=== PATIENT | female | born 1955 | race Caucasian/White ===

== ENCOUNTER 2024-01-20 10:00 | Emergency (ER) | payer MEDICARE, SELFPAY ==
[2024-01-20 10:08] VITALS: BP 133/69; BMI 51.5
[2024-01-20 10:35] LABS: % Basophils 0.4 % (0-2); % Eosinophils 2.4 % (0-6); % Immature Granulocytes 0.5 % (0-0.5); % Lymphocytes 8.2 % (20.5-51.1); % Monocytes 7.1 % (1.7-9.3); % Neutrophils 81.4 % (42.2-75.2); Absolute Eosinophils 0.3 10^3/uL (0-0.7); Absolute Immature Granulocytes 0.1 10^3/uL (0-0.05); Absolute Lymphocytes 0.9 10^3/uL (1.2-3.4); Absolute Monocytes 0.8 10^3/uL (0.1-0.6); Absolute Neutrophils 8.7 10^3/uL (1.4-6.5); Hemoglobin 12.9 g/dL (12.0-16.0); Mean Corp Hgb Conc. 30.7 g/dL (33.0-37.0); Mean Corpuscular Hgb 28.4 pg (27.0-31.0); Mean Corpuscular Volume 92.3 fL (81.0-99.0); Mean Platelet Volume 10.1 fL (7.4-10.4); Nucleated Red Blood Cells % 0 %; Platelet Count 274 10^3/uL (130-400); Red Blood Cell Count 4.55 10^6/uL (4.20-5.40); Red Cell Dist. Width 14.2 % (11.5-14.5); White Blood Cell Count 10.7 10^3/uL (4.8-10.8)
[2024-01-20 10:54] LABS: COVID-19 Antigen Negative (Negative)
[2024-01-20 11:15] VITALS: BP 108/77
--- NOTE | 2024-01-20 11:31 | ED.GENMED ---
History of Present Illness
General
Chief Complaint: Cough
Source: patient
Exam Limitations: none
Time Seen by Provider: 01/20/24 10:13
Nursing documentation reviewed up to this point in time: agreed with
Travel History
Have you had any contact with someone who has COVID-19?: No
Do you have any symptoms of coronavirus? Fever > 100 degrees, chills, cough, shortness of breath, sore throat, loss of taste or smell, muscle aches, or headache?: No
History of Present Illness
History of Present Illness:
Patient is a 68-year-old female with history of COPD on 5 L nasal cannula oxygen normally history A-fib CHF hypertension presents to the ER for evaluation of cough for the past few days with some diarrhea. She does report cough is productive at
times. No new shortness of breath. She denies any associated fever chills. Patient
She also is asking for assistance at home. She reports she lives with her who is an alcoholic and her daughter. She reports she is often left alone a lot her daughter does try to care for her and cleans the house but she feels that it is
too much for her daughter. She is asking about getting more assistance for home care. Patient is stable and non toxic
Past History
Past History
ED Past Medical History: CHF, COPD and HTN
ED Past Surgical History: None
Social History
Tobacco: Former smoker
Alcohol: None
Personal:
Living: with family
Review of Systems
Review of Systems
Allergies reviewed?: Yes
All Other Systems: ROS reviewed and negative except as documented in HPI and ROS
Constitutional: Reports no symptoms; Denies fever, fatigue or chills
EENT: Reports no symptoms
Respiratory: Reports cough
Cardiac: Reports no symptoms
ABD/GI: Reports no symptoms
Musculoskeletal: Reports no symptoms
Skin: Reports no symptoms
Neurological: Reports no symptoms
Phy Exam
General Physical Exam
General Presentation: no apparent distress
General age: appears stated age
General Skin: warm and dry
General Habitus: elderly
General Mental: alert
General Hydration: appears well hydrated
Neurological Exam
Neurological Exam: alert and oriented x3
Musculoskeletal Exam
Musculoskeletal Exam: full ROM
Skin Exam
Skin Exam: normal color and warm/dry
Course
Orders/Labs/Results
Orders:
Orders
01/20/24 10:12
CR Chest - 2 Views Urgent
Comment:
Reason For Exam: cough, sob
01/20/24 10:19
COVID-19 Antigen Urgent
Source: Nasal Swab
Complete Blood Count/With Diff Urgent
Influenza A+B Rapid Molecular Urgent
PUJA Source: Nasal Swab
Specimen Description:
01/20/24 11:04
Comprehensive Metabolic Panel Routine
01/20/24 11:46
Case Management Consult ONCE
Case Management Consult: VN/Home Care
Requested By:: PT/FAMILY
01/20/24 11:57
Dexamethasone Sod Phosphate [Decadron] 10 mg IV NOW STA
01/20/24 11:58
Albuterol Nebs [Ventolin Nebules] 2.5 mg INH R NOW STA
Abnormal Lab Results
01/20/24 01/20/24
10:19 11:04
MCHC 30.7 L g/dL
(33.0-37.0)
Abs Immat Gran (auto) 0.1 H 10^3/uL
(0-0.05)
Absolute Neuts (auto) 8.7 H 10^3/uL
(1.4-6.5)
Absolute Lymphs (auto) 0.9 L 10^3/uL
(1.2-3.4)
Absolute Monos (auto) 0.8 H 10^3/uL
(0.1-0.6)
Neutrophils % 81.4 H %
(42.2-75.2)
Lymphocytes % 8.2 L %
(20.5-51.1)
Chloride 97 L mmol/L
(98-107)
Carbon Dioxide 38 H mmol/L
(22-30)
BUN 34 H mg/dl
(7-17)
Glucose 101 H mg/dl
(70-99)
01/20/24 10:19
01/20/24 11:04
Vital Signs
Initial and Last Documented VS:
Initial Vital Signs
Pulse Ox
98
01/20/24 10:07
Last Documented Vital Signs
Temp Pulse Resp BP Pulse Ox
98.5 F 61 18 115/89 97
01/20/24 10:08 01/20/24 12:15 01/20/24 11:30 01/20/24 12:00 01/20/24 10:08
MDM/Problems Addressed
Differential Diagnosis Includes:
not limited to: COPD exacerbation viral syndrome
MDM/Problems Addressed:
68 yr old female with history of COPD complains of cough for the past few days. Mild intermittent diarrhea. She is on chronic O2 for COPD. She presents awake alert no acute distress she denies any fevers is afebrile here mild x-ray wheeze on
exam white count 10.7. Chest x-ray negative for acute pulmonary abnormalities. There is an incidental compression fracture which she is aware of this.
She is in no acute distress. She was given a neb here along with steroids. In addition she requested to speak to somebody about getting extra help at home. Case management saw patient and going to refer her to [facility] and [facility] lerner. She stable
awake alert no acute distress stable for discharge home will DC on 4 days of steroids patient has nebs and inhalers at home will have her follow-up with her Pulmonary.
*Critical Care Note
Total Time (30-74mins, 75-104mins- exclusive of procedures): Not Applicable
ED Attending Note
-
Portions of this chart may have been created with voice recognition software.� Occasional wrong word or��sound alike� substitutions may have occurred due to the inherent limitations of voice recognition software.
Discharge Plan
Departure
Patient Disposition: Home (Routine Discharge)
Date of Disposition: 01/20/24
Time of Disposition: 13:12
Patient with high blood pressure during this ER visit?: No
Covid-19: Not Applicable
Discharge Problem:
Cough, copd exacerbation
Instructions: Cough, Adult (DC), Exacerbation of COPD (DC)
Prescriptions:
New
prednisone 20 mg tablet
40 mg PO DAILY Qty: 8 0RF
No Action
levothyroxine 100 MCG tablet
100 mcg PO DAILY AT 0700
albuterol sulfate 1 PUFF HFA aerosol inhaler
2 puff inhalation R Q4HPRN PRN (Reason: copd)
omeprazole 20 MG tablet,disintegrat, delay rel
20 mg PO DAILY
furosemide 40 MG tablet
40 mg PO BID AT 0800,1600 Qty: 60 0RF
sertraline 25 MG tablet
25 mg PO DAILY Qty: 0 0RF
Eliquis 5 MG tablet
5 mg PO BID Qty: 0 0RF
Hold Instructions: Resume on 01/17/23.
therapeutic multivitamin Tablet
1 tab PO DAILY
omega 3-aig-qdy-fish oil [Fish Oil] 1,000 mg (120 mg-180 mg) Capsule
1 cap PO DAILY
metoprolol succinate 25 mg Tablet Extended Release 24 Hr
25 mg PO DAILY Qty: 30 0RF
calcium carbonate 500 mg calcium (1,250 mg) Tablet
1,000 mg PO DAILY
cholecalciferol (vitamin D3) [Vitamin D3] 25 mcg (1,000 unit) Capsule
25 mcg PO DAILY
lisinopril 20 mg tablet
20 mg PO DAILY
oxycodone-acetaminophen 5-325 mg Tablet
1 tab PO Q4HPRN PRN (Reason: moderate pain) Qty: 20 0RF
hydrocortisone 2.5 % Cream
1 applic topical BID 14 Days Qty: 60 0RF
colchicine 0.6 mg Tablet
0.6 mg PO BID 7 Days Qty: 14 0RF
Metamucil Fiber Singles 3.4 gram Powder In Packet
1 packet PO DAILY Qty: 0 0RF
doxycycline hyclate 100 mg capsule
100 mg PO BID 10 Days Qty: 20 0RF
fluticasone propionate [Flovent HFA] 220 mcg/actuation HFA aerosol inhaler
1 inh inhalation BID Qty: 12 0RF
miconazole nitrate [Desenex] 2 % powder
1 applic topical BID Qty: 85 0RF
Referrals:
Ji Naidu MD [Active] -
Aden Jeffrey MD [Family Provider] -
Activity Restrictions/Additional Instructions:
Continue to use your inhaler and nebulizers as previously recommended. A prescription for steroids was sent to your pharmacy to take daily for the next 4 days. You were given the first dose here in the ER. [facility] visiting nurse will be
following up with you as discussed with case management. Return if any worsening of symptoms.
Follow-up with your family doctor the next several days as well as your waterproofer helper
Interventions
Interventions:
*Risk Screen - Suicide Last Done: 01/20/24 10:07
*General Assessment Last Done: 01/20/24 10:07
*Neglect/Abuse Screening Last Done: 01/20/24 10:07
ED- Fall Risk Assessment Last Done: 01/20/24 10:13
*ED COVID-19 Vaccine History Last Done: 01/20/24 10:02
ED- Pulmonary Assessment Last Done: 01/20/24 10:07
Discharge Date and Time
Print Language: CZECH
[2024-01-20 11:40] LABS: ALT (SGPT) 18 U/L (0-35); AST (SGOT) 23 U/L (14-36); Albumin 3.9 g/dl (3.5-5.0); Alkaline Phosphatase 93 U/L (38-126); Blood Urea Nitrogen 34 mg/dl (7-17); Calcium 8.7 mg/dl (8.4-10.2); Chloride 97 mmol/L (98-107); Estimated Creatinine Clearance 78 ml/min; Glucose 101 mg/dl (70-99); Sodium 143 mmol/L (135-145); Total Bilirubin 0.4 mg/dl (0.2-1.3); Total Protein 6.7 g/dl (6.3-8.2); eGFR > 60.00
[2024-01-20 11:57] LABS: Carbon Dioxide 38 mmol/L (22-30)
[2024-01-20 12:00] VITALS: BP 115/89
[2024-01-20] MEDS: DECADRON 10 MG IV (12:15)
[2024-01-20] MEDS: VENTOLIN NEBULES 2.5 MG INH (12:15)
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
[2024-01-20 13:00] VITALS: BP 116/91
[2024-01-20 13:52] VITALS: BP 131/109
== END 2024-01-20 14:53 | disposition home or self-care (01) ==
LOC: EMR 10:00
PROVIDERS: EMERGENCY PHYSICIAN Emergency Medicine; FAMILY PHYSICIAN Internal Medicine
DX: R05.9 Cough, unspecified (principal); J44.1 Chronic obstructive pulmonary disease with (acute) exacerbation; I50.9 Heart failure, unspecified; I11.0 Hypertensive heart disease with heart failure; Z87.891 Personal history of nicotine dependence
CPT/HCPCS: 99284; 94640; 96374; 71046; 80053; 85025; 87502; 87811

== ENCOUNTER 2024-01-25 09:57 | Inpatient (IN) | payer MEDICARE, SELFPAY ==
[2024-01-25 07:55] VITALS: BP 168/75
[2024-01-25 08:05] VITALS: BMI 50.8
--- NOTE | 2024-01-25 08:21 | ED.GENMED ---
History of Present Illness
General
Chief Complaint: Breathing Problem
Source: patient
Exam Limitations: none
Time Seen by Provider: 01/25/24 07:55
Nursing documentation reviewed up to this point in time: agreed with
Travel History
Have you had any contact with someone who has COVID-19?: No
Do you have any symptoms of coronavirus? Fever > 100 degrees, chills, cough, shortness of breath, sore throat, loss of taste or smell, muscle aches, or headache?: Yes
Symptoms:: SOB
History of Present Illness
History of Present Illness:
Patient with history of oxygen dependent COPD (5L via NC), presents to ED secondary to persistent cough with shortness of breath, along with decreased appetite over the past 2 weeks. Patient was evaluated in ED 2 days ago and was discharged home on
steroids. Since then, patient states that her symptoms have worsened. Denies chest pain. Denies back pain. Denies fever or chills. Denies nausea, vomiting, or diarrhea. Denies rash. Denies headache. Patient also reports increased leg
swelling, despite taking Lasix. Patient's past medical history is also significant for atrial fibrillation, for which she takes Eliquis daily.
Past History
Past History
ED Past Medical History: CHF, COPD and HTN
ED Past Surgical History: None
Social History
Tobacco: Former smoker
Alcohol: None
Personal:
Living: with family
Review of Systems
Review of Systems
Allergies reviewed?: Yes
All Other Systems: ROS reviewed and negative except as documented in HPI and ROS
Constitutional: Reports no symptoms; Denies fever
EENT: Reports no symptoms
Respiratory: Reports cough and trouble breathing
Cardiac: Reports no symptoms
ABD/GI: Reports no symptoms
Musculoskeletal: Reports no symptoms
Skin: Reports no symptoms
Neurological: Reports no symptoms
Phy Exam
Physical Exam
Physical Exam:
Physical Exam
General: mild respiratory distress, not acutely ill. afebrile
Head: nc/at. eomi
Neck: supple. no meningeal signs. normal posterior pharynx
Heart: s1/s2 regular rate and rhythm, no murmur. equal radial pulses.
Lungs: mild respiratory distress. diffuse wheezing bilaterally
Abdomen: normal bowel sounds. not tender.
Neuro: alert and oriented. no focal neurological deficits
Skin: no rash
Psychiatric: well kept. interactive and cooperative
Extremities: LE b/l edema. no calf tenderness.
Scores
Heart Failure Risk
Heart Failure Risk Score: Not Applicable
Course
Orders/Labs/Results
Orders:
Orders
01/25/24 08:06
ECG [Electrocardiogram (*1)] Urgent
Reason for Study: Shortness of Breath
EKG- Treatment ONCE
01/25/24 08:19
CT Chest W/o Iv Contrast Urgent
Comment:
Reason For Exam: cough/sob
Albuterol Nebs [Ventolin Nebules] 2.5 mg INH R NOW STA
Guaifenesin/Codeine Solution [Robitussin AC] 10 ml PO NOW STA
Ipratropium/Albuterol Sulfate [Duoneb] 3 ml INH R NOW STA
01/25/24 08:20
Dexamethasone Sod Phosphate [Decadron] 6 mg IV NOW STA
01/25/24 08:22
Complete Blood Count/With Diff Urgent
Comprehensive Metabolic Panel Urgent
Magnesium Urgent
Pro-BNP [NT-proBNP] Urgent
01/25/24 08:29
Acetaminophen [Tylenol] 650 mg PO NOW STA
01/25/24 09:08
Lactic Acid Q4H
Comment: CANCEL 2nd LACTIC ACID IF 1st LACTIC ACID IS LESS THAN 2
Blood Culture Q30M
PUJA Source: Blood/Venous
Specimen Description:
01/25/24 09:09
Blood Culture Q30M
PUJA Source: Blood/Venous
Specimen Description:
01/25/24 09:28
Azithromycin 500 mg/250 ml [Zithromax Infusion] 500 mg in 250 ml IV NOW
01/25/24 09:34
Admit/Transfer Patient As Directed
Co-Sign Provider:
Level of Care: Inpatient admission
Assign to:: Telemetry
Physician / Group: Hospitalist
Diagnosis: COPD
Reason for Telemetry: Medication for Arrhythmia
Date to Stop Telemetry: 01/27/24
Time to Stop Telemetry: 11:00
Reason for Hospitalization: .
Expected length of stay greater than two midnights?: Yes
ELOS- Estimated Length of Stay in days: 3
I certify the patient meets the requirements for IP care: Yes
01/25/24 20:00
Apixaban [Eliquis] 5 mg PO BID
Colchicine 0.6 mg PO BID
Metoprolol Xl [Toprol Xl] 25 mg PO BID
01/26/24 07:00
Levothyroxine [Synthroid] 100 mcg PO DAILY AT 0700
01/26/24 08:00
Lisinopril [Zestril] 20 mg PO DAILY
Sertraline HCl [Zoloft] 25 mg PO DAILY
01/27/24 11:00
DC Protocol for Telemetry ONCE
Abnormal Lab Results
01/25/24
08:22
WBC 13.4 H 10^3/uL
(4.8-10.8)
MCHC 29.9 L g/dL
(33.0-37.0)
Abs Immat Gran (auto) 0.1 H 10^3/uL
(0-0.05)
Absolute Neuts (auto) 10.6 H 10^3/uL
(1.4-6.5)
Absolute Monos (auto) 1.0 H 10^3/uL
(0.1-0.6)
Neutrophils % 79.7 H %
(42.2-75.2)
Lymphocytes % 9.6 L %
(20.5-51.1)
Sodium 146 H mmol/L
(135-145)
Chloride 94 L mmol/L
(98-107)
Carbon Dioxide 38 H mmol/L
(22-30)
BUN 26 H mg/dl
(7-17)
Glucose 111 H mg/dl
(70-99)
01/25/24 08:22
01/25/24 08:22
Vital Signs
Initial and Last Documented VS:
Initial Vital Signs
Temp Pulse Resp BP Pulse Ox
98.6 F 79 26 168/75 99
01/25/24 07:55 01/25/24 07:55 01/25/24 07:55 01/25/24 07:55 01/25/24 07:55
Last Documented Vital Signs
Temp Pulse Resp BP Pulse Ox
99 F 82 18 144/74 95
01/25/24 11:40 01/25/24 12:05 01/25/24 11:40 01/25/24 11:40 01/25/24 12:05
MDM/Problems Addressed
MDM/Problems Addressed:
CT chest without contrast ordered, secondary to ongoing symptoms despite recent normal chest x-ray.
CT chest report reviewed.
Patient with likely COPD exacerbation, likely secondary to ongoing bronchitis, despite treatment with steroids as an outpatient. Patient will be admitted for further evaluation treatment, including IV steroids, nebulizer treatment, and/or
antibiotics. Will administer Zithromax in ED.
Blood culture pending.
*EKG
Interpreted by ED Provider?: Yes
EKG Intrepretation Date: 01/25/24
Interpretation: normal
Heart Rate: 81
Rhythm: sinus
[place]: normal axis
Interval: normal interval
*Critical Care Note
Total Time (30-74mins, 75-104mins- exclusive of procedures): Not Applicable
ED Attending Note
-
Portions of this chart may have been created with voice recognition software.� Occasional wrong word or��sound alike� substitutions may have occurred due to the inherent limitations of voice recognition software.
Discharge Plan
Departure
Patient Disposition: Admit
Date of Disposition: 01/25/24
Time of Disposition: 09:27
Admit to: Telemetry
Presentation/result/management discussed w/ accepting MD/DO: Hospitalist
Discharge Problem:
COPD exacerbation, Bronchitis
Interventions
Interventions:
*Risk Screen - Suicide Last Done: 01/25/24 07:55
*General Assessment Last Done: 01/25/24 07:55
*Neglect/Abuse Screening Last Done: 01/25/24 07:55
ED- Fall Risk Assessment Last Done: 01/25/24 10:43
*Nursing Disposition Last Done: 01/25/24 11:30
ED- Cardiac Assessment Last Done: 01/25/24 10:43
ED- Pulmonary Assessment Last Done: 01/25/24 10:43
Discharge Date and Time
Discharge Date/Time: 01/25/24 11:31
[2024-01-25 08:33] LABS: % Basophils 0.4 % (0-2); % Eosinophils 2.1 % (0-6); % Immature Granulocytes 0.5 % (0-0.5); % Lymphocytes 9.6 % (20.5-51.1); % Monocytes 7.7 % (1.7-9.3); % Neutrophils 79.7 % (42.2-75.2); Absolute Basophils 0.1 10^3/uL (0-0.2); Absolute Eosinophils 0.3 10^3/uL (0-0.7); Absolute Immature Granulocytes 0.1 10^3/uL (0-0.05); Absolute Lymphocytes 1.3 10^3/uL (1.2-3.4); Absolute Neutrophils 10.6 10^3/uL (1.4-6.5); Hematocrit 46.1 % (37.0-47.0); Hemoglobin 13.8 g/dL (12.0-16.0); Mean Corp Hgb Conc. 29.9 g/dL (33.0-37.0); Mean Corpuscular Hgb 28.1 pg (27.0-31.0); Mean Corpuscular Volume 93.9 fL (81.0-99.0); Mean Platelet Volume 9.8 fL (7.4-10.4); Nucleated Red Blood Cells % 0 %; Platelet Count 309 10^3/uL (130-400); Red Blood Cell Count 4.91 10^6/uL (4.20-5.40); Red Cell Dist. Width 14.2 % (11.5-14.5); White Blood Cell Count 13.4 10^3/uL (4.8-10.8)
[2024-01-25 08:44] LABS: ALT (SGPT) 29 U/L (0-35); AST (SGOT) 28 U/L (14-36); Albumin 4.1 g/dl (3.5-5.0); Alkaline Phosphatase 103 U/L (38-126); Blood Urea Nitrogen 26 mg/dl (7-17); Calcium 9.3 mg/dl (8.4-10.2); Chloride 94 mmol/L (98-107); Estimated Creatinine Clearance 97 ml/min; Glucose 111 mg/dl (70-99); Magnesium 1.9 mg/dl (1.6-2.3); Potassium 3.7 mmol/L (3.5-5.1); Sodium 146 mmol/L (135-145); Total Bilirubin 0.5 mg/dl (0.2-1.3); Total Protein 7.5 g/dl (6.3-8.2); eGFR > 60.00
[2024-01-25 08:52] LABS: NT-proBNP 490 pg/ml
[2024-01-25] MEDS: VENTOLIN NEBULES 2.5 MG INH (08:57)
[2024-01-25] MEDS: DUONEB 3 ML INH ×4 (08:57→19:27)
[2024-01-25] MEDS: ROBITUSSIN AC 10 ML PO (08:57)
[2024-01-25] MEDS: DECADRON 6 MG IV (08:57)
[2024-01-25] MEDS: TYLENOL 650 MG PO (08:58)
[2024-01-25 09:14] LABS: Carbon Dioxide 38 mmol/L (22-30)
--- NOTE | 2024-01-25 09:34 | HPS.HSE ---
Family Physician
-
Family Physician: * NONE
Chief Complaint
-
Shortness of breath for 2 weeks
History of Present Illness
68 years old 68 years old female who presented with shortness of breath for 2 weeks duration, patient complained of cough with whitish-greenish sputum. No fever or chills. She was using her nebulizer treatment with no interruption. She has
COPD and quit smoking 5 years ago. She came into the emergency room few days ago ( 01/20/24) and was given a prednisone and oral antibiotic but did not help. She is complaining of difficulty ambulating at home and respiratory distress upon minimal
activity. She uses 5 L of oxygen and oxygen on arrival was 98%. Chest scan showed bronchial wall thickening in the left lung compatible with a bronchitis with mild patchy areas of nodular parenchymal opacities suggesting small airway pneumonitis
with a bronchitis. Leukocytosis on admission.
Medical History
Past Medical History
Past Medical History: Reports Other ( Chronic heart failure, paroxysmal atrial fibrillation, hypertension, hyperlipidemia, chronic hypoxic respiratory failure, COPD, hypothyroidism, morbid obesity)
Past Surgical History: Reports Other ( No recent major surgery )
Social History
Tobacco: Former Smoker
Alcohol: None
Drug: None
Personal:
Living: With Family
Employment: Retired
Family History
Family History: Not pertinent
Allergies / Home Medications
Allergies reflects when Allergies were last updated in [facility].
Home Medications with original date entered in [facility]
Allergy/Medication List:
Allergies
Allergy/AdvReac Type Severity Reaction Status Date / Time
No Known Allergies Allergy Verified 01/25/24 07:55
Home Medications
albuterol sulfate 90 mcg/actuation aerosol inhaler 2 puff inhalation R Q4HPRN PRN copd 01/30/21
levothyroxine 100 mcg tablet 100 mcg PO DAILY AT 0700 Thyroid 01/30/21
omeprazole 20 mg delayed release,disintegrating tablet 20 mg PO DAILY Gastrointestinal issue 01/30/21
apixaban 5 mg tablet (Eliquis) 5 mg PO BID Blood clot prevention/tx #0 tabs 02/04/21
furosemide 40 mg tablet 40 mg PO BID AT 0800,1600 Fluid retention/Swelling #60 tabs 02/04/21
sertraline 25 mg tablet 25 mg PO DAILY Depression #0 tabs 02/04/21
omega 9-jwv-hni-fish oil 1,000 mg (120 mg-180 mg) capsule (Fish Oil) 1 cap PO DAILY Supplement 12/17/22
therapeutic multivitamin 1 tab PO DAILY Supplement 12/17/22
metoprolol succinate 25 mg tablet,extended release 24 hr 25 mg PO DAILY #30 tabs 12/21/22
calcium carbonate 1,000 mg PO DAILY Supplement 01/14/23
cholecalciferol (vitamin D3) 25 mcg (1,000 unit) capsule (Vitamin D3) 25 mcg PO DAILY Supplement 01/14/23
lisinopril 20 mg tablet 20 mg PO DAILY Blood pressure 01/15/23
colchicine 0.6 mg tablet 0.6 mg PO BID 7 days #14 tabs 01/16/23
hydrocortisone 2.5 % topical cream 1 applic topical BID 14 days #60 grams 01/16/23
oxycodone-acetaminophen 5 mg-325 mg tablet 1 tab PO Q4HPRN PRN moderate pain #20 tabs 01/16/23
psyllium husk (aspartame) 3.4 gram oral powder packet (Metamucil Fiber Singles) 1 packet PO DAILY #0 ea 01/16/23
fluticasone propionate 220 mcg/actuation HFA aerosol inhaler (Flovent HFA) 1 inh inhalation BID #12 grams 05/21/23
miconazole nitrate 2 % topical powder (Desenex) 1 applic topical BID #85 grams 05/21/23
prednisone 20 mg tablet 40 mg (2 x 20 mg) PO DAILY #8 tabs 01/20/24
Review of Systems
-
History Source: Patient
A 12 point ROS was completed and negative except as noted: Yes
Constitutional: Denies Fever or Chills
EENT: Denies Sore Throat
Respiratory: Reports Cough and Trouble Breathing
Cardiac: Denies Chest Pain
Abdomen/GI: Denies Abdominal Pain
: Denies Dysuria
Musculoskeletal: Denies Joint Pain or Joint Swelling
Skin: Denies Rash
Neurological: Denies Numbness
Endocrine: Denies Temp Intolerance
Hematologic/Lymphatic: Denies Bruising
Psych: Denies Panic Disorder
Physical Exam
Vital Signs
Vital Signs
Temp Pulse Resp BP Pulse Ox
98.6 F 79 26 168/75 99
01/25/24 07:55 01/25/24 07:55 01/25/24 07:55 01/25/24 07:55 01/25/24 07:55
Physical Exam
General: Respiratory Distress and Obese
HEENT: Moist mucous membranes and Atraumatic
Respiratory: Wheezes, Rales and Rhonchi
Cardiac: S1/S2 and Regular Rhythm
GI: Soft and Non Tender
Rectal: No Maroon Stools
Genito-urinary: No costovertebral tender
Musculoskeletal: No Clubbing, No Cyanosis, Edema, Left Lower Extremity and Edema, Right Lower Extremity
Skin: Warm; No Jaundice
Neuro: AO x 3 and Nonfocal/grossly intact
Psych: Calm and Intact Judgment/Insight
Laboratory Results
-
01/25/24 08:22
01/25/24 08:22
Laboratory Results
Total Bilirubin 0.5 mg/dl (0.2-1.3) 01/25/24 08:22
AST 28 U/L (14-36) 01/25/24 08:22
ALT 29 U/L (0-35) 01/25/24 08:22
Alkaline Phosphatase 103 U/L (38-126) 01/25/24 08:22
Impression/Plan
-
68 years old female presented with acute respiratory distress and worsening shortness of breath over the last 2-week
Acute respiratory distress, chronic hypoxic Respiratory Failure on home oxygen 5 L
Acute COPD exacerbation/acute bronchitis
Admit the patient to the hospital on telemetry floor
Continue nebulizer treatment with DuoNeb 4 times daily and Pulmicort twice daily
Empiric intravenous Rocephin with Zithromax
Primary rn forensic Dr. Duran
Monitor response.
negative lactic acidosis
Blood cultures X2
She had recent negative influenza screen and COVID screen
As needed Tessalon for cough and Mucinex twice daily
Appreciate pulmonary input
# Chronic heart failure with preserved ejection fraction
Last echocardiogram in December 2022 showed LVEF 55 to 60% with mild aortic stenosis.
Continue with daily Lasix
-Daily weights
-Continue telemetry monitoring
# History of paroxysmal atrial fibrillation/incomplete right bundle branch block
-Continue Eliquis 5 mg BID
-Amiodarone previously stopped due to elevated transaminases. Continue with Toprol
-Continue telemetry monitoring
#History of Sleep Apnea
# Obesity, BMI 50
# hypernatremia
DVT Prophylaxis:�Eliquis
Diet:�Patient would like to continue with regular diet
Code Status:�Full Code
Total time spent to see the patient, examine the patient on the floor, review data and lab results, discuss treatment plan with patient, ER doctor and nursing staff around 75 minutes
[2024-01-25 09:36] LABS: Lactic Acid 1.3 mmol/L (0.7-2.0)
[2024-01-25] MEDS: ZITHROMAX INFUSION 250 IV (10:04)
[2024-01-25 11:40] VITALS: BP 144/74; BMI 50.6
[2024-01-25] MEDS: ROCEPHIN 1000 MG IV (12:00)
--- NOTE | 2024-01-25 12:00 | PTCARENOTE ---
Pt admitted to room 406-2. Slide transferred from stretcher to bed. VSS. Tele showing NSR. Pt oriented to room and has call del rosario within reach.
[2024-01-25] MEDS: STERILE WATER FOR INJECTION 10 ML IV (12:01)
[2024-01-25 12:35] VITALS: BMI 50.6
--- NOTE | 2024-01-25 14:54 | CON.PUL ---
Consultation
Consultation Request
Date/Time Consultation Requested: 01-25-24
Date/Time Consultation Performed: 01-25-24
Requesting Provider: Hospitalist Nae
Performing Provider: Dr Palacios
Reason for Consultation: dyspnea
Medical History
-
Chief Complaint: dyspnea
History of Present Illness:
Ms Janette Cherry is a 68/W adm 01-24 wtih 1 wk h/o dyspnea and cough productive of light green sputum.
Known h/o very severe COPD on home O2 5L, LUZ MARINA/suspected OHS on BPAP.
Seen at ER 01-19, d/c on 4 d prednisone course, did not improve and returned
Seen at [facility], improved dyspnea, still wheezing but improving
Past Medical History
Past Medical History: Other (see A&P for PMH/PSH)
Social History
Tobacco: Former Smoker
Alcohol: None
Drug: None
Personal:
Living: With Family
Employment: Not Employed
Family History
Family History: Reviewed & Not Pertinent
Allergies / Home Medications
Allergies
Allergy/AdvReac Type Severity Reaction Status Date / Time
No Known Allergies Allergy Verified 01/25/24 07:55
Home Medications
�Medication �Instructions �Recorded �Confirmed �Last Taken �Type
albuterol sulfate 90 mcg/actuation 2 puff inhalation R Q4HPRN PRN copd 01/30/21 01/25/24 01/24/24 History
aerosol inhaler
levothyroxine 100 mcg tablet 100 mcg PO DAILY AT 0700 Thyroid 01/30/21 01/25/24 01/24/24 History
omeprazole 20 mg delayed 20 mg PO DAILY Gastrointestinal 01/30/21 01/25/24 01/24/24 History
release,disintegrating tablet issue
apixaban 5 mg tablet (Eliquis) 5 mg PO BID Blood clot 02/04/21 01/25/24 01/24/24 Rx
prevention/tx #0 tabs
furosemide 40 mg tablet 40 mg PO BID AT 0800,1600 Fluid 02/04/21 01/25/24 01/24/24 Rx
retention/Swelling #60 tabs
sertraline 25 mg tablet 25 mg PO DAILY Depression #0 tabs 02/04/21 01/25/24 01/24/24 Rx
omega 5-zry-bvl-fish oil 1,000 mg 1 cap PO DAILY Supplement 12/17/22 01/25/24 01/24/24 History
(120 mg-180 mg) capsule (Fish Oil)
therapeutic multivitamin 1 tab PO DAILY Supplement 12/17/22 01/25/24 01/24/24 History
metoprolol succinate 25 mg 25 mg PO DAILY #30 tabs 12/21/22 01/25/24 01/24/24 Rx
tablet,extended release 24 hr
calcium carbonate 1,000 mg PO DAILY Supplement 01/14/23 01/25/24 01/24/24 History
cholecalciferol (vitamin D3) 25 25 mcg PO DAILY Supplement 01/14/23 01/25/24 01/24/24 History
mcg (1,000 unit) capsule (Vitamin
D3)
lisinopril 20 mg tablet 20 mg PO DAILY Blood pressure 01/15/23 01/25/24 01/24/24 History
colchicine 0.6 mg tablet 0.6 mg PO BID 7 days #14 tabs 01/16/23 01/25/24 01/24/24 Rx
hydrocortisone 2.5 % topical cream 1 applic topical BID 14 days #60 01/16/23 01/25/24 01/24/24 Rx
grams
oxycodone-acetaminophen 5 mg-325 1 tab PO Q4HPRN PRN moderate pain 01/16/23 01/25/24 01/24/24 Rx
mg tablet #20 tabs
psyllium husk (aspartame) 3.4 gram 1 packet PO DAILY #0 ea 01/16/23 01/25/24 01/24/24 Rx
oral powder packet (Metamucil
Fiber Singles)
fluticasone propionate 220 1 inh inhalation BID #12 grams 05/21/23 01/25/24 01/24/24 Rx
mcg/actuation HFA aerosol inhaler
(Flovent HFA)
miconazole nitrate 2 % topical 1 applic topical BID #85 grams 05/21/23 01/25/24 01/24/24 Rx
powder (Desenex)
prednisone 20 mg tablet 40 mg (2 x 20 mg) PO DAILY #8 tabs 01/20/24 01/25/24 01/24/24 Rx
Review of Systems
-
History Source: Patient
All other systems: Negative unless noted
Constitutional: Fatigue
Respiratory: Cough and Trouble Breathing
Neuro: Weakness
Vitals / Labs / Diagnostic Testing
Vital Signs
Temp Pulse Resp BP Pulse Ox
99 F 82 18 144/74 95
01/25/24 11:40 01/25/24 12:05 01/25/24 11:40 01/25/24 11:40 01/25/24 12:05
Lab Data
01/25/24 08:22
01/25/24 08:22
Microbiology
01/25/24 11:25 Sputum Gram Stain - Preliminary
Diagnostic Testing:
Physical Exam
-
HEENT: Normocephalic, Moist Mucous Membranes and Thrush
Cardiovascular: Regular Rhythm, Murmur (n), Peripheral Edema (chronic mild L pedal edema), Calf Tenderness (n) and JVD (n)
Respiratory: Wheeze, Rhonchi and Accessory Resp Muscle Use (trace)
GI: Soft, Non Distended and Non Tender
Neurology: Awake, AO x 3 and No Motor Deficits
Skin: Warm
General: Respiratory Distress
Assessment
-
Assessment:
Ms Janette Cherry is a 68/W adm 01-24 wtih 1 wk h/o dyspnea and cough productive of light green sputum. Known h/o very severe COPD on home O2 5L, LUZ MARINA/suspected OHS on BPAP. Seen at ER 05-13, d/c on 4 d prednisone course.
Impression:
Ac/chronic resp failure
AECOPD
Trace ^Na
Chronically elevated total serum CO2
Normal BNP on adm
Conditions OCULAR CARE TECHNOLOGIST:
COPD, moderate to severe, on albuterol HFA/nebs and O2 (unfortunately unable to afford spiriva, stiolto, etc)
Chronic hypercapnic and hypercapnic respiratory failure, on home O2 at 5LPM on 24/ basis
LUZ MARINA, suspected OHS, on BPAP 24/08 with O2 4L (titration PSG Apr 2020)
Follows with Dr Harper and Meghna Davis HOSPITAL CNA at [facility], last visit 11-26-22 (records reviewed)
Chronic HFrEF
PAFib, diagnosed 11/2018, on apixaban
Elevated LFTs 01/2021 while on amiodarone therapy; normalized with discontinuation of amiodarone
Pulmonary hypertension
Bifascicular block, RBBB and LAFB
Morbid obesity, BMI 45.8
COVID-19 dx at [facility] 12/23/2020
Former smoker: 1 ppd for almost 50 y, quit 01/2019
Plan:
Continue O2 protocol
Currently on O2 NC 3L
Baseline O2 5-6 L
Reportedly her home O2 concentrator is able to deliver up to 10 LPM
Keep asp precs
MP 40 mg IV q12, continue
Eventual taper in dose and transition to prednisone (she is not on chronic CS)
Budesonide bid, continue
Blood cxs pending
Sputum cx pending
Ceftriaxone/ po azithromycin 500 mg qd, continue, will adjust depending on cx results and response
Dns qid and prn, continue
Continue outpatient BPAP 24/08 with O2 4L, office records showed good control of apnea and good compliance
Continue cardiac regimen
D/w Ms Jo Ann, all questions answered
She will follow with [facility] with Dr Harper as scheduled
Diagnostic tests:
CXR 01-20-24: underpenetrated, no gross infiltrates
CXR 12-17-22, c/w January and Sep. Enlarged hilar vessels, pulm parenchymal congestion (less than in and )
Chest CT s/c 01-24: no gross infiltrates. No other CT for comparison but an irregular area of suspected atelectasis is seen at anterobasilar RML
TTE 12-18-22:
CONCLUSIONS
Normal left ventricular size, wall thickness and systolic function. No regional wall motion abnormalities are seen. LV ejection fraction is 55-60%.
Mild aortic stenosis. Peak/mean gradients across the aortic valve are 42/23 mmHg, aortic valve area 1.2 cm2. No aortic regurgitation is seen.
Compared to previous echo from January 2021, there is now mild aortic stenosis.
RV normal size and function
Echo 01/31/21: EF 50%, stage I diastolic dysfunction, mildly dilated RV with reduced function of the apex, trace TR with PAP 30 mmHg
[facility] records 11-26-22
[2024-01-25 15:35] VITALS: BP 151/80
[2024-01-25] MEDS: LASIX 40 MG PO (17:09)
[2024-01-25] MEDS: PULMICORT 0.5 MG INH (19:26)
[2024-01-25 19:48] VITALS: BP 143/65
[2024-01-25] MEDS: ELIQUIS 5 MG PO (20:41)
[2024-01-25] MEDS: TOPROL XL 25 MG PO (20:41)
[2024-01-25] MEDS: COLCHICINE 0.599999999999999978 MG PO (20:42)
[2024-01-25] MEDS: SOLU-MEDROL PF 40 MG IV (20:46)
[2024-01-25 23:37] VITALS: BP 143/68
[2024-01-26] VITALS (9 sets, daily range): BP systolic 133–163; BP diastolic 65–88; BMI 50.7
[2024-01-26] MEDS: SYNTHROID 100 MCG PO (05:52)
[2024-01-26] MEDS: DUONEB 3 ML INH ×4 (06:11→19:13)
[2024-01-26] MEDS: PULMICORT 0.5 MG INH ×2 (06:12→19:13)
[2024-01-26] MEDS: ROBITUSSIN DM 5 ML PO (06:22)
[2024-01-26] MEDS: SOLU-MEDROL PF 40 MG IV ×2 (08:47→20:03)
[2024-01-26] MEDS: ELIQUIS 5 MG PO ×2 (08:48→20:01)
[2024-01-26] MEDS: TOPROL XL 25 MG PO ×2 (08:48→20:01)
[2024-01-26] MEDS: LASIX 40 MG PO ×2 (08:48→15:52)
[2024-01-26] MEDS: PROTONIX 40 MG PO (08:48)
[2024-01-26] MEDS: COLCHICINE 0.599999999999999978 MG PO ×2 (08:48→20:01)
[2024-01-26] MEDS: ZESTRIL 20 MG PO (08:48)
[2024-01-26] MEDS: ZITHROMAX 500 MG PO (08:48)
[2024-01-26] MEDS: ZOLOFT 25 MG PO (08:48)
[2024-01-26] MEDS: MUCINEX 600 MG PO ×2 (08:48→20:01)
--- NOTE | 2024-01-26 12:22 | CM ---
CM met with pt bedside
She was tearful during assessment over medical complexities
Pt resides with her spouse, daughter, and granddtr (5 y/o) in a rancher with ramp entrance
Pt notes independence with use of a rollator with ambulation
Pt recently has been transported in a WC due to weakness
Dtr assists pt with bathing and dressing at baseline
Spouse works FT out of the home and has own medical issues
Dtr works pt and available to help pt as needed
Pt has a rollator, cpap (bedside), home O2 (5 L baseline through [address] [place] [address] along with portable and [employer])
Pt has hx at [facility]
PCP- Jude Carranza
Rx- HOWIE [place]
PT/OT francisco requested as pt requires assistance in room per nursing
Pt noted she feel she may need SNF on dc
PAC list provided
Discharge Disposition- SNF vs home with VN
[2024-01-26] MEDS: ROCEPHIN 1000 MG IV (12:45)
[2024-01-26] MEDS: STERILE WATER FOR INJECTION 10 ML IV (12:45)
--- NOTE | 2024-01-26 12:51 | W.PN.HOSP.TC ---
Today's Communication/Plan
-
.
Assessment / Plan
Assessment / Plan
Physical Exam
General: Respiratory Distress and Obese
HEENT: Moist mucous membranes and Atraumatic
Respiratory: Wheezes, Rales and Rhonchi
Cardiac: S1/S2 and Regular Rhythm
GI: Soft and Non Tender
Rectal: No Maroon Stools
Genito-urinary: No costovertebral tender
Musculoskeletal: No Clubbing, No Cyanosis, Edema, Left Lower Extremity and Edema, Right Lower Extremity
Skin: Warm; No Jaundice
Neuro: AO x 3 and Nonfocal/grossly intact
Psych: Calm and Intact Judgment/Insight
68 years old female presented with acute respiratory distress and worsening shortness of breath over the last 2-week
Acute respiratory distress, chronic hypoxic Respiratory Failure on home oxygen 5 L
Acute COPD exacerbation/acute bronchitis
She feels better but has not tried to ambulate yet, no worsening hypoxia
Continue nebulizer treatment with DuoNeb 4 times daily and Pulmicort twice daily
Empiric intravenous Rocephin with Zithromax
Primary aircraft assembler Dr. Duran
negative lactic acidosis
Blood cultures X2 no growth in first 24-hour
Preliminary sputum culture showing respiratory david
She had recent negative influenza screen and COVID screen
As needed Tessalon for cough and Mucinex twice daily
Appreciate pulmonary input
# Chronic heart failure with preserved ejection fraction
Last echocardiogram in December 2022 showed LVEF 55 to 60% with mild aortic stenosis.
Continue with daily Lasix
-Daily weights
-Continue telemetry monitoring
# History of paroxysmal atrial fibrillation/incomplete right bundle branch block
-Continue Eliquis 5 mg BID
-Amiodarone previously stopped due to elevated transaminases. Continue with Toprol
-Continue telemetry monitoring
#History of Sleep Apnea
# Obesity, BMI 50
# hypernatremia
recheck BMP in am
DVT Prophylaxis:�Eliquis
Diet:�Patient would like to continue with regular diet
Code Status:�Full Code
d/w case operator, will do PT/OT
Total time spent to see the patient, examine the patient on the floor, review data and lab results, discuss treatment plan with patient, and nursing staff around 55 minutes
Anticipated Discharge: 24 - 48 hours
Subjective/Interval History
-
Date of Service: January 26, 2024
She feels better
less sob while in bed
No worsening cough
Objective Data
-
Vital Signs:
Vital Signs
Temp Pulse Resp BP Pulse Ox
99.4 F 65 18 133/88 98
01/26/24 11:05 01/26/24 11:05 01/26/24 11:05 01/26/24 11:05 01/26/24 11:05
I&O
01/25/24 01/26/24 01/27/24
06:59 06:59 06:59
Intake Total 1080 / 1080
Output Total 1500 / 1500
Balance -420 / -420
[2024-01-26] MEDS: TESSALON PERLES 200 MG PO (13:26)
--- NOTE | 2024-01-26 16:08 | W.PN.PUL3 ---
Today's Communication / Plan
-
O2
BDs
CS
Assessment
-
Assessment:
Ms Janette Cherry is a 68/W adm - wtih 1 wk h/o dyspnea and cough productive of light green sputum. Known h/o very severe COPD on home O2 5L, LUZ MARINA/suspected OHS on BPAP. Seen at ER 05-, d/c on 4 d prednisone course.
Impression:
Ac/chronic resp failure
AECOPD
Trace ^Na
Chronically elevated total serum CO2
Normal BNP on adm
Conditions IT SUPPORT CONSULTANT:
COPD, moderate to severe, on albuterol HFA/nebs and O2 (unfortunately unable to afford spiriva, stiolto, etc)
Chronic hypercapnic and hypercapnic respiratory failure, on home O2 at 5LPM on 24/ basis
LUZ MARINA, suspected OHS, on BPAP 24/08 with O2 4L (titration PSG Apr 2020)
Follows with Dr Harper and Meghna Davis APARTMENT COMMUNITY MANAGER at [facility], last visit 11-26-22 (records reviewed)
Chronic HFrEF
PAFib, diagnosed 11/2018, on apixaban
Elevated LFTs 01/2021 while on amiodarone therapy; normalized with discontinuation of amiodarone
Pulmonary hypertension
Bifascicular block, RBBB and LAFB
Morbid obesity, BMI 45.8
COVID-19 dx at [facility] 12/23/2020
Former smoker: 1 ppd for almost 50 y, quit 01/2019
Plan:
Continue O2 protocol
Currently on O2 NC 3L
Baseline O2 5-6 L
Reportedly her home O2 concentrator is able to deliver up to 10 LPM
Keep asp precs
Chest CT s/c 01-24 with no gross infiltrates
MP 40 mg IV q12, continue at same dose for now
Eventual taper in dose and transition to prednisone taper (she is not on chronic CS)
Budesonide bid, continue
Blood cxs so far negative
Sputum cx preliminary negative
Ceftriaxone/ po azithromycin 500 mg qd, continue, will adjust depending on cx results and response
Dns qid and prn, continue
Continue outpatient BPAP 24/08 with O2 4L, office records showed good control of apnea and good compliance
Continue cardiac regimen
D/w Ms Cherry, all questions answered
She will follow with [facility] with Dr Harper as scheduled
Diagnostic tests:
CXR 01-20-24: underpenetrated, no gross infiltrates
CXR 12-17-22, c/w January and Sep. Enlarged hilar vessels, pulm parenchymal congestion (less than in and )
Chest CT s/c 01-24: no gross infiltrates. No other CT for comparison but an irregular area of suspected atelectasis is seen at anterobasilar RML
TTE 12-18-22:
CONCLUSIONS
Normal left ventricular size, wall thickness and systolic function. No regional wall motion abnormalities are seen. LV ejection fraction is 55-60%.
Mild aortic stenosis. Peak/mean gradients across the aortic valve are 42/23 mmHg, aortic valve area 1.2 cm2. No aortic regurgitation is seen.
Compared to previous echo from January 2021, there is now mild aortic stenosis.
RV normal size and function
Echo 01/31/21: EF 50%, stage I diastolic dysfunction, mildly dilated RV with reduced function of the apex, trace TR with PAP 30 mmHg
[facility] records 11-26-22
Subjective Data
-
Date of Service:
Date of Service: January 26, 2024
Chief Complaint: Pulmonary Follow Up
Subjective:
No major events reported overnight
Continues on oxygen supplementation
Reports mild interim improvement of dyspnea and cough
Using outpatient PAP device
Review of Systems
General: Fever (n), Sweats (n), Chills (n) and Satisfactory Appetite
Cardiopulmonary: Dyspnea, Dyspnea on Exertion and Wheezing
GI: Abdominal Pain (n), Nausea (n) and Vomiting (n)
Neuro: Weakness
Objective Data
Data Reviewed
Vital Signs / I&O / Oxygen:
Vital Signs
Temp Pulse Resp BP Pulse Ox
98.2 F 68 20 152/67 97
01/26/24 15:00 01/26/24 15:00 01/26/24 15:00 01/26/24 15:00 01/26/24 15:00
Intake and Output
01/25/24 01/26/24 01/27/24
06:59 06:59 06:59
Intake Total 1080 / 1080
Output Total 1500 / 1500 825 / 825
Balance -420 / -420 -825 / -825
SaO2 97
Nasal Cannula flow liters per 5
minute
Physical Exam
General: Comfortable
HEENT: Normocephalic and Moist Mucous Membranes
Cardiovascular: Regular Rhythm, Murmur (n) and Peripheral Edema (trace SUE)
Respiratory: Wheeze and Rhonchi
GI: Soft, Non Distended and Non Tender
Neurology: Awake, AO x 3 and No Motor Deficits
Skin: Warm
Labs/Micro/Reports
Lab Data
01/25/24 08:22
01/25/24 08:22
Microbiology
01/25/24 11:25 Sputum Respiratory Culture - Preliminary
Usual Respiratory Annie
01/25/24 11:25 Sputum Gram Stain - Preliminary
01/25/24 09:08 Blood/Venous Blood Culture - Preliminary
No Growth in 24 hours- Final report to follow
01/25/24 09:09 Blood/Venous Blood Culture - Preliminary
No Growth in 24 hours- Final report to follow
[2024-01-27] VITALS (9 sets, daily range): BP systolic 134–159; BP diastolic 57–87; PULSE 68; O2SAT 97–98; BMI 50.3
[2024-01-27] MEDS: TESSALON PERLES 200 MG PO ×3 (00:45→19:50)
[2024-01-27 05:47] LABS: Hematocrit 44.2 % (37.0-47.0); Hemoglobin 13.3 g/dL (12.0-16.0); Mean Corp Hgb Conc. 30.1 g/dL (33.0-37.0); Mean Corpuscular Volume 93.1 fL (81.0-99.0); Mean Platelet Volume 10.2 fL (7.4-10.4); Platelet Count 340 10^3/uL (130-400); Red Blood Cell Count 4.75 10^6/uL (4.20-5.40); Red Cell Dist. Width 14.4 % (11.5-14.5)
[2024-01-27] MEDS: SYNTHROID 100 MCG PO (05:48)
[2024-01-27 06:09] LABS: ALT (SGPT) 27 U/L (0-35); AST (SGOT) 32 U/L (14-36); Albumin 3.8 g/dl (3.5-5.0); Alkaline Phosphatase 92 U/L (38-126); Blood Urea Nitrogen 43 mg/dl (7-17); Calcium 9.1 mg/dl (8.4-10.2); Chloride 93 mmol/L (98-107); Estimated Creatinine Clearance 96 ml/min; Glucose 124 mg/dl (70-99); Sodium 141 mmol/L (135-145); Total Bilirubin 0.5 mg/dl (0.2-1.3); eGFR > 60.00
[2024-01-27 06:34] LABS: Carbon Dioxide 38 mmol/L (22-30)
[2024-01-27] MEDS: PULMICORT 0.5 MG INH ×2 (07:06→20:29)
[2024-01-27] MEDS: DUONEB 3 ML INH ×4 (07:06→20:29)
--- NOTE | 2024-01-27 09:21 | VNURNOTE ---
Patient is current with [facility] since 01/20 w/SN/PT/OT/DRUM ATTENDANT/ATG JAVA DEVELOPER, will monitor progress and plan at discharge.
[2024-01-27] MEDS: PROTONIX 40 MG PO (09:23)
[2024-01-27] MEDS: ZOLOFT 25 MG PO (09:23)
[2024-01-27] MEDS: ZESTRIL 20 MG PO (09:23)
[2024-01-27] MEDS: COLCHICINE 0.599999999999999978 MG PO ×2 (09:24→19:49)
[2024-01-27] MEDS: ELIQUIS 5 MG PO ×2 (09:24→19:49)
[2024-01-27] MEDS: SOLU-MEDROL PF 40 MG IV ×2 (09:24→19:51)
[2024-01-27] MEDS: LASIX 40 MG PO ×2 (09:24→16:12)
[2024-01-27] MEDS: ZITHROMAX 500 MG PO (09:24)
[2024-01-27] MEDS: MUCINEX 600 MG PO ×2 (09:24→19:50)
[2024-01-27] MEDS: TOPROL XL 25 MG PO ×2 (09:24→19:50)
--- NOTE | 2024-01-27 11:30 | CM ---
CM notified by [facility] that Pt has recently been started with RN/PT/OT/AIRPLANE INSPECTOR and TELEGRAPH MECHANIC for possible waiver services [facility]. Will refer back for resumption of services at discharge.
[2024-01-27] MEDS: STERILE WATER FOR INJECTION 10 ML IV (11:32)
[2024-01-27] MEDS: ROCEPHIN 1000 MG IV (11:32)
--- NOTE | 2024-01-27 11:59 | W.PN.HOSP.TC ---
Today's Communication/Plan
-
Monitor vital signs
see plan
Continue with steroids, nebs
Still wheezing
Will need ambulatory pulse ox
pt/ot
Assessment / Plan
Assessment / Plan
Physical Exam
General: Obese
HEENT: Moist mucous membranes and Atraumatic
Respiratory: Wheezes, Rales and Rhonchi
Cardiac: S1/S2 and Regular Rhythm
GI: Soft and Non Tender
Genito-urinary: No costovertebral tender
Musculoskeletal: No Clubbing, No Cyanosis, Edema, Left Lower Extremity and Edema, Right Lower Extremity
Neuro: AO x 3 and Nonfocal/grossly intact
Psych: Calm and Intact Judgment/Insight
68 years old female presented with acute respiratory distress and worsening shortness of breath over the last 2-week
Acute respiratory distress, chronic hypoxic Respiratory Failure on home oxygen 5 L
Acute COPD exacerbation/acute bronchitis
feeling little better but her worsening shortness of breath is during ambulation
Continue nebulizer treatment with DuoNeb 4 times daily and Pulmicort twice daily
Empiric intravenous Rocephin with Zithromax
Primary prepared foods associate Dr. Duran
negative lactic acidosis
Blood cultures X2 no growth in first 24-hour
Preliminary sputum culture showing respiratory david
She had recent negative influenza screen and COVID screen
As needed Tessalon for cough and Mucinex twice daily
Appreciate pulmonary input
# Chronic heart failure with preserved ejection fraction
Last echocardiogram in December 2022 showed LVEF 55 to 60% with mild aortic stenosis.
Continue with daily Lasix
-Daily weights
-Continue telemetry monitoring
# History of paroxysmal atrial fibrillation/incomplete right bundle branch block
-Continue Eliquis 5 mg BID
-Amiodarone previously stopped due to elevated transaminases. Continue with Toprol
-Continue telemetry monitoring
#History of Sleep Apnea
# Obesity, BMI 50
# hypernatremia
improving
DVT Prophylaxis:�Eliquis
Diet:�Patient would like to continue with regular diet
Code Status:�Full Code
d/w disease case manager, will do PT/OT
Total time spent to see the patient, examine the patient on the floor, review data and lab results, discuss treatment plan with patient, and nursing staff around 52 minutes
Anticipated Discharge: 24 - 48 hours
Subjective/Interval History
-
Date of Service: January 27, 2024
Still feels short of breath at times
Objective Data
-
Labs:
Laboratory Results
01/27/24
04:48
WBC 12.0 H
Hgb 13.3
Hct 44.2
Plt Count 340
Sodium 141
Potassium 5.0 D
Chloride 93 L
Carbon Dioxide 38 H
BUN 43 H
Creatinine 0.8
Glucose 124 H
Calcium 9.1
Total Bilirubin 0.5
AST 32
ALT 27
Alkaline Phosphatase 92
Vital Signs:
Vital Signs
Temp Pulse Resp BP Pulse Ox
98.0 F 60 20 134/62 98
01/27/24 11:39 01/27/24 11:39 01/27/24 11:39 01/27/24 11:39 01/27/24 11:39
I&O
01/26/24 01/27/24 01/28/24
06:59 06:59 06:59
Intake Total 1080 / 1080 1620 / 1620
Output Total 1500 / 1500 1875 / 1875
Balance -420 / -420 -255 / -255
--- NOTE | 2024-01-27 13:17 | W.PN.PUL3 ---
Today's Communication / Plan
-
O2
BDs
CS
Assessment
-
Assessment:
Ms Janette Cherry is a 68/W adm 05- wtih 1 wk h/o dyspnea and cough productive of light green sputum. Known h/o very severe COPD on home O2 5L, LUZ MARINA/suspected OHS on BPAP. Seen at ER 05-, d/c on 4 d prednisone course.
Impression:
Ac/chronic resp failure due to multifocal pneumonia
AECOPD
Trace ^Na
Chronically elevated total serum CO2
Normal BNP on adm
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
COPD, moderate to severe, on albuterol HFA/nebs and O2 (unfortunately unable to afford spiriva, stiolto, etc)
Chronic hypercapnic and hypercapnic respiratory failure, on home O2 at 5LPM on 24 basis
LUZ MARINA, suspected OHS, on BPAP 24/08 with O2 4L (titration PSG Apr 2020)
Follows with Dr Harper and Meghna Davis WELT BUTTER HAND at [facility], last visit 11-26-22 (records reviewed)
Chronic HFrEF
PAFib, diagnosed 11/2018, on apixaban
Elevated LFTs 01/2021 while on amiodarone therapy; normalized with discontinuation of amiodarone
Pulmonary hypertension
Bifascicular block, RBBB and LAFB
Morbid obesity, BMI 45.8
COVID-19 dx at [facility] 12/23/2020
Former smoker: 1 ppd for almost 50 y, quit 01/2019
Plan:
Continue O2 protocol
Currently on O2 NC 5L
Baseline O2 5-6 L
Reportedly her home O2 concentrator is able to deliver up to 10 LPM
Keep asp precs
Chest CT s/c 01-24 with small patchy nodular opacities in both upper lobes (small airway pneumonitis)
MP 40 mg IV q12, continue at same dose for now
Can taper down to prednisone starting tomorrow or next day to 50mg daily and reduce by 10mg every 4th day until off (of note, she is not on chronic CS)
Budesonide bid, continue
Blood cxs so far negative
Sputum cx preliminary negative
Ceftriaxone/ po azithromycin 500 mg qd, continue, will adjust depending on cx results and response
Dns qid and prn, continue
Continue outpatient BPAP 24/08 with O2 4L, office records showed good control of apnea and good compliance
Continue cardiac regimen
D/w Ms Cherry, all questions answered
She will follow with [facility] with Dr Harper as scheduled
Total time spent today was 35 minutes for this encounter. Time includes reviewing laboratory test/imaging results, reviewing pertinent medical records, obtaining and reviewing medical history, performing an appropriate exam, ordering medications,
tests and procedures. Time also includes documentation of this encounter, coordinating patient care and communicating with other healthcare professionals. Total time does not include separately billed tests performed on this date of service.
Diagnostic tests:
CXR 01-20-24: underpenetrated, no gross infiltrates
CXR 12-17-22, c/w January and Sep. Enlarged hilar vessels, pulm parenchymal congestion (less than in and )
Chest CT s/c 01-24: no gross infiltrates. No other CT for comparison but an irregular area of suspected atelectasis is seen at anterobasilar RML
TTE 12-18-22:
CONCLUSIONS
Normal left ventricular size, wall thickness and systolic function. No regional wall motion abnormalities are seen. LV ejection fraction is 55-60%.
Mild aortic stenosis. Peak/mean gradients across the aortic valve are 42/23 mmHg, aortic valve area 1.2 cm2. No aortic regurgitation is seen.
Compared to previous echo from January 2021, there is now mild aortic stenosis.
RV normal size and function
Echo 01/31/21: EF 50%, stage I diastolic dysfunction, mildly dilated RV with reduced function of the apex, trace TR with PAP 30 mmHg
[facility] records 11-26-22
Subjective Data
-
Date of Service:
Date of Service: January 27, 2024
Chief Complaint: Pulmonary Follow Up
Subjective:
Patient seen and evaluated today at bedside. Currently on 5 L/min nasal cannula. Still endorsing shortness of breath with activity but is breathing comfortably at rest. She endorses a cough with green phlegm although the color is seeming to
lighten up. She does not normally have a cough she says. Currently denies chest pain, headache, abdominal pain, fevers or chills.
Review of Systems
General: Other (Negative unless mentioned above)
Objective Data
Data Reviewed
Vital Signs / I&O / Oxygen:
Vital Signs
Temp Pulse Resp BP Pulse Ox
98.0 F 60 20 134/62 98
01/27/24 11:39 01/27/24 11:39 01/27/24 11:39 01/27/24 11:39 01/27/24 11:39
Intake and Output
01/26/24 01/27/24 01/28/24
06:59 06:59 06:59
Intake Total 1080 / 1080 1620 / 1620
Output Total 1500 / 1500 1875 / 1875
Balance -420 / -420 -255 / -255
SaO2 98
Nasal Cannula flow liters per 5
minute
Physical Exam
General: Respiratory Distress (Negative) and Comfortable
HEENT: Normocephalic and Moist Mucous Membranes
Cardiovascular: S1-S2, Murmur (n) and Peripheral Edema (trace SUE; none on right lower extremity)
Respiratory: Wheeze (heard upon expiration in posterior lung case), Crackles (anterior lung case b/l), Rhonchi (Negative) and Non-Labored Respirations
GI: Soft, Non Tender and Other (Abdominal obesity)
Neurology: AO x 3 and No Motor Deficits
Skin: Warm and Dry
Labs/Micro/Reports
Lab Data
01/27/24 04:48
01/27/24 04:48
Microbiology
01/25/24 11:25 Sputum Respiratory Culture - Final
Usual Respiratory Annie
01/25/24 11:25 Sputum Gram Stain - Final
01/25/24 09:08 Blood/Venous Blood Culture - Preliminary
No Growth in 48 hours- Final report to follow
01/25/24 09:09 Blood/Venous Blood Culture - Preliminary
No Growth in 48 hours- Final report to follow
--- NOTE | 2024-01-27 17:06 | CM ---
I met with Janette this afternoon to further discuss discharge plans. Janette expressed that she really wants to work hard in therapy so she is able to do more at home. Her daughter has been doing all of the cooking, cleaning, shopping, etc., in
addition to taking care of her 5 year old daughter. Janette's tries to be supportive, but has been drinking to relieve his stress, so it has made Janette's stress increase.
Janette had been at [facility] previously and stated she would consider returning there, although she stated 'it only has 1 star'. We spoke about other facilities in the area near her home and agreed upon the following referrals:
[facility], [facility], [place], [facility], [facility] and [facility]. [facility]errals [facility] via [facility].
CM will follow up tomorrow when responses have been received.
[2024-01-27 19:40] LABS: Hepatitis C Antibody Negative (Negative)
[2024-01-28 03:31] VITALS: BP 158/80
[2024-01-28] MEDS: SYNTHROID 100 MCG PO (05:43)
[2024-01-28 06:00] VITALS: BMI 49.8
[2024-01-28 06:35] LABS: % Basophils 0.3 % (0-2); % Eosinophils 0.3 % (0-6); % Immature Granulocytes 1.5 % (0-0.5); % Lymphocytes 8.5 % (20.5-51.1); % Monocytes 6.3 % (1.7-9.3); % Neutrophils 83.1 % (42.2-75.2); Absolute Immature Granulocytes 0.2 10^3/uL (0-0.05); Absolute Monocytes 0.7 10^3/uL (0.1-0.6); Absolute Neutrophils 9.6 10^3/uL (1.4-6.5); Hematocrit 45.6 % (37.0-47.0); Hemoglobin 13.8 g/dL (12.0-16.0); Mean Corp Hgb Conc. 30.3 g/dL (33.0-37.0); Mean Corpuscular Hgb 28.2 pg (27.0-31.0); Mean Corpuscular Volume 93.3 fL (81.0-99.0); Mean Platelet Volume 10.1 fL (7.4-10.4); Nucleated Red Blood Cells % 0 %; Platelet Count 341 10^3/uL (130-400); Red Blood Cell Count 4.89 10^6/uL (4.20-5.40); Red Cell Dist. Width 14.6 % (11.5-14.5); White Blood Cell Count 11.5 10^3/uL (4.8-10.8)
[2024-01-28 07:08] LABS: Blood Urea Nitrogen 43 mg/dl (7-17); Calcium 9.2 mg/dl (8.4-10.2); Chloride 92 mmol/L (98-107); Estimated Creatinine Clearance 85 ml/min; Glucose 112 mg/dl (70-99); Sodium 143 mmol/L (135-145); eGFR > 60.00
[2024-01-28 07:21] LABS: Carbon Dioxide 40 mmol/L (22-30)
[2024-01-28 07:55] VITALS: BP 157/87
[2024-01-28] MEDS: PULMICORT 0.5 MG INH ×2 (08:12→19:48)
[2024-01-28] MEDS: DUONEB 3 ML INH ×4 (08:13→19:48)
[2024-01-28] MEDS: PROTONIX 40 MG PO (09:43)
[2024-01-28] MEDS: ZITHROMAX 500 MG PO (09:43)
[2024-01-28] MEDS: DESENEX/MITRAZOL/ZEASORB 1 APPLIC TOPICAL ×2 (09:43→21:08)
[2024-01-28] MEDS: MUCINEX 600 MG PO ×2 (09:43→21:06)
[2024-01-28] MEDS: ZESTRIL 20 MG PO (09:43)
[2024-01-28] MEDS: ELIQUIS 5 MG PO ×2 (09:43→21:05)
[2024-01-28] MEDS: TOPROL XL 25 MG PO ×2 (09:44→21:06)
[2024-01-28] MEDS: ZOLOFT 25 MG PO (09:44)
[2024-01-28] MEDS: COLCHICINE 0.599999999999999978 MG PO ×2 (09:44→21:06)
[2024-01-28] MEDS: FLUSH (NSS) 1 FLUSH IV ×2 (09:45→12:08)
[2024-01-28] MEDS: SOLU-MEDROL PF 40 MG IV ×2 (09:45→21:07)
[2024-01-28] MEDS: LASIX 40 MG PO ×2 (09:45→16:40)
--- NOTE | 2024-01-28 10:54 | CM ---
Addendum entered by Parvin Burroughs 01/28/24 12:04:
Probable discharge tomorrow, 01/29/2024.
PCP: Dr. Harper
Pharmacy: [facility]
Original Note:
SNF beds offered at [facility], [facility] and [facility]. Janette is hesitant to choose a place since she is not sure when she will be discharged. All facilities will be kept updated when d/c date is known
and Janette identifies which facility she is most interested in.
[2024-01-28 10:55] VITALS: BP 157/72
[2024-01-28 11:35] VITALS: BMI 49.8
[2024-01-28] MEDS: STERILE WATER FOR INJECTION 10 ML IV (12:08)
[2024-01-28] MEDS: ROCEPHIN 1000 MG IV (12:08)
--- NOTE | 2024-01-28 12:09 | W.PN.PUL3 ---
Today's Communication / Plan
-
O2
BDs
CS --> wean to prednisone tomorrow
Assessment
-
Assessment:
Ms Janette Cherry is a 68/W adm 05- wtih 1 wk h/o dyspnea and cough productive of light green sputum. Known h/o very severe COPD on home O2 5L, LUZ MARINA/suspected OHS on BPAP. Seen at ER -, d/c on 4 d prednisone course.
Impression:
Ac/chronic resp failure due to multifocal pneumonia
AECOPD
Hypernatremia - resolved
Chronically elevated total serum CO2
Normal BNP on adm
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
COPD, moderate to severe, on albuterol HFA/nebs and O2 (unfortunately unable to afford spiriva, stiolto, etc)
Chronic hypercapnic and hypercapnic respiratory failure, on home O2 at 5LPM on 24 basis
LUZ MARINA, suspected OHS, on BPAP 24/08 with O2 4L (titration PSG Apr 2020)
Follows with Dr Harper and Meghna Davis BUSHER HELPER at [facility], last visit 11-26-22 (records reviewed)
Chronic HFrEF
PAFib, diagnosed 11/2018, on apixaban
Elevated LFTs 01/2021 while on amiodarone therapy; normalized with discontinuation of amiodarone
Pulmonary hypertension
Bifascicular block, RBBB and LAFB
Morbid obesity, BMI 45.8
COVID-19 dx at [facility] 12/23/2020
Former smoker: 1 ppd for almost 50 y, quit 01/2019
Plan:
Continue O2 protocol
Currently on O2 NC 5L
Baseline O2 5-6 L
Reportedly her home O2 concentrator is able to deliver up to 10 LPM
Keep asp precs
Chest CT s/c 01-24 with small patchy nodular opacities in both upper lobes (small airway pneumonitis)
MP 40 mg IV q12, continue at same dose for now
Can taper down to prednisone starting tomorrow 50mg daily and reduce by 10mg every 4th day until off (of note, she is not on chronic CS)
Budesonide bid, continue
Blood cxs so far negative
Sputum cx preliminary negative
s/p 4 day course of ceftriaxone/ po azithromycin and now on PO doxy - complete a 7 day course total of Abx
Dns qid and prn
Pulmicort 0.5mg BID
Continue outpatient BPAP 24/08 with O2 4L, office records showed good control of apnea and good compliance
Continue cardiac regimen
D/w Ms Cherry, all questions answered
She will follow with [facility] with Dr Harper as scheduled
Total time spent today was 35 minutes for this encounter. Time includes reviewing laboratory test/imaging results, reviewing pertinent medical records, obtaining and reviewing medical history, performing an appropriate exam, ordering medications,
tests and procedures. Time also includes documentation of this encounter, coordinating patient care and communicating with other healthcare professionals. Total time does not include separately billed tests performed on this date of service.
Diagnostic tests:
CXR 01-20-24: underpenetrated, no gross infiltrates
CXR 12-17-22, c/w January and Sep. Enlarged hilar vessels, pulm parenchymal congestion (less than in and )
Chest CT s/c 01-24: no gross infiltrates. No other CT for comparison but an irregular area of suspected atelectasis is seen at anterobasilar RML
TTE 12-18-22:
CONCLUSIONS
Normal left ventricular size, wall thickness and systolic function. No regional wall motion abnormalities are seen. LV ejection fraction is 55-60%.
Mild aortic stenosis. Peak/mean gradients across the aortic valve are 42/23 mmHg, aortic valve area 1.2 cm2. No aortic regurgitation is seen.
Compared to previous echo from January 2021, there is now mild aortic stenosis.
RV normal size and function
Echo 01/31/21: EF 50%, stage I diastolic dysfunction, mildly dilated RV with reduced function of the apex, trace TR with PAP 30 mmHg
[facility] records 11-26-22
Subjective Data
-
Date of Service:
Date of Service: January 28, 2024
Chief Complaint: Pulmonary Follow Up
Subjective:
Patient seen and evaluated today at bedside. She was sleeping on her PAP in no acute distress. She is tired today. She denies shortness of breath but clearly is short of breath when she tries to exert herself. Has an occasional cough with yellow
phlegm. Denies chest pain, headache, fevers or chills.
Review of Systems
General: Other (Negative unless mentioned above)
Objective Data
Data Reviewed
Vital Signs / I&O / Oxygen:
Vital Signs
Temp Pulse Resp BP Pulse Ox
97.6 F 58 16 157/72 96
01/28/24 10:55 01/28/24 11:34 01/28/24 11:34 01/28/24 10:55 01/28/24 11:34
Intake and Output
01/27/24 01/28/24 01/29/24
06:59 06:59 06:59
Intake Total 1620 / 1620 1020 / 1020
Output Total 1875 / 1875 2450 / 2450
Balance -255 / -255 -1430 / -1430
SaO2 96
Nasal Cannula flow liters per 5
minute
Physical Exam
General: Respiratory Distress (Negative) and Comfortable
HEENT: Normocephalic, Anicteric and Moist Mucous Membranes
Cardiovascular: S1-S2, Murmur (n) and Peripheral Edema (trace SUE; none on right lower extremity)
Respiratory: Wheeze (heard upon expiration in posterior lung case), Crackles (anterior lung case b/l), Rhonchi (Negative) and Non-Labored Respirations
GI: Soft, Non Tender and Other (Abdominal obesity)
Neurology: AO x 3 and No Motor Deficits
Skin: Warm and Dry
Labs/Micro/Reports
Lab Data
01/28/24 05:16
01/28/24 05:16
Microbiology
01/25/24 09:08 Blood/Venous Blood Culture - Preliminary
No Growth in 72 hours- Final report to follow
01/25/24 09:09 Blood/Venous Blood Culture - Preliminary
No Growth in 72 hours- Final report to follow
01/25/24 11:25 Sputum Respiratory Culture - Final
Usual Respiratory Annie
01/25/24 11:25 Sputum Gram Stain - Final
--- NOTE | 2024-01-28 13:01 | W.PN.HOSP.TC ---
Today's Communication/Plan
-
Monitor vital signs see plan
Continue with steroids
Switch antibiotic to Doxy
Discharge planning
PT/OT
Assessment / Plan
Assessment / Plan
Physical Exam
General: Obese
HEENT: Moist mucous membranes and Atraumatic
Respiratory: Wheezes, Rales and Rhonchi
Cardiac: S1/S2 and Regular Rhythm
GI: Soft and Non Tender
Genito-urinary: No costovertebral tender
Musculoskeletal: No Clubbing, No Cyanosis, Edema, Left Lower Extremity and Edema, Right Lower Extremity
Neuro: AO x 3 and Nonfocal/grossly intact
Psych: Calm and Intact Judgment/Insight
68 years old female presented with acute respiratory distress and worsening shortness of breath over the last 2-week
Acute respiratory distress, chronic hypoxic Respiratory Failure on home oxygen 5 L
Acute COPD exacerbation/acute bronchitis
feeling little better but her worsening shortness of breath is during ambulation
Continue nebulizer treatment with DuoNeb 4 times daily and Pulmicort twice daily
switch abx to doxy for short course
Primary coding specialist Dr. Duran
negative lactic acidosis
Blood cultures X2 no growth in first 24-hour
Preliminary sputum culture showing respiratory david
She had recent negative influenza screen and COVID screen
As needed Tessalon for cough and Mucinex twice daily
Appreciate pulmonary input
# Chronic heart failure with preserved ejection fraction
Last echocardiogram in December 2022 showed LVEF 55 to 60% with mild aortic stenosis.
Continue with daily Lasix
-Daily weights
# History of paroxysmal atrial fibrillation/incomplete right bundle branch block
-Continue Eliquis 5 mg BID
-Amiodarone previously stopped due to elevated transaminases. Continue with Toprol
-Continue telemetry monitoring
#History of Sleep Apnea
# Obesity, BMI 50
# hypernatremia
improving
DVT Prophylaxis:�Eliquis
Code Status:�Full Code
PT/OT rec SNF; CM aware
Total time spent to see the patient, examine the patient on the floor, review data and lab results, discuss treatment plan with patient, and nursing staff around 53 minutes
Anticipated Discharge: 24 - 48 hours
Subjective/Interval History
-
Date of Service: January 28, 2024
Denies chest pain
Objective Data
-
Labs:
Laboratory Results
01/28/24
05:16
WBC 11.5 H
Hgb 13.8
Hct 45.6
Plt Count 341
Sodium 143
Potassium 5.0
Chloride 92 L
Carbon Dioxide 40 H
BUN 43 H
Creatinine 0.9
Glucose 112 H
Calcium 9.2
Vital Signs:
Vital Signs
Temp Pulse Resp BP Pulse Ox
97.6 F 58 16 157/72 96
01/28/24 10:55 01/28/24 11:34 01/28/24 11:34 01/28/24 10:55 01/28/24 11:34
I&O
01/27/24 01/28/24 01/29/24
06:59 06:59 06:59
Intake Total 1620 / 1620 1020 / 1020
Output Total 1875 / 1875 2450 / 2450
Balance -255 / -255 -1430 / -1430
--- NOTE | 2024-01-28 15:14 | CM ---
Janette has been offered a bed at [facility] for tomorrow. She is very happy with this option, as is her who is visiting her now.
Vivian from [facility] will call me later today or early tomorrow to arrange transfer time and ambulance arrangements. CM will follow.
[2024-01-28 15:55] VITALS: BP 138/65
--- NOTE | 2024-01-28 16:34 | PTCARENOTE ---
Pt AAO x3, RODRIGUEZ; refused offer of OOB to chair activity; sits on edge of bed at times. VSS. On nc 5 llpm- pulse ox 99%, pt denies SOB but has (+) ISRAEL/tachypnea ; occ loose cough- small a mts yellow mucus. Abd obese, soft, dre PO well. Incont
urine; Purewick catheter intact; draining large amts clear yellow urine. Resting in bed at present. Will continue to monitor
[2024-01-28] MEDS: VIBRAMYCIN 100 MG PO (21:05)
[2024-01-28] MEDS: TESSALON PERLES 200 MG PO (21:24)
[2024-01-28 23:55] VITALS: BP 142/76
[2024-01-29] MEDS: SYNTHROID 100 MCG PO (05:54)
[2024-01-29 06:00] VITALS: BMI 49.9
[2024-01-29 07:22] LABS: % Basophils 0.4 % (0-2); % Eosinophils 0.3 % (0-6); % Immature Granulocytes 1.9 % (0-0.5); % Lymphocytes 9.2 % (20.5-51.1); % Monocytes 6.6 % (1.7-9.3); % Neutrophils 81.6 % (42.2-75.2); Absolute Immature Granulocytes 0.2 10^3/uL (0-0.05); Absolute Monocytes 0.7 10^3/uL (0.1-0.6); Absolute Neutrophils 8.9 10^3/uL (1.4-6.5); Hematocrit 44.9 % (37.0-47.0); Hemoglobin 13.7 g/dL (12.0-16.0); Mean Corp Hgb Conc. 30.5 g/dL (33.0-37.0); Mean Corpuscular Hgb 28.3 pg (27.0-31.0); Mean Corpuscular Volume 92.8 fL (81.0-99.0); Nucleated Red Blood Cells % 0 %; Platelet Count 352 10^3/uL (130-400); Red Blood Cell Count 4.84 10^6/uL (4.20-5.40); Red Cell Dist. Width 14.6 % (11.5-14.5); White Blood Cell Count 10.9 10^3/uL (4.8-10.8)
[2024-01-29 07:45] LABS: Blood Urea Nitrogen 44 mg/dl (7-17); Calcium 9.1 mg/dl (8.4-10.2); Chloride 91 mmol/L (98-107); Estimated Creatinine Clearance 76 ml/min; Glucose 109 mg/dl (70-99); Sodium 142 mmol/L (135-145); eGFR > 60.00
[2024-01-29 08:07] LABS: Carbon Dioxide 42 mmol/L (22-30)
[2024-01-29 08:23] VITALS: BP 152/80
[2024-01-29] MEDS: PULMICORT 0.5 MG INH (08:32)
[2024-01-29] MEDS: DUONEB 3 ML INH ×3 (08:32→15:25)
[2024-01-29] MEDS: SOLU-MEDROL PF 40 MG IV (08:43)
[2024-01-29] MEDS: VIBRAMYCIN 100 MG PO (08:44)
[2024-01-29] MEDS: LASIX 40 MG PO ×2 (08:44→15:41)
[2024-01-29] MEDS: MUCINEX 600 MG PO (08:44)
[2024-01-29] MEDS: COLCHICINE 0.599999999999999978 MG PO (08:44)
[2024-01-29] MEDS: PROTONIX 40 MG PO (08:44)
[2024-01-29] MEDS: ZOLOFT 25 MG PO (08:45)
[2024-01-29] MEDS: ELIQUIS 5 MG PO (08:45)
[2024-01-29] MEDS: DESENEX/MITRAZOL/ZEASORB 1 APPLIC TOPICAL (08:45)
[2024-01-29] MEDS: ZESTRIL 20 MG PO (08:45)
[2024-01-29] MEDS: TOPROL XL 25 MG PO (08:45)
--- NOTE | 2024-01-29 11:26 | W.PN.PUL3 ---
Today's Communication / Plan
-
O2
BDs
Nocturnal BiPAP
CS --> wean to prednisone today
Patient is being prepared for discharge to her SNF @ [facility]. Pulmonary service will now sign off. Please reconsult if there are any additional questions/concerns, or if patient's respiratory status deteriorates.
Assessment
-
Assessment:
Ms Janette Cherry is a 68/W adm 05- wtih 1 wk h/o dyspnea and cough productive of light green sputum. Known h/o very severe COPD on home O2 5L, LUZ MARINA/suspected OHS on BPAP. Seen at ER -, d/c on 4 d prednisone course.
Impression:
Ac/chronic resp failure due to multifocal pneumonia
AECOPD
Hypernatremia - resolved
Chronically elevated total serum CO2
Normal BNP on adm
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
COPD, moderate to severe, on albuterol HFA/nebs and O2 (unfortunately unable to afford spiriva, stiolto, etc)
Chronic hypercapnic and hypercapnic respiratory failure, on home O2 at 5LPM on 24/ basis
LUZ MARINA, suspected OHS, on BPAP 24/08 with O2 4L (titration PSG Apr 2020)
Follows with Dr Harper and Meghna Davis FELTMAKER at [facility], last visit 11-26-22 (records reviewed)
Chronic HFrEF
PAFib, diagnosed 11/2018, on apixaban
Elevated LFTs 01/2021 while on amiodarone therapy; normalized with discontinuation of amiodarone
Pulmonary hypertension
Bifascicular block, RBBB and LAFB
Morbid obesity, BMI 45.8
COVID-19 dx at [facility] 12/23/2020
Former smoker: 1 ppd for almost 50 y, quit 01/2019
Plan:
Continue O2 protocol
Currently on O2 NC 5L
Baseline O2 5-6 L
Reportedly her home O2 concentrator is able to deliver up to 10 LPM
Keep asp precs
Chest CT s/c 01-24 with small patchy nodular opacities in both upper lobes (small airway pneumonitis)
MP 40 mg IV q12, continue at same dose for now
Taper down to prednisone today starting at 50mg daily and reduce by 10mg every 4th day until off (of note, she is not on chronic CS)
Budesonide bid, continue
Blood cxs so far negative
Sputum cx preliminary negative
s/p 4 day course of ceftriaxone/ po azithromycin and now on PO doxy - complete a 7 day course total of Abx
Dns qid and prn
Pulmicort 0.5mg BID
Continue outpatient BPAP 24/08 with O2 4L, office records showed good control of apnea and good compliance
Continue cardiac regimen
D/w Ms Cherry, all questions answered
She will follow with [facility] with Dr Harper as scheduled
Patient is being prepared for discharge to her SNF @ [facility]. Pulmonary service will now sign off. Thank you for allowing us to be involved in the care of this patient. Please reconsult if there are any additional questions/concerns, or if
patient's respiratory status deteriorates.
Total time spent today was 35 minutes for this encounter. Time includes reviewing laboratory test/imaging results, reviewing pertinent medical records, obtaining and reviewing medical history, performing an appropriate exam, ordering medications,
tests and procedures. Time also includes documentation of this encounter, coordinating patient care and communicating with other healthcare professionals. Total time does not include separately billed tests performed on this date of service.
Diagnostic tests:
CXR 01-20-24: underpenetrated, no gross infiltrates
CXR 12-17-22, c/w January and Sep. Enlarged hilar vessels, pulm parenchymal congestion (less than in and )
Chest CT s/c 01-24: no gross infiltrates. No other CT for comparison but an irregular area of suspected atelectasis is seen at anterobasilar RML
TTE 12-18-22:
CONCLUSIONS
Normal left ventricular size, wall thickness and systolic function. No regional wall motion abnormalities are seen. LV ejection fraction is 55-60%.
Mild aortic stenosis. Peak/mean gradients across the aortic valve are 42/23 mmHg, aortic valve area 1.2 cm2. No aortic regurgitation is seen.
Compared to previous echo from January 2021, there is now mild aortic stenosis.
RV normal size and function
Echo 01/31/21: EF 50%, stage I diastolic dysfunction, mildly dilated RV with reduced function of the apex, trace TR with PAP 30 mmHg
[facility] records 11-26-22
Subjective Data
-
Date of Service:
Date of Service: January 29, 2024
Chief Complaint: Pulmonary Follow Up
Subjective:
Seen today - she feels well. Being prepared for DC to [facility]. Pt currently on 5L/min. No issues reported from overnight. She is breathing comfortably, denies chest pain, DAVIS, abd pain, f/c.
Review of Systems
General: Other (negative unless mentioned above)
Objective Data
Data Reviewed
Vital Signs / I&O / Oxygen:
Vital Signs
Temp Pulse Resp BP Pulse Ox
98.5 F 58 18 152/80 99
01/29/24 08:23 01/29/24 08:23 01/29/24 08:35 01/29/24 08:23 01/29/24 08:35
Intake and Output
01/28/24 01/29/24 01/30/24
06:59 06:59 06:59
Intake Total 1020 / 1020 1020 / 1020
Output Total 2450 / 2450 2425 / 2425
Balance -1430 / -1430 -1405 / -1405
SaO2 99
Nasal Cannula flow liters per 5
minute
Physical Exam
General: Respiratory Distress (Negative), Comfortable and Other (morbidly obese female)
HEENT: Normocephalic, Anicteric and Moist Mucous Membranes
Cardiovascular: S1-S2, Murmur (n) and Peripheral Edema (trace SUE; none on right lower extremity)
Respiratory: Wheeze (heard upon expiration in posterior lung case), Crackles (negative), Rhonchi (Negative) and Non-Labored Respirations
GI: Soft, Non Tender and Other (Abdominal obesity)
Neurology: AO x 3 and No Motor Deficits
Skin: Warm and Dry
Labs/Micro/Reports
Lab Data
01/29/24 06:52
01/29/24 06:51
Microbiology
01/25/24 09:09 Blood/Venous Blood Culture - Preliminary
No Growth in 4 days- Final report to follow
01/25/24 09:08 Blood/Venous Blood Culture - Preliminary
No Growth in 4 days- Final report to follow
01/25/24 11:25 Sputum Respiratory Culture - Final
Usual Respiratory Annie
01/25/24 11:25 Sputum Gram Stain - Final
--- NOTE | 2024-01-29 11:38 | W.PN.HOSP.TC ---
Addendum entered and electronically signed by Mark Mao MD 01/29/24 11:55:
Time of discharge 37 minutes
Original Note:
Today's Communication/Plan
-
Monitor vital signs and see plan
Discharge today to SNF
Change steroids to oral prednisone with taper
pulm f/u outpatient
cw doxy
Assessment / Plan
Assessment / Plan
Physical Exam
General: Obese
HEENT: Moist mucous membranes and Atraumatic
Respiratory: Wheezes, Rales and Rhonchi
Cardiac: S1/S2 and Regular Rhythm
GI: Soft and Non Tender
Genito-urinary: No costovertebral tender
Musculoskeletal: No Clubbing, No Cyanosis, Edema, Left Lower Extremity and Edema, Right Lower Extremity
Neuro: AO x 3 and Nonfocal/grossly intact
Psych: Calm and Intact Judgment/Insight
68 years old female presented with acute respiratory distress and worsening shortness of breath over the last 2-week
Acute respiratory distress, chronic hypoxic Respiratory Failure on home oxygen 5 L
Acute COPD exacerbation/acute bronchitis
feeling little better but her worsening shortness of breath is during ambulation
Continue nebulizer treatment with DuoNeb 4 times daily and Pulmicort twice daily
switch abx to doxy for short course
Switch steroids to oral prednisone with taper
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
negative lactic acidosis
Blood cultures X2 no growth
Preliminary sputum culture showing respiratory david
She had recent negative influenza screen and COVID screen
As needed Tessalon for cough and Mucinex twice daily
Appreciate pulmonary input
# Chronic heart failure with preserved ejection fraction
Last echocardiogram in December 2022 showed LVEF 55 to 60% with mild aortic stenosis.
Continue with daily Lasix
-Daily weights
# History of paroxysmal atrial fibrillation/incomplete right bundle branch block
-Continue Eliquis 5 mg BID
-Amiodarone previously stopped due to elevated transaminases. Continue with Toprol
-Continue telemetry monitoring
#History of Sleep Apnea
# Obesity, BMI 50
# hypernatremia
improving
DVT Prophylaxis:�Eliquis
Code Status:�Full Code
PT/OT rec SNF; CM aware
Anticipated Discharge: Today
Subjective/Interval History
-
Date of Service: January 29, 2024
denies nausea
Objective Data
-
Labs:
Laboratory Results
01/29/24 01/29/24
06:51 06:52
WBC 10.9 H
Hgb 13.7
Hct 44.9
Plt Count 352
Sodium 142
Potassium 5.0
Chloride 91 L
Carbon Dioxide 42 H
BUN 44 H
Creatinine 1.0
Glucose 109 H
Calcium 9.1
Vital Signs:
Vital Signs
Temp Pulse Resp BP Pulse Ox
98.5 F 58 18 152/80 99
01/29/24 08:23 01/29/24 08:23 01/29/24 08:35 01/29/24 08:23 01/29/24 08:35
I&O
01/28/24 01/29/24 01/30/24
06:59 06:59 06:59
Intake Total 1020 / 1020 1020 / 1020
Output Total 2450 / 2450 2425 / 2425
Balance -1430 / -1430 -1405 / -1405
--- NOTE | 2024-01-29 11:50 | W.DCSUMMARY ---
Discharge Summary
Discharge Data
Date of Admission: 01/25/24
Date of Discharge: 01/29/24
-
Pending Results: No
Hospital Course
68-year-old female with past medical history of COPD, chronic hypoxic respiratory failure, paroxysmal atrial fibrillation, right bundle branch block, sleep apnea, obesity, CHF came to the hospital with acute respiratory distress noted to be in COPD
exacerbation and acute bronchitis. Patient was initially started on IV antibiotic which was later transitioned to p.o. antibiotics to complete the course for acute bronchitis. Patient was seen by pulmonary throughout hospitalization. Patient was
initially started on IV steroids which was later transitioned to oral prednisone with taper prior to discharge. Patient was also evaluated by physical therapy who recommended SNF. Once her breathing continues to improve, she was then discharged to
SNF with instructions to follow-up closely with all her physicians outpatient.
Discharge Plan
-
Patient Disposition: Long Term/SNF
Discharge Diagnosis/Procedures: Acute respiratory distress, chronic hypoxic respiratory failure
Acute chronic obstructive pulmonary disease exacerbation/acute bronchitis
hypernatremia
Diet: As tolerated
Activity: As tolerated
Driving Restrictions: As prior to admission
Bathing Restrictions: None
Activity Restrictions/Additional Instructions:
Start prednisone 50 mg 01/30/2024. Decrease by 10 mg every fourth day
Referrals:
Jude Chu MD [Family Provider] -
Ji Naidu MD [Active] - in two to four weeks
Gorge Palacios MD [Active] -
Prescriptions:
New
metoprolol succinate 25 mg Tablet Extended Release 24 Hr
25 mg PO BID Qty: 0 0RF
guaifenesin 600 mg Tablet Extended Release 12hr
600 mg PO Q12 Qty: 0 0RF
benzonatate 100 mg Capsule
200 mg PO TIDPRN PRN (Reason: cough) Qty: 0 0RF
doxycycline hyclate 100 mg Capsule
100 mg PO Q12 4 Days Qty: 8 0RF
prednisone 10 mg Tablet
See Rx Instructions .ROUTE .COMPLEX Qty: 45 0RF
Rx Instructions:
Take By Mouth:
50 mg daily x3 days, 40 mg daily x3 days,
30 mg daily x3 days, 20 mg daily x3 days,
10 mg daily x3 days
ipratropium-albuterol 0.5 mg-3 mg(2.5 mg base)/3 mL solution for nebulization
3 ml inhalation Q8H PRN (Reason: shortness of breath or wheezing) Qty: 90 0RF
Continued
levothyroxine 100 MCG tablet
100 mcg PO DAILY AT 0700
furosemide 40 MG tablet
40 mg PO BID AT 0800,1600 Qty: 60 0RF
sertraline 25 MG tablet
25 mg PO DAILY Qty: 0 0RF
Eliquis 5 MG tablet
5 mg PO BID Qty: 0 0RF
Hold Instructions: Resume on 01/17/23.
therapeutic multivitamin Tablet
1 tab PO DAILY
omega 6-anr-rti-fish oil [Fish Oil] 1,000 mg (120 mg-180 mg) Capsule
1 cap PO DAILY
metoprolol succinate 25 mg Tablet Extended Release 24 Hr
25 mg PO DAILY Qty: 30 0RF
calcium carbonate 500 mg calcium (1,250 mg) Tablet
1,000 mg PO DAILY
cholecalciferol (vitamin D3) [Vitamin D3] 25 mcg (1,000 unit) Capsule
25 mcg PO DAILY
lisinopril 20 mg tablet
20 mg PO DAILY
colchicine 0.6 mg Tablet
0.6 mg PO BID 7 Days Qty: 14 0RF
miconazole nitrate [Desenex] 2 % powder
1 applic topical BID
hydrocortisone 2.5 % cream
1 applic topical BID
fluticasone propionate 220 mcg/actuation HFA aerosol inhaler
1 inh inhalation BID
Metamucil Fiber Singles 3.4 gram powder in packet
1 packet PO DAILY
Discontinued
albuterol sulfate 1 PUFF HFA aerosol inhaler
2 puff inhalation R Q4HPRN PRN (Reason: copd)
omeprazole 20 MG tablet,disintegrat, delay rel
20 mg PO DAILY
oxycodone-acetaminophen 5-325 mg Tablet
1 tab PO Q4HPRN PRN (Reason: moderate pain) Qty: 20 0RF
prednisone 20 mg tablet
40 mg PO DAILY
Discharge Orders:
Discharge Patient (As Directed); Ordered 01/29/24
Ordered By: Mark Mao
Discharge Date and Time
Discharge Date/Time: 01/29/24 18:21
Print Language: ROMANSH
--- NOTE | 2024-01-29 12:08 | CM ---
Janette has been accepted for admission to [facility]. Per Vivian, transport can be arranged for 4:30. Transport form provided to for w/c van. Janette is aware of transfer plans and has notified her daughter of same. Support provided, as Janette is
feeling anxious about the move.
No further CM needs identified at this time.
--- NOTE | 2024-01-29 12:13 | CM ---
Janette is being discharged to [facility] today via w/c van. Hospital bed and O2 arranged for delivery prior to pt's arrival.
Janette has contacted her daughter to make her aware of transfer plans; tentative medicinal plant picker is 4:30pm. Hospital bed and O2 arranged for delivery prior to pt's arrival.
Transport form provided to for arrangements.
--- NOTE | 2024-01-29 14:34 | CM ---
Addendum entered by Parvin Burroughs 01/29/24 16:37:
[facility]
Original Note:
Janette is being discharged to [facility] SNF today at 5PM. All questions answered and assisted her with packing personal care items (at her bedside) that she was interested in taking.
W/C van arranged with 5L O2.
I called Janette's to provide the phone number to call to arrange payment for the transport ($120).
No additional needs identified.
[2024-01-29 16:16] VITALS: BP 133/75
== END 2024-01-29 18:21 | DRG 191 ==
LOC: 4 EAST ACU 09:57
PROVIDERS: ADMITTING PHYSICIAN Internal Medicine; ATTENDING PHYSICIAN Internal Medicine; CONSULT PHYSICIAN Internal Medicine Pulmonary Disease; EMERGENCY PHYSICIAN Emergency Medicine; FAMILY PHYSICIAN Internal Medicine Cardiovascular Disease
PROC: 5A09357 Assistance with Respiratory Ventilation, Less than 24 Consecutive Hours, Continuous Positive Airway Pressure (ICD-10-PCS; 2024-01-25)
DX: J44.1 Chronic obstructive pulmonary disease with (acute) exacerbation (principal); E87.0 Hyperosmolality and hypernatremia; I50.42 Chronic combined systolic (congestive) and diastolic (congestive) heart failure; Z68.43 Body mass index [BMI] 50.0-59.9, adult; I45.2 Bifascicular block; J96.12 Chronic respiratory failure with hypercapnia; J96.11 Chronic respiratory failure with hypoxia; J20.9 Acute bronchitis, unspecified; J44.0 Chronic obstructive pulmonary disease with (acute) lower respiratory infection; I11.0 Hypertensive heart disease with heart failure; I48.0 Paroxysmal atrial fibrillation; I45.10 Unspecified right bundle-branch block; I27.20 Pulmonary hypertension, unspecified; E03.9 Hypothyroidism, unspecified; E78.5 Hyperlipidemia, unspecified; E66.01 Morbid (severe) obesity due to excess calories; R74.01 Elevation of levels of liver transaminase levels; G47.33 Obstructive sleep apnea (adult) (pediatric); Z99.81 Dependence on supplemental oxygen; Z87.891 Personal history of nicotine dependence; Z79.01 Long term (current) use of anticoagulants; Z79.890 Hormone replacement therapy; Z79.51 Long term (current) use of inhaled steroids; Z79.52 Long term (current) use of systemic steroids; Z86.16 Personal history of COVID-19
CPT/HCPCS: 71250; 80048; 80053; 83605; 83735; 83880; 85025; 85027; 86803; 87040; 87070; 87205; 93005; 94640; 96374; 97162; 97166; 97530; 99285

== ENCOUNTER 2024-06-23 13:11 | Inpatient (IN) | payer MEDICARE, SELFPAY ==
[2024-06-23] VITALS (8 sets, daily range): BP systolic 104–125; BP diastolic 43–63; BMI 52.1
--- NOTE | 2024-06-23 10:00 | ED.GENMED ---
History of Present Illness
General
Chief Complaint: Cold/Flu/URI Symptoms
Source: patient
Exam Limitations: none
Time Seen by Provider: 06/23/24 09:50
Nursing documentation reviewed up to this point in time: agreed with
History of Present Illness
History of Present Illness:
Patient with history of oxygen dependent COPD and congestive heart failure on Lasix, as well as atrial fibrillation on Eliquis, presents to ED secondary to 1 week history of worsening cough and shortness of breath, as well as decreased appetite.
Denies fever or chills. Denies vomiting or diarrhea. Denies headache. Denies sore throat. Denies rash. Denies leg pain. Denies recent travel or surgery. Denies sick contact, but does live grand daughter at home. Patient was admitted to the "[facility] for similar complaint earlier this year, but patient states that her symptoms today are worse than during that admission.
Past History
Past History
ED Past Medical History: CHF, COPD and HTN
ED Past Surgical History: None
Social History
Tobacco: Former smoker
Alcohol: None
Personal:
Living: with family
Review of Systems
Review of Systems
All Other Systems: ROS reviewed and negative except as documented in HPI and ROS
Constitutional: Reports no symptoms; Denies fever or chills
EENT: Reports no symptoms
Respiratory: Reports cough and trouble breathing
Cardiac: Reports no symptoms
ABD/GI: Reports no symptoms
: Reports no symptoms
Skin: Reports no symptoms
Neurological: Reports no symptoms
Phy Exam
Physical Exam
Physical Exam:
Physical Exam
General: mild respiratory distress, not acutely ill. afebrile
Head: nc/at. eomi
Neck: supple. no meningeal signs.
Heart: s1/s2 regular rate and rhythm, no murmur. equal radial pulses.
Lungs: mild respiratory distress. diffuse wheezing bilaterally
Abdomen: normal bowel sounds. not tender.
Neuro: alert and oriented. no focal neurological deficits
Skin: no rash
Psychiatric: well kept. interactive and cooperative
Extremities: nonpitting LE edema. no calf tenderness.
Course
Orders/Labs/Results
Orders:
Orders
06/23/24 09:54
CMP [Comprehensive Metabolic Panel] Urgent
COVID-19 Antigen Urgent
Source: Nasal Swab
Complete Blood Count/With Diff Urgent
Influenza A+B Rapid Molecular Urgent
PUJA Source: Nasal Swab
Specimen Description:
06/23/24 09:59
Dexamethasone Sod Phosphate [Decadron] 10 mg IV NOW STA
Guaifenesin/Codeine Solution [Robitussin AC] 10 ml PO NOW STA
Ipratropium/Albuterol Sulfate [Duoneb] 3 ml INH R NOW ONE
CR Chest - 2 Views Urgent
Comment:
Reason For Exam: cough/sob
06/23/24 10:03
Electrocardiogram (*1) Urgent
Reason for Study: Shortness of Breath
EKG- Treatment ONCE
06/23/24 12:46
Admit/Transfer Patient As Directed
Co-Sign Provider:
Level of Care: Inpatient admission
Assign to:: Telemetry
Physician / Group: Hospitalist
Diagnosis: SOB
Reason for Telemetry: Medication for Arrhythmia
Date to Stop Telemetry: 06/25/24
Time to Stop Telemetry: 11:00
Reason for Hospitalization: .
Expected length of stay greater than two midnights?: Yes
ELOS- Estimated Length of Stay in days: 3
I certify the patient meets the requirements for IP care: Yes
PRN Pain Medication Management As Directed
May give lesser potent ordered pain med per pt: Yes
preference::
Protocol:: Medication orders for pain may be administered in a
manner that supports deferring to patient preference
when the pt is:
- Requesting an ordered lesser potent pain medication.
Least to most potent pain medications are defined
as: acetaminophen < NSAID < tramadol < opioids
(morphine, oxycodone, hydromorphone).
- Requesting a lesser dose of the same medication IF
ORDERED.
- Requesting a less intrusive route of administration
if both routes are prescribed by the provider (PO <
IV).
06/23/24 12:47
Code Status As Directed
Resuscitation Status: Full Code
06/23/24 Dinner
Regular
At Your Request: Full Participation
06/23/24 15:05
Acetaminophen [Tylenol] 650 mg PO Q4HPRN PRN
Benzonatate [Tessalon Perles] 100 mg PO TIDPRN PRN
06/23/24 15:05
Consult Pulmonary [PULMONARY CONSULT] Routine
Consulting Provider: Cathy Thapa
Was physician already notified: Yes
Reason for consult: SOB
06/23/24 15:30
Azithromycin [Zithromax] 500 mg PO DAILY
06/23/24 16:00
CefTRIAXone [Rocephin] 1,000 mg IV Q24H
Furosemide [Lasix] 40 mg PO BID AT 0800,1600
Ipratropium/Albuterol Sulfate [Duoneb] 3 ml INH R QID
06/23/24 20:00
Apixaban [Eliquis] 5 mg PO BID
Guaifenesin [Mucinex] 1,200 mg PO Q12
MethylPREDNISolone PF [Solu-Medrol Pf] 40 mg IV Q12H
06/24/24 05:34
BMP [Basic Metabolic Panel] IN AM
06/24/24 06:00
Levothyroxine [Synthroid] 100 mcg PO DAILY@0600
06/24/24 08:00
Allopurinol [Zyloprim] 100 mg PO DAILY
HydrALAZINE [Apresoline] 25 mg PO BID
Lisinopril [Zestril] 20 mg PO DAILY
Metoprolol Xl [Toprol Xl] 25 mg PO DAILY
Psyllium [Metamucil, Konsyl] 1 packet PO DAILY
Sertraline HCl [Zoloft] 50 mg PO DAILY
06/25/24 11:00
DC Protocol for Telemetry ONCE
Abnormal Lab Results
06/23/24
09:54
MCH 26.9 L pg
(27.0-31.0)
MCHC 30.0 L g/dL
(33.0-37.0)
RDW 14.6 H %
(11.5-14.5)
Abs Immat Gran (auto) 0.1 H 10^3/uL
(0-0.05)
Absolute Neuts (auto) 8.3 H 10^3/uL
(1.4-6.5)
Absolute Lymphs (auto) 0.8 L 10^3/uL
(1.2-3.4)
Immature Gran % 0.7 H %
(0-0.5)
Neutrophils % 81.3 H %
(42.2-75.2)
Lymphocytes % 7.6 L %
(20.5-51.1)
Chloride 95 L mmol/L
(98-107)
Carbon Dioxide 38 H mmol/L
(22-30)
BUN 19 H mg/dl
(7-17)
Glucose 116 H mg/dl
(70-99)
06/23/24 09:54
06/23/24 09:54
Vital Signs
Initial and Last Documented VS:
Initial Vital Signs
Temp
98.2 F
06/23/24 09:43
Last Documented Vital Signs
Temp Pulse Resp BP Pulse Ox
97.9 F 59 18 115/62 98
06/24/24 11:21 06/24/24 11:36 06/24/24 11:36 06/24/24 11:21 06/24/24 11:36
MDM/Problems Addressed
MDM/Problems Addressed:
History, exam, and chest x-ray consistent with likely recurrent asthmatic bronchitis. Despite treatment, patient remains tachypneic with continual wheezing. As such, patient will be admitted for further evaluation treatment, including continual
nebulizer treatment as well as steroids.
*EKG
Interpreted by ED Provider?: Yes
EKG Intrepretation Date: 06/23/24
Heart Rate: 70
Rate: normal
Rhythm: sinus
[place]: normal axis
*Critical Care Note
Total Time (30-74mins, 75-104mins- exclusive of procedures): Not Applicable
ED Attending Note
-
Portions of this chart may have been created with voice recognition software.� Occasional wrong word or��sound alike� substitutions may have occurred due to the inherent limitations of voice recognition software.
Discharge Plan
Departure
Patient Disposition: Admit
Date of Disposition: 06/23/24
Time of Disposition: 11:19
Admit to: Telemetry
Presentation/result/management discussed w/ accepting MD/DO: Hospitalist
Discharge Problem:
Asthmatic bronchitis
Interventions
Interventions:
*Risk Screen - Suicide Last Done: 06/23/24 09:45
*General Assessment Last Done: 06/23/24 09:45
*Neglect/Abuse Screening Last Done: 06/23/24 09:45
ED- Fall Risk Assessment Last Done: 06/23/24 12:41
*ED COVID-19 Vaccine History Last Done: 06/23/24 09:45
*Nursing Disposition Last Done: 06/23/24 14:55
ED- Pulmonary Assessment Last Done: 06/23/24 09:45
Discharge Date and Time
Discharge Date/Time: 06/23/24 15:00
[2024-06-23 10:04] LABS: % Basophils 0.4 % (0-2); % Eosinophils 3.9 % (0-6); % Immature Granulocytes 0.7 % (0-0.5); % Lymphocytes 7.6 % (20.5-51.1); % Monocytes 6.1 % (1.7-9.3); % Neutrophils 81.3 % (42.2-75.2); Absolute Eosinophils 0.4 10^3/uL (0-0.7); Absolute Immature Granulocytes 0.1 10^3/uL (0-0.05); Absolute Lymphocytes 0.8 10^3/uL (1.2-3.4); Absolute Monocytes 0.6 10^3/uL (0.1-0.6); Absolute Neutrophils 8.3 10^3/uL (1.4-6.5); Hematocrit 43.3 % (37.0-47.0); Mean Corpuscular Hgb 26.9 pg (27.0-31.0); Mean Corpuscular Volume 89.6 fL (81.0-99.0); Mean Platelet Volume 9.8 fL (7.4-10.4); Nucleated Red Blood Cells % 0 %; Platelet Count 317 10^3/uL (130-400); Red Blood Cell Count 4.83 10^6/uL (4.20-5.40); Red Cell Dist. Width 14.6 % (11.5-14.5); White Blood Cell Count 10.2 10^3/uL (4.8-10.8)
[2024-06-23 10:16] LABS: ALT (SGPT) 16 U/L (0-35); AST (SGOT) 27 U/L (14-36); Albumin 3.8 g/dl (3.5-5.0); Alkaline Phosphatase 84 U/L (38-126); Blood Urea Nitrogen 19 mg/dl (7-17); Calcium 8.5 mg/dl (8.4-10.2); Chloride 95 mmol/L (98-107); Estimated Creatinine Clearance 73 ml/min; Glucose 116 mg/dl (70-99); Sodium 144 mmol/L (135-145); Total Bilirubin 0.3 mg/dl (0.2-1.3); Total Protein 6.7 g/dl (6.3-8.2); eGFR > 60.00
[2024-06-23] MEDS: DECADRON 10 MG IV (10:17)
[2024-06-23] MEDS: DUONEB 3 ML INH ×3 (10:17→19:17)
[2024-06-23] MEDS: ROBITUSSIN AC 10 ML PO (10:17)
[2024-06-23 10:36] LABS: Carbon Dioxide 38 mmol/L (22-30)
[2024-06-23 10:57] LABS: COVID-19 Antigen Negative (Negative)
--- NOTE | 2024-06-23 12:19 | HPS.HSE ---
Family Physician
-
Family Physician: Aden Jeffrey
Chief Complaint
-
Shortness of breath for 1 week duration
History of Present Illness
68 years old female came in from home. Patient started flulike symptoms 1 week ago. She started to continue to have worsening shortness of breath with cough. She has a chronic cough but recently with mild grain colored sputum. No fever or
chills. She uses home oxygen of 5 L. She has been using inhalers. She uses nebulizer at home. In the ER, she was given steroid and nebulizer treatment. Chest radiography did not show definitive infiltrate. She tested negative for COVID and
influenza screen. She did not have leukocytosis. She follows with pulmonary doctor. She was seen recently but before this illness with no changes to her medications.
Medical History
Past Medical History
Past Medical History: Reports Other (Chronic hypoxic and hypercapnic respiratory failure, COPD, sleep apnea, atrial fibrillation, pulmonary hypertension, renal insufficiency, osteoporosis, obesity, gout, diastolic heart failure.)
Past Surgical History: Reports Other (No recent major surgery)
Social History
Tobacco: Former Smoker
Alcohol: None
Drug: None
Personal:
Living: With Family
Employment: Retired
Family History
Family History: Not pertinent
Allergies / Home Medications
Allergies reflects when Allergies were last updated in [email or web address].
Home Medications with original date entered in [email or web address]
Allergy/Medication List:
Allergies
Allergy/AdvReac Type Severity Reaction Status Date / Time
No Known Allergies Allergy Verified 01/25/24 07:55
Home Medications
levothyroxine 100 mcg tablet 100 mcg PO DAILY AT 0700 Thyroid 01/30/21
apixaban 5 mg tablet (Eliquis) 5 mg PO BID Blood clot prevention/tx #0 tabs 02/04/21
furosemide 40 mg tablet 40 mg PO BID AT 0800,1600 Fluid retention/Swelling #60 tabs 02/04/21
therapeutic multivitamin 1 tab PO DAILY Supplement 12/17/22
lisinopril 20 mg tablet 20 mg PO DAILY Blood pressure 01/15/23
psyllium husk (aspartame) 3.4 gram oral powder packet (Metamucil Fiber Singles) 1 packet PO DAILY Gastrointestinal Issue 01/26/24
acetaminophen 325 mg tablet (Tylenol) 650 mg PO Q4HPRN PRN MILD PAIN 06/23/24
allopurinol 100 mg tablet 100 mg PO DAILY 06/23/24
fluticasone furoate 200 mcg/actuation blister powder for inhalation (Arnuity Ellipta) 1 inh inhalation R DAILY 06/23/24
hydralazine 25 mg tablet 25 mg PO BID 06/23/24
ipratropium 0.5 mg-albuterol 3 mg (2.5 mg base)/3 mL nebulization soln 3 ml inhalation R Q8HPRN PRN shortness of breath or wheezing 06/23/24
metoprolol succinate 25 mg tablet,extended release 24 hr 25 mg PO DAILY 06/23/24
sertraline 25 mg tablet 50 mg PO DAILY Depression 06/23/24
Review of Systems
-
History Source: Patient
A 12 point ROS was completed and negative except as noted: Yes
Constitutional: Denies Fever, Night Sweats or Chills
EENT: Denies Sore Throat or Runny Nose
Respiratory: Reports Cough and Trouble Breathing
Cardiac: Denies Chest Pain
Abdomen/GI: Denies Abdominal Pain
: Denies Dysuria
Musculoskeletal: Denies Joint Swelling or Edema
Neurological: Denies Numbness
Endocrine: Denies Temp Intolerance
Hematologic/Lymphatic: Denies Bruising
Psych: Denies Panic Disorder
Physical Exam
Vital Signs
Vital Signs
Temp Pulse Resp BP Pulse Ox
98.2 F 74 18 116/43 94
06/23/24 09:43 06/23/24 09:49 06/23/24 09:49 06/23/24 09:45 06/23/24 09:49
Physical Exam
General: Conversant and Morbidly Obese; No Appears in Distress
HEENT: Anicteric, Moist mucous membranes and Atraumatic
Respiratory: Wheezes and Rhonchi
Cardiac: S1/S2 and Regular Rhythm
GI: Soft and Non Tender
Genito-urinary: No Thurman
Musculoskeletal: No Cyanosis and No Edema
Skin: Warm; No Jaundice
Neuro: AO x 3 and Nonfocal/grossly intact
Psych: Calm and Intact Judgment/Insight
Laboratory Results
-
06/23/24 09:54
06/23/24 09:54
Laboratory Results
Total Bilirubin 0.3 mg/dl (0.2-1.3) 06/23/24 09:54
AST 27 U/L (14-36) 06/23/24 09:54
ALT 16 U/L (0-35) 06/23/24 09:54
Alkaline Phosphatase 84 U/L (38-126) 06/23/24 09:54
Impression/Plan
-
68 years old female presented with worsening shortness of breath over one week
#Acute respiratory distress secondary to Acute COPD exacerbation/acute bronchitis, likely triggered by viral illness
History of chronic hypoxic and hypercapnic respiratory Failure on home oxygen 5 L
Admit the patient to the hospital on telemetry floor
Continue nebulizer treatment with DuoNeb 4 times daily and PRN
Empiric intravenous Rocephin with Zithromax
Primary agronomy research manager Dr. Duran
Monitor response.
Negative COVID & Flu
As needed Tessalon for cough and Mucinex twice daily
Appreciate pulmonary input
# Chronic heart failure with preserved ejection fraction
Last echocardiogram in December 2022 showed LVEF 55 to 60% with mild aortic stenosis.
Continue with daily Lasix
-Continue telemetry monitoring
# History of paroxysmal atrial fibrillation/incomplete right bundle branch block
-Continue Eliquis 5 mg BID, Toprol.
-Amiodarone previously stopped due to elevated transaminases. Continue with Toprol
-Continue telemetry monitoring
#History of Obstructive Sleep Apnea
# Obesity, BMI 51
DVT Prophylaxis:�Eliquis
Diet:�Patient would like to continue with regular diet
Code Status:�Full Code
Total time spent to see the patient, examine the patient on the floor, review data and lab results, discuss treatment plan with patient, ER doctor and nursing staff around 75 minutes
[2024-06-23] MEDS: ZITHROMAX 500 MG PO (15:46)
[2024-06-23] MEDS: ROCEPHIN 1000 MG IV (15:46)
[2024-06-23] MEDS: STERILE WATER FOR INJECTION 10 ML IV (15:46)
[2024-06-23] MEDS: LASIX 40 MG PO (15:46)
[2024-06-23] MEDS: TESSALON PERLES 100 MG PO (15:50)
--- NOTE | 2024-06-23 15:50 | CON.PUL ---
Consultation
Consultation Request
Date/Time Consultation Requested: 06/23/2024 - 1505
Date/Time Consultation Performed: 06/23/2024 - 1540
Requesting Provider: Dr. Brian
Performing Provider: Dr. Jamison
Reason for Consultation: SOB
Medical History
-
Chief Complaint: Cough, cold symptoms, SOB
History of Present Illness:
68-year-old F former tobacco smoker (35-[id number]-[id number] Hx, quit 01/2019) with PMHx below who p/w cough, flu-like symptoms and SOB x 1 week. She has been endorsing SOB + cough with green phlegm could barely walk several feet without feeling short of
breath. She started taking Mucinex about a week ago which has helped her get her phlegm out. She has been around her granddaughter who is 6 years old who may have gotten her sick. The patient's daughter is now starting to cough as well. Patient
denies chest pain, fevers, chills and when I saw her she says she was actually started to feel better. Patient was afebrile in the ER to 98.2 �F, heart rate 79, breathing 18 breaths minute, BP 116/43 and saturating 95% on 5 L/min. Labs showed
normal WBC at 10.2, absolute eosinophil count 400, and COVID antigen negative. Flu A/B swab also negative. No obvious pneumonia seen on CXR. In the ER she was given Decadron, DuoNebs and guaifenesin/codeine and admitted to the floor. Pulmonary
service now consulted for additional management/recommendations.
Of note, pt follows with us in the office, last visit on 06/11/2024 with LUPE Kamara. She has Hx of LUZ MARINA on nocturnal BiPAP 14/20biT2N, COPD on Arnuity 200mcg + DuoNebs TID, uses O2 at 4-5L/min ATC, and a repeat CT chest (LDCT) was ordered for
January 2025 given her tobacco smoking history. Her last PFT was from November 2021 showing severe COPD (post-BD FEV1: 34%, 800cc) , moderate restrictive lung defect (post-BD FVC: 57%)and severe gas exchange capacity defect (DLco: 35%, with DLco/VA: 46%).
PMHx: COPD, chronic hypercapnic/hypoxic respiratory failure, chronic oxygen use (5L/min), LUZ MARINA on BiPAP 14/66leF7N, suspected OHS, chronic HFrEF, paroxysmal A-fib on Eliquis, PH, bifasciular block, morbid obesity, Hx of COVID-19 (December 2020), former
tobacco smoker (47-[id number]-zevh Hx, quit January 2019), osteoporosis, gout
PSHx: x2, left knee arthroscopy, wisdom teeth extraction, and tonsillectomy
Past Medical History
Past Medical History: Other (above as per HPI)
Past Surgical History: Other (above as per HPI)
Social History
Tobacco: Former Smoker (Smoked 1 PPD x 50 years, quit January 2019)
Alcohol: None
Drug: None
Family History
Family History: CAD (Paternal grandfather), Cancer (Father: Liver cancer ) and Other (Mother: A-fib)
Allergies / Home Medications
Allergies
Allergy/AdvReac Type Severity Reaction Status Date / Time
No Known Allergies Allergy Verified 01/25/24 07:55
Home Medications
�Medication �Instructions �Recorded �Confirmed �Last Taken �Type
levothyroxine 100 mcg tablet 100 mcg PO DAILY AT 0700 Thyroid 01/30/21 06/23/24 06/23/24 History
apixaban 5 mg tablet (Eliquis) 5 mg PO BID Blood clot 02/04/21 06/23/24 06/23/24 Rx
prevention/tx #0 tabs
furosemide 40 mg tablet 40 mg PO BID AT 0800,1600 Fluid 02/04/21 06/23/24 06/23/24 Rx
retention/Swelling #60 tabs
therapeutic multivitamin 1 tab PO DAILY Supplement 12/17/22 06/23/24 06/23/24 History
lisinopril 20 mg tablet 20 mg PO DAILY Blood pressure 01/15/23 06/23/24 06/23/24 History
psyllium husk (aspartame) 3.4 gram 1 packet PO DAILY Gastrointestinal 01/26/24 06/23/24 01/24/24 History
oral powder packet (Metamucil Issue
Fiber Singles)
acetaminophen 325 mg tablet 650 mg PO Q4HPRN PRN MILD PAIN 06/23/24 06/23/24 06/23/24 History
(Tylenol)
allopurinol 100 mg tablet 100 mg PO DAILY Gout 06/23/24 06/23/24 06/23/24 History
fluticasone furoate 200 1 inh inhalation R DAILY 06/23/24 06/23/24 06/22/24 History
mcg/actuation blister powder for Lung/Breathing Issues
inhalation (Arnuity Ellipta)
hydralazine 25 mg tablet 25 mg PO BID Blood Pressure 06/23/24 06/23/24 06/22/24 History
ipratropium 0.5 mg-albuterol 3 mg 3 ml inhalation R Q8HPRN PRN 06/23/24 06/23/24 06/23/24 History
(2.5 mg base)/3 mL nebulization shortness of breath or wheezing
soln
metoprolol succinate 25 mg 25 mg PO DAILY Blood Pressure 06/23/24 06/23/24 06/23/24 History
tablet,extended release 24 hr
sertraline 25 mg tablet 50 mg PO DAILY Depression 06/23/24 06/23/24 06/23/24 History
Review of Systems
-
History Source: Patient
All other systems: Negative unless noted
Vitals / Labs / Diagnostic Testing
Vital Signs
Temp Pulse Resp BP Pulse Ox
97.8 F 59 16 117/58 96
06/23/24 22:23 06/23/24 22:23 06/23/24 22:23 06/23/24 22:23 06/23/24 22:23
Lab Data
06/23/24 09:54
Microbiology
06/23/24 09:54 Nasal Swab Influenza Types A & B (TRACIE) - Final
Negative for Influenza A & B, NAAT
Negative results must be combined with clinical observations
and patient history.
Nucleic Acid Amplification test (NAAT)performed on the
[employer] NOW platform.
Diagnostic Testing:
Physical Exam
-
HEENT: Normocephalic and Anicteric
Cardiovascular: Peripheral Edema (negative) and Other (Distant heart sounds; normal heart rate)
Respiratory: Wheeze (expiratory wheezing heard bilaterally), Rales (Bibasilar), Rhonchi (negative) and Non-Labored Respirations
GI: Soft, Distended (abdominal obesity), Non Tender and Normal Bowel Sounds
Neurology: Awake, Alert and Tremors (negative)
Skin: Warm and Dry
General: Respiratory Distress (negative), Comfortable, Fever (negative), Chills (negative) and Sweats (negative)
Assessment
-
Assessment: 68-year-old F former tobacco smoker (78-[id number] Hx, quit 01/2019) with PMHx of COPD, chronic hypercapnic/hypoxic respiratory failure on home oxygen at 5 L/min, LUZ MARINA on BiPAP 14/10 cmH2O, chronic HFrEF, A-fib on Eliquis, bifascicular
block, personal history COVID-19 (December 2020), and gout who presents with SOB with flulike symptoms for 1 week. She was recently exposed to her granddaughter who may have been sick recently. No obvious pneumonia seen on CXR. COVID antigen, as
well as flu A/B. She was given Decadron, DuoNebs and guaifenesin/codeine in the ER and admitted to the hospitalist service. Pulmonary service now consulted for additional management/recommendations.
Chronic medical conditions [employer]: COPD, chronic hypercapnic/hypoxic respiratory failure, chronic oxygen use (5L/min), LUZ MARINA on BiPAP 14/29djY9P, suspected OHS, chronic HFrEF, paroxysmal A-fib on Eliquis, PH, bifasciular block, morbid obesity, Hx of
COVID-19 (December 2020), former tobacco smoker (11-lvyu-zdya Hx, quit January 2019), osteoporosis, gout
Impression:
#Acute COPD exacerbation
#Centrilobular emphysema & chronic bronchitis with significant bronchial wall thickening seen mainly in bases + RML/lingula on CT Chest (January 2024)
#Severe COPD with moderate restrictive lung defect, and severe gas exchange capacity defect (per PFT from November 2021)
#Chronic respiratory failure with hypoxia on supplemental O2 (5L/min, which is her home dose)
#Chronic hypercapnic respiratory failure/OHS - baseline pCO2 approximately 75-80
#Former tobacco smoker (50-PY Hx, quit January 2019)
#Multiple pulmonary nodules (SP patchy solid nodules seen on CT Chest from January 2024, likely due to mucoid impaction/atelectasis)
#Mild aortic stenosis
#LUZ MARINA on nocturnal BiPAP 14/95dcE0U (home settings)
Plan:
- Continue systemic steroids and wean as she clinically improves - currently on Solumedrol 40mg IV q12hr
- Maintain euglycemia while on systemic steroids, with goal BG >100 and <180mg/dL
- DuoNebs QID with prn doses in between for breakthrough symptoms
- Continue rocephin + zithromax, and would Tx for total of 7 days assuming she continues to clinically improve and remains afebrile for 48 hrs prior to stopping Abx
- Continue supplemental O2 to keep sats 88-95%
- Mucolytics - mucinex 1200mg q12hr; anti-tussants prn (Tessalon Perles); she may need vest therapy depending on her response to medications
- Check AM VBG to assess pH and pCO2 given her Hx of chronic hypercapnia and elevated serum HCO3 level
- Given the multiple nodular opacities seen on prior CT chest from 01/25/2024, she will need repeat CT chest to assess stability. This can be done as an outpatient. If pt clinically deteriorates then will re-check while inpatient. She also
qualifies for annual LDCT Chest imaging for lung cancer screening. Again, this will be discussed in the outpatient setting
- Continue nocturnal BiPAP
- Encouraged incentive spirometer use
- DVT ppx: Eliquis
Pulmonary service will continue to follow along. She will continue to follow-up with us in the office as last visit on 06/11/2024 with LUPE Kamara.
Patient was seen and evaluated on 06/23/2024
Data:
CXR 06/23/2024:
No convincing radiographic evidence for focal consolidation/pneumonia.
No evidence for pulmonary edema or pleural effusion.
Stable compression deformity of the T8 vertebral body.
Total time spent today was 57 minutes for this encounter. Time includes reviewing laboratory test/imaging results, reviewing pertinent medical records, obtaining and reviewing medical history, performing an appropriate exam, ordering medications,
tests and procedures. Time also includes documentation of this encounter, coordinating patient care and communicating with other healthcare professionals. Total time does not include separately billed tests performed on this date of service.
[2024-06-23] MEDS: ELIQUIS 5 MG PO (19:46)
[2024-06-23] MEDS: MUCINEX 1200 MG PO (19:46)
[2024-06-23] MEDS: SOLU-MEDROL PF 40 MG IV (19:48)
[2024-06-24] VITALS (8 sets, daily range): BP systolic 110–127; BP diastolic 48–81; PULSE 2; BMI 52.1; BMI 51.0
--- NOTE | 2024-06-24 04:15 | DOWNTIME ---
There was a [employer] Downtime on 06/24/2024 from 0100 to 06/24/2024 at 0355. Downtime documentation of patient's care, including medication administrations, has been reconciled in the electronic record per guidelines. Refer to the
patient's paper chart under the miscellaneous tab to see printed paper medication records and downtime forms.
[2024-06-24] MEDS: SYNTHROID 100 MCG PO (05:31)
[2024-06-24 05:48] LABS: Venous Blood Gas B.E. 12.7 mmol/L (-4 to +4); Venous Blood Gas HCO3 41.6 mmol/L (22-27); Venous Blood Gas O2 Sat % 99.5 %; Venous Blood Gas pH 7.37 (7.32-7.43); Venous Blood Gas pO2 159 mmHg (30-50)
[2024-06-24 05:52] LABS: Venous Blood Gas pCO2 72 mmHg (35-48)
--- NOTE | 2024-06-24 06:03 | PTCARENOTE ---
LEASE PURCHASE TRUCK DR[facility] notified of critical ABG results. No new orders.
[2024-06-24] MEDS: DUONEB 3 ML INH ×4 (06:07→19:49)
[2024-06-24 06:37] LABS: Blood Urea Nitrogen 29 mg/dl (7-17); Calcium 8.7 mg/dl (8.4-10.2); Carbon Dioxide 39 mmol/L (22-30); Chloride 96 mmol/L (98-107); Estimated Creatinine Clearance 73 ml/min; Glucose 141 mg/dl (70-99); Potassium 4.5 mmol/L (3.5-5.1); Sodium 144 mmol/L (135-145); eGFR > 60.00
--- NOTE | 2024-06-24 07:57 | W.PN.PUL3 ---
Today's Communication / Plan
-
Continue Solu-Medrol and continue current dose until wheezing has improved, at which point would transition to slow prednisone taper
Nocturnal BiPAP although she remains noncompliant - try lowering pressures from 14/10 to 10/5cmH2O to see if this improves compliance
Abx
DuoNebs
Up OOB as tolerated
PT/OT
Pulmonary service will continue to follow along
Assessment
-
Assessment: 68-year-old F former tobacco smoker (67-ycpm-gwum Hx, quit 01/2019) with PMHx of COPD, chronic hypercapnic/hypoxic respiratory failure on home oxygen at 5 L/min, LUZ MARINA on BiPAP 14/10 cmH2O, chronic HFrEF, A-fib on Eliquis, bifascicular
block, personal history COVID-19 (December 2020), and gout who presents with SOB with flulike symptoms for 1 week. She was recently exposed to her granddaughter who may have been sick recently. No obvious pneumonia seen on CXR. COVID antigen, as
well as flu A/B. She was given Decadron, DuoNebs and guaifenesin/codeine in the ER and admitted to the hospitalist service. Pulmonary service now consulted for additional management/recommendations.
Chronic medical conditions [employer]: COPD, chronic hypercapnic/hypoxic respiratory failure, chronic oxygen use (5L/min), LUZ MARINA on BiPAP 14/35iuH9K, suspected OHS, chronic HFrEF, paroxysmal A-fib on Eliquis, PH, bifasciular block, morbid obesity, Hx of
COVID-19 (December 2020), former tobacco smoker (59-cfpc-shnp Hx, quit January 2019), osteoporosis, gout
Impression:
#Acute COPD exacerbation
#Centrilobular emphysema & chronic bronchitis with significant bronchial wall thickening seen mainly in bases + RML/lingula on CT Chest (January 2024)
#Severe COPD with moderate restrictive lung defect, and severe gas exchange capacity defect (per PFT from November 2021)
#Chronic respiratory failure with hypoxia on supplemental O2 (5L/min, which is her home dose)
#Chronic hypercapnic respiratory failure/OHS - baseline pCO2 approximately 75-80
#Former tobacco smoker (50-PY Hx, quit January 2019)
#Multiple pulmonary nodules (SP patchy solid nodules seen on CT Chest from January 2024, likely due to mucoid impaction/atelectasis)
#Mild aortic stenosis
#LUZ MRAINA on nocturnal BiPAP 14/01ftW3Q (home settings)
Plan:
- Continue systemic steroids and wean as she clinically improves - currently on Solumedrol 40mg IV q12hr --> continue current dose given she continues to wheeze
- Maintain euglycemia while on systemic steroids, with goal BG >100 and <180mg/dL
- DuoNebs QID with prn doses in between for breakthrough symptoms
- Continue rocephin + zithromax, and would Tx for total of 7 days assuming she continues to clinically improve and remains afebrile for 48 hrs prior to stopping Abx
- Continue supplemental O2 to keep sats 88-95%
- Mucolytics - mucinex 1200mg q12hr; anti-tussants prn (Tessalon Perles); she may need vest therapy depending on her response to medications
- AM VBG checked today showing compensated chronic hypercapnea with pH 7.37, pCO2 72
- Given the multiple nodular opacities seen on prior CT chest from 01/25/2024, she will need repeat CT chest to assess stability. This can be done as an outpatient. If pt clinically deteriorates then will re-check while inpatient. She also
qualifies for annual LDCT Chest imaging for lung cancer screening. Again, this will be discussed in the outpatient setting
- Continue nocturnal BiPAP with change pressures from 14/10 to 10/5cmH2O to help improve compliance
- Encouraged incentive spirometer use
- DVT ppx: Eliquis
Pulmonary service will continue to follow along. She will continue to follow-up with us in the office as last visit on 06/11/2024 with LUPE Kamara.
Data:
CXR 06/23/2024:
No convincing radiographic evidence for focal consolidation/pneumonia.
No evidence for pulmonary edema or pleural effusion.
Stable compression deformity of the T8 vertebral body.
Total time spent today was 39 minutes for this encounter. Time includes reviewing laboratory test/imaging results, reviewing pertinent medical records, obtaining and reviewing medical history, performing an appropriate exam, ordering medications,
tests and procedures. Time also includes documentation of this encounter, coordinating patient care and communicating with other healthcare professionals. Total time does not include separately billed tests performed on this date of service.
Subjective Data
-
Date of Service:
Date of Service: June 24, 2024
Chief Complaint: Pulmonary Follow Up
Subjective:
Patient was seen and evaluated today at bedside. Currently on 5 L/min nasal cannula saturating 94%. Did not want to wear her BiPAP overnight as she is disturbed by it and it disrupts her sleep. She feels better although she is still coughing up
green phlegm. She denies chest pain, DAVIS, abdominal pain, nausea, fevers or chills.
Review of Systems
General: Other (Negative unless mentioned above)
Objective Data
Data Reviewed
Vital Signs / I&O / Oxygen:
Vital Signs
Temp Pulse Resp BP Pulse Ox
97.8 F 67 20 117/81 98
06/24/24 04:29 06/24/24 04:29 06/24/24 06:08 06/24/24 04:29 06/24/24 06:08
Intake and Output
06/23/24 06/24/24 06/25/24
06:59 06:59 06:59
Intake Total 480 / 480
Output Total 500 / 500
Balance -20 / -20
SaO2 98
Nasal Cannula flow liters per 5
minute
Physical Exam
General: Respiratory Distress (negative), Comfortable, Chills (negative) and Sweats (negative)
HEENT: Normocephalic and Anicteric
Cardiovascular: S1-S2 and Peripheral Edema (negative)
Respiratory: Wheeze (Expiratory heard bilaterally), Crackles (negative), Rhonchi (negative) and Non-Labored Respirations
GI: Soft, Distended (Abdominal obesity), Non Tender and Normal Bowel Sounds
Neurology: AO x 3 and Tremors (negative)
Skin: Warm, Dry, Cyanosis (negative) and Jaundice (negative)
Labs/Micro/Reports
Lab Data
06/23/24 09:54
06/24/24 05:34
Microbiology
06/23/24 09:54 Nasal Swab Influenza Types A & B (TRACIE) - Final
Negative for Influenza A & B, NAAT
Negative results must be combined with clinical observations
and patient history.
Nucleic Acid Amplification test (NAAT)performed on the
[employer] platform.
[2024-06-24] MEDS: TOPROL XL 25 MG PO (09:44)
[2024-06-24] MEDS: ZYLOPRIM 100 MG PO (09:44)
[2024-06-24] MEDS: APRESOLINE 25 MG PO ×2 (09:45→19:47)
[2024-06-24] MEDS: ZOLOFT 50 MG PO (09:45)
[2024-06-24] MEDS: MUCINEX 1200 MG PO ×2 (09:45→19:47)
[2024-06-24] MEDS: METAMUCIL, KONSYL 1 PACKET PO (09:45)
[2024-06-24] MEDS: ELIQUIS 5 MG PO ×2 (09:46→19:47)
[2024-06-24] MEDS: LASIX 40 MG PO ×2 (09:46→16:18)
[2024-06-24] MEDS: SOLU-MEDROL PF 40 MG IV ×2 (09:46→19:47)
[2024-06-24] MEDS: ZESTRIL 20 MG PO (09:52)
[2024-06-24] MEDS: ZITHROMAX 500 MG PO (09:53)
--- NOTE | 2024-06-24 12:15 | W.PN.HOSP.TC ---
Today's Communication/Plan
-
PT/OT
change to oral prednisone on 06/25
c/w empiric Rocephin, Zithromax
Obtain sputum culture
Assessment / Plan
Assessment / Plan
Physical Exam
General: Conversant and Morbidly Obese; No Appears in Distress
HEENT: Anicteric, Moist mucous membranes and Atraumatic
Respiratory: Wheezes and Rhonchi
Cardiac: S1/S2 and Regular Rhythm
GI: Soft and Non Tender
Genito-urinary: No Thurman
Musculoskeletal: No Cyanosis and No Edema
Skin: Warm; No Jaundice
Neuro: AO x 3 and Nonfocal/grossly intact
Psych: Calm and Intact Judgment/Insight
68 years old female presented with worsening shortness of breath over one week
#Acute respiratory distress secondary to Acute COPD exacerbation/acute bronchitis, likely triggered by viral illness
History of chronic hypoxic and hypercapnic respiratory Failure on home oxygen 5 L
she feels better
Continue nebulizer treatment with DuoNeb 4 times daily and PRN
Empiric intravenous Rocephin with Zithromax, order sputum culture
Primary registrar assistant Dr. Duran
Not toxic, no worsening hypoxia today.
Negative COVID & Flu
As needed Tessalon for cough and Mucinex twice daily
Appreciate pulmonary input
# Chronic heart failure with preserved ejection fraction
Last echocardiogram in December 2022 showed LVEF 55 to 60% with mild aortic stenosis.
Continue with daily Lasix
-Continue telemetry monitoring
# History of paroxysmal atrial fibrillation/incomplete right bundle branch block
-Continue Eliquis 5 mg BID, Toprol.
-Amiodarone previously stopped due to elevated transaminases. Continue with Toprol
-Continue telemetry monitoring
#History of Obstructive Sleep Apnea
# Obesity, BMI 51
DVT Prophylaxis:�Eliquis
Diet:�Patient would like to continue with regular diet
Code Status:�Full Code
Will order PT/OT
Total time spent to see the patient, examine the patient on the floor, review data and lab results, discuss treatment plan with patient, and nursing staff around 55 minutes
Anticipated Discharge: 24 - 48 hours
Subjective/Interval History
-
Date of Service: June 24, 2024
No sob
No fevers
No chest pain
Objective Data
-
Labs:
Laboratory Results
06/24/24
05:34
Sodium 144
Potassium 4.5
Chloride 96 L
Carbon Dioxide 39 H
BUN 29 H
Creatinine 1.0
Glucose 141 H
Calcium 8.7
Vital Signs:
Vital Signs
Temp Pulse Resp BP Pulse Ox
97.9 F 59 18 115/62 98
06/24/24 11:21 06/24/24 11:36 06/24/24 11:36 06/24/24 11:21 06/24/24 11:36
I&O
06/23/24 06/24/24 06/25/24
06:59 06:59 06:59
Intake Total 480 / 480
Output Total 500 / 500
Balance -20 / -20
[2024-06-24] MEDS: TESSALON PERLES 100 MG PO (14:22)
--- NOTE | 2024-06-24 15:42 | CM ---
Alert awake oriented patient who lives with her Jude who lives in a one story home with ramp to enter.She is assisted in all activities of daily living.Need PT OT evals for dc plan.
Oxygen with [address] [place] [address] Medical , Rollator ,Nebulizer.
had [facility]
Pharmacy [facility]
PCP Dr Jeffrey
PLAN Needs PT OT for dc planning.
[2024-06-24] MEDS: STERILE WATER FOR INJECTION 10 ML IV (16:16)
[2024-06-24] MEDS: ROCEPHIN 1000 MG IV (16:16)
[2024-06-25] VITALS (10 sets, daily range): BP systolic 112–139; BP diastolic 53–71; PULSE 2–72; O2SAT 93–96; BMI 51.3
[2024-06-25] MEDS: SYNTHROID 100 MCG PO (06:04)
[2024-06-25] MEDS: DUONEB 3 ML INH ×4 (07:41→19:52)
[2024-06-25] MEDS: DELTASONE 40 MG PO (08:06)
[2024-06-25] MEDS: APRESOLINE 25 MG PO ×2 (08:06→21:52)
[2024-06-25] MEDS: METAMUCIL, KONSYL 1 PACKET PO (08:07)
[2024-06-25] MEDS: ZYLOPRIM 100 MG PO (08:07)
[2024-06-25] MEDS: ZESTRIL 20 MG PO (08:07)
[2024-06-25] MEDS: ZOLOFT 50 MG PO (08:07)
[2024-06-25] MEDS: LASIX 40 MG PO ×2 (08:07→15:20)
[2024-06-25] MEDS: ELIQUIS 5 MG PO ×2 (08:07→21:51)
[2024-06-25] MEDS: MUCINEX 1200 MG PO ×2 (08:07→21:51)
[2024-06-25] MEDS: ZITHROMAX 500 MG PO (08:07)
[2024-06-25] MEDS: TOPROL XL 25 MG PO (08:08)
--- NOTE | 2024-06-25 09:12 | W.PN.HOSP.TC ---
Today's Communication/Plan
-
Steroid
Neb
Mucinex
PT/OT
Assessment / Plan
Assessment / Plan
Physical Exam
General: Conversant and Morbidly Obese; No Appears in Distress
HEENT: Anicteric, Moist mucous membranes and Atraumatic
Respiratory: Much less rhonchi, less Wheezes
Cardiac: S1/S2 and Regular Rhythm
GI: Soft and Non Tender
Genito-urinary: No Thurman
Musculoskeletal: No Cyanosis and No Edema
Skin: Warm; No Jaundice
Neuro: AO x 3 and Nonfocal/grossly intact
Psych: Calm and Intact Judgment/Insight
68 years old female presented with worsening shortness of breath over one week
#Acute respiratory distress secondary to Acute COPD exacerbation/acute bronchitis, likely triggered by viral illness
History of chronic hypoxic and hypercapnic respiratory Failure on home oxygen 5 L
she feels better, less wheezes on exam this morning
Continue nebulizer treatment with DuoNeb 4 times daily and PRN
Empiric intravenous Rocephin with Zithromax, ordered sputum culture
Primary machine stemmer Dr. Duran
Not toxic, no worsening hypoxia.
Changed to oral prednisone and taper.
Negative COVID & Flu
As needed Tessalon for cough and Mucinex twice daily
Appreciate pulmonary input
# Chronic heart failure with preserved ejection fraction
Last echocardiogram in December 2022 showed LVEF 55 to 60% with mild aortic stenosis.
Continue with daily Lasix, Weight seems stable.
-Continue telemetry monitoring
# History of paroxysmal atrial fibrillation/incomplete right bundle branch block
-Continue Eliquis 5 mg BID, Toprol.
-Amiodarone previously stopped due to elevated transaminases. Continue with Toprol
-Continue telemetry monitoring
#History of Obstructive Sleep Apnea
Pulmonary doctor reduced pressure to help improve compliance.
# Obesity, BMI 51
DVT Prophylaxis:�Eliquis
Diet:�Patient would like to continue with regular diet
Code Status:�Full Code
Ordered PT/OT
Total time spent to see the patient, examine the patient on the floor, review data and lab results, discuss treatment plan with patient, and nursing staff around 55 minutes
Anticipated Discharge: 24 - 48 hours
Subjective/Interval History
-
Date of Service: June 25, 2024
She is feeling better
No headache
No chest pain
Less cough
Objective Data
-
Vital Signs:
Vital Signs
Temp Pulse Resp BP Pulse Ox
98.3 F 60 16 139/67 97
06/25/24 07:50 06/25/24 08:08 06/25/24 07:50 06/25/24 08:06 06/25/24 07:50
I&O
06/24/24 06/25/24 06/26/24
06:59 06:59 06:59
Intake Total 480 / 480 1640 / 1640
Output Total 500 / 500 1100 / 1100
Balance -20 / -20 540 / 540
--- NOTE | 2024-06-25 10:38 | CM ---
Addendum entered by Evelyn Cantu 06/25/24 12:07:
PT assessment recommendation for SNF, referral sent to [facility] at Patient request.
Original Note:
Patient seen at bedside. Patient indicated that she would like a referral to [facility] if PT/OT recommended SNF. CM will continue to follow for discharge planning and will make referral pending assessment and physician review.
Plan; SNF; [facility] referral
[2024-06-25] MEDS: ROBITUSSIN DM 10 ML PO (13:43)
--- NOTE | 2024-06-25 14:09 | W.PN.PUL3 ---
Today's Communication / Plan
-
Continue steroids-transition to prednisone.
Continue nebulizers
Mucolytic's
Continue antitussives
Antibiotics-complete 5 to 7 days
Continue oxygen for mentation
Nocturnal BiPAP-compliance was encouraged
Will follow, hopefully discharge planning in the next 24 to 48 hours depending on clinical progression
Assessment
-
Assessment: 68-year-old F former tobacco smoker (08-bnaf-ykuh Hx, quit 01/2019) with PMHx of COPD, chronic hypercapnic/hypoxic respiratory failure on home oxygen at 5 L/min, LUZ MARINA on BiPAP 14/10 cmH2O, chronic HFrEF, A-fib on Eliquis, bifascicular
block, personal history COVID-19 (December 2020), and gout who presents with SOB with flulike symptoms for 1 week. She was recently exposed to her granddaughter who may have been sick recently. No obvious pneumonia seen on CXR. COVID antigen, as
well as flu A/B. She was given Decadron, DuoNebs and guaifenesin/codeine in the ER and admitted to the hospitalist service. Pulmonary service now consulted for additional management/recommendations.
Chronic medical conditions [employer]: COPD, chronic hypercapnic/hypoxic respiratory failure, chronic oxygen use (5L/min), LUZ MARINA on BiPAP 14/37upW4Q, suspected OHS, chronic HFrEF, paroxysmal A-fib on Eliquis, PH, bifasciular block, morbid obesity, Hx of
COVID-19 (December 2020), former tobacco smoker (69-sopt-nqwl Hx, quit January 2019), osteoporosis, gout
Impression:
#Acute COPD exacerbation
#Centrilobular emphysema & chronic bronchitis with significant bronchial wall thickening seen mainly in bases + RML/lingula on CT Chest (January 2024)
#Severe COPD with moderate restrictive lung defect, and severe gas exchange capacity defect (per PFT from November 2021)
#Chronic respiratory failure with hypoxia on supplemental O2 (5L/min, which is her home dose)
#Chronic hypercapnic respiratory failure/OHS - baseline pCO2 approximately 75-80
#Former tobacco smoker (50-PY Hx, quit January 2019)
#Multiple pulmonary nodules (SP patchy solid nodules seen on CT Chest from January 2024, likely due to mucoid impaction/atelectasis)
#Mild aortic stenosis
#LUZ MARINA on nocturnal BiPAP 14/88gxM3L (home settings)
Plan:
Main complaint is coughing.
Lung exam is still with some expiratory wheezing and rhonchi. Improved compared to prior.
Oxygen supplementation back to baseline
-
-Has been transition to oral prednisone 40 mg, decrease by 10 mg every 72 hours to off.
- DuoNebs QID with prn doses in between for breakthrough symptoms ( Usually on Arnuity and PRN nebs)
- Continue rocephin + zithromax, and would Tx for total of 7 days - All cultures negative so far. Agree with transition to oral antibiotics.
- Continue supplemental O2 to keep sats 88-95%-patient wears 4 to 5 L at home.
- Mucolytics - mucinex 1200mg q12hr; anti-tussants prn (Tessalon Perles);
Will add Acapella device, having difficulty expectorating.
Guaifenesin plus dextromethorphan as needed
Obesity hypoventilation syndrome:
- AM VBG checked today showing compensated chronic hypercapnea with pH 7.37, pCO2 72.
-- Continue nocturnal BiPAP with change pressures 10/5cmH2O to help improve compliance
- Given the multiple nodular opacities seen on prior CT chest from 01/25/2024, she will need repeat CT chest to assess stability. This can be done as an outpatient. If pt clinically deteriorates then will re-check while inpatient. She also
qualifies for annual LDCT Chest imaging for lung cancer screening. Again, this will be discussed in the outpatient setting
- Encouraged incentive spirometer use
- DVT ppx: Eliquis
Pulmonary service will continue to follow along. She will continue to follow-up with us in the office as last visit on 06/11/2024 with LUPE Kamara.

Data:
CXR 06/23/2024:
No convincing radiographic evidence for focal consolidation/pneumonia.
No evidence for pulmonary edema or pleural effusion.
Stable compression deformity of the T8 vertebral body.
Total time spent today was 39 minutes for this encounter. Time includes reviewing laboratory test/imaging results, reviewing pertinent medical records, obtaining and reviewing medical history, performing an appropriate exam, ordering medications,
tests and procedures. Time also includes documentation of this encounter, coordinating patient care and communicating with other healthcare professionals. Total time does not include separately billed tests performed on this date of service.
Subjective Data
-
Date of Service:
Date of Service: June 25, 2024
Chief Complaint: Pulmonary Follow Up
Subjective:
Main complaint is coughing.
Wheezing has improved
Has difficulty expectorating
Review of Systems
Cardiopulmonary: Dyspnea, Dyspnea on Exertion, Cough and Wheezing
Objective Data
Data Reviewed
Vital Signs / I&O / Oxygen:
Vital Signs
Temp Pulse Resp BP Pulse Ox
98.1 F 78 18 130/71 95
06/25/24 11:11 06/25/24 11:31 06/25/24 11:31 06/25/24 11:11 06/25/24 11:31
Intake and Output
06/24/24 06/25/24 06/26/24
06:59 06:59 06:59
Intake Total 480 / 480 1640 / 1640
Output Total 500 / 500 1100 / 1100
Balance -20 / -20 540 / 540
SaO2 95
Nasal Cannula flow liters per 5
minute
Physical Exam
General: Respiratory Distress (negative), Comfortable, Chills (negative) and Sweats (negative)
HEENT: Normocephalic and Anicteric
Cardiovascular: S1-S2 and Peripheral Edema (negative)
Respiratory: Wheeze (Expiratory heard bilaterally), Crackles (negative), Rhonchi (negative) and Non-Labored Respirations
GI: Soft, Distended (Abdominal obesity), Non Tender and Normal Bowel Sounds
Neurology: AO x 3 and Tremors (negative)
Skin: Warm, Dry, Cyanosis (negative) and Jaundice (negative)
Labs/Micro/Reports
Lab Data
06/23/24 09:54
06/24/24 05:34
Microbiology
06/24/24 14:25 Sputum Respiratory Culture - Final
06/24/24 14:25 Sputum Gram Stain - Final
06/23/24 09:54 Nasal Swab Influenza Types A & B (TRACIE) - Final
Negative for Influenza A & B, NAAT
Negative results must be combined with clinical observations
and patient history.
Nucleic Acid Amplification test (NAAT)performed on the
[employer] platform.
[2024-06-25] MEDS: ROCEPHIN 1000 MG IV (15:19)
[2024-06-25] MEDS: STERILE WATER FOR INJECTION 10 ML IV (15:20)
[2024-06-26 00:43] LABS: Hepatitis C Antibody Negative (Negative)
[2024-06-26 03:50] VITALS: BP 138/79
[2024-06-26] MEDS: SYNTHROID 100 MCG PO (06:22)
[2024-06-26] MEDS: DUONEB 3 ML INH ×4 (07:08→20:37)
[2024-06-26 07:58] VITALS: BP 144/64
--- NOTE | 2024-06-26 08:32 | CM ---
Addendum entered by Evelyn Cantu 06/26/24 14:58:
[facility] does not have a bed either but [facility] does for saturday; please call [facility] to confirm, [facility] also able to offer bed please call T [phone].
Addendum entered by Evelyn Cantu 06/26/24 14:28:
Patient has her own Bipap and mask at home. CM will update [facility] liaison.
Addendum entered by Evelyn Cantu 06/26/24 14:24:
no beds at [facility] through weekend, awaiting response from [facility]
Addendum entered by Evelyn Cantu 06/26/24 10:36:
Patient consented to referral to [facility], [facility] and [facility]. Patient to talk to her physician and about options. Patient also considering going home. CM will send referrals and await confirmation of bed availability and update patient.
Addendum entered by Evelyn Cantu 06/26/24 10:22:
No beds available at [facility] per [facility] today. CM will update patient and request additional options for referrals.
Original Note:
Voice mail left for liaison at [facility] re availability of beds. CM will continue to follow for discharge planning needs.
Plan; SNF
[2024-06-26] MEDS: DELTASONE 40 MG PO (08:55)
[2024-06-26] MEDS: ZESTRIL 20 MG PO (08:55)
[2024-06-26] MEDS: ELIQUIS 5 MG PO ×2 (08:55→20:43)
[2024-06-26] MEDS: APRESOLINE 25 MG PO ×2 (08:55→20:43)
[2024-06-26] MEDS: METAMUCIL, KONSYL 1 PACKET PO (08:55)
[2024-06-26] MEDS: ZYLOPRIM 100 MG PO (08:56)
[2024-06-26] MEDS: LASIX 40 MG PO ×2 (08:56→15:41)
[2024-06-26] MEDS: ZITHROMAX 500 MG PO (08:56)
[2024-06-26] MEDS: MUCINEX 1200 MG PO ×2 (08:56→20:43)
[2024-06-26] MEDS: TOPROL XL 25 MG PO (08:56)
[2024-06-26] MEDS: ZOLOFT 50 MG PO (08:56)
--- NOTE | 2024-06-26 11:27 | W.PN.HOSP.TC ---
Today's Communication/Plan
-
She feels better, she might be able to be discharged over the weekend.
Assessment / Plan
Assessment / Plan
Physical Exam
General: Conversant and Morbidly Obese; No Appears in Distress
HEENT: Anicteric, Moist mucous membranes and Atraumatic
Respiratory: Much less rhonchi, less Wheezes
Cardiac: S1/S2 and Regular Rhythm
GI: Soft and Non Tender
Genito-urinary: No Thurman
Musculoskeletal: No Cyanosis and No Edema
Skin: Warm; No Jaundice
Neuro: AO x 3 and Nonfocal/grossly intact
Psych: Calm and Intact Judgment/Insight
68 years old female presented with worsening shortness of breath over one week
#Acute respiratory distress secondary to Acute COPD exacerbation/acute bronchitis, likely triggered by viral illness
History of chronic hypoxic and hypercapnic respiratory Failure on home oxygen 5 L
she feels better, less wheezes on exam this morning
Continue nebulizer treatment with DuoNeb 4 times daily and PRN
Empiric intravenous Rocephin with Zithromax, ordered sputum culture
Primary machine ii cutter Dr. Duran
Not toxic, no worsening hypoxia.
Changed to oral prednisone and taper.
Negative COVID & Flu
As needed Tessalon for cough and Mucinex twice daily
Appreciate pulmonary input
# Chronic heart failure with preserved ejection fraction
Last echocardiogram in December 2022 showed LVEF 55 to 60% with mild aortic stenosis.
Continue with daily Lasix, Weight seems stable.
-Continue telemetry monitoring
# History of paroxysmal atrial fibrillation/incomplete right bundle branch block
-Continue Eliquis 5 mg BID, Toprol.
-Amiodarone previously stopped due to elevated transaminases. Continue with Toprol
-Continue telemetry monitoring
#History of Obstructive Sleep Apnea
Pulmonary doctor reduced pressure to help improve compliance.
# Obesity, BMI 51
DVT Prophylaxis:�Eliquis
Diet:�Patient would like to continue with regular diet
Code Status:�Full Code
Ordered PT/OT
Total time spent to see the patient, examine the patient on the floor, review data and lab results, discuss treatment plan with patient, and nursing staff around 55 minutes
Anticipated Discharge: Within 24 hours
Subjective/Interval History
-
Date of Service: June 26, 2024
She feels better
No abd pain or chest pain
Less sob
Objective Data
-
Vital Signs:
Vital Signs
Temp Pulse Resp BP Pulse Ox
98.3 F 66 16 144/64 100
06/26/24 07:58 06/26/24 07:58 06/26/24 07:58 06/26/24 07:58 06/26/24 07:58
I&O
06/25/24 06/26/24 06/27/24
06:59 06:59 06:59
Intake Total 1640 / 1640 1200 / 1200
Output Total 1100 / 1100
Balance 540 / 540 1200 / 1200
[2024-06-26 12:00] VITALS: BP 137/68
--- NOTE | 2024-06-26 12:33 | W.PN.PUL3 ---
Today's Communication / Plan
-
Continue prednisone
Continue DuoNebs 4 times a day-should continue after discharge
Incentive spirometry
Acapella device
Consider transition to oral antibiotics and complete 5-7 days.
Continue nocturnal BiPAP
Avoid sedatives
Hopefully discharge in the next 24 to 48 hours if continues to improve
Assessment
-
Assessment: 68-year-old F former tobacco smoker (91-halq-kkzd Hx, quit 01/2019) with PMHx of COPD, chronic hypercapnic/hypoxic respiratory failure on home oxygen at 5 L/min, LUZ MARINA on BiPAP 14/10 cmH2O, chronic HFrEF, A-fib on Eliquis, bifascicular
block, personal history COVID-19 (December 2020), and gout who presents with SOB with flulike symptoms for 1 week. She was recently exposed to her granddaughter who may have been sick recently. No obvious pneumonia seen on CXR. COVID antigen, as
well as flu A/B. She was given Decadron, DuoNebs and guaifenesin/codeine in the ER and admitted to the hospitalist service. Pulmonary service now consulted for additional management/recommendations.
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
COVID-19 (December 2020), former tobacco smoker (51-[id number]-zrfs Hx, quit January 2019), osteoporosis, gout
Impression:
#Acute COPD exacerbation
#Centrilobular emphysema & chronic bronchitis with significant bronchial wall thickening seen mainly in bases + RML/lingula on CT Chest (January 2024)
#Severe COPD with moderate restrictive lung defect, and severe gas exchange capacity defect (per PFT from November 2021)
#Chronic respiratory failure with hypoxia on supplemental O2 (5L/min, which is her home dose)
#Chronic hypercapnic respiratory failure/OHS - baseline pCO2 approximately 75-80
#Former tobacco smoker (50-PY Hx, quit January 2019)
#Multiple pulmonary nodules (SP patchy solid nodules seen on CT Chest from January 2024, likely due to mucoid impaction/atelectasis)
#Mild aortic stenosis
#LUZ MARINA on nocturnal BiPAP 14/68gnN5B (home settings)
Plan:
Overall, feels improved.
Oxygen supplementation at baseline-5 L
Minimal expiratory wheezing bilaterally.
Less coughing.
-
-Continue prednisone 40 mg, decrease by 10 mg every 72 hours to off.
- DuoNebs QID with prn doses in between for breakthrough symptoms ( Usually on Arnuity and PRN nebs)-would continue on nebulizers [id number] while recovering from acute exacerbation.
- Continue rocephin + zithromax, and would Tx for total of 5-7 days - All cultures negative so far. Consider transition to oral antibiotics. Treating bronchitis. No infiltrate on chest x-ray
- Continue supplemental O2 to keep sats 88-95%-patient wears 4 to 5 L at home.
- Mucolytics - mucinex 1200mg q12hr; anti-tussants prn (Tessalon Perles);
Continue Acapella device, having difficulty expectorating.
Guaifenesin plus dextromethorphan as needed
Obesity hypoventilation syndrome:
- AM VBG checked today showing compensated chronic hypercapnea with pH 7.37, pCO2 72.
-- Continue nocturnal BiPAP with change pressures 10/5cmH2O to help improve compliance, patient has BiPAP at home.
- Given the multiple nodular opacities seen on prior CT chest from 01/25/2024, she will need repeat CT chest to assess stability. This can be done as an outpatient. If pt clinically deteriorates then will re-check while inpatient. She also
qualifies for annual LDCT Chest imaging for lung cancer screening. Again, this will be discussed in the outpatient setting.
[facility] records reviewed, multiple request for low-dose radiation CAT scan have been given in the outpatient and she did not follow through.
- Encouraged incentive spirometer use
- DVT ppx: Eliquis
Pulmonary service will continue to follow along. She will continue to follow-up with us in the office as last visit on 06/11/2024 with LUPE Kamara. Last time saw Dr. Harper in 2021. Has been seeing nurse practitioners.
-
Hopefully discharge planning in the next 24 to 48 hours. Patient to be discharged to rehab

Data:
CXR 06/23/2024:
No convincing radiographic evidence for focal consolidation/pneumonia.
No evidence for pulmonary edema or pleural effusion.
Stable compression deformity of the T8 vertebral body.
Subjective Data
-
Date of Service:
Date of Service: June 26, 2024
Chief Complaint: Pulmonary Follow Up
Subjective:
Patient feels better
Less coughing
Less bronchospasm
Remains on supplemental oxygen at
Review of Systems
Cardiopulmonary: Dyspnea (improved)
GI: Abdominal Pain (n) and Nausea (n)
Neuro: Headache (n)
Objective Data
Data Reviewed
Vital Signs / I&O / Oxygen:
Vital Signs
Temp Pulse Resp BP Pulse Ox
98.2 F 64 16 137/68 97
06/26/24 12:00 06/26/24 12:00 06/26/24 12:00 06/26/24 12:00 06/26/24 12:00
Intake and Output
06/25/24 06/26/24 06/27/24
06:59 06:59 06:59
Intake Total 1640 / 1640 1200 / 1200
Output Total 1100 / 1100
Balance 540 / 540 1200 / 1200
SaO2 97
Nasal Cannula flow liters per 5
minute
Physical Exam
General: Respiratory Distress (negative), Comfortable, Chills (negative) and Sweats (negative)
HEENT: Normocephalic and Anicteric
Cardiovascular: S1-S2 and Peripheral Edema (negative)
Respiratory: Wheeze (Mild-expiratory. Improved.), Crackles (negative), Rhonchi (negative) and Non-Labored Respirations
GI: Soft, Distended (Abdominal obesity), Non Tender and Normal Bowel Sounds
Neurology: AO x 3 and Tremors (negative)
Skin: Warm, Dry, Cyanosis (negative) and Jaundice (negative)
Labs/Micro/Reports
Lab Data
06/23/24 09:54
06/24/24 05:34
Microbiology
06/24/24 14:25 Sputum Respiratory Culture - Final
06/24/24 14:25 Sputum Gram Stain - Final
06/23/24 09:54 Nasal Swab Influenza Types A & B (TRACIE) - Final
Negative for Influenza A & B, NAAT
Negative results must be combined with clinical observations
and patient history.
Nucleic Acid Amplification test (NAAT)performed on the
[employer] platform.
[2024-06-26 13:33] VITALS: BMI 50.9
[2024-06-26] MEDS: STERILE WATER FOR INJECTION 10 ML IV (15:41)
[2024-06-26] MEDS: ROCEPHIN 1000 MG IV (15:41)
[2024-06-26 19:55] VITALS: BP 147/73
[2024-06-26 21:11] VITALS: PULSE 2
[2024-06-26 23:31] VITALS: BP 127/56
[2024-06-27] VITALS (7 sets, daily range): BP systolic 123–130; BP diastolic 49–65; PULSE 2–67; BMI 50.9
[2024-06-27] MEDS: SYNTHROID 100 MCG PO (06:10)
[2024-06-27] MEDS: DUONEB 3 ML INH ×3 (07:55→19:35)
--- NOTE | 2024-06-27 08:43 | W.PN.HOSP.TC ---
Today's Communication/Plan
-
No dc today
Lung exam not better
Pt has cough and still struggling.
Change to IV steroid, order CT chest
Assessment / Plan
Assessment / Plan
Physical Exam
General: Conversant and Morbidly Obese; No Appears in Distress
HEENT: Anicteric, Moist mucous membranes and Atraumatic
Respiratory: seems worse than yesterday, more limited with rhonchi, Wheezes
Cardiac: S1/S2 and Regular Rhythm
GI: Soft and Non Tender
Genito-urinary: No Thurman
Musculoskeletal: No Cyanosis and No Edema
Skin: Warm; No Jaundice
Neuro: AO x 3 and Nonfocal/grossly intact
Psych: Calm and Intact Judgment/Insight
68 years old female presented with worsening shortness of breath over one week
#Acute respiratory distress secondary to Acute COPD exacerbation/acute bronchitis, likely triggered by viral illness
History of chronic hypoxic and hypercapnic respiratory Failure on home oxygen 5 L
She seems worse today with limited lung exam, wheezes and rhonchi
I will switch back to IV steroid, will do CT chest , will change to Robitussin DM ATC
Continue nebulizer treatment with DuoNeb 4 times daily and PRN
Given Empiric intravenous Rocephin with Zithromax, ordered sputum culture
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
Not toxic, no worsening hypoxia.
Negative COVID & Flu
As needed Tessalon for cough and Mucinex twice daily
Appreciate pulmonary input
# Chronic heart failure with preserved ejection fraction
Last echocardiogram in December 2022 showed LVEF 55 to 60% with mild aortic stenosis.
Continue with daily Lasix, Weight seems stable.
-Continue telemetry monitoring
# History of paroxysmal atrial fibrillation/incomplete right bundle branch block
-Continue Eliquis 5 mg BID, Toprol.
-Amiodarone previously stopped due to elevated transaminases. Continue with Toprol
-Continue telemetry monitoring
#History of Obstructive Sleep Apnea
Pulmonary doctor reduced pressure to help improve compliance.
# Obesity, BMI 51
DVT Prophylaxis:�Eliquis
Diet:�Patient would like to continue with regular diet
Code Status:�Full Code
Ordered PT/OT
Total time spent to see the patient, examine the patient on the floor, review data and lab results, discuss treatment plan with patient, pulmonary doctor and nursing staff around 55 minutes
Anticipated Discharge: Within 24 hours
Subjective/Interval History
-
Date of Service: June 27, 2024
Still coughing and does not feel better
Objective Data
-
Vital Signs:
Vital Signs
Temp Pulse Resp BP Pulse Ox
97.9 F 60 17 130/65 100
06/27/24 08:00 06/27/24 08:00 06/27/24 08:00 06/27/24 08:00 06/27/24 08:00
I&O
06/26/24 06/27/24 06/28/24
06:59 06:59 06:59
Intake Total 1200 / 1200 1500 / 1500
Balance 1200 / 1200 1500 / 1500
[2024-06-27] MEDS: ROBITUSSIN DM 10 ML PO ×3 (08:49→22:26)
[2024-06-27] MEDS: LASIX 40 MG PO ×2 (08:49→15:58)
[2024-06-27] MEDS: ZESTRIL 20 MG PO (08:49)
[2024-06-27] MEDS: METAMUCIL, KONSYL 1 PACKET PO (08:49)
[2024-06-27] MEDS: TOPROL XL 25 MG PO (08:49)
[2024-06-27] MEDS: ZYLOPRIM 100 MG PO (08:49)
[2024-06-27] MEDS: ZOLOFT 50 MG PO (08:49)
[2024-06-27] MEDS: ELIQUIS 5 MG PO ×2 (08:49→20:16)
[2024-06-27] MEDS: ZITHROMAX 500 MG PO (08:49)
[2024-06-27] MEDS: APRESOLINE 25 MG PO ×2 (08:50→20:16)
[2024-06-27] MEDS: SOLU-MEDROL PF 60 MG IV ×2 (08:50→20:17)
[2024-06-27] MEDS: MUCINEX PO (09:00)
--- NOTE | 2024-06-27 13:01 | W.PN.PUL.V3 ---
Today's Communication / Plan
-
Wean oxygen
Intravenous steroids
Finite course of antibiotics
Antitussives
CT chest pending
Assessment
-
Assessment: 68-year-old F former tobacco smoker (18-bjos-fghs Hx, quit 01/2019) with PMHx of COPD, chronic hypercapnic/hypoxic respiratory failure on home oxygen at 5 L/min, LUZ MARINA on BiPAP 14/10 cmH2O, chronic HFrEF, A-fib on Eliquis, bifascicular
block, personal history COVID-19 (December 2020), and gout who presents with SOB with flulike symptoms for 1 week. She was recently exposed to her granddaughter who may have been sick recently. No obvious pneumonia seen on CXR. COVID antigen, as
well as flu A/B. She was given Decadron, DuoNebs and guaifenesin/codeine in the ER and admitted to the hospitalist service. Pulmonary service now consulted for additional management/recommendations.
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
COVID-19 (December 2020), former tobacco smoker (14-vxkx-iscd Hx, quit January 2019), osteoporosis, gout
Impression:
#Acute COPD exacerbation
#Centrilobular emphysema & chronic bronchitis with significant bronchial wall thickening seen mainly in bases + RML/lingula on CT Chest (January 2024)
#Severe COPD with moderate restrictive lung defect, and severe gas exchange capacity defect (per PFT from November 2021)
#Chronic respiratory failure with hypoxia on supplemental O2 (5L/min, which is her home dose)
#Chronic hypercapnic respiratory failure/OHS - baseline pCO2 approximately 75-80
#Former tobacco smoker (50-PY Hx, quit January 2019)
#Multiple pulmonary nodules (SP patchy solid nodules seen on CT Chest from January 2024, likely due to mucoid impaction/atelectasis)
#Mild aortic stenosis
#LUZ MARNIA on nocturnal BiPAP 14/45hyR3B (home settings)
Plan:
Major complaint continues to be wheezing and nonproductive cough
Supplemental oxygen as needed-attempt to wean-baseline 5 L
Chronic hypercapnia-baseline pCO2 around 70
BiPAP 10/5 cm at night
Nebulizers continue
Mucolytic's
Tessalon not helping much
Codeine will be added according to the patient by primary service/hospitalist
Uxoffykt-aprroxwsrjpoq-Vwzr-Medrol 60 mg IV twice daily
CT chest 06/27/2024-pending
Patient known to have multiple nodular opacifications on CT 01/25/2024-these will need to be followed as an outpatient-multiple requests have been provided in the past and the patient did not follow through
Cultures reviewed
Antibiotics continue for total of 5-7 days
DVT prophylaxis-on Eliquis
Nutrition
Increase activity
Pulmonary service will continue to follow along.
She will continue to follow-up with us in the office as last visit on 06/11/2024 with LUPE Kamara. Last time saw Dr. Harper in 2021

Data:
CXR 06/23/2024:
No convincing radiographic evidence for focal consolidation/pneumonia.
No evidence for pulmonary edema or pleural effusion.
Stable compression deformity of the T8 vertebral body.
Subjective Data
-
Date of Service:
Date of Service: June 27, 2024
Chief Complaint: Pulmonary Follow Up and Dyspnea Follow Up
Subjective:
Major complaint continues to be cough, difficulty sleeping, nonproductive cough, tolerated CPAP, no chest pain or abdominal pain
Review of Systems
General: Other (Per HPI)
Objective Data
Data Reviewed
Vital Signs / I&O:
Vital Signs
Temp Pulse Resp BP Pulse Ox
98.3 F 66 17 126/55 97
06/27/24 11:25 06/27/24 11:25 06/27/24 11:25 06/27/24 11:25 06/27/24 11:25
Intake and Output
06/26/24 06/27/24 06/28/24
06:59 06:59 06:59
Intake Total 1200 / 1200 1500 / 1500
Balance 1200 / 1200 1500 / 1500
SaO2: 97
Nasal Cannula flow liters per minute: 5
Physical Exam
General: Respiratory Distress (negative), Comfortable, Chills (negative) and Sweats (negative)
HEENT: Normocephalic, Anicteric and Moist Mucous Membranes
Cardiovascular: Regular Rhythm and Peripheral Edema (negative)
Respiratory: Wheeze (Diffuse expiratory), Crackles (negative), Rhonchi (negative) and Non-Labored Respirations
GI: Soft, Distended (Abdominal obesity), Non Tender and Normal Bowel Sounds
Neurology: Awake, Alert and AO x 3
Skin: Warm, Good Color, Cyanosis (negative) and Jaundice (negative)
Labs/Micro/Reports
Lab Data
06/23/24 09:54
06/24/24 05:34
Microbiology
06/24/24 14:25 Sputum Respiratory Culture - Final
06/24/24 14:25 Sputum Gram Stain - Final
[2024-06-27] MEDS: TESSALON PERLES 100 MG PO (14:04)
[2024-06-27] MEDS: DUONEB INH (15:42)
[2024-06-27] MEDS: STERILE WATER FOR INJECTION 10 ML IV (15:57)
[2024-06-27] MEDS: ROCEPHIN 1000 MG IV (15:58)
[2024-06-28 03:22] VITALS: PULSE 2
[2024-06-28 03:49] VITALS: PULSE 2
[2024-06-28] MEDS: SYNTHROID 100 MCG PO (06:00)
[2024-06-28 07:00] VITALS: BP 120/76
[2024-06-28] MEDS: DUONEB 3 ML INH ×4 (07:24→19:16)
[2024-06-28] MEDS: SOLU-MEDROL PF 60 MG IV ×2 (10:22→20:15)
[2024-06-28] MEDS: ZYLOPRIM 100 MG PO (10:26)
[2024-06-28] MEDS: TOPROL XL 25 MG PO (10:26)
[2024-06-28] MEDS: ZOLOFT 50 MG PO (10:26)
[2024-06-28] MEDS: ROBITUSSIN DM 10 ML PO ×3 (10:26→21:03)
[2024-06-28] MEDS: METAMUCIL, KONSYL 1 PACKET PO (10:26)
[2024-06-28] MEDS: ELIQUIS 5 MG PO ×2 (10:27→20:15)
[2024-06-28] MEDS: LASIX 40 MG PO ×2 (10:27→16:35)
[2024-06-28] MEDS: ZESTRIL 20 MG PO (10:27)
[2024-06-28] MEDS: APRESOLINE 25 MG PO ×2 (10:27→20:15)
--- NOTE | 2024-06-28 12:12 | W.PN.HOSP.TC ---
Today's Communication/Plan
-
IV Steroid
Last day IV Rocephin
Might need low dose Zithromax upon dc?, will f/w pulmonary recommendations
Assessment / Plan
Assessment / Plan
Physical Exam
General: Conversant and Morbidly Obese; No Appears in Distress
HEENT: Anicteric, Moist mucous membranes and Atraumatic
Respiratory: seems worse than yesterday, more limited with rhonchi, Wheezes
Cardiac: S1/S2 and Regular Rhythm
GI: Soft and Non Tender
Genito-urinary: No Thurman
Musculoskeletal: No Cyanosis and No Edema
Skin: Warm; No Jaundice
Neuro: AO x 3 and Nonfocal/grossly intact
Psych: Calm and Intact Judgment/Insight
68 years old female presented with worsening shortness of breath over one week
#Acute respiratory distress secondary to Acute COPD exacerbation/acute bronchitis, likely triggered by viral illness
History of chronic hypoxic and hypercapnic respiratory Failure on home oxygen 5 L
She seems stable with same lung exam, still wheezes and rhonchi
Switched back to IV steroid, did CT chest : no infiltrates, c/w Robitussin DM ATC
Continue nebulizer treatment with DuoNeb 4 times daily and PRN
Given Empiric intravenous Rocephin, finished today ( 5 days course) ordered sputum culture : no growth
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
Not toxic, no worsening hypoxia.
Negative COVID & Flu
As needed Tessalon for cough.
Appreciate pulmonary input
# Chronic heart failure with preserved ejection fraction
Last echocardiogram in December 2022 showed LVEF 55 to 60% with mild aortic stenosis.
Continue with daily Lasix, Weight seems stable.
-Continue telemetry monitoring
# History of paroxysmal atrial fibrillation/incomplete right bundle branch block
-Continue Eliquis 5 mg BID, Toprol.
-Amiodarone previously stopped due to elevated transaminases. Continue with Toprol
-Continue telemetry monitoring
#History of Obstructive Sleep Apnea
Pulmonary doctor reduced pressure to help improve compliance.
# Obesity, BMI 51
DVT Prophylaxis:�Eliquis
Diet:�Patient would like to continue with regular diet
Code Status:�Full Code
Ordered PT/OT
Total time spent to see the patient, examine the patient on the floor, review data and lab results, discuss treatment plan with patient and nursing staff around 55 minutes
Anticipated Discharge: Within 24 hours
Subjective/Interval History
-
Date of Service: June 28, 2024
She feels better but same cough
Objective Data
-
Vital Signs:
Vital Signs
Temp Pulse Resp BP Pulse Ox
97.6 F 60 18 120/76 98
06/28/24 07:00 06/28/24 11:20 06/28/24 11:20 06/28/24 07:00 06/28/24 07:28
I&O
06/27/24 06/28/24 06/29/24
06:59 06:59 06:59
Intake Total 1500 / 1500 1460 / 1460
Output Total 1600 / 1600
Balance 1500 / 1500 -140 / -140
--- NOTE | 2024-06-28 12:19 | W.PN.PUL.V3 ---
Today's Communication / Plan
-
No change in intravenous steroids
When converted to oral steroids-slow taper
Wean oxygen
Increase activity
BiPAP at night
Outpatient pulmonary follow-up
Assessment
-
Assessment: 68-year-old F former tobacco smoker (15-dhzq-sldn Hx, quit 01/2019) with PMHx of COPD, chronic hypercapnic/hypoxic respiratory failure on home oxygen at 5 L/min, LUZ MARINA on BiPAP 14/10 cmH2O, chronic HFrEF, A-fib on Eliquis, bifascicular
block, personal history COVID-19 (December 2020), and gout who presents with SOB with flulike symptoms for 1 week. She was recently exposed to her granddaughter who may have been sick recently. No obvious pneumonia seen on CXR. COVID antigen, as
well as flu A/B. She was given Decadron, DuoNebs and guaifenesin/codeine in the ER and admitted to the hospitalist service. Pulmonary service now consulted for additional management/recommendations.
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
COVID-19 (December 2020), former tobacco smoker (71-qmkd-leja Hx, quit January 2019), osteoporosis, gout
Impression:
#Acute COPD exacerbation
#Centrilobular emphysema & chronic bronchitis with significant bronchial wall thickening seen mainly in bases + RML/lingula on CT Chest (January 2024)
#Severe COPD with moderate restrictive lung defect, and severe gas exchange capacity defect (per PFT from November 2021)
#Chronic respiratory failure with hypoxia on supplemental O2 (5L/min, which is her home dose)
#Chronic hypercapnic respiratory failure/OHS - baseline pCO2 approximately 75-80
#Former tobacco smoker (50-PY Hx, quit January 2019)
#Multiple pulmonary nodules (SP patchy solid nodules seen on CT Chest from January 2024, likely due to mucoid impaction/atelectasis)
#Mild aortic stenosis
#LUZ MARINA on nocturnal BiPAP 14/49bzY1M (home settings)
Plan:
Major complaint continues to be wheezing and nonproductive cough-slightly improved
Supplemental oxygen as needed-attempt to wean-baseline 5 L
Chronic hypercapnia-baseline pCO2 around 70
BiPAP 10/5 cm at night-tolerating well
Nebulizers continue
Mucolytic's
Tessalon not helping much
Codeine will be added according to the patient by primary service/hospitalist
Vzkyxijh-vwzyolvsqbjyl-Hemk-Medrol 60 mg IV twice daily-eventually changed to oral steroids with slow taper
CT chest 06/27/2024-NAD, stable 70% compression fracture T8
Patient known to have multiple nodular opacifications on CT 01/25/2024-these will need to be followed as an outpatient-multiple requests have been provided in the past and the patient did not follow through
Cultures reviewed
Antibiotics continue for total of 5-7 days
DVT prophylaxis-on Eliquis
Nutrition
Increase activity
When discharged with discharge with nebulizers, very slow prednisone taper-i.e. prednisone 50 mg for 4 days, then 40 mg for 4 days, then 30 mg for 4 days, then 20 mg for 4 days and then 10 mg daily until seen by pulmonary
Would benefit from azithromycin 500 mg Jwndyk-Mdsnjdoqj-Unecgd for anti-inflammatory effects
If recurrent exacerbations requiring prednisone consider Biologics such as IL-4/13 inhibitors
She will continue to follow-up with us in the office as last visit on 06/11/2024 with LUPE Kamara. Last time saw Dr. Harper in 2021

Data:
CXR 06/23/2024:
No convincing radiographic evidence for focal consolidation/pneumonia.
No evidence for pulmonary edema or pleural effusion.
Stable compression deformity of the T8 vertebral body.
Subjective Data
-
Date of Service:
Date of Service: June 28, 2024
Chief Complaint: Pulmonary Follow Up and Dyspnea Follow Up
Subjective:
Tolerated CPAP, overall slightly improved, still has significant wheezing, nonproductive cough, no abdominal pain or increased leg swelling
Review of Systems
General: Other (Per HPI)
Objective Data
Data Reviewed
Vital Signs / I&O:
Vital Signs
Temp Pulse Resp BP Pulse Ox
97.6 F 60 18 120/76 98
06/28/24 07:00 06/28/24 11:20 06/28/24 11:20 06/28/24 07:00 06/28/24 07:28
Intake and Output
06/27/24 06/28/24 06/29/24
06:59 06:59 06:59
Intake Total 1500 / 1500 1460 / 1460
Output Total 1600 / 1600
Balance 1500 / 1500 -140 / -140
SaO2: 98
Nasal Cannula flow liters per minute: 5
Physical Exam
General: Respiratory Distress (negative), Comfortable, Chills (negative) and Sweats (negative)
HEENT: Normocephalic, Anicteric and Moist Mucous Membranes
Cardiovascular: Regular Rhythm and Peripheral Edema (negative)
Respiratory: Clear (Prolonged expiratory time and overall diminished breath sounds), Wheeze (Diffuse expiratory), Crackles (negative), Rhonchi (negative) and Non-Labored Respirations
GI: Soft, Distended (Abdominal obesity), Non Tender and Normal Bowel Sounds
Neurology: Awake, Alert and AO x 3
Skin: Warm, Good Color, Cyanosis (negative) and Jaundice (negative)
Labs/Micro/Reports
Lab Data
06/23/24 09:54
06/24/24 05:34
Microbiology
06/24/24 14:25 Sputum Respiratory Culture - Final
06/24/24 14:25 Sputum Gram Stain - Final
[2024-06-28 15:00] VITALS: BP 120/58
[2024-06-28] MEDS: STERILE WATER FOR INJECTION 10 ML IV (16:34)
[2024-06-28] MEDS: ROCEPHIN 1000 MG IV (16:34)
[2024-06-28 20:36] VITALS: PULSE 2
[2024-06-28 23:21] VITALS: BP 113/57
[2024-06-29 01:10] VITALS: PULSE 2
[2024-06-29] MEDS: SYNTHROID 100 MCG PO (05:11)
[2024-06-29 05:39] LABS: Hematocrit 43.5 % (37.0-47.0); Hemoglobin 13.3 g/dL (12.0-16.0); Mean Corp Hgb Conc. 30.6 g/dL (33.0-37.0); Mean Corpuscular Hgb 26.8 pg (27.0-31.0); Mean Corpuscular Volume 87.5 fL (81.0-99.0); Mean Platelet Volume 9.9 fL (7.4-10.4); Platelet Count 376 10^3/uL (130-400); Red Blood Cell Count 4.97 10^6/uL (4.20-5.40); Red Cell Dist. Width 14.7 % (11.5-14.5); White Blood Cell Count 17.5 10^3/uL (4.8-10.8)
[2024-06-29 06:10] LABS: Blood Urea Nitrogen 45 mg/dl (7-17); Carbon Dioxide 38 mmol/L (22-30); Chloride 95 mmol/L (98-107); Estimated Creatinine Clearance 80 ml/min; Glucose 136 mg/dl (70-99); Potassium 5.4 mmol/L (3.5-5.1); Sodium 143 mmol/L (135-145); eGFR > 60.00
[2024-06-29 07:14] VITALS: BP 145/64
[2024-06-29] MEDS: DUONEB 3 ML INH ×4 (07:24→20:11)
[2024-06-29] MEDS: ZESTRIL 20 MG PO (08:32)
[2024-06-29] MEDS: TOPROL XL 25 MG PO (08:33)
[2024-06-29] MEDS: LASIX 40 MG PO ×2 (08:33→15:10)
[2024-06-29] MEDS: APRESOLINE 25 MG PO ×2 (08:33→19:46)
[2024-06-29] MEDS: ZYLOPRIM 100 MG PO (08:33)
[2024-06-29] MEDS: ELIQUIS 5 MG PO ×2 (08:33→19:46)
[2024-06-29] MEDS: ZOLOFT 50 MG PO (08:33)
[2024-06-29] MEDS: ROBITUSSIN DM 10 ML PO ×3 (08:34→21:02)
[2024-06-29] MEDS: SOLU-MEDROL PF 60 MG IV (08:34)
[2024-06-29] MEDS: METAMUCIL, KONSYL 1 PACKET PO (08:35)
--- NOTE | 2024-06-29 10:37 | W.PN.HOSP.TC ---
Addendum entered and electronically signed by David Valencia MD 06/29/24 23:37:
Attending Addendum-
I saw and evaluated the patient. I reviewed the resident�s note and agree with findings and plan as documented in the resident�s note. Sub: feels SOB and wheezy. per nursing refusing physical activity. Full 12 point ROS reviewed and negative except
as documented Exam: Vitals reviewed in chart GEN-NAD heart RRR lungs diffused scattered wheeze decreased at bases Abd obese LE trace pitting edema
#Acute COPD exacerbation
#Chronic hypoxic and hypercapnic respiratory Failure on home oxygen 5 L
- still wheezes and rhonchi
- transition to PO steroids from IV per pulm
- Continue nebulizer treatment with DuoNeb 4 times daily add budesonide
- completed abx x 7 days 06/29
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 Duran
- Negative COVID & Flu
- As needed Tessalon for cough.
- Appreciate pulmonary input
#Chronic heart failure with preserved ejection fraction
-Last echocardiogram in December 2022 showed LVEF 55 to 60% with mild aortic stenosis.
-Continue with daily Lasix, Weight seems stable.
-Continue telemetry monitoring
#paroxysmal atrial fibrillation/incomplete right bundle branch block
-Continue Eliquis 5 mg BID
-Amiodarone previously stopped due to elevated transaminases. Continue with Toprol
-Continue telemetry monitoring
#Obstructive Sleep Apnea
- cont bipap 22/06
# Obesity, BMI 51
# Gout
- cont allopurinol
# Hypothyroids
- cont levothyroxine
# HTN
- cont lisinopril and metoprolol
#Depression
- cont sertraline
DVT Prophylaxis:�Eliquis
Diet:�Patient would like to continue with regular diet
Code Status:�Full Code
Dispo- SNF- patient requesting [facility] in am
Time spent coordinating care, review of plan of care with resident, personally reviewed records in EMR, med rec, consults, notes, labs, radiology, d/w nursing � 58 mins
Original Note:
Today's Communication/Plan
-
Transition IV steroids to p.o.
Assessment / Plan
Assessment / Plan
Assessment:
68 female history of advanced COPD presents for shortness of breath of 1 week in duration with productive cough.
Plan:
#Acute respiratory distress secondary to Acute COPD exacerbation/acute bronchitis
likely triggered by viral illness
History of chronic hypoxic and hypercapnic respiratory Failure on home oxygen 5 L
Currently requiring 5 L O2
Started patient on IV methylprednisolone, currently day 3
IV methylprednisolone was discontinued in place of p.o. steroids to initiate steroid taper
Continue steroid taper into discharge
CT chest demonstrated no infiltrates
Continue Robitussin
Continue nebulizer treatment with DuoNeb 4 times daily and PRN
Added budesonide 1 mg twice daily
Given 6 days of empiric IV Rocephin along with 5 days of azithromycin
Antibiotics discontinued
Sputum culture resulted in no growth
Negative for COVID and flu
Primary new accounts clerk Dr. Duran
As needed Tessalon for cough.
Pulmonology recommends discharging patient on prednisone taper and considering adding azithromycin for anti-inflammatory reasons
# Chronic heart failure with preserved ejection fraction
Last echocardiogram in December 2022 showed LVEF 55 to 60% with mild aortic stenosis.
Continue with daily Lasix, weight was 133 on admission, down to 130
Carbon dioxide chronically high, stable and no signs of metabolic contraction alkalosis
Continue telemetry monitoring
# History of paroxysmal atrial fibrillation/incomplete right bundle branch block
Continue Eliquis 5 mg BID, and metoprolol
Amiodarone previously stopped due to elevated transaminases.
Continue telemetry monitoring
#History of Obstructive Sleep Apnea
Pulmonary doctor reduced pressure to help improve compliance.
# Obesity
BMI 51
DVT Prophylaxis:�Eliquis
Diet:�Patient would like to continue with regular diet
Code Status:�Full Code
Anticipated Discharge: Within 24 hours
Subjective/Interval History
-
Date of Service: June 29, 2024
No acute events overnight
Objective Data
-
Labs:
Laboratory Results
06/29/24
05:12
WBC 17.5 H
Hgb 13.3
Hct 43.5
Plt Count 376
Sodium 143
Potassium 5.4 H
Chloride 95 L
Carbon Dioxide 38 H
BUN 45 H
Creatinine 0.9
Glucose 136 H
Calcium 9.0
Vital Signs:
Vital Signs
Temp Pulse Resp BP Pulse Ox
98 F 60 18 145/64 96
06/29/24 07:14 06/29/24 07:27 06/29/24 07:27 06/29/24 07:14 06/29/24 07:27
I&O
06/28/24 06/29/24 06/30/24
06:59 06:59 06:59
Intake Total 1460 / 1460 480 / 480
Output Total 1600 / 1600 2100 / 2100
Balance -140 / -140 -1620 / -1620
Review of Systems
-
History Source: Patient
Constitutional: Reports No Symptoms
Respiratory: Reports Cough, Trouble Breathing and Wheezing
Cardiac: Reports No Symptoms
Abdomen/GI: Reports No Symptoms
Physical Exam
-
General: Comfortable and Morbidly Obese
Respiratory: Wheezes (Diffuse wheezing heard in all lung case)
Cardiac: Regular Rhythm and S1/S2
GI: Soft, Nontender, Nondistended and Normal Bowel Sounds
Musculoskeletal: Other (Mild edema of lower extremities, tender to palpation graded as trace to +1)
Skin: Warm and Dry
Neuro: Awake, Alert, Oriented and AO x 3
Psych: Calm and Intact Judgement/Insight
Data Reviewed
-
CT Scan: Report Reviewed by me and Discussed with Physician
Labs: Labs Reviewed by me and Discussed with Physician
[2024-06-29 12:09] VITALS: BMI 51.9
--- NOTE | 2024-06-29 14:28 | CM ---
Met with patient
cont with IV steroid
[facility], [facility]
PLAN: SNF, pending bed availability
--- NOTE | 2024-06-29 14:54 | W.PN.PUL3 ---
Today's Communication / Plan
-
Transition to oral steroids, 50 mg
Continue BiPAP 10/5.
Patient requesting to change pressure down to current pressure as outpatient. Will contact our outpatient sleep coordinator to facilitate
Discontinue antibiotics
Disposition efforts
Assessment
-
Assessment: 68-year-old F former tobacco smoker (92-[id number] Hx, quit 01/2019) with PMHx of COPD, chronic hypercapnic/hypoxic respiratory failure on home oxygen at 5 L/min, LUZ MARINA on BiPAP 14/10 cmH2O, chronic HFrEF, A-fib on Eliquis, bifascicular
block, personal history COVID-19 (December 2020), and gout who presents with SOB with flulike symptoms for 1 week. She was recently exposed to her granddaughter who may have been sick recently. No obvious pneumonia seen on CXR. COVID antigen, as
well as flu A/B. She was given Decadron, DuoNebs and guaifenesin/codeine in the ER and admitted to the hospitalist service. Pulmonary service now consulted for additional management/recommendations.
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
COVID-19 (December 2020), former tobacco smoker (94-yjpu-[id number] Hx, quit January 2019), osteoporosis, gout
Impression:
#Acute COPD exacerbation
#Centrilobular emphysema & chronic bronchitis with significant bronchial wall thickening seen mainly in bases + RML/lingula on CT Chest (January 2024)
#Severe COPD with moderate restrictive lung defect, and severe gas exchange capacity defect (per PFT from November 2021)
#Chronic respiratory failure with hypoxia on supplemental O2 (5L/min, which is her home dose)
#Chronic hypercapnic respiratory failure/OHS - baseline pCO2 approximately 75-80
#Former tobacco smoker (50-PY Hx, quit January 2019)
#Multiple pulmonary nodules (SP patchy solid nodules seen on CT Chest from January 2024, likely due to mucoid impaction/atelectasis)
#Mild aortic stenosis
#LUZ MARINA on nocturnal BiPAP 14/78loQ6P (home settings)
Plan/recommendations
At this time, patient appears to be overall improved
Wheezing has improved significantly, chest exam is presently clear
Tolerating BiPAP overnight. Feels pressures are better than home pressure
She is on 5 L which is her baseline
Moving forward
Continue with oxygen therapy, maintain at 5 L
Continue with BiPAP
Chronic hypercapnia-baseline pCO2 around 70
BiPAP 10/5 cm at night-tolerating well. She prefers to continue these pressures as an outpatient (does not like 22/06)
will require Close follow-up in the sleep clinic
Nebulizers continue
Mucolytic's
Pccglopl-lxgthitndlxfa-Airb-Medrol 60 mg IV twice daily-we will change to oral steroids with slow taper, transition to [address] chest 06/27/2024-NAD, stable 70% compression fracture T8
Patient known to have multiple nodular opacifications on CT 01/25/2024-these will need to be followed as an outpatient-multiple requests have been provided in the past and the patient did not follow through
Cultures reviewed
Antibiotics continue for total of 5-7 days
DVT prophylaxis-on Eliquis
Nutrition
Increase activity
When discharged with discharge with nebulizers, very slow prednisone taper-i.e. prednisone 50 mg for 4 days, then 40 mg for 4 days, then 30 mg for 4 days, then 20 mg for 4 days and then 10 mg daily until seen by pulmonary
Would benefit from azithromycin 500 mg Ysstkz-Xnkcjayww-Tijgwk for anti-inflammatory effects
If recurrent exacerbations requiring prednisone consider Biologics such as IL-4/13 inhibitors
She will continue to follow-up with us in the office as last visit on 06/11/2024 with LUPE Kamara. Last time saw Dr. Harper in 2021
Disposition efforts

Data:
CXR 06/23/2024:
No convincing radiographic evidence for focal consolidation/pneumonia.
No evidence for pulmonary edema or pleural effusion.
Stable compression deformity of the T8 vertebral body.
Subjective Data
-
Date of Service:
Date of Service: June 29, 2024
Chief Complaint: Pulmonary Follow Up and Dyspnea Follow Up
Subjective:
Patient appears to be comfortable. She is feeling better overall. Tolerating CPAP overnight. Feels current pressures are better than her home pressures.
Objective Data
Data Reviewed
Vital Signs / I&O / Oxygen:
Vital Signs
Temp Pulse Resp BP Pulse Ox
98 F 64 22 145/64 96
06/29/24 07:14 06/29/24 11:58 06/29/24 11:58 06/29/24 07:14 06/29/24 11:58
Intake and Output
06/28/24 06/29/24 06/30/24
06:59 06:59 06:59
Intake Total 1460 / 1460 480 / 480
Output Total 1600 / 1600 2100 / 2100
Balance -140 / -140 -1620 / -1620
SaO2 96
Nasal Cannula flow liters per 5
minute
Physical Exam
General: Comfortable
HEENT: Normocephalic, Anicteric and Moist Mucous Membranes
Cardiovascular: Regular Rhythm, Murmur (n) and Peripheral Edema (Trace to 1+)
Respiratory: Clear (Prolonged expiratory time and overall diminished breath sounds), Wheeze (n), Crackles (negative), Rhonchi (negative), Non-Labored Respirations and Stridor (n)
GI: Soft, Distended (Abdominal obesity), Non Tender and Normal Bowel Sounds
Neurology: Awake, Alert and No Motor Deficits (Able to sit up without assistance)
Skin: Good Color, Cyanosis (negative) and Jaundice (negative)
Labs/Micro/Reports
Lab Data
06/29/24 05:12
06/29/24 05:12
[2024-06-29 15:35] VITALS: BP 122/60
[2024-06-29] MEDS: PULMICORT 1 MG INH (20:11)
[2024-06-29 20:40] VITALS: PULSE 2; PULSE 65
[2024-06-29 22:51] VITALS: BP 119/54
[2024-06-30 04:07] VITALS: PULSE 2
[2024-06-30] MEDS: SYNTHROID 100 MCG PO (05:28)
[2024-06-30 05:41] LABS: Hematocrit 44.2 % (37.0-47.0); Hemoglobin 13.5 g/dL (12.0-16.0); Mean Corp Hgb Conc. 30.5 g/dL (33.0-37.0); Mean Corpuscular Hgb 26.6 pg (27.0-31.0); Mean Corpuscular Volume 87.2 fL (81.0-99.0); Mean Platelet Volume 9.8 fL (7.4-10.4); Platelet Count 367 10^3/uL (130-400); Red Blood Cell Count 5.07 10^6/uL (4.20-5.40); Red Cell Dist. Width 15.1 % (11.5-14.5); White Blood Cell Count 15.1 10^3/uL (4.8-10.8)
[2024-06-30 06:00] VITALS: BMI 52.1
[2024-06-30 06:05] LABS: Blood Urea Nitrogen 48 mg/dl (7-17); Calcium 9.1 mg/dl (8.4-10.2); Chloride 94 mmol/L (98-107); Estimated Creatinine Clearance 73 ml/min; Glucose 88 mg/dl (70-99); Potassium 5.1 mmol/L (3.5-5.1); Sodium 142 mmol/L (135-145); eGFR > 60.00
[2024-06-30 06:15] LABS: Carbon Dioxide 35 mmol/L (22-30)
[2024-06-30 07:39] VITALS: BP 135/70
[2024-06-30] MEDS: DUONEB 3 ML INH ×4 (08:04→19:36)
[2024-06-30] MEDS: PULMICORT 1 MG INH ×2 (08:04→19:36)
[2024-06-30] MEDS: METAMUCIL, KONSYL 1 PACKET PO (08:21)
[2024-06-30] MEDS: APRESOLINE 25 MG PO ×2 (08:21→19:59)
[2024-06-30] MEDS: DELTASONE 50 MG PO (08:21)
[2024-06-30] MEDS: ZESTRIL 20 MG PO (08:21)
[2024-06-30] MEDS: ZYLOPRIM 100 MG PO (08:21)
[2024-06-30] MEDS: TOPROL XL 25 MG PO (08:22)
[2024-06-30] MEDS: ELIQUIS 5 MG PO ×2 (08:22→19:59)
[2024-06-30] MEDS: ROBITUSSIN DM 10 ML PO ×3 (08:22→21:03)
[2024-06-30] MEDS: LASIX 40 MG PO ×2 (08:22→16:00)
[2024-06-30] MEDS: ZOLOFT 50 MG PO (08:22)
--- NOTE | 2024-06-30 09:52 | W.PN.PUL3 ---
Today's Communication / Plan
-
Continue prednisone 50 mg
Continue budesonide, DuoNebs
Off antibiotics
PT/OT. Will require close follow-up post discharge
Assessment
-
Assessment: 68-year-old F former tobacco smoker (49-[id number] Hx, quit 01/2019) with PMHx of COPD, chronic hypercapnic/hypoxic respiratory failure on home oxygen at 5 L/min, LUZ MARINA on BiPAP 14/10 cmH2O, chronic HFrEF, A-fib on Eliquis, bifascicular
block, personal history COVID-19 (December 2020), and gout who presents with SOB with flulike symptoms for 1 week. She was recently exposed to her granddaughter who may have been sick recently. No obvious pneumonia seen on CXR. COVID antigen, as
well as flu A/B. She was given Decadron, DuoNebs and guaifenesin/codeine in the ER and admitted to the hospitalist service. Pulmonary service now consulted for additional management/recommendations.
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
COVID-19 (December 2020), former tobacco smoker (30-sjlv-jvwl Hx, quit January 2019), osteoporosis, gout
Impression:
#Acute COPD exacerbation
#Centrilobular emphysema & chronic bronchitis with significant bronchial wall thickening seen mainly in bases + RML/lingula on CT Chest (January 2024)
#Severe COPD with moderate restrictive lung defect, and severe gas exchange capacity defect (per PFT from November 2021)
#Chronic respiratory failure with hypoxia on supplemental O2 (5L/min, which is her home dose)
#Chronic hypercapnic respiratory failure/OHS - baseline pCO2 approximately 75-80
#Former tobacco smoker (50-PY Hx, quit January 2019)
#Multiple pulmonary nodules (SP patchy solid nodules seen on CT Chest from January 2024, likely due to mucoid impaction/atelectasis)
#Mild aortic stenosis
#LUZ MARINA on nocturnal BiPAP 14/99vjK1K (home settings)
Plan/recommendations
At this time, patient appears to be overall improved
Wheezing has improved significantly, chest exam is presently clear, decreased
Tolerating BiPAP overnight. Feels pressures are better than home pressure
She is on 5 L which is her baseline
Moving forward
Continue with oxygen therapy, maintain at 5 L
Continue with BiPAP
Chronic hypercapnia-baseline pCO2 around 70
BiPAP 10/5 cm at night-tolerating well. She prefers to continue these pressures as an outpatient (does not like 22/06)
will require Close follow-up in the sleep clinic
Nebulizers continue
Mucolytic's
Bhrkrbos-oppwxinacqszm-Tokv-Medrol 60 mg IV twice daily-we will change to oral steroids with slow taper, transition to [address] chest 06/27/2024-NAD, stable 70% compression fracture T8
Patient known to have multiple nodular opacifications on CT 01/25/2024-these will need to be followed as an outpatient-multiple requests have been provided in the past and the patient did not follow through
Cultures reviewed
Antibiotics continue for total of 5-7 days
continue budesonide Twice daily, DuoNebs 4 times daily
DVT prophylaxis-on Eliquis
Nutrition
Increase activity
When discharged with discharge with nebulizers, very slow prednisone taper-i.e. prednisone 50 mg for 4 days, then 40 mg for 4 days, then 30 mg for 4 days, then 20 mg for 4 days and then 10 mg daily until seen by pulmonary
Would benefit from azithromycin 500 mg Ymcllt-Ogmmznycg-Tonhux for anti-inflammatory effects
If recurrent exacerbations requiring prednisone consider Biologics such as IL-4/13 inhibitors
She will continue to follow-up with us in the office as last visit on 06/11/2024 with [facility]. Last time saw Dr. Harper in 2021
Disposition efforts

Data:
CXR 06/23/2024:
No convincing radiographic evidence for focal consolidation/pneumonia.
No evidence for pulmonary edema or pleural effusion.
Stable compression deformity of the T8 vertebral body.
Subjective Data
-
Date of Service:
Date of Service: June 30, 2024
Chief Complaint: Pulmonary Follow Up and Dyspnea Follow Up
Subjective:
Patient is subjectively improved. Denies cough, hemoptysis, chest pain, nausea. Tolerating BiPAP. Presently on 5 L
Objective Data
Data Reviewed
Vital Signs / I&O / Oxygen:
Vital Signs
Temp Pulse Resp BP Pulse Ox
98.2 F 65 20 135/70 100
06/30/24 07:39 06/30/24 08:08 06/30/24 08:08 06/30/24 07:39 06/30/24 08:08
Intake and Output
06/29/24 06/30/24 07/01/24
06:59 06:59 06:59
Intake Total 480 / 480 930 / 930
Output Total 2100 / 2100 3200 / 3200
Balance -1620 / -1620 -2270 / -2270
SaO2 100
Nasal Cannula flow liters per 5
minute
Physical Exam
General: Comfortable
HEENT: Normocephalic, Anicteric, Moist Mucous Membranes and Other (Edentulous)
Cardiovascular: Regular Rhythm, Murmur (n) and Peripheral Edema (Trace to 1+)
Respiratory: Clear (Prolonged expiratory time and overall diminished breath sounds), Wheeze (n), Crackles (negative), Rhonchi (negative), Non-Labored Respirations, Stridor (n) and Other (Decreased breath sounds)
GI: Soft, Distended (Abdominal obesity), Non Tender and Normal Bowel Sounds
Neurology: Awake, Alert and No Motor Deficits (Able to sit up without assistance)
Skin: Good Color, Cyanosis (negative) and Jaundice (negative)
Labs/Micro/Reports
Lab Data
06/30/24 05:24
06/30/24 05:24
[2024-06-30 11:05] VITALS: BP 100/58; PULSE 69; O2SAT 96
--- NOTE | 2024-06-30 12:29 | W.PN.HOSP.TC ---
Addendum entered and electronically signed by David Valencia MD 06/30/24 22:24:
Attending Addendum-
I saw and evaluated the patient. I reviewed the resident�s note and agree with findings and plan as documented in the resident�s note. Sub: feels greatly improved. 'i love the nebulizer you gave me' Less wheeze and less SOB. Full 12 point ROS
reviewed and negative except as documented Exam: Vitals reviewed in chart GEN-NAD heart RRR lungs CTA B/L decreased at bases Abd obese LE trace pitting edema
#Acute COPD exacerbation
#Chronic hypoxic and hypercapnic respiratory Failure on home oxygen 5 L
- resolving
- cont PO steroids long taper as OP
- Continue nebulizer treatment with DuoNeb 4 times daily and budesonide
- completed abx x 7 days 06/29
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
- Negative COVID & Flu
- As needed Tessalon for cough.
- Appreciate pulmonary input
#Chronic heart failure with preserved ejection fraction
-Last echocardiogram in December 2022 showed LVEF 55 to 60% with mild aortic stenosis.
-Continue with daily Lasix
- weights stable
-Continue telemetry monitoring
#Paroxysmal atrial fibrillation/incomplete right bundle branch block
-Continue Eliquis 5 mg BID
-Amiodarone previously stopped due to elevated transaminases. Continue with Toprol
-Continue telemetry monitoring
#Obstructive Sleep Apnea
- cont bipap 22/06
# Obesity, BMI 51
# Gout
- cont allopurinol
# Hypothyroidism
- cont levothyroxine
# HTN
- cont lisinopril and metoprolol
#Depression
- cont sertraline
DVT Prophylaxis:�Eliquis
Diet:�Patient would like to continue with regular diet
Code Status:�Full Code
Dispo- SNF- patient requesting [facility] in am- pending placement
Time spent coordinating care, review of plan of care with resident, personally reviewed records in EMR, med rec, consults, notes, labs, radiology, d/w nursing � 52 mins
Original Note:
Today's Communication/Plan
-
Continue with telemetry
Maintain on 5 L O2, BiPAP 10/5 at bedtime
Dispo planning with CM
Assessment / Plan
Assessment / Plan
Impression: 68-year-old female former smoker (59-bbrz-bjqv history, quit 01/2019), with PMH of advanced COPD, chronic hypercapnic/hypoxic respiratory failure on home oxygen 5 L, LUZ MARINA on BiPAP 14/10 at home, A-fib on Eliquis, who presents to ED with
SOB for 1 week and productive cough.
Assessment/plan:
#Acute COPD exacerbation/acute bronchitis
-Much improved, minimal wheezes.
-Chronic respiratory failure with hypoxia and hypercapnia (baseline pCO2 of prox 75-80), on home oxygen 5 L/min.
-Maintain on 5 L O2.
-BiPAP nightly.
-Continue nebulizer treatments and mucolytics.
-Antibiotics completed 06/29 days #7
-Steroid taper on discharge.
-Discharge on azithromycin 500 mg Saturday for anti-inflammatory effects per pulmonary.
-Pulmonology recs appreciated.
-Follow-up with pulmonary outpatient.
#Chronic LUZ MARINA
-Doing better on reduced BiPAP pressure of 10/5 cm (uncomfortable with 14)
-Maintain current pressure outpatient.
# Chronic HFpEF
-Echo 12/2022 with LVEF 55 to 60% mild aortic stenosis.
-Continue Lasix.
-Weight up a proximal 7 LB's; strict I's and O's, daily weights.
-Telemetry discontinued.
#History of paroxysmal atrial fibrillation/incomplete right bundle branch block
-Rate controlled on metoprolol, amiodarone discontinued for transaminitis.
-Continue Eliquis.
-Continue telemetry.
#History of Obstructive Sleep Apnea
Pulmonary doctor reduced pressure to help improve compliance.
# Obesity
BMI 51
DVT Prophylaxis:�Eliquis
Code Status:�Full Code
Anticipated Discharge: 24 - 48 hours
Subjective/Interval History
-
Date of Service: June 30, 2024
Patient seen and examined in the room lying comfortably in no acute cardiopulmonary distress. Aside from minimal wheezing, patient appears overall improved and tolerating BiPAP overnight at the sats lower pressure of 10/5. She reports that a
pressure of 14/10 which she uses at home makes her very uncomfortable. She reports no chest pain, shortness of breath, palpitations, fever, chills, abdominal pain, nausea, vomiting, diarrhea, urinary symptoms.
Objective Data
-
Labs:
Laboratory Results
06/30/24
05:24
WBC 15.1 H
Hgb 13.5
Hct 44.2
Plt Count 367
Sodium 142
Potassium 5.1
Chloride 94 L
Carbon Dioxide 35 H
BUN 48 H
Creatinine 1.0
Glucose 88
Calcium 9.1
Vital Signs:
Vital Signs
Temp Pulse Resp BP Pulse Ox
98.2 F 68 20 135/70 98
06/30/24 07:39 06/30/24 11:25 06/30/24 11:25 06/30/24 07:39 06/30/24 11:25
I&O
06/29/24 06/30/24 07/01/24
06:59 06:59 06:59
Intake Total 480 / 480 930 / 930
Output Total 2099 / 2099 3200 / 3200
Balance -1620 / -1620 -2270 / -2270
Review of Systems
-
History Source: Patient
All other systems: Not reviewed unless documented
Constitutional: Reports No Symptoms
Respiratory: Reports Cough and Wheezing (Minimal)
Cardiac: Reports No Symptoms
Abdomen/GI: Reports No Symptoms
Genitourinary: Reports No Symptoms
Musculoskeletal: Reports No Symptoms
Skin: Reports No Symptoms
Neuro: Reports No Symptoms
Endocrine: Reports No Symptoms
Physical Exam
-
General: Comfortable, Conversant and Morbidly Obese
HEENT: Normocephalic
Respiratory: Wheezes (Minimal); Negative Rales, Rhonchi or Crackles
Cardiac: Regular Rhythm and S1/S2
GI: Soft, Nontender, Nondistended and Normal Bowel Sounds
Musculoskeletal: Other (Mild edema of lower extremities, tender to palpation graded as trace to +1)
Skin: Warm and Dry
Neuro: Awake, Alert, Oriented and AO x 3
Psych: Calm and Intact Judgement/Insight
Data Reviewed
-
CT Scan: Image personally visualized and interpreted, Report Reviewed by me and Discussed with Physician
Labs: Labs Reviewed by me and Discussed with Physician
Old Records: Reviewed
--- NOTE | 2024-06-30 13:27 | CM ---
PT OT requested to reevaluate pt. PT OT agree SNF as dc plan.
Spoke with pt she requested [facility].Updated SNf in care port.
Will call SNF for bed availability.
PLAN To Snf after located
[2024-06-30 15:24] VITALS: BP 115/54
[2024-06-30 21:30] VITALS: PULSE 2
[2024-06-30 23:50] VITALS: BP 105/45
[2024-07-01 03:44] VITALS: PULSE 2
[2024-07-01] MEDS: SYNTHROID 100 MCG PO (05:25)
[2024-07-01 05:36] LABS: Hematocrit 42.8 % (37.0-47.0); Hemoglobin 13.2 g/dL (12.0-16.0); Mean Corp Hgb Conc. 30.8 g/dL (33.0-37.0); Mean Corpuscular Hgb 27.6 pg (27.0-31.0); Mean Corpuscular Volume 89.4 fL (81.0-99.0); Mean Platelet Volume 9.5 fL (7.4-10.4); Platelet Count 337 10^3/uL (130-400); Red Blood Cell Count 4.79 10^6/uL (4.20-5.40); White Blood Cell Count 13.9 10^3/uL (4.8-10.8)
[2024-07-01 06:00] VITALS: BMI 52.1
[2024-07-01 06:42] LABS: Blood Urea Nitrogen 57 mg/dl (7-17); Calcium 8.9 mg/dl (8.4-10.2); Chloride 93 mmol/L (98-107); Estimated Creatinine Clearance 66 ml/min; Glucose 84 mg/dl (70-99); Potassium 4.9 mmol/L (3.5-5.1); Sodium 140 mmol/L (135-145); eGFR 55.07
[2024-07-01 06:55] LABS: Carbon Dioxide 33 mmol/L (22-30)
[2024-07-01] MEDS: PULMICORT 1 MG INH (07:08)
[2024-07-01] MEDS: DUONEB 3 ML INH ×3 (07:08→16:29)
[2024-07-01 07:20] VITALS: BP 134/59
[2024-07-01] MEDS: ROBITUSSIN DM 10 ML PO ×2 (08:02→15:17)
[2024-07-01] MEDS: METAMUCIL, KONSYL 1 PACKET PO (08:02)
[2024-07-01] MEDS: ZOLOFT 50 MG PO (08:02)
[2024-07-01] MEDS: ZESTRIL 20 MG PO (08:02)
[2024-07-01] MEDS: APRESOLINE 25 MG PO (08:03)
[2024-07-01] MEDS: TOPROL XL 25 MG PO (08:03)
[2024-07-01] MEDS: LASIX 40 MG PO ×2 (08:03→15:21)
[2024-07-01] MEDS: ZYLOPRIM 100 MG PO (08:03)
[2024-07-01] MEDS: DELTASONE 50 MG PO (08:03)
[2024-07-01] MEDS: ELIQUIS 5 MG PO (08:04)
--- NOTE | 2024-07-01 10:12 | W.PN.HOSP.TC ---
Addendum entered and electronically signed by David Valencia MD 07/02/24 00:12:
Attending Addendum-
I saw and evaluated the patient. I reviewed the resident�s note and agree with findings and plan as documented in the resident�s note. Sub: feels improved. Less wheeze and less SOB. Full 12 point ROS reviewed and negative except as documented Exam:
Vitals reviewed in chart GEN-NAD heart RRR lungs CTA B/L decreased at bases Abd obese LE trace pitting edema
#Acute COPD exacerbation
#Chronic hypoxic and hypercapnic respiratory Failure on home oxygen 5 L
- resolving
- cont PO steroids long taper as OP
- Continue nebulizer treatment with DuoNeb 4 times daily and budesonide
- completed abx x 7 days 06/29
- Primary certified coder Dr. Duran
- Negative COVID & Flu
- As needed Tessalon for cough.
- Appreciate pulmonary input
#Chronic heart failure with preserved ejection fraction
-Last echocardiogram in December 2022 showed LVEF 55 to 60% with mild aortic stenosis.
-Continue with daily Lasix
- weights stable
-Continue telemetry monitoring
#Paroxysmal atrial fibrillation/incomplete right bundle branch block
-Continue Eliquis 5 mg BID
-Amiodarone previously stopped due to elevated transaminases. Continue with Toprol
-Continue telemetry monitoring
#Obstructive Sleep Apnea
- cont bipap 22/06
# Obesity, BMI 51
# Gout
- cont allopurinol
# Hypothyroidism
- cont levothyroxine
# HTN
- cont lisinopril and metoprolol
#Depression
- cont sertraline
DVT Prophylaxis:�Eliquis
Diet:�Patient would like to continue with regular diet
Code Status:�Full Code
Dispo- DC to SNF- PA refusing at first but agreeable only if this attending is her physician
Time spent coordinating care, DC planning, review of DC plan of care with resident, transition of care, review of records, med rec/scripts sent electronically, consults, notes, d/w consultants, nursing, family, and CM� 34 mins
Original Note:
Today's Communication/Plan
-
Discharged to acute rehab facility with azithromycin and steroid taper and close pulmonology follow-up
Assessment / Plan
Assessment / Plan
Impression: 68-year-old female former smoker (85-ntdd-nfgo history, quit 01/2019), with PMH of advanced COPD, chronic hypercapnic/hypoxic respiratory failure on home oxygen 5 L, LUZ MARINA on BiPAP 22/06 at home, A-fib on Eliquis, who presents to ED with
SOB for 1 week and productive cough.
Assessment/plan:
#Acute COPD exacerbation/acute bronchitis
Much improved, minimal wheezes.
Chronic respiratory failure with hypoxia and hypercapnia (baseline pCO2 of prox 75-80), on home oxygen 5 L/min.
Currently requiring 5 L O2.
BiPAP nightly, pressures adjusted for pt preference
Continue nebulizer treatments and mucolytics.
Antibiotics completed 06/29 days #7
Steroid taper on discharge per pulm to be continued untill pulm follow up
Discharge on azithromycin 500 mg Saturday for anti-inflammatory effects per pulmonary.
Pulmonology recs appreciated.
Follow-up with pulmonary outpatient.
Prior to discharge patient also received flu and Prevnar 20 vaccine.
#Chronic LUZ MARINA
nightly bipap
Doing better on reduced BiPAP pressure of 10/5 cm (uncomfortable with 22/06)
Maintain current pressure outpatient.
# Chronic HFpEF
Echo 12/2022 with LVEF 55 to 60% mild aortic stenosis.
Continue Lasix.
Weight stable
Telemetry discontinued.
#History of paroxysmal atrial fibrillation/incomplete right bundle branch block
Rate controlled on metoprolol, amiodarone discontinued for transaminitis.
Continue Eliquis.
tele discontinued
#History of Obstructive Sleep Apnea
Pulmonary doctor reduced BiPAP pressure to help improve compliance.
# Obesity
BMI 51
DVT Prophylaxis:�Eliquis
Code Status:�Full Code
Anticipated Discharge: Today
Subjective/Interval History
-
Date of Service: July 01, 2024
no acute events overnight, pt tolerating bipap well
Objective Data
-
Labs:
Laboratory Results
07/01/24
05:24
WBC 13.9 H
Hgb 13.2
Hct 42.8
Plt Count 337
Sodium 140
Potassium 4.9
Chloride 93 L
Carbon Dioxide 33 H
BUN 57 H
Creatinine 1.1 H
Glucose 84
Calcium 8.9
Vital Signs:
Vital Signs
Temp Pulse Resp BP Pulse Ox
97.8 F 57 17 134/59 97
07/01/24 07:20 07/01/24 07:20 07/01/24 07:20 07/01/24 07:20 07/01/24 07:20
I&O
06/30/24 07/01/24 07/02/24
06:59 06:59 06:59
Intake Total 930 / 930 760 / 760
Output Total 3200 / 3200 2100 / 2100
Balance -2270 / -2270 -1340 / -1340
Review of Systems
-
History Source: Patient
Constitutional: Reports No Symptoms
Respiratory: Reports Cough and Other (SOB with exertion)
Cardiac: Reports No Symptoms
Abdomen/GI: Reports No Symptoms
Physical Exam
-
General: Comfortable and Morbidly Obese
Respiratory: Wheezes
Cardiac: Regular Rhythm and S1/S2
GI: Soft, Nontender, Nondistended and Normal Bowel Sounds
Musculoskeletal: Other (trace LLE edema)
Skin: Warm and Dry
Neuro: Awake, Alert, Oriented and AO x 3
Psych: Calm and Intact Judgement/Insight
Data Reviewed
-
Labs: Labs Reviewed by me and Discussed with Physician
--- NOTE | 2024-07-01 10:46 | CM ---
indicated pt ready for dc to SNF.
spoke with [facility] she said she can accept her. They will arrange a bariatric bed.
Pt will provide Bipap . Pt will inform family.
Bariatric Ambulance medical nec form comp-leted.
Pt on 5 liters oxygen Pox 97%.
IMM reviewed with pt . She agrees with dc.
[facility]
report [phone]
fax [phone]
PLAN To [facility] today.
--- NOTE | 2024-07-01 11:29 | W.PN.PUL3 ---
Today's Communication / Plan
-
Off antibiotics
Prednisone taper as below
Nebulized therapy
Continue with BiPAP at home, pressure will be changed through our office
Strict instructions to follow-up with pulmonary in the next 2 weeks. Information left in chart
Disposition efforts
Assessment
-
Assessment: 68-year-old F former tobacco smoker (64-ebgh-gdmp Hx, quit 01/2019) with PMHx of COPD, chronic hypercapnic/hypoxic respiratory failure on home oxygen at 5 L/min, LUZ MARINA on BiPAP 14/10 cmH2O, chronic HFrEF, A-fib on Eliquis, bifascicular
block, personal history COVID-19 (December 2020), and gout who presents with SOB with flulike symptoms for 1 week. She was recently exposed to her granddaughter who may have been sick recently. No obvious pneumonia seen on CXR. COVID antigen, as
well as flu A/B. She was given Decadron, DuoNebs and guaifenesin/codeine in the ER and admitted to the hospitalist service. Pulmonary service now consulted for additional management/recommendations.
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
COVID-19 (December 2020), former tobacco smoker (50-ilnb-hklo Hx, quit January 2019), osteoporosis, gout
Impression:
#Acute COPD exacerbation
#Centrilobular emphysema & chronic bronchitis with significant bronchial wall thickening seen mainly in bases + RML/lingula on CT Chest (January 2024)
#Severe COPD with moderate restrictive lung defect, and severe gas exchange capacity defect (per PFT from November 2021)
#Chronic respiratory failure with hypoxia on supplemental O2 (5L/min, which is her home dose)
#Chronic hypercapnic respiratory failure/OHS - baseline pCO2 approximately 75-80
#Former tobacco smoker (50-PY Hx, quit January 2019)
#Multiple pulmonary nodules (SP patchy solid nodules seen on CT Chest from January 2024, likely due to mucoid impaction/atelectasis)
#Mild aortic stenosis
#LUZ MARINA on nocturnal BiPAP 14/18mvN2P (home settings)
Plan/recommendations
At this time, patient appears to be overall improved
Wheezing seems to wax and wane as well as rhonchi depending on cough and breathing treatments
Tolerating BiPAP overnight. Feels pressures are better than home pressure
She is on 5 L which is her baseline
Moving forward
Continue with oxygen therapy, maintain at 5 L
Continue with BiPAP, no changes
Chronic hypercapnia-baseline pCO2 around 70
BiPAP 10/5 cm at night-tolerating well. She prefers to continue these pressures as an outpatient (does not like 22/06)
will require Close follow-up in the sleep clinic. Follow-up information left in chart
Nebulizers continue
Mucolytic's
Ktdxufqx-lbazzujvsmhko-Vonw-Medrol 60 mg IV twice daily-we will change to oral steroids with slow taper, transitioned to [address] chest 06/27/2024-NAD, stable 70% compression fracture T8
Patient known to have multiple nodular opacifications on CT 01/25/2024-these will need to be followed as an outpatient-multiple requests have been provided in the past and the patient did not follow through
Cultures reviewed
Off antibiotics
continue budesonide Twice daily, DuoNebs 4 times daily
DVT prophylaxis-on Eliquis
Nutrition
Increase activity
When discharged with discharge with nebulizers, very slow prednisone taper-i.e. prednisone 50 mg for 4 days, then 40 mg for 4 days, then 30 mg for 4 days, then 20 mg for 4 days and then 10 mg daily until seen by pulmonary
Would benefit from azithromycin 500 mg Wjkkbs-Xmkqqzbeo-Dkliig for anti-inflammatory effects
If recurrent exacerbations requiring prednisone consider Biologics such as IL-4/13 inhibitors
She will continue to follow-up with us in the office as last visit on 06/11/2024 with LUPE Kamara. Last time saw Dr. Harper in 2021
Disposition efforts
Follow-up information left in chart

Data:
CXR 06/23/2024:
No convincing radiographic evidence for focal consolidation/pneumonia.
No evidence for pulmonary edema or pleural effusion.
Stable compression deformity of the T8 vertebral body.
Subjective Data
-
Date of Service:
Date of Service: July 01, 2024
Chief Complaint: Pulmonary Follow Up and Dyspnea Follow Up
Subjective:
Patient is without complaints. She denies chest pain. She admits to cough, no hemoptysis, nausea. Able to tolerate getting out of the bed in the chair. Remains on 5 L which is her baseline
Objective Data
Data Reviewed
Vital Signs / I&O / Oxygen:
Vital Signs
Temp Pulse Resp BP Pulse Ox
97.8 F 72 18 134/59 97
07/01/24 07:20 07/01/24 11:10 07/01/24 11:10 07/01/24 07:20 07/01/24 11:10
Intake and Output
06/30/24 07/01/24 07/02/24
06:59 06:59 06:59
Intake Total 930 / 930 760 / 760
Output Total 3200 / 3200 2100 / 2100
Balance -2270 / -2270 -1340 / -1340
SaO2 97
Nasal Cannula flow liters per 5
minute
Physical Exam
General: Comfortable
HEENT: Normocephalic, Anicteric, Moist Mucous Membranes and Other (Edentulous)
Cardiovascular: Regular Rhythm, Murmur (n) and Peripheral Edema (Trace to 1+)
Respiratory: Clear (Prolonged expiratory time and overall diminished breath sounds), Wheeze (Mild), Crackles (negative), Rhonchi (Few with cough), Non-Labored Respirations, Stridor (n) and Other (Decreased breath sounds)
GI: Soft, Distended (Abdominal obesity), Non Tender and Normal Bowel Sounds
Neurology: Awake, Alert and No Motor Deficits (Able to sit up without assistance)
Skin: Good Color, Cyanosis (negative) and Jaundice (negative)
Labs/Micro/Reports
Lab Data
07/01/24 05:24
07/01/24 05:24
[2024-07-01] MEDS: FLUAD (65 yr+) 2024-2025 FORMULA 0.5 ML IM (12:28)
[2024-07-01] MEDS: PREVNAR 20 0.5 ML IM (12:31)
--- NOTE | 2024-07-01 13:33 | W.DCSUMMARY ---
Addendum entered and electronically signed by David Valencia MD 07/02/24 00:12:
Read, reviewed, and agree. See same day progress note for additional details.
Ernie Valencia MD
Original Note:
Documented by User: Camden Rai DO, Resident 07/01/24 14:02
Discharge Summary
Discharge Data
Date of Admission: 06/23/24
Date of Discharge: 07/01/24
-
Pending Results: No
Hospital Course
Discharging Physician : Erik Rai
Disposition : Acute rehab facility
Primary care physician : Dr. Aden Jeffrey
Principal Discharge diagnosis : Acute chronic obstructive pulmonary disease exacerbation
Chronic Discharge diagnosis : Chronic obstructive pulmonary disease, obstructive sleep apnea, chronic heart failure preserved ejection fraction, history paroxysmal atrial fibrillation/incomplete right bundle branch block, morbid obesity
Hospital Course : 68-year-old female past medical history of COPD and LUZ MARINA came from home after 1 week of flulike symptoms. She continued to have worsening shortness of breath with cough and productive of green-colored sputum. She had no fevers or
chills the time of presentation. She uses home oxygen 5 L and uses inhalers/nebulizers at home. In the emergency department she was given steroid and nebulizer treatment, chest x-ray did not show definitive infiltrate and she tested negative for
COVID and influenza. Patient was admitted for further workup and management. During her stay pulmonology was consulted to see her, she was started on systemic steroids, some meter all IV 40 every 12 which was eventually increased to 60 every 12.
She was also started on DuoNebs 4 times a day as needed and was given Rocephin and Zithromax. She was treated with antibiotics for a total of 7 days. Patient sputum culture returned as noninfectious, Gram stain did not suggest any ongoing
inflammatory process and sputum was not considered acceptable for culture. She was also started on Mucinex and Tessalon for symptom management. Patient received IV steroids for a total of 5 days, after which she was transitioned to oral
prednisone. Patient will be discharged with an oral prednisone taper starting at 50 mg and gradually decreasing in 4-day intervals to 10 mg. She will continue to take 10 mg daily until she can be seen by pulmonology at follow-up. Patient was also
discharged on azithromycin, to take Saturday for anti-inflammatory purposes. Patient's DuoNebs were adjusted to be 4 times a day scheduled. She was also started on budesonide twice a day. Patient's sleep apnea was addressed during
her stay, she was started on BiPAP which she takes at home and pressures were adjusted to her preference. Before she was discharged patient was given the flu and pneumonia 20 vaccine. Patient will follow-up with pulmonology regarding BiPAP and LUZ MARINA
management. Patient was agreeable to attend acute rehab and this was recommended by physical therapy. Patient will be discharged to acute rehab facility for physical therapy. Patient will follow-up with pulmonology in 2 to 3 weeks and her primary
care physician within 1 week of discharge from her acute rehab facility.
Important imaging findings :
06/23/2024 chest x-ray, impression:
No convincing radiographic evidence for focal consolidation/pneumonia. See above discussion.
No evidence for pulmonary edema or pleural effusion.
Stable compression deformity of the T8 vertebral body.
06/27/[address] without contrast, impression:
No active cardiopulmonary disease
Atherosclerosis
Stable 70% compression fracture of T8
Procedure findings :
06/24/2024 micro respiratory specimen:
Respiratory Culture Final 06/25/24
Test not performed
Gram Stain Final 06/25/24
Gram stain does not suggest ongoing inflammatory process.
Sputum is not acceptable for culture. Please repeat culture
if clinically relevant.
Few Squamous Epithelial Cells
Rare WBC
Few Mixed Bacterial Morphotypes
Discharge Plan
-
Patient Disposition: Acute Rehab Facility
Discharge Diagnosis/Procedures: Acute chronic obstructive pulmonary disease exacerbation, chronic heart failure preserved ejection fraction, paroxysmal atrial fibrillation/incomplete right bundle branch block, obstructive sleep apnea
Condition: Fair
Diet: Regular
Activity: With assistance and As tolerated
Driving Restrictions: As prior to admission
Bathing Restrictions: None
Other Services: PT and OT
Referrals:
Trice Boles CRNP [Non-Admitting Privileges] - in two to three weeks (Patient needs appointment in 2 weeks to confirm doing well with steroid taper and doing well with BiPAP 10/5 settings)
Aden Jeffrey MD [Family Provider] - in less than 1 week
Additional Discharge Medication Instructions: Please take azithromycin by mouth Saturday and Saturday
Please take budesonide twice a day, we replaced your arnuity with budesonide
Please take DuoNebs 4 times a day
Please follow prednisone taper, instructions are as follows: Take by mouth. 4 days of 50 mg. 4 days of 40 mg. 4 days of 30 mg. 4 days of 20 mg. 10 mg daily until seen by pulmonology
Prescriptions:
New
ipratropium-albuterol 0.5 mg-3 mg(2.5 mg base)/3 mL Solution For Nebulization
3 ml inhalation R QID Qty: 90 0RF
budesonide 0.5 mg/2 mL Suspension For Nebulization
1 mg inhalation R BID Qty: 60 0RF
azithromycin 500 mg tablet
See Rx Instructions .ROUTE .COMPLEX 14 Days Qty: 14 0RF
Rx Instructions:
500 mg orally to be taken Saturday
prednisone 10 mg Tablet
See Rx Instructions .ROUTE .COMPLEX Qty: 90 0RF
Rx Instructions:
Take By Mouth:50 mg daily x4 days, 40 mg daily x4 days, 30 mg daily x4 days, 20 mg daily x4 days, 10 mg daily
Continued
levothyroxine 100 MCG tablet
100 mcg PO DAILY AT 0700
furosemide 40 MG tablet
40 mg PO BID AT 0800,1600 Qty: 60 0RF
Eliquis 5 MG tablet
5 mg PO BID Qty: 0 0RF
therapeutic multivitamin Tablet
1 tab PO DAILY
lisinopril 20 mg tablet
20 mg PO DAILY
Metamucil Fiber Singles 3.4 gram powder in packet
1 packet PO DAILY
acetaminophen [Tylenol] 325 mg Tablet
650 mg PO Q4HPRN PRN (Reason: MILD PAIN)
hydralazine 25 mg Tablet
25 mg PO BID
allopurinol 100 mg Tablet
100 mg PO DAILY
sertraline 25 MG tablet
50 mg PO DAILY
metoprolol succinate 25 mg tablet extended release 24 hr
25 mg PO DAILY
Discontinued
Arnuity Ellipta 200 mcg/actuation Blister With Device
1 inh INHALATION R DAILY
ipratropium-albuterol 0.5 mg-3 mg(2.5 mg base)/3 mL solution for nebulization
3 ml inhalation R Q8HPRN PRN (Reason: shortness of breath or wheezing)
Discharge Orders:
Discharge Patient (As Directed); Ordered 07/01/24
Ordered By: Camden Rai
Discharge Date and Time
Discharge Date/Time: 07/01/24 17:38
Print Language: RWANDAN

Documented by User: David Valencia MD 07/02/24 00:08
Discharge Summary
Discharge Data
Date of Admission: 06/23/24
Date of Discharge: 07/02/24
Discharge Plan
-
Patient Disposition: Acute Rehab Facility
Discharge Diagnosis/Procedures: Acute chronic obstructive pulmonary disease exacerbation, chronic heart failure preserved ejection fraction, paroxysmal atrial fibrillation/incomplete right bundle branch block, obstructive sleep apnea
Condition: Fair
Diet: Regular
Activity: With assistance and As tolerated
Driving Restrictions: As prior to admission
Bathing Restrictions: None
Other Services: PT and OT
Referrals:
Trice Boles CRNP [Non-Admitting Privileges] - in two to three weeks (Patient needs appointment in 2 weeks to confirm doing well with steroid taper and doing well with BiPAP 10/5 settings)
Aden Jeffrey MD [Family Provider] - in less than 1 week
Additional Discharge Medication Instructions: Please take azithromycin by mouth Saturday and Saturday
Please take budesonide twice a day, we replaced your arnuity with budesonide
Please take DuoNebs 4 times a day
Please follow prednisone taper, instructions are as follows: Take by mouth. 4 days of 50 mg. 4 days of 40 mg. 4 days of 30 mg. 4 days of 20 mg. 10 mg daily until seen by pulmonology
Prescriptions:
New
ipratropium-albuterol 0.5 mg-3 mg(2.5 mg base)/3 mL Solution For Nebulization
3 ml inhalation R QID Qty: 90 0RF
budesonide 0.5 mg/2 mL Suspension For Nebulization
1 mg inhalation R BID Qty: 60 0RF
azithromycin 500 mg tablet
See Rx Instructions .ROUTE .COMPLEX 14 Days Qty: 14 0RF
Rx Instructions:
500 mg orally to be taken Saturday
prednisone 10 mg Tablet
See Rx Instructions .ROUTE .COMPLEX Qty: 90 0RF
Rx Instructions:
Take By Mouth:50 mg daily x4 days, 40 mg daily x4 days, 30 mg daily x4 days, 20 mg daily x4 days, 10 mg daily
Continued
levothyroxine 100 MCG tablet
100 mcg PO DAILY AT 0700
furosemide 40 MG tablet
40 mg PO BID AT 0800,1600 Qty: 60 0RF
Eliquis 5 MG tablet
5 mg PO BID Qty: 0 0RF
therapeutic multivitamin Tablet
1 tab PO DAILY
lisinopril 20 mg tablet
20 mg PO DAILY
Metamucil Fiber Singles 3.4 gram powder in packet
1 packet PO DAILY
acetaminophen [Tylenol] 325 mg Tablet
650 mg PO Q4HPRN PRN (Reason: MILD PAIN)
hydralazine 25 mg Tablet
25 mg PO BID
allopurinol 100 mg Tablet
100 mg PO DAILY
sertraline 25 MG tablet
50 mg PO DAILY
metoprolol succinate 25 mg tablet extended release 24 hr
25 mg PO DAILY
Discontinued
Arnuity Ellipta 200 mcg/actuation Blister With Device
1 inh INHALATION R DAILY
ipratropium-albuterol 0.5 mg-3 mg(2.5 mg base)/3 mL solution for nebulization
3 ml inhalation R Q8HPRN PRN (Reason: shortness of breath or wheezing)
Discharge Orders:
Discharge Patient (As Directed); Ordered 07/01/24
Ordered By: Camden Rai
Discharge Date and Time
Discharge Date/Time: 07/01/24 17:38
Print Language: RWANDAN
[2024-07-01 15:07] VITALS: BP 103/45
[2024-07-01] MEDS: DUONEB INH (16:14)
== END 2024-07-01 17:38 | DRG 191 ==
LOC: 3 WEST ACU 13:11
PROVIDERS: Student in an Organized Health Care Education/Training Program; ADMITTING PHYSICIAN Internal Medicine; ATTENDING PHYSICIAN Family Medicine; EMERGENCY PHYSICIAN Emergency Medicine; FAMILY PHYSICIAN Internal Medicine; OTHER PHYSICIAN Internal Medicine Critical Care Medicine
PROC: 5A09357 Assistance with Respiratory Ventilation, Less than 24 Consecutive Hours, Continuous Positive Airway Pressure (ICD-10-PCS; 2024-06-24)
PROC: 3E02340 Introduction of Influenza Vaccine into Muscle, Percutaneous Approach (ICD-10-PCS; 2024-07-01)
DX: J44.0 Chronic obstructive pulmonary disease with (acute) lower respiratory infection (principal); I50.32 Chronic diastolic (congestive) heart failure; J96.11 Chronic respiratory failure with hypoxia; J96.12 Chronic respiratory failure with hypercapnia; Z68.43 Body mass index [BMI] 50.0-59.9, adult; M48.54XA Collapsed vertebra, not elsewhere classified, thoracic region, initial encounter for fracture; I27.20 Pulmonary hypertension, unspecified; I11.0 Hypertensive heart disease with heart failure; J44.1 Chronic obstructive pulmonary disease with (acute) exacerbation; J43.2 Centrilobular emphysema; E66.01 Morbid (severe) obesity due to excess calories; F32.A Depression, unspecified; Z99.81 Dependence on supplemental oxygen; I48.0 Paroxysmal atrial fibrillation; J20.9 Acute bronchitis, unspecified; M81.0 Age-related osteoporosis without current pathological fracture; G47.33 Obstructive sleep apnea (adult) (pediatric); I45.10 Unspecified right bundle-branch block; M10.9 Gout, unspecified; R91.8 Other nonspecific abnormal finding of lung field; Z79.01 Long term (current) use of anticoagulants; Z79.890 Hormone replacement therapy; Z79.899 Other long term (current) drug therapy; Z86.16 Personal history of COVID-19; Z87.891 Personal history of nicotine dependence; Z23 Encounter for immunization; Z82.49 Family history of ischemic heart disease and other diseases of the circulatory system
CPT/HCPCS: 71046; 71250; 80048; 80053; 82805; 85025; 85027; 86803; 87070; 87205; 87502; 87811; 90662; 90677; 93005; 94640; 94660; 96374; 97116; 97162; 97166; 97530; 97535; 99285; G0008; G0009

== ENCOUNTER → 2024-07-06 12:13 | Outpatient (REF) | payer OTHER, MEDICARE, SELFPAY ==
[2024-07-06 13:26] LABS: % Basophils 0.3 % (0-2); % Eosinophils 2.7 % (0-6); % Immature Granulocytes 0.7 % (0-0.5); % Lymphocytes 12.4 % (20.5-51.1); % Monocytes 7.6 % (1.7-9.3); % Neutrophils 76.3 % (42.2-75.2); Absolute Eosinophils 0.4 10^3/uL (0-0.7); Absolute Immature Granulocytes 0.1 10^3/uL (0-0.05); Absolute Lymphocytes 1.7 10^3/uL (1.2-3.4); Absolute Neutrophils 10.2 10^3/uL (1.4-6.5); Hematocrit 41.8 % (37.0-47.0); Hemoglobin 12.8 g/dL (12.0-16.0); Mean Corp Hgb Conc. 30.6 g/dL (33.0-37.0); Mean Corpuscular Hgb 27.6 pg (27.0-31.0); Mean Corpuscular Volume 90.3 fL (81.0-99.0); Mean Platelet Volume 10.9 fL (7.4-10.4); Nucleated Red Blood Cells % 0 %; Platelet Count 400 10^3/uL (130-400); Red Blood Cell Count 4.63 10^6/uL (4.20-5.40); White Blood Cell Count 13.4 10^3/uL (4.8-10.8)
[2024-07-06 13:33] LABS: Blood Urea Nitrogen 66 mg/dl (7-17); Calcium 8.8 mg/dl (8.4-10.2); Carbon Dioxide 34 mmol/L (22-30); Chloride 96 mmol/L (98-107); Glucose 91 mg/dl (70-99); Potassium 5.3 mmol/L (3.5-5.1); Sodium 141 mmol/L (135-145); eGFR 55.07
== END ==
LOC: OLABP 12:13
PROVIDERS: ATTENDING PHYSICIAN Family Medicine
DX: J44.1 Chronic obstructive pulmonary disease with (acute) exacerbation (principal); I50.30 Unspecified diastolic (congestive) heart failure; I48.0 Paroxysmal atrial fibrillation; I11.0 Hypertensive heart disease with heart failure; I45.0 Right fascicular block
CPT/HCPCS: 36415; 80048; 85025

== ENCOUNTER 2024-07-20 22:11 | Inpatient (IN) | payer MEDICARE, SELFPAY ==
[2024-07-20] VITALS (9 sets, daily range): BP systolic 99–122; BP diastolic 50–99; BMI 51.2
[2024-07-20 17:47] LABS: % Basophils 0.4 % (0-2); % Immature Granulocytes 0.5 % (0-0.5); % Lymphocytes 4.1 % (20.5-51.1); % Monocytes 6.7 % (1.7-9.3); % Neutrophils 85.3 % (42.2-75.2); Absolute Eosinophils 0.3 10^3/uL (0-0.7); Absolute Immature Granulocytes 0.1 10^3/uL (0-0.05); Absolute Lymphocytes 0.4 10^3/uL (1.2-3.4); Absolute Monocytes 0.6 10^3/uL (0.1-0.6); Hematocrit 39.7 % (37.0-47.0); Hemoglobin 12.5 g/dL (12.0-16.0); Mean Corp Hgb Conc. 31.5 g/dL (33.0-37.0); Mean Corpuscular Hgb 28.2 pg (27.0-31.0); Mean Corpuscular Volume 89.6 fL (81.0-99.0); Mean Platelet Volume 10.3 fL (7.4-10.4); Nucleated Red Blood Cells % 0 %; Platelet Count 259 10^3/uL (130-400); Red Blood Cell Count 4.43 10^6/uL (4.20-5.40); Red Cell Dist. Width 16.9 % (11.5-14.5); White Blood Cell Count 9.4 10^3/uL (4.8-10.8)
[2024-07-20 17:54] LABS: Lactic Acid 1.6 mmol/L (0.7-2.0)
[2024-07-20 17:56] LABS: Blood Urea Nitrogen 50 mg/dl (7-17); Calcium 10.6 mg/dl (8.4-10.2); Carbon Dioxide 39 mmol/L (22-30); Chloride 93 mmol/L (98-107); Estimated Creatinine Clearance 58 ml/min; Glucose 126 mg/dl (70-99); Sodium 140 mmol/L (135-145); eGFR 45.07
[2024-07-20 17:58] LABS: COVID-19 Antigen Negative (Negative)
--- NOTE | 2024-07-20 18:54 | EDRN ---
Pt was OOB to commode on oxygen at 4lpm and on returning to stretcher POX was 74-76% on oxygen at 4lpm. 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
[2024-07-20 19:02] LABS: Urine Albumin Negative (Neg - Trace); Urine Bilirubin Negative (Negative); Urine Character Clear (Clear); Urine Color Yellow; Urine Glucose Negative (Negative); Urine Ketone Negative (Negative); Urine Leukocyte Trace (Negative); Urine Nitrite Negative (Negative); Urine Occult Blood Trace (Negative); Urine Urobilinogen Negative (Neg - 1+)
[2024-07-20 19:27] LABS: Urine Bacteria Few (Negative)
--- NOTE | 2024-07-20 19:59 | ED.GENMED ---
History of Present Illness
General
Chief Complaint: Weakness
Source: patient
Time Seen by Provider: 07/20/24 17:07
Nursing documentation reviewed up to this point in time: agreed with
History of Present Illness
History of Present Illness:
Patient to ED with complaint of increasing SOB. She was admitted here recently for exacerbation COPD, discharged to rehab. States she felt well after returning home but over the past 24 hours her breathing has worsenend. She reports compliance
with her nebulizers. Currently on a prednisone taper. SHe is taking 10mg bid, to decrease to 10mg daily tomorrow. Reports O2 at home should be 3L continuous but she increased it to 5L today due to her increasing SOB. Cough is unchanged. Brought
to ED via EMS for eval.
Past History
Past History
ED Past Medical History: CHF, COPD and HTN
ED Past Surgical History: None
Social History
Tobacco: Former smoker
Alcohol: None
Personal:
Living: with family
Review of Systems
Review of Systems
Allergies reviewed?: Yes
Constitutional: Reports no symptoms
EENT: Reports no symptoms
Respiratory: Reports cough and trouble breathing
Cardiac: Reports no symptoms
ABD/GI: Reports no symptoms
: Reports no symptoms
Musculoskeletal: Reports no symptoms
Skin: Reports no symptoms
Neurological: Reports weakness
Psychiatric: Reports no symptoms
Phy Exam
General Physical Exam
General Presentation: moderate distress
General age: appears stated age
General Skin: warm and dry
General Habitus: normal
General Mental: alert
Cardiovascular Exam
Cardiovascular Exam: regular rate/rhythm
Pulmonary Exam
Pulmonary Exam: chest non tender and decreased breath sounds (decreased throughout, expiratory wheezing)
Oxygen Status: oxygen 4 liters via NC
Gastrointestinal Exam
Gastrointestinal Exam: normal bowel sounds and non tender
Musculoskeletal Exam
Musculoskeletal Exam: full ROM and neuro vasc intact
Skin Exam
Skin Exam: normal color, warm/dry and no rash
Psychiatric Exam
Psychiatric Exam: normal mood/affect
Course
Orders/Labs/Results
Orders:
Orders
07/20/24 Dinner
Cholesterol Lowering
At Your Request: Full Participation
Does patient need a safe tray?: No
Cholesterol Lowering: Sodium, 2 Gram
07/20/24 17:24
Electrocardiogram (*1) Urgent
Reason for Study: Chest Pain
Cardiac Monitoring- Treatment ONCE
07/20/24 17:25
EKG- Treatment ONCE
07/20/24 17:29
CR Chest - 2 Views Urgent
Comment:
Reason For Exam: SOB
07/20/24 17:31
Basic Metabolic Panel Urgent
COVID-19 Antigen Urgent
Source: Nasal Swab
Complete Blood Count/With Diff Urgent
Lactic Acid Urgent
NT-proBNP Urgent
Influenza A+B Rapid Molecular Urgent
PUJA Source: Nasal Swab
Specimen Description:
07/20/24 18:49
Urinalysis Reflex To Culture Urgent
Date Specimen was Collected: 07/20/24
Time Specimen was Collected: 18:47
Urine Microscopic Reflex Cult Urgent
07/20/24 19:58
Dexamethasone Sod Phosphate [Decadron] 10 mg IV NOW STA
Ipratropium/Albuterol Sulfate [Duoneb] 3 ml INH R NOW STA
07/20/24 20:28
Add On- LAB Urgent
Tests Added?: albumin, lft's, procal
07/20/24 20:43
Lactic Acid Urgent
[id number] Urgent
Comment: COLLECT. SPECIMEN IN LAB HEMOLYZED
Procalcitonin Urgent
Comment: COLLECT. SPECIMEN TO OLD AND HEMOLYZED
07/20/24 20:52
Acetaminophen [Tylenol] 650 mg PO NOW STA
07/20/24 21:16
Admit/Transfer Patient As Directed
Co-Sign Provider:
Level of Care: Inpatient admission
Assign to:: Medical/Surgical
Physician / Group: bhaskar benavidez
Diagnosis: acute chronnic copd exac likely viral vs bacterial, chronic home o2 5 liter
Reason for Hospitalization: acute chronnic copd exac likely viral vs bacterial, chronic home o2 5 liter
Expected length of stay greater than two midnights?: Yes
ELOS- Estimated Length of Stay in days: 3
I certify the patient meets the requirements for IP care: Yes
Code Status As Directed
Resuscitation Status: Full Code
07/20/24 21:21
PRN Pain Medication Management As Directed
May give lesser potent ordered pain med per pt: Yes
preference::
Protocol:: Medication orders for pain may be administered in a
manner that supports deferring to patient preference
when the pt is:
- Requesting an ordered lesser potent pain medication.
Least to most potent pain medications are defined
as: acetaminophen < NSAID < tramadol < opioids
(morphine, oxycodone, hydromorphone).
- Requesting a lesser dose of the same medication IF
ORDERED.
- Requesting a less intrusive route of administration
if both routes are prescribed by the provider (PO <
IV).
07/20/24 21:22
CefTRIAXone [Rocephin] 1,000 mg IV NOW STA
Sterile Water [Sterile Water For Injection] 10 ml IV NOW STA
07/20/24 22:33
Acetaminophen [Tylenol] 650 mg PO Q4HPRN PRN
Apixaban [Eliquis] 5 mg PO BID
Furosemide [Lasix] 40 mg PO BID AT 0800,1600
HydrOXYZINE [Atarax] 25 mg PO BID
Ipratropium/Albuterol Sulfate [Duoneb] 3 ml INH R Q4HPRN PRN
Tramadol HCl [Ultram] 50 mg PO Q8HPRN PRN
07/20/24 22:33
VTE Contraindication Routine
VTE Mechanical Device Contraindication: Medical Contraindication
Pharmocologic Contraindication: Medical Contraindication
Comment: pt on eliquis
Sputum Culture [Respiratory Culture/Gram Stain] Routine
PUJA Source: Sputum
Specimen Description:
Activity As Directed
Activity Level: With Assistance
Intake/ Output As Directed
Frequency: Per unit guidelines
Vital Signs As Directed
Frequency: Per unit guidelines
Weight As Directed
Frequency: Daily
Bipap [RESP] Routine
Patient to use own unit?: No
Inspiratory Pressure (cm H2O): 10
Expiratory Pressure (cm H2O): 5
Oxygen Liter Flow: 5
Instructions: May use own tomorrow if family member brings in
O2 Therapy [RESP] Routine
Nasal Cannula Liter Flow: 5 LPM
Titrate/Wean O2 to maintain O2 sat greater than (%): 90
Special Instructions: Patient to be on 5 L nasal cannula constant
Pulse Ox/spot Check [RESP] Routine
Quantity: 1
Rx Incentive Spirometry [RESP] Routine
Frequency: q1h while awake
Ot Eval And Treat Routine
Pt Eval And Treat Routine
Activity Level: As Tolerated
07/21/24 06:00
Complete Blood Count/With Diff IN AM
Comprehensive Metabolic Panel IN AM
07/21/24 06:30
Levothyroxine [Synthroid] 100 mcg PO DAILY@0630
07/21/24 08:00
Allopurinol [Zyloprim] 100 mg PO DAILY
Budesonide [Pulmicort] 1 mg INH R BID
Ipratropium/Albuterol Sulfate [Duoneb] 3 ml INH R QID
Lisinopril [Zestril] 20 mg PO DAILY
Metoprolol Xl [Toprol Xl] 25 mg PO DAILY
Multivitamin [Theragran] 1 tablet PO DAILY
Psyllium [Metamucil, Konsyl] 1 packet PO DAILY
Sertraline HCl [Zoloft] 50 mg PO DAILY
07/21/24 09:00
MethylPREDNISolone PF [Solu-Medrol Pf] 40 mg IV Q12H
07/21/24 22:00
CefTRIAXone [Rocephin] 1,000 mg IV Q24H
07/22/24 06:00
Complete Blood Count/With Diff IN AM
Comprehensive Metabolic Panel IN AM
07/22/24 08:00
Azithromycin [Zithromax] 500 mg PO MoWeFr@0800
07/23/24 06:00
Complete Blood Count/With Diff IN AM
Comprehensive Metabolic Panel IN AM
Abnormal Lab Results
07/20/24 07/20/24
17:31 18:49
MCHC 31.5 L g/dL
(33.0-37.0)
RDW 16.9 H %
(11.5-14.5)
Abs Immat Gran (auto) 0.1 H 10^3/uL
(0-0.05)
Absolute Neuts (auto) 8.0 H 10^3/uL
(1.4-6.5)
Absolute Lymphs (auto) 0.4 L 10^3/uL
(1.2-3.4)
Neutrophils % 85.3 H %
(42.2-75.2)
Lymphocytes % 4.1 L %
(20.5-51.1)
Chloride 93 L mmol/L
(98-107)
Carbon Dioxide 39 H mmol/L
(22-30)
BUN 50 H mg/dl
(7-17)
Creatinine 1.3 H mg/dL
(0.6-1.0)
Glucose 126 H mg/dl
(70-99)
Calcium 10.6 H mg/dl
(8.4-10.2)
Ur Occult Blood Reflex Trace A
(Negative)
Leukocyte Esterase Rfl Trace A
(Negative)
Urine Bacteria (Reflex) Few A
(Negative)
07/20/24 17:31
07/20/24 17:31
Vital Signs
Initial and Last Documented VS:
Initial Vital Signs
BP
109/50
07/20/24 17:09
Last Documented Vital Signs
Temp Pulse Resp BP Pulse Ox
100.4 F H 58 18 115/73 94
07/20/24 17:10 07/20/24 22:15 07/20/24 22:15 07/20/24 22:12 07/20/24 22:15
*Radiology
Radiology exam reviewed: radiology read reviewed
*Pulse Oximetry
Patient hypoxic: yes (95% 4L NC at rest, 83% with activity)
*Critical Care Note
Total Time (30-74mins, 75-104mins- exclusive of procedures): Not Applicable
ED Attending Note
-
Portions of this chart may have been created with voice recognition software.� Occasional wrong word or��sound alike� substitutions may have occurred due to the inherent limitations of voice recognition software.
Discharge Plan
Departure
Patient Disposition: Admit
Date of Disposition: 07/20/24
Time of Disposition: 20:05
Presentation/result/management discussed w/ accepting MD/DO: Hospitalist
Patient with high blood pressure during this ER visit?: Yes
Condition: Fair
Discharge Problem:
COPD exacerbation
Interventions
Interventions:
*Risk Screen - Suicide Last Done: 07/20/24 17:10
*General Assessment Last Done: 07/20/24 17:10
*Neglect/Abuse Screening Last Done: 07/20/24 17:10
ED- Fall Risk Assessment Last Done: 07/20/24 17:10
*ED COVID-19 Vaccine History Last Done: 07/20/24 17:10
*Nursing Disposition Last Done: 07/20/24 22:32
ED- Cardiac Assessment Last Done: 07/20/24 17:25
ED- Neurological Assessment Last Done: 07/20/24 17:25
ED- Pulmonary Assessment Last Done: 07/20/24 17:25
Discharge Date and Time
Discharge Date/Time: 07/20/24 22:33
[2024-07-20] MEDS: DUONEB 3 ML INH (20:01)
[2024-07-20] MEDS: DECADRON 10 MG IV (20:01)
--- NOTE | 2024-07-20 20:39 | HPS.HSE ---
Family Physician
-
Family Physician: Aden Jeffrey
Chief Complaint
-
Increase shortness of breath, cough, fever
History of Present Illness
68-year-old female complaining of increasing shortness of breath she is currently on 10 mg twice daily of prednisone taper is due to decrease tomorrow to 10 mg daily from her admission on 06/23 - 07/01/2024 due to COPD exacerbation. She reports
over the past 24 hours her symptoms of breathing have become worse. She is using her nebulizer and taking her prednisone taper. She is on chronic Zithromax started Saturday by pulmonary last admission. She reports multiple family
members her daughter and grandchildren have upper respiratory infection with fevers in her home. She developed fever of 100.4 F in the ER with negative chest x-ray negative UA COVID and flu negative. She is using her oxygen only at 3 L at home.
She is supposed to be on 5 L O2 nasal cannula per pulmonary note recent admission June 2024 I advised her of this which can contribute to her COPD exacerbation. She denies headache, sore throat, chest pain, palpitations, abdominal pain, nausea,
vomiting, diarrhea, urinary symptoms.
She had a recent admission 06/23 - 07/01/2024 secondary to acute COPD exacerbation where she had flulike symptoms cough productive green in color but no fever or chills she was treated with steroids by pulmonary and Rocephin Zithromax x 7 days her
sputum culture returned as noninfectious. She was transition to oral prednisone taper discharged on Azithromycin to take Saturday for inflammatory purposes. She received the flu and pneumococcal vaccine before discharge to acute
rehab facility.
Past medical history chronic hypercapnic/hypoxic respiratory failure on home O2 5 L, LUZ MARINA on BiPAP 14/10 cm H2O, severe COPD with moderate restrictive lung defect, centrilobular emphysema and chronic bronchitis with significant bronchial wall
thickening seen in bases plus right middle lobe/lingula on CT chest January 2024, multiple pulmonary nodules (SP patchy solid nodule seen on CT chest January 2024 due to mucoid impaction/atelectasis ) mild aortic stenosis chronic heart failure reduced EF,
A-fib on Eliquis, bifascicular block, RBBB, COVID-26 December 2020, gout, osteoporosis, former tobacco smoker 50 pack year quit January 2019
Medical History
Past Medical History
Past Medical History: Reports Other (.)
Additional Past Medical History:
Centrilobular emphysema & chronic bronchitis with significant bronchial wall thickening seen mainly in bases + RML/lingula on CT Chest (January 2024)
Severe COPD with moderate restrictive lung defect, and severe gas exchange capacity defect (per PFT from November 2021)
Chronic respiratory failure with hypoxia on supplemental O2 (5L/min, which is her home dose)
Chronic hypercapnic respiratory failure/OHS - baseline pCO2 approximately 75-80
Former tobacco smoker (50-pack history, quit January 2019)
Multiple pulmonary nodules (SP patchy solid nodules seen on CT Chest from January 2024, likely due to mucoid impaction/atelectasis)
Atrial fibrillation on Eliqui,
Transaminitis secondary to amiodarone
LISA/renal insufficiency
osteoporosis
obesity
gout
diastolic heart failure
RBBB,
COVID-26 December 2020
T8 vertebral body collapse and fracture chronic back pain
Depression
Hypothyroidism
Past Surgical History: Reports Other (No recent major surgery)
Social History
Tobacco: Former Smoker
Alcohol: None
Drug: None
Personal:
Living: With Family
Employment: Retired
Family History
Family History: Not pertinent
Allergies / Home Medications
Allergies reflects when Allergies were last updated in [employer].
Home Medications with original date entered in [employer]
Allergy/Medication List:
Allergies
Allergy/AdvReac Type Severity Reaction Status Date / Time
No Known Allergies Allergy Verified 07/20/24 17:10
Home Medications
levothyroxine 100 mcg tablet 100 mcg PO DAILY@0630 Thyroid 01/30/21
apixaban 5 mg tablet (Eliquis) 5 mg PO BID Blood clot prevention/tx #0 tabs 02/04/21
furosemide 40 mg tablet 40 mg PO BID AT 0800,1600 Fluid retention/Swelling #60 tabs 02/04/21
therapeutic multivitamin 1 tab PO DAILY Supplement 12/17/22
lisinopril 20 mg tablet 20 mg PO DAILY Blood pressure 01/15/23
psyllium husk (aspartame) 3.4 gram oral powder packet (Metamucil Fiber Singles) 1 packet PO DAILY Gastrointestinal Issue 01/26/24
allopurinol 100 mg tablet 100 mg PO DAILY Gout 06/23/24
metoprolol succinate 25 mg tablet,extended release 24 hr 25 mg PO DAILY Blood Pressure 06/23/24
sertraline 25 mg tablet 50 mg PO DAILY Depression 06/23/24
budesonide 0.5 mg/2 mL suspension for nebulization 1 mg (4 mL) inhalation R BID Lung/breathing issues #60 mL 07/01/24
ipratropium 0.5 mg-albuterol 3 mg (2.5 mg base)/3 mL nebulization soln 3 ml inhalation R QID Lung/breathing issues #90 mL 07/01/24
acetaminophen 500 mg tablet 500 mg PO TIDPRN PRN mild pain 07/20/24
azithromycin 500 mg tablet 500 mg PO MOWEFR Anti-inflammatory 07/20/24
hydroxyzine HCl 25 mg tablet 25 mg PO BID 07/20/24
prednisone 10 mg tablet 10 mg PO DAILY Lung/breathing issues 07/20/24
tramadol 50 mg tablet 50 mg PO Q8HPRN PRN moderate to severe pain 07/20/24
Review of Systems
-
History Source: Patient
A 12 point ROS was completed and negative except as noted: Yes
Constitutional: Reports Fever; Denies Fatigue or Chills
EENT: Denies Sore Throat, Mouth Pain or Runny Nose
Respiratory: Reports Cough and Trouble Breathing (Wheezing)
Cardiac: Denies Chest Pain, Diaphoresis, Palpitations or Syncope
Abdomen/GI: Denies Abdominal Pain, Nausea, Vomiting, Diarrhea, Constipated, Bloody Stools or Black Stools
: Denies Dysuria, Frequency, Flank Pain, Incontinence, Difficulty Voiding or Urgency
Musculoskeletal: Denies Joint Pain or Edema
Skin: Denies Itching or Rash
Neurological: Denies Dizzy, Headache or Weakness
Endocrine: Reports No Symptoms
Hematologic/Lymphatic: Reports No Symptoms
Psych: Reports Calm
Physical Exam
Vital Signs
Vital Signs
Temp Pulse Resp BP Pulse Ox
100.4 F H 63 17 122/99 97
07/20/24 17:10 07/20/24 20:00 07/20/24 20:00 07/20/24 20:00 07/20/24 20:08
Physical Exam
General: Comfortable, Conversant and Fever; No Pain or Chills
HEENT: NormoCephalic, Anicteric, Moist mucous membranes, PERRLA, [place] Conjunctivae, No Ptosis and Oxygen (5 L nasal cannula)
Respiratory: Wheezes (Expiratory bilaterally throughout both lung case); No Rales or Rhonchi
Cardiac: S1/S2, Regular Rhythm and Murmur (Systolic 2/6); No Rub, Gallop or Peripheral Edema
Breast: Deferred by me
GI: Soft, Non Tender, Non Distended, Normal Bowel Sounds and No Hepatosplenomegaly
Genito-urinary: Deferred by me
Musculoskeletal: No Clubbing, No Cyanosis and No Edema
Skin: Warm and Dry; No Rash or Jaundice
Neuro: AO x 3, No Motor Deficits, Nonfocal/grossly intact, Cranial Nerves Intact and No Sensory Deficits; No Slurred Speech, Facial Droop, Tremors or Sedated
Psych: Calm
Laboratory Results
-
07/20/24 17:31
07/20/24 17:31
Laboratory Results
Lactic Acid 1.6 mmol/L (0.7-2.0) 07/20/24 17:31
Total Bilirubin Cancelled 07/20/24 17:31
AST Cancelled 07/20/24 17:31
ALT Cancelled 07/20/24 17:31
Alkaline Phosphatase Cancelled 07/20/24 17:31
Data Reviewed
-
Diagnostic Radiology: Report Reviewed by me
Lab Data: Labs Reviewed by me
Impression/Plan
-
Impression/plan:
Admit to MedSurg
#Acute severe COPD exacerbation likely Viral versus bacterial infection due to exposure to family with URI and inappropriate lower dose of nasal cannula oxygen
#Severe COPD with moderate restrictive lung defect
#Centrilobular emphysema and Chronic Bronchitis with significant bronchial wall thickening seen in bases plus right middle lobe/lingula on CT chest January 2024
#Chronic hypercapnic/hypoxic respiratory failure on home O2 5 L
-Multiple family members daughter and grandchildren all sick with URI/fevers
-Patient advised her setting of O2 should be 5 L and not 3 L which she came in by EMS
Temp 100.4 F, HR 63, 124/99, 97% 5 L nasal cannula
* CXR subsegmental atelectasis scarring both lower lungs
*COVID/flu negative
*UA negative
-Check sputum culture
-Tylenol as needed fever
-Patient on prednisone taper from admission 06/23 - 07/01/2024 is currently on prednisone 10 mg daily to start 07/21/2024 by med rec
-Patient on chronic Azithromycin 500 mg Saturday started on discharge 07/01/2024 by pulmonary
-Will add Rocephin in addition to patient's Zithromax Saturday
-IV dexamethasone 10 mg given in ER will change to Solu-Medrol 40 mg every 12 hours
-Will DC Rocephin due to negative Pro-Joseph
-May continue maintenance azithromycin
-PT/OT/case management consult
-
CXR:
1. Mild cardiomegaly with evidence for elevated pulmonary venous pressures
2. Mild subsegmental atelectasis and scarring in both lower lungs
3. Chronic fractures of T8 with vertebral body collapse
#Hx multiple pulmonary nodules (SP patchy solid nodule seen on CT chest January 2024 due to mucoid impaction/atelectasis
#Former Tobacco smoker 50 pack year quit January 2019
-Follows with pulmonary
#LUZ MARINA on CPAP
Patient settings are 14/10 but she prefers to use BiPAP 10 over 5 cm with 5 L oxygen at night
#LISA-mild
Creat 1.3 was 1.1 on 07/06/2024 prior baseline 0.9�09 June 2024
#Paroxysmal atrial fibrillation/incomplete right bundle branch block
-Continue Eliquis 5 mg BID
-Amiodarone previously stopped due to elevated transaminases. Continue with metoprolol succinate 25 mg daily
#Hx RBBB
EK bpm, incomplete RBBB, QTc 414 MS no significant change from June 23, 2024
# HTN
BP 129/99
- cont lisinopril 20 mg daily and metoprolol succinate 25 mg daily
#Chronic heart failure with preserved EF
I/O, daily weights
-Last echocardiogram in December 2022 showed LVEF 55 to 60% with mild aortic stenosis.
-Continue Lasix 40 mg twice daily
#Chronic fractures of T8 with vertebral body collapse
-Continue tramadol 50 mg every 8 hours as needed
# Obesity due to excess calorie consumption�BMI 51 KG
-Affects all aspects of care
-Weight loss recommended, low-fat diet
# Gout
- cont allopurinol
# Hypothyroidism
- cont levothyroxine
#Depression/anxiety
- cont sertraline 50 mg daily, continue hydroxyzine 25 mg twice daily
#Osteoporosis-no current meds
#COVID-26 December 2020
DVT prophylaxis
Continue [employer] Eliquis
Full code patient states her daughter Luanne would be her emergency contact
[2024-07-20 21:01] LABS: Lactic Acid 0.7 mmol/L (0.7-2.0)
[2024-07-20 21:09] LABS: Albumin 3.7 g/dl (3.5-5.0); Alkaline Phosphatase 59 U/L (38-126); Direct Bilirubin 0.2 mg/dl (0.0-0.4); Total Bilirubin 0.4 mg/dl (0.2-1.3); Total Protein 6.3 g/dl (6.3-8.2)
[2024-07-20] MEDS: TYLENOL 650 MG PO (21:09)
--- NOTE | 2024-07-20 21:09 | W.PN.UPDATE ---
Update Note
Progress Note Update
Patient seen in conjunction with [employer]ATION [employer]ULT[employer]. I agree with the findings on history and physical. I concur with the assessment and plan unless stated otherwise.
This 68-year-old with past medical history of severe COPD on 5 L home O2, BiPAP dependent, LUZ MARINA, obesity hypoventilation, chronic hypercapnia, proximal atrial fibrillation, hypertension, CHF with preserved EF, anxiety and hypothyroid who presents to
the emergency department with shortness of breath. Patient was recently hospitalized with respiratory distress and failure and was treated for COPD exacerbation. There was concern for infection but cultures were negative. Ultimately patient was
placed on a prolonged taper and discharged. She was also placed on azithromycin 3 times a week for anti-inflammatory effect. Patient was discharged from rehab about 1 week ago. Since discharge she feels like her symptoms have been declining. She
actually reports multiple family members with URI symptoms over the last few days. She has increasing oxygen requirements at home from 3 L at time of discharge from rehab to 4 L. She has chronic dyspnea on exertion which she feels is worse. She
denies any change in cough she has no significant sputum production.
In the ED she had a temp 100.4, blood pressure of 120/90 with a pulse pulse of 63. Oxygen saturation on 5 L was 97%.
Chest x-ray shows mild cardiomegaly but no acute infiltrates. ECG with normal sinus rhythm and no acute ST or T wave changes, incomplete right bundle block unchanged from prior. CBC is within normal limits and unchanged from prior. Electrolytes
show chronic elevated bicarb but otherwise unremarkable. Influenza test was negative, COVID test was negative.
Assessment and plan:
COPD exacerbation in setting of likely viral illness given sick contacts. She is wheezing and has a low grade temp. Cough is not productive. Xray without consolidation.
- admit to med/surg
- will start ceftriaxone and continue are home azithromycin
- check procalcitonin, lactic acid level
- nebs RTC and prn, solumedrol 40 iv q 12
- continue bipap 10/5 and 5 L O2
- will continue lasix per home regimen, no evidence of acute volume overload.
- continue eliquis and metoprolol, hold parameters on lisinopril
- PT
- continue rest of meds per capacity planning manager note
DVT ppx - on apixaban
Code status - Full Code
[2024-07-20 21:18] LABS: ALT (SGPT) 20 U/L (0-35); AST (SGOT) 22 U/L (14-36)
[2024-07-20 21:24] LABS: Procalcitonin 0.05 ng/ml (0.0-0.25)
[2024-07-20] MEDS: STERILE WATER FOR INJECTION 10 ML IV (21:27)
[2024-07-20] MEDS: ROCEPHIN 1000 MG IV (21:27)
[2024-07-20] MEDS: LASIX 40 MG PO (23:02)
[2024-07-20] MEDS: ATARAX 25 MG PO (23:03)
[2024-07-20] MEDS: ELIQUIS 5 MG PO (23:03)
--- NOTE | 2024-07-20 23:35 | TRANSFER ---
pt arrived from ED via stretcher. pt stood and pivoted from stretcher to bed. pt arrived on 4L O2 nasal cannula, per MD orders increased O2 to 5L. VSS, AAOx3, oriented patient to room, call del rosario within reach. plan of care ongoing.
[2024-07-20] MEDS: ROBITUSSIN DM 5 ML PO (23:52)
[2024-07-21] MEDS: SYNTHROID 100 MCG PO (05:35)
[2024-07-21 06:00] VITALS: BMI 49.6
[2024-07-21] MEDS: PULMICORT 1 MG INH ×2 (07:25→19:16)
[2024-07-21] MEDS: DUONEB 3 ML INH ×4 (07:25→19:16)
[2024-07-21 07:30] VITALS: BP 103/62
--- NOTE | 2024-07-21 07:54 | W.PN.HOSP.TC ---
Today's Communication/Plan
-
cont steroids
bronchodilators
hold lisinopril Lasix
monitor renal function, blood pressure
PT/OT
Assessment / Plan
Assessment / Plan
Physical Exam
General: No acute distress appears comfortable morbidly obese
HEENT: NormoCephalic, Anicteric, Moist mucous membranes, PERRLA, [place] Conjunctivae, No Ptosis and on oxygen supplementation
Respiratory: Clear to auscultation b/l distant breath sounds
Cardiac: S1/S2, Regular Rhythm and Murmur (Systolic 2/6); No Rub, Gallop or Peripheral Edema
GI: Soft, Non Tender, Non Distended, Normal Bowel Sounds and No Hepatosplenomegaly
Musculoskeletal: No Clubbing, No Cyanosis and No Edema
Skin: Warm and Dry; No Rash or Jaundice
Neuro: AO x 3
Psych: Calm
68F COPD on 5L LUZ MARINA BIPAP HFrEF afib Eliquis former Smoker here for COPD likely 2/2 viral URI negative COVID/Flu, reporting sick contacts at home.
#Acute severe COPD exacerbation likely Viral versus bacterial infection due to exposure to family with URI and inappropriate lower dose of nasal cannula oxygen
#Severe COPD with moderate restrictive lung defect
#Centrilobular emphysema and Chronic Bronchitis with significant bronchial wall thickening seen in bases plus right middle lobe/lingula on CT chest January 2024
#Chronic hypercapnic/hypoxic respiratory failure on home O2 5 L
-Multiple family members daughter and grandchildren all sick with URI/fevers
* CXR subsegmental atelectasis scarring both lower lungs
*COVID/flu negative
*UA negative
-Check sputum culture
-Tylenol as needed fever
-Patient on prednisone taper prior to admission. Cont solu-medrol 40 mg Q12H
-Patient on chronic Azithromycin 500 mg Saturday started on discharge 07/01/2024 by pulmonary
-cont empiric rocephin for now
-cont home azithromycin
-PT/OT appreciated Home services
CXR:
1. Mild cardiomegaly with evidence for elevated pulmonary venous pressures
2. Mild subsegmental atelectasis and scarring in both lower lungs
3. Chronic fractures of T8 with vertebral body collapse
#Hx multiple pulmonary nodules (SP patchy solid nodule seen on CT chest January 2024 due to mucoid impaction/atelectasis
#Former Tobacco smoker 50 pack year quit January 2019
-Follows with pulmonary
#LUZ MARINA on CPAP
Patient settings are 22/06 but she prefers to use BiPAP 10 over 5 cm with 5 L oxygen at night
#LISA-mild
Creat 1.3 was 1.1 on 07/06/2024 prior baseline 0.9�09 June 2024
hold home lisinopril and lasix
#Paroxysmal atrial fibrillation/incomplete right bundle branch block
-Continue Eliquis 5 mg BID
-Amiodarone previously stopped due to elevated transaminases. Continue with metoprolol succinate 25 mg daily
#Hx RBBB
EK bpm, incomplete RBBB, QTc 414 MS no significant change from June 23, 2024
# HTN
#Borderline low pressures
- cont metoprolol succinate 25 mg daily with holding parameters
-lisinopril on hold d/t mild low pressures and mild LISA as above
#Chronic heart failure with preserved EF
I/O, daily weights
-Last echocardiogram in December 2022 showed LVEF 55 to 60% with mild aortic stenosis.
-Lasix on hold as above
#Chronic fractures of T8 with vertebral body collapse
-Continue tramadol 50 mg every 8 hours as needed
# Obesity due to excess calorie consumption�BMI 51 KG
-Affects all aspects of care
-Weight loss recommended, low-fat diet
# Gout
- cont allopurinol
# Hypothyroidism
- cont levothyroxine
#Depression/anxiety
- cont sertraline 50 mg daily, continue hydroxyzine 25 mg twice daily
#Osteoporosis-no current meds
#COVID-26 December 2020
PT/OT appreciated home services
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
Full Code
I spent a total of 45 minutes with the patient or on the floor. More than 50% of this time involved counseling and coordination of care.
Anticipated Discharge: 24 - 48 hours
Subjective/Interval History
-
Date of Service: July 21, 2024
Sitting up comfortably in chair. no acute distress. Reports improvement in symptoms since admission.
Objective Data
-
Labs:
Laboratory Results
07/20/24 07/21/24
20:43 06:00
WBC Pending
Hgb Pending
Hct Pending
Plt Count Pending
Sodium Pending
Potassium Pending
Chloride Pending
Carbon Dioxide Pending
BUN Pending
Creatinine Pending
Glucose Pending
Calcium Pending
Total Bilirubin 0.4 Pending
AST 22 Pending
ALT 20 Pending
Alkaline Phosphatase 59 Pending
Vital Signs:
Vital Signs
Temp Pulse Resp BP Pulse Ox
98.2 F 59 18 109/62 98
07/20/24 23:27 07/20/24 23:27 07/21/24 07:30 07/20/24 23:27 07/21/24 07:30
I&O
07/20/24 07/21/24 07/22/24
06:59 06:59 06:59
Intake Total 120 / 120
Output Total 300 / 300
Balance -180 / -180
--- NOTE | 2024-07-21 08:18 | VNURNOTE ---
Chart reviewed. Patient is current with [facility] nursing. Will continue to follow hospital course and DC plans.
[2024-07-21 08:25] LABS: % Basophils 0.3 % (0-2); % Eosinophils 0.4 % (0-6); % Immature Granulocytes 0.6 % (0-0.5); % Lymphocytes 7.4 % (20.5-51.1); % Monocytes 4.1 % (1.7-9.3); % Neutrophils 87.2 % (42.2-75.2); Absolute Lymphocytes 0.5 10^3/uL (1.2-3.4); Absolute Monocytes 0.3 10^3/uL (0.1-0.6); Absolute Neutrophils 6.2 10^3/uL (1.4-6.5); Mean Corp Hgb Conc. 30.2 g/dL (33.0-37.0); Mean Corpuscular Hgb 27.3 pg (27.0-31.0); Mean Corpuscular Volume 90.3 fL (81.0-99.0); Mean Platelet Volume 10.1 fL (7.4-10.4); Nucleated Red Blood Cells % 0 %; Platelet Count 246 10^3/uL (130-400); Red Blood Cell Count 4.76 10^6/uL (4.20-5.40); Red Cell Dist. Width 16.4 % (11.5-14.5); White Blood Cell Count 7.1 10^3/uL (4.8-10.8)
[2024-07-21 08:37] VITALS: BP 112/48; BP 112/68; BP 91/49; PULSE 57; O2SAT 93; O2SAT 95
[2024-07-21] MEDS: ELIQUIS 5 MG PO ×2 (08:47→21:00)
[2024-07-21] MEDS: ULTRAM 50 MG PO ×2 (08:47→21:06)
[2024-07-21] MEDS: ZOLOFT 50 MG PO (08:51)
[2024-07-21] MEDS: TOPROL XL 25 MG PO (08:51)
[2024-07-21] MEDS: ATARAX 25 MG PO ×2 (08:52→21:00)
[2024-07-21] MEDS: ZYLOPRIM 100 MG PO (08:52)
[2024-07-21] MEDS: THERAGRAN 1 TABLET PO (08:52)
[2024-07-21] MEDS: METAMUCIL, KONSYL 1 PACKET PO (08:52)
[2024-07-21] MEDS: DESENEX/MITRAZOL/ZEASORB 1 APPLIC TOPICAL ×2 (08:54→21:16)
[2024-07-21 09:07] LABS: ALT (SGPT) 22 U/L (0-35); AST (SGOT) 23 U/L (14-36); Albumin 3.9 g/dl (3.5-5.0); Alkaline Phosphatase 66 U/L (38-126); Blood Urea Nitrogen 52 mg/dl (7-17); Calcium 10.3 mg/dl (8.4-10.2); Chloride 91 mmol/L (98-107); Estimated Creatinine Clearance 56 ml/min; Glucose 118 mg/dl (70-99); Sodium 142 mmol/L (135-145); Total Bilirubin 0.3 mg/dl (0.2-1.3); Total Protein 6.5 g/dl (6.3-8.2); eGFR 45.07
[2024-07-21 09:28] LABS: Carbon Dioxide 37 mmol/L (22-30)
[2024-07-21] MEDS: SOLU-MEDROL PF 40 MG IV ×2 (10:36→21:00)
[2024-07-21] MEDS: LASIX 40 MG PO (10:36)
--- NOTE | 2024-07-21 10:54 | CM ---
Patient seen at bedside. Patient lives with her Jude in a one story home with ramp to enter. Patient current with [facility] and home O2 from [address] [place] [address], rollator and nebulizer. Patient has been to [facility], and [facility] in the past.
Patient PCP is Dr. Jeffrey and she uses the [facility] in [place].
Plan;home with [facility] and watch for home O2 needs. Pending PT/OT assessment
[2024-07-21 11:14] LABS: Hepatitis C Antibody Negative (Negative)
[2024-07-21] MEDS: TYLENOL 650 MG PO (11:44)
[2024-07-21 15:25] VITALS: BP 96/46
[2024-07-21] MEDS: STERILE WATER FOR INJECTION 10 ML IV (21:02)
[2024-07-21] MEDS: ROCEPHIN 1000 MG IV (21:02)
[2024-07-21 23:35] VITALS: BP 120/59
[2024-07-22] MEDS: SYNTHROID 100 MCG PO (05:37)
[2024-07-22 06:00] VITALS: BMI 49.8
[2024-07-22 07:40] LABS: % Basophils 0.3 % (0-2); % Eosinophils 0.3 % (0-6); % Immature Granulocytes 0.3 % (0-0.5); % Lymphocytes 5.9 % (20.5-51.1); % Neutrophils 88.2 % (42.2-75.2); Absolute Lymphocytes 0.6 10^3/uL (1.2-3.4); Absolute Monocytes 0.5 10^3/uL (0.1-0.6); Absolute Neutrophils 8.5 10^3/uL (1.4-6.5); Hematocrit 40.4 % (37.0-47.0); Hemoglobin 12.3 g/dL (12.0-16.0); Mean Corp Hgb Conc. 30.4 g/dL (33.0-37.0); Mean Corpuscular Hgb 27.2 pg (27.0-31.0); Mean Corpuscular Volume 89.4 fL (81.0-99.0); Mean Platelet Volume 10.2 fL (7.4-10.4); Nucleated Red Blood Cells % 0 %; Platelet Count 271 10^3/uL (130-400); Red Blood Cell Count 4.52 10^6/uL (4.20-5.40); Red Cell Dist. Width 16.5 % (11.5-14.5); White Blood Cell Count 9.6 10^3/uL (4.8-10.8)
[2024-07-22] MEDS: DUONEB 3 ML INH ×4 (07:54→19:37)
[2024-07-22] MEDS: PULMICORT 1 MG INH ×2 (07:54→19:37)
[2024-07-22 08:00] VITALS: BP 119/56
[2024-07-22 08:06] LABS: Albumin 3.8 g/dl (3.5-5.0)
[2024-07-22] MEDS: ELIQUIS 5 MG PO ×2 (08:16→21:06)
[2024-07-22] MEDS: THERAGRAN 1 TABLET PO (08:17)
[2024-07-22] MEDS: TOPROL XL 25 MG PO (08:17)
[2024-07-22] MEDS: ZYLOPRIM 100 MG PO (08:17)
[2024-07-22] MEDS: ZOLOFT 50 MG PO (08:17)
[2024-07-22] MEDS: ATARAX 25 MG PO ×2 (08:18→21:10)
[2024-07-22] MEDS: METAMUCIL, KONSYL 1 PACKET PO (08:18)
--- NOTE | 2024-07-22 08:18 | W.PN.HOSP.TC ---
Today's Communication/Plan
-
cont steroids
bronchodilators
hold lisinopril Lasix
monitor renal function, blood pressure
PT/OT
Nephro eval
bladder scan prn
Assessment / Plan
Assessment / Plan
Physical Exam
General: No acute distress appears comfortable morbidly obese
HEENT: NormoCephalic, Anicteric, Moist mucous membranes, PERRLA, [place] Conjunctivae, No Ptosis and on oxygen supplementation
Respiratory: Clear to auscultation b/l distant breath sounds
Cardiac: S1/S2, Regular Rhythm and Murmur (Systolic 2/6); No Rub, Gallop or Peripheral Edema
GI: Soft, Non Tender, Non Distended, Normal Bowel Sounds and No Hepatosplenomegaly
Musculoskeletal: No Clubbing, No Cyanosis and No Edema
Skin: Warm and Dry; No Rash or Jaundice
Neuro: AO x 3
Psych: Calm
68F COPD on 5L LUZ MARINA BIPAP HFrEF afib Eliquis former Smoker here for COPD likely 2/2 viral URI negative COVID/Flu, reporting sick contacts at home.
#Acute severe COPD exacerbation likely Viral versus bacterial infection due to exposure to family with URI and inappropriate lower dose of nasal cannula oxygen
#Severe COPD with moderate restrictive lung defect
#Centrilobular emphysema and Chronic Bronchitis with significant bronchial wall thickening seen in bases plus right middle lobe/lingula on CT chest January 2024
#Chronic hypercapnic/hypoxic respiratory failure on home O2 5 L
-Multiple family members daughter and grandchildren all sick with URI/fevers
* CXR subsegmental atelectasis scarring both lower lungs
*COVID/flu negative
*UA negative
-follow sputum culture
-Tylenol as needed fever
-Patient on prednisone taper prior to admission. Cont solu-medrol 40 mg Q12H
-Patient on chronic Azithromycin 500 mg Saturday started on discharge 07/01/2024 by pulmonary
-procal neg, empiric rocephin discontinued
-cont home azithromycin
-PT/OT appreciated Home services
CXR:
1. Mild cardiomegaly with evidence for elevated pulmonary venous pressures
2. Mild subsegmental atelectasis and scarring in both lower lungs
3. Chronic fractures of T8 with vertebral body collapse
#Hx multiple pulmonary nodules (SP patchy solid nodule seen on CT chest January 2024 due to mucoid impaction/atelectasis
#Former Tobacco smoker 50 pack year quit January 2019
-Follows with pulmonary
#LUZ MARINA on CPAP
Patient settings are 14 but she prefers to use BiPAP 10 over 5 cm with 5 L oxygen at night
#Progressive LISA
Creat 1.5, baseline 0.9�1
hold home lisinopril and lasix
Nephro eval requested
bladder scan prn
#Paroxysmal atrial fibrillation/incomplete right bundle branch block
-Continue Eliquis 5 mg BID
-Amiodarone previously stopped due to elevated transaminases. Continue with metoprolol succinate 25 mg daily
#Hx RBBB
EK bpm, incomplete RBBB, QTc 414 MS no significant change from June 23, 2024
# HTN
#Borderline low pressures
- cont metoprolol succinate 25 mg daily with holding parameters
-lisinopril on hold d/t mild low pressures and mild LISA as above
#Chronic heart failure with preserved EF
I/O, daily weights
-Last echocardiogram in December 2022 showed LVEF 55 to 60% with mild aortic stenosis.
-Lasix on hold as above
#Chronic fractures of T8 with vertebral body collapse
-Continue tramadol 50 mg every 8 hours as needed
# Obesity due to excess calorie consumption�BMI 51 KG
-Affects all aspects of care
-Weight loss recommended, low-fat diet
# Gout
- cont allopurinol
# Hypothyroidism
- cont levothyroxine
#Depression/anxiety
- cont sertraline 50 mg daily, continue hydroxyzine 25 mg twice daily
#Osteoporosis-no current meds
#COVID-26 December 2020
PT/OT appreciated home services
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
Full Code
I spent a total of 45 minutes with the patient or on the floor. More than 50% of this time involved counseling and coordination of care.
Anticipated Discharge: 24 - 48 hours
Subjective/Interval History
-
Date of Service: July 22, 2024
No acute distress resting comfortably in bed.
Objective Data
-
Labs:
Laboratory Results
07/22/24
07:11
WBC 9.6
Hgb 12.3
Hct 40.4
Plt Count 271
Sodium Pending
Potassium Pending
Chloride Pending
Carbon Dioxide Pending
BUN Pending
Creatinine Pending
Glucose Pending
Calcium Pending
Total Bilirubin Pending
AST Pending
ALT Pending
Alkaline Phosphatase Pending
Vital Signs:
Vital Signs
Temp Pulse Resp BP Pulse Ox
98.9 F 63 13 119/56 97
07/22/24 08:00 07/22/24 08:00 07/22/24 08:00 07/22/24 08:00 07/22/24 08:00
I&O
07/21/24 07/22/24 07/23/24
06:59 06:59 06:59
Intake Total 120 / 120 720 / 720
Output Total 300 / 300
Balance -180 / -180 720 / 720
[2024-07-22] MEDS: SOLU-MEDROL PF 40 MG IV ×2 (08:20→21:08)
[2024-07-22 08:22] LABS: ALT (SGPT) 29 U/L (0-35); AST (SGOT) 28 U/L (14-36); Alkaline Phosphatase 56 U/L (38-126); Blood Urea Nitrogen 74 mg/dl (7-17); Calcium 9.7 mg/dl (8.4-10.2); Carbon Dioxide 37 mmol/L (22-30); Chloride 90 mmol/L (98-107); Estimated Creatinine Clearance 49 ml/min; Glucose 98 mg/dl (70-99); Potassium 5.2 mmol/L (3.5-5.1); Sodium 137 mmol/L (135-145); Total Bilirubin 0.2 mg/dl (0.2-1.3); Total Protein 6.4 g/dl (6.3-8.2); eGFR 37.96
[2024-07-22] MEDS: ZITHROMAX 500 MG PO (08:23)
[2024-07-22] MEDS: ULTRAM 50 MG PO ×2 (08:32→21:15)
[2024-07-22] MEDS: DESENEX/MITRAZOL/ZEASORB 1 APPLIC TOPICAL ×2 (11:48→21:08)
--- NOTE | 2024-07-22 12:35 | W.CON.NEPH ---
Consultation
-
Date/Time Consultation Requested: 07/22/2024 12:00 PM
Date/Time Consultation Performed: 07/22/2024 12:40 PM
Requesting Provider: Dr. Bishop
Performing Provider: Dr. Watts
Reason for Consultation: Acute kidney injury
Medical History
-
Chief Complaint: Acute kidney
History of Present Illness:
The patient is a 68-year-old female with a past medical history of diastolic heart failure maintained on 40 mg daily of lasix. She has a history of atrial fibrillation chronically anticoagulated with Eliquis. She has longstanding COPD maintained
on bronchodilator therapy and home oxygen. She presented to the hospital on July 20, 2024 with increasing shortness of breath despite prednisone recently initiating from her last admission from 06/23 through 07/01/2024 due to COPD exacerbation.
When she arrived to the hospital she was febrile and diagnosed with an viral upper respiratory infection. COVID and influenza were negative. She was diuresed with IV Lasix and her creatinine has now gone from 1-1.5 and nephrology was consulted to
see the patient for LISA.
Past Medical History
Centrilobular emphysema & chronic bronchitis with significant bronchial wall thickening seen mainly in bases + RML/lingula on CT Chest (January 2024)
Severe COPD with moderate restrictive lung defect, and severe gas exchange capacity defect (per PFT from November 2021)
Chronic respiratory failure with hypoxia on supplemental O2 (5L/min, which is her home dose)
Chronic hypercapnic respiratory failure/OHS - baseline pCO2 approximately 75-80
Former tobacco smoker (50-pack history, quit January 2019)
Multiple pulmonary nodules (SP patchy solid nodules seen on CT Chest from January 2024, likely due to mucoid impaction/atelectasis)
Atrial fibrillation on Eliqui,
Transaminitis secondary to amiodarone
LISA/renal insufficiency
osteoporosis
obesity
gout
diastolic heart failure
RBBB,
COVID-26 December 2020
T8 vertebral body collapse and fracture chronic back pain
Depression
Hypothyroidism
Social History
Tobacco: Former Smoker
Alcohol: None
Family History
no ckd
Allergies / Home Medications
Allergy/AdvReac Type Severity Reaction Status Date / Time
No Known Allergies Allergy Verified 07/20/24 17:10
�Medication �Instructions �Recorded �Confirmed �Type
levothyroxine 100 mcg tablet 100 mcg PO DAILY@0630 Thyroid 01/30/21 07/20/24 History
apixaban 5 mg tablet (Eliquis) 5 mg PO BID Blood clot 02/04/21 07/20/24 Rx
prevention/tx #0 tabs
furosemide 40 mg tablet 40 mg PO BID AT 0800,1600 Fluid 02/04/21 07/20/24 Rx
retention/Swelling #60 tabs
therapeutic multivitamin 1 tab PO DAILY Supplement 12/17/22 07/20/24 History
lisinopril 20 mg tablet 20 mg PO DAILY Blood pressure 01/15/23 07/20/24 History
psyllium husk (aspartame) 3.4 gram 1 packet PO DAILY Gastrointestinal 01/26/24 07/20/24 History
oral powder packet (Metamucil Issue
Fiber Singles)
allopurinol 100 mg tablet 100 mg PO DAILY Gout 06/23/24 07/20/24 History
metoprolol succinate 25 mg 25 mg PO DAILY Blood Pressure 06/23/24 07/20/24 History
tablet,extended release 24 hr
sertraline 25 mg tablet 50 mg PO DAILY Depression 06/23/24 07/20/24 History
budesonide 0.5 mg/2 mL suspension 1 mg (4 mL) inhalation R BID 07/01/24 07/20/24 Rx
for nebulization Lung/breathing issues #60 mL
ipratropium 0.5 mg-albuterol 3 mg 3 ml inhalation R QID 07/01/24 07/20/24 Rx
(2.5 mg base)/3 mL nebulization Lung/breathing issues #90 mL
soln
acetaminophen 500 mg tablet 500 mg PO TIDPRN PRN mild pain 07/20/24 07/20/24 History
azithromycin 500 mg tablet 500 mg PO MOWEFR Anti-inflammatory 07/20/24 07/20/24 History
hydroxyzine HCl 25 mg tablet 25 mg PO BID 07/20/24 07/20/24 History
prednisone 10 mg tablet 10 mg PO DAILY Lung/breathing 07/20/24 07/20/24 History
issues
tramadol 50 mg tablet 50 mg PO Q8HPRN PRN moderate to 07/20/24 07/20/24 History
severe pain
Review of Systems
-
History Source: Patient
All other systems: Negative unless noted
Respiratory: Cough and Trouble Breathing
Physical Exam
Vital Signs
Vital Signs
Temp Pulse Resp BP Pulse Ox
98.9 F 74 18 119/56 97
07/22/24 08:00 07/22/24 11:23 07/22/24 11:23 07/22/24 08:00 07/22/24 11:27
Lab Results
07/22/24 07:11
07/22/24 07:11
WBC 9.6 10^3/uL (4.8-10.8) 07/22/24 07:11
RBC 4.52 10^6/uL (4.20-5.40) 07/22/24 07:11
Hgb 12.3 g/dL (12.0-16.0) 07/22/24 07:11
Hct 40.4 % (37.0-47.0) 07/22/24 07:11
Plt Count 271 10^3/uL (130-400) 07/22/24 07:11
Sodium 137 mmol/L (135-145) 07/22/24 07:11
Potassium 5.2 mmol/L (3.5-5.1) H 07/22/24 07:11
Chloride 90 mmol/L (98-107) L 07/22/24 07:11
Carbon Dioxide 37 mmol/L (22-30) H 07/22/24 07:11
BUN 74 mg/dl (7-17) H 07/22/24 07:11
Creatinine 1.5 mg/dL (0.6-1.0) H 07/22/24 07:11
eGFR 37.96 07/22/24 07:11
Glucose 98 mg/dl (70-99) 07/22/24 07:11
Calcium 9.7 mg/dl (8.4-10.2) 07/22/24 07:11
Phosphorus 5.0 mg/dl (2.5-4.5) H 07/22/24 07:11
Lhs-E-Cmhrpqvyisa Pept 98.0 pg/ml 07/20/24 17:31
Albumin 3.8 g/dl (3.5-5.0) 07/22/24 07:11
Physical Exam
General: AOx3, Nontoxic , NAD. obese
HEENT: PERRL, EOMI, Anicteric, Conjunctivae Clear, Ear/Nose Intact, Hearing Normal, Oropharynx Clear/Moist, Dentition Intact, Facial Symmetry, Neck Supple, Neck: Trachea Midline, No JVD and No Thyromegaly, no Bruits
Respiratory: Coarse to auscultation with decreased breath sounds bilaterally with wheezes and normal respiratory excursion
Cardiac: S1/S2 and Regular Rate/Rhythm with 2/6 REEMA
Breast: Deferred by me
Abdomen: Soft, Nontender, Nondistended, Normal Bowel Sounds and No Hepatosplenomegaly
Rectal: Deferred by Provider
Genito-urinary: No Costovertebral Tenderness
Extremities: No Clubbing, No Cyanosis and trace pitting Edema
Skin: No Rash or open lesions
Neuro: Nonfocal/Grossly Intact, CN II-XII (Intact) and Strength (Musculoskeletal exam 5 out of 5 both upper and lower extremities)
Hematologic/Lymphatic: No Cervical Lymphadenopathy, No Submandibular Lymphadenopathy and No Supraclavicular Lymphadenopathy
Psych: Mood/afflect pleasant, Insight/judgement good and Appropriate
Vascular: plus 1 pedal and radial pulses
Data Reviewed
-
Radiology: Image Personally Visualized and interpreted (Chest x-ray reviewed: Hyperinflated lung case noted: Calcified vasculature noted right lower lung opacity noted)
Labs: Labs Reviewed by me (BMP CBC, UA I trace blood, no protein))
Old Records: Reviewed (Previous creatinine reviewed and electronic medical record from 06/30/2024 1.0)
Assessment/Plan
-
Impression:
LISA
COPD exacerbation likely due to underlying viral infection
Chronic hypercapnic hypoxic respiratory failure on home O2 of 5 L
Paroxysmal atrial fibrillation
History of hypertension
History of congestive heart failure with HFpEF
Chronic thoracic compression fracture
Obesity
Gout
Hypothyroidism
Depression
Plan:
LISA:
-UA essentially bland on presentation with only trace blood no protein
-Check postvoid bladder scan to assess for obstructive component
-Diuretics and MIAN inhibitor held: pro BNP 98/weights stable since last admission, no overt CHF on CXR or CT scan
-LISA likely prerenal as there was some notable hypotension episodes
[2024-07-22 15:32] VITALS: BP 108/44; PULSE 86; O2SAT 99
[2024-07-22 15:58] VITALS: BP 108/84
[2024-07-22 23:55] VITALS: BP 109/58
[2024-07-23] MEDS: SYNTHROID 100 MCG PO (05:34)
[2024-07-23 06:00] VITALS: BMI 50.2
[2024-07-23 07:20] VITALS: BP 126/59
[2024-07-23] MEDS: PULMICORT 1 MG INH ×2 (07:32→19:48)
[2024-07-23] MEDS: DUONEB 3 ML INH ×4 (07:32→19:48)
--- NOTE | 2024-07-23 07:38 | W.PN.HOSP.TC ---
Today's Communication/Plan
-
IV steroids switched to oral prednisone
PT/OT
monitor renal function
potassium restricted diet
once lokelma
Assessment / Plan
Assessment / Plan
Physical Exam
General: No acute distress appears comfortable morbidly obese
HEENT: NormoCephalic, Anicteric, Moist mucous membranes, PERRLA, [place] Conjunctivae, No Ptosis and on oxygen supplementation
Respiratory: Clear to auscultation b/l distant breath sounds
Cardiac: S1/S2, Regular Rhythm and Murmur (Systolic 2/6); No Rub, Gallop or Peripheral Edema
GI: Soft, Non Tender, Non Distended, Normal Bowel Sounds and No Hepatosplenomegaly
Musculoskeletal: No Clubbing, No Cyanosis and No Edema
Skin: Warm and Dry; No Rash or Jaundice
Neuro: AO x 3
Psych: Calm
68F COPD on 5L LUZ MARINA BIPAP HFrEF afib Eliquis former Smoker here for COPD likely 2/2 viral URI negative COVID/Flu, reporting sick contacts at home.
#Acute severe COPD exacerbation likely Viral versus bacterial infection due to exposure to family with URI and inappropriate lower dose of nasal cannula oxygen
#Severe COPD with moderate restrictive lung defect
#Centrilobular emphysema and Chronic Bronchitis with significant bronchial wall thickening seen in bases plus right middle lobe/lingula on CT chest January 2024
#Chronic hypercapnic/hypoxic respiratory failure on home O2 5 L
-Multiple family members daughter and grandchildren all sick with URI/fevers
* CXR subsegmental atelectasis scarring both lower lungs
*COVID/flu negative
*UA negative
-follow sputum culture
-Tylenol as needed fever
-IV solu-medrol 40 mg Q12H switched to prednisone
-Patient on chronic Azithromycin 500 mg Saturday started on discharge 07/01/2024 by pulmonary
-procal neg, empiric rocephin discontinued
-cont home azithromycin
-PT/OT appreciated Home services
CXR:
1. Mild cardiomegaly with evidence for elevated pulmonary venous pressures
2. Mild subsegmental atelectasis and scarring in both lower lungs
3. Chronic fractures of T8 with vertebral body collapse
#Hx multiple pulmonary nodules (SP patchy solid nodule seen on CT chest January 2024 due to mucoid impaction/atelectasis
#Former Tobacco smoker 50 pack year quit January 2019
-Follows with pulmonary
#LUZ MARINA on CPAP
Patient settings are 22/06 but she prefers to use BiPAP 10 over 5 cm with 5 L oxygen at night
#Progressive LISA
Creat 1.5, baseline 0.9�1
hold home lisinopril and lasix
Nephro eval appreciated
bladder scan prn
Cr starting to trend down
#Mild progressive hyperkalemia
cont potassium restricted diet
Lokelma once
#Paroxysmal atrial fibrillation/incomplete right bundle branch block
-Continue Eliquis 5 mg BID
-Amiodarone previously stopped due to elevated transaminases. Continue with metoprolol succinate 25 mg daily
#Hx RBBB
# HTN
#Borderline low pressures
- cont metoprolol succinate 25 mg daily with holding parameters
-lisinopril on hold d/t mild low pressures and LISA as above
#Chronic heart failure with preserved EF
I/O, daily weights
-Last echocardiogram in December 2022 showed LVEF 55 to 60% with mild aortic stenosis.
-Lasix on hold as above
#Chronic fractures of T8 with vertebral body collapse
-Continue tramadol 50 mg every 8 hours as needed
# Obesity due to excess calorie consumption�BMI 51 KG
-Affects all aspects of care
-Weight loss recommended, low-fat diet
# Gout
- cont allopurinol
# Hypothyroidism
- cont levothyroxine
#Depression/anxiety
- cont sertraline 50 mg daily, continue hydroxyzine 25 mg twice daily
#Osteoporosis-no current meds
#COVID-26 December 2020
PT/OT appreciated home services
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
Full Code
I spent a total of 45 minutes with the patient or on the floor. More than 50% of this time involved counseling and coordination of care.
Anticipated Discharge: 24 - 48 hours
Subjective/Interval History
-
Date of Service: July 23, 2024
No acute distress. Overall reports improvement in symptoms including SOB. Denies new acute issues.
Objective Data
-
Labs:
Laboratory Results
07/23/24
07:33
WBC Pending
Hgb Pending
Hct Pending
Plt Count Pending
Sodium Pending
Potassium Pending
Chloride Pending
Carbon Dioxide Pending
BUN Pending
Creatinine Pending
Glucose Pending
Calcium Pending
Total Bilirubin Pending
AST Pending
ALT Pending
Alkaline Phosphatase Pending
Vital Signs:
Vital Signs
Temp Pulse Resp BP Pulse Ox
97.6 F 60 20 109/58 96
07/22/24 23:55 07/22/24 23:55 07/22/24 23:55 07/22/24 23:55 07/22/24 23:55
I&O
07/22/24 07/23/24 07/24/24
06:59 06:59 06:59
Intake Total 720 / 720 900 / 900
Balance 720 / 720 900 / 900
[2024-07-23 08:48] LABS: % Basophils 0.2 % (0-2); % Eosinophils 0.1 % (0-6); % Immature Granulocytes 0.6 % (0-0.5); % Lymphocytes 5.5 % (20.5-51.1); % Monocytes 5.3 % (1.7-9.3); % Neutrophils 88.3 % (42.2-75.2); Absolute Immature Granulocytes 0.1 10^3/uL (0-0.05); Absolute Lymphocytes 0.6 10^3/uL (1.2-3.4); Absolute Monocytes 0.5 10^3/uL (0.1-0.6); Hematocrit 41.9 % (37.0-47.0); Hemoglobin 13.1 g/dL (12.0-16.0); Mean Corp Hgb Conc. 31.3 g/dL (33.0-37.0); Mean Corpuscular Hgb 27.8 pg (27.0-31.0); Mean Platelet Volume 10.6 fL (7.4-10.4); Nucleated Red Blood Cells % 0 %; Platelet Count 301 10^3/uL (130-400); Red Blood Cell Count 4.71 10^6/uL (4.20-5.40); Red Cell Dist. Width 16.7 % (11.5-14.5); White Blood Cell Count 10.2 10^3/uL (4.8-10.8)
[2024-07-23 08:56] LABS: ALT (SGPT) 34 U/L (0-35); AST (SGOT) 33 U/L (14-36); Albumin 4.2 g/dl (3.5-5.0); Alkaline Phosphatase 53 U/L (38-126); Blood Urea Nitrogen 68 mg/dl (7-17); Calcium 9.6 mg/dl (8.4-10.2); Carbon Dioxide 35 mmol/L (22-30); Chloride 92 mmol/L (98-107); Estimated Creatinine Clearance 62 ml/min; Glucose 94 mg/dl (70-99); Magnesium 2.4 mg/dl (1.6-2.3); Phosphorus 3.9 mg/dl (2.5-4.5); Potassium 5.6 mmol/L (3.5-5.1); Sodium 140 mmol/L (135-145); Total Bilirubin 0.3 mg/dl (0.2-1.3); Total Protein 6.9 g/dl (6.3-8.2); eGFR 49.61
[2024-07-23] MEDS: ULTRAM 50 MG PO ×2 (09:04→20:53)
[2024-07-23] MEDS: SOLU-MEDROL PF 40 MG IV (09:06)
[2024-07-23] MEDS: ZYLOPRIM 100 MG PO (09:06)
[2024-07-23] MEDS: TOPROL XL PO (09:07)
[2024-07-23] MEDS: ATARAX 25 MG PO ×2 (09:07→20:53)
[2024-07-23] MEDS: ZOLOFT 50 MG PO (09:07)
[2024-07-23] MEDS: ELIQUIS 5 MG PO ×2 (09:07→20:39)
[2024-07-23] MEDS: THERAGRAN 1 TABLET PO (09:07)
[2024-07-23] MEDS: DESENEX/MITRAZOL/ZEASORB 1 APPLIC TOPICAL ×2 (09:08→20:40)
[2024-07-23] MEDS: METAMUCIL, KONSYL 1 PACKET PO (09:08)
[2024-07-23] MEDS: LOKELMA 5 GRAM PO (12:26)
--- NOTE | 2024-07-23 13:57 | W.PN.NEPH.PH ---
Today's Communication / Plan
-
observe off mian and duretic
follow bmp
Lokelma was given for hhperkalemia
Assessment/Plan
-
Impression:
LISA
COPD exacerbation likely due to underlying viral infection
Chronic hypercapnic hypoxic respiratory failure on home O2 of 5 L
Paroxysmal atrial fibrillation
History of hypertension
History of congestive heart failure with HFpEF
Chronic thoracic compression fracture
Obesity
Gout
Hypothyroidism
Depression
Plan:
LISA:
-UA essentially bland on presentation with only trace blood no protein
-Check postvoid bladder scan to assess for obstructive component
-Diuretics and MIAN inhibitor held: pro BNP 98/weights stable since last admission, no overt CHF on CXR or CT scan
-LISA likely prerenal as there was some notable hypotension episodes
-Creatinine down to 1.2 from 1.5 yesterday
-Lokelma provided by hyperkalemia which may be precipitated by acidemia from hypercapnia
-
-
Date of Service: July 23, 2024
CC / HPI / ROS
-
Chief Complaint:
LISA
History of Present Illness:
creatinine down to 1.2
hyperkalemia noted
hemodynamically more stable
Review of Systems:
Incontinent of urine
Baseline shortness of breath noted on oxygen support
Weights up
Labs
-
Labs:
WBC 10.2 10^3/uL (4.8-10.8) 07/23/24 07:33
RBC 4.71 10^6/uL (4.20-5.40) 07/23/24 07:33
Hgb 13.1 g/dL (12.0-16.0) 07/23/24 07:33
Hct 41.9 % (37.0-47.0) 07/23/24 07:33
Plt Count 301 10^3/uL (130-400) 07/23/24 07:33
Sodium 140 mmol/L (135-145) 07/23/24 07:33
Potassium 5.6 mmol/L (3.5-5.1) H 07/23/24 07:33
Chloride 92 mmol/L (98-107) L 07/23/24 07:33
Carbon Dioxide 35 mmol/L (22-30) H 07/23/24 07:33
BUN 68 mg/dl (7-17) H 07/23/24 07:33
Creatinine 1.2 mg/dL (0.6-1.0) H 07/23/24 07:33
eGFR 49.61 07/23/24 07:33
Glucose 94 mg/dl (70-99) 07/23/24 07:33
Calcium 9.6 mg/dl (8.4-10.2) 07/23/24 07:33
Phosphorus 3.9 mg/dl (2.5-4.5) 07/23/24 07:33
Pjy-Z-Qpxwfhtehke Pept 98.0 pg/ml 07/20/24 17:31
Albumin 4.2 g/dl (3.5-5.0) 07/23/24 07:33
Physical Exam
-
Vital Signs:
Vital Signs
Temp Pulse Resp BP Pulse Ox
97.6 F 78 20 126/59 97
07/23/24 07:20 07/23/24 11:27 07/23/24 11:27 07/23/24 09:07 07/23/24 11:27
Cardiovascular:: Regular rate and rhythm
Respiratory:: Bilateral: Coarse and Bilateral: Rhonchi
Lung Excursion:: Normal
Abdomen:: Nontender and Soft
Bowel Sounds:: Normal
Extremity Edema:: +1: Bilateral:
Thurman Catheter: No
--- NOTE | 2024-07-23 14:04 | PN.CDI ---
CDI
- -
CDI:
Physician Documentation Request
Admit Date: 07/20/24 22:11
Dear Doctor Dez,
Please review the following and provide your response in the progress notes.
Clinical Indicators:
PN, 07/22
#Acute severe COPD exacerbation likely Viral
#...versus bacterial infection due to exposure to family with URI
#...and inappropriate lower dose of nasal cannula oxygen
#Severe COPD with moderate restrictive lung defect
#Centrilobular emphysema and Chronic Bronchitis
#...with significant bronchial wall thickening seen in bases plus
#...right middle lobe/lingula on CT chest January 2024
#Chronic hypercapnic/hypoxic respiratory failure on home O2 5 L
#...-Multiple family members daughter and grandchildren all sick with URI/fevers
#* CXR subsegmental atelectasis scarring both lower lungs
#-follow sputum culture
#-Patient on chronic Azithromycin 500 mg Saturday
#...started on discharge 07/01/2024 by pulmonary
#-procal neg, empiric rocephin discontinued
#-cont home azithromycin
Medications
Ceftriaxone Sodium (Ceftriaxone 1000 Mg / 10 Ml Vial) 1,000 mg IV NOW STA
Stop: 07/20/24 21:23
Last Admin: 07/20/24 21:27 Dose: 1,000 mg
Ceftriaxone Sodium (Ceftriaxone 1000 Mg / 10 Ml Vial) 1,000 mg IV Q24H LUCY
Last Admin: 07/21/24 21:02 Dose: 1,000 mg
07/21/24 03:15 Respiratory Culture - Final
Sputum Gram Stain - Final
Pseudomonas aeruginosa
Based on the above and your clinical assessment, please provide a diagnosis associated with the administration of the medication listed above:
Gram negative Pneumonia - indicate if Pseudomonas, Klebsiella or other
Viral Pneumonia - indicate parainfluenza, RSV, adenovirus, influenza (indicate type) etc.
Acute on Chronic Bronchitis
Aspiration Pneumonia - indicate substance such as food or vomitus, oils or other solids or liquids
Other (please specify)
Use of terms such as suspected, likely, concern for, or probable (associated with a specific diagnosis that is being evaluated, monitored, or treated as if it exists) are acceptable and can be coded in the inpatient setting, when documented at the
time of discharge.
Thank you,
Keri Shine RN BSN CCDS
CDI Specialist
please contact via tiger text
Please use your independent medical judgment in providing your response.
--- NOTE | 2024-07-23 15:14 | CM ---
Patient seen at bedside. Patient plan is home with no needs. PT recommending home health. CM will continue to follow for discharge planning needs.
Plan; home with VN vs home with no needs.
[2024-07-23 15:52] VITALS: BP 115/53
[2024-07-23 23:35] VITALS: BP 123/60
[2024-07-24] MEDS: SYNTHROID 100 MCG PO (05:41)
[2024-07-24 06:00] VITALS: BMI 50.0
[2024-07-24] MEDS: DUONEB 3 ML INH ×4 (07:42→19:13)
[2024-07-24] MEDS: PULMICORT 1 MG INH ×2 (07:42→19:13)
[2024-07-24 08:08] LABS: Blood Urea Nitrogen 54 mg/dl (7-17); Calcium 9.4 mg/dl (8.4-10.2); Chloride 94 mmol/L (98-107); Estimated Creatinine Clearance 57 ml/min; Glucose 85 mg/dl (70-99); Potassium 4.4 mmol/L (3.5-5.1); Sodium 141 mmol/L (135-145); eGFR 45.07
[2024-07-24 08:13] VITALS: BP 110/60
[2024-07-24 08:19] LABS: Carbon Dioxide 36 mmol/L (22-30)
--- NOTE | 2024-07-24 08:34 | W.PN.HOSP.TC ---
Today's Communication/Plan
-
wheezing, prednisone switched back to IV steroids
Pulm Eval
ID eval
Lasix as per Nephro
PT/OT
discontinue potassium restriction diet
Assessment / Plan
Assessment / Plan
Physical Exam
General: No acute distress appears comfortable morbidly obese
HEENT: NormoCephalic, Anicteric, Moist mucous membranes, PERRLA, [place] Conjunctivae, No Ptosis and on oxygen supplementation
Respiratory: wheezing
Cardiac: S1/S2, Regular Rhythm and Murmur (Systolic 2/6); No Rub, Gallop or Peripheral Edema
GI: Soft, Non Tender, Non Distended, Normal Bowel Sounds and No Hepatosplenomegaly
Musculoskeletal: No Clubbing, No Cyanosis and No Edema
Skin: Warm and Dry; No Rash or Jaundice
Neuro: AO x 3
Psych: Calm
68F COPD on 5L LUZ MARINA BIPAP HFrEF afib Eliquis former Smoker here for COPD likely 2/2 viral URI negative COVID/Flu, reporting sick contacts at home.
#Acute severe COPD exacerbation
#Gram Neg Pseudomonas PNA
#Severe COPD with moderate restrictive lung defect
#Centrilobular emphysema and Chronic Bronchitis with significant bronchial wall thickening seen in bases plus right middle lobe/lingula on CT chest January 2024
#Chronic hypercapnic/hypoxic respiratory failure on home O2 5 L
-Multiple family members daughter and grandchildren all sick with URI/fevers
* CXR subsegmental atelectasis scarring both lower lungs
*COVID/flu negative
*UA negative
-procal neg however sputum culture pos for Pseudomonas, ID eval requested
-Tylenol as needed fever
-IV solu-medrol 40 mg Q12H switched to prednisone, patient's wheezing however re-occurred, switched back to 40 mg IV Solumedrol Q12H, pulm eval requested
-On chronic Azithromycin 500 mg Saturday as per pulmonary
-cont home azithromycin
-PT/OT appreciated Home services
CXR:
1. Mild cardiomegaly with evidence for elevated pulmonary venous pressures
2. Mild subsegmental atelectasis and scarring in both lower lungs
3. Chronic fractures of T8 with vertebral body collapse
#Hx multiple pulmonary nodules (SP patchy solid nodule seen on CT chest January 2024 due to mucoid impaction/atelectasis
#Former Tobacco smoker 50 pack year quit January 2019
-Follows with pulmonary
#LUZ MARINA on CPAP
Patient settings are 22/06 but she prefers to use BiPAP 10 over 5 cm with 5 L oxygen at night
#Progressive LISA
Creat 1.5, baseline 0.9�1
hold home lisinopril
Nephro eval appreciated
bladder scan prn
Possible Cardiorenal Syndrome
trial diuresis as per nephro
#Mild progressive hyperkalemia
resolved following Lokelma once
released potassium restriction diet
#Paroxysmal atrial fibrillation/incomplete right bundle branch block
-Continue Eliquis 5 mg BID
-Amiodarone previously stopped due to elevated transaminases. Continue with metoprolol succinate 25 mg daily
#Hx RBBB
# HTN
#Borderline low pressures
- cont metoprolol succinate 25 mg daily with holding parameters
-lisinopril on hold d/t mild low pressures and LISA as above
#Chronic heart failure with preserved EF
I/O, daily weights
-Last echocardiogram in December 2022 showed LVEF 55 to 60% with mild aortic stenosis.
-Lasix briefly held d/t concern LISA, resumed as above
#Chronic fractures of T8 with vertebral body collapse
-Continue tramadol 50 mg every 8 hours as needed
# Obesity due to excess calorie consumption�BMI 51 KG
-Affects all aspects of care
-Weight loss recommended, low-fat diet
# Gout
- cont allopurinol
# Hypothyroidism
- cont levothyroxine
#Depression/anxiety
- cont sertraline 50 mg daily, continue hydroxyzine 25 mg twice daily as needed
#Osteoporosis-no current meds
#COVID-26 December 2020
PT/OT appreciated home services
DVT prophylaxis Continue CAR STOWER Eliquis
Full Code
I spent a total of 48 minutes with the patient or on the floor. More than 50% of this time involved counseling and coordination of care.
Anticipated Discharge: 24 - 48 hours
Subjective/Interval History
-
Date of Service: July 24, 2024
Objective Data
-
Labs:
Laboratory Results
07/24/24
07:01
Sodium 141
Potassium 4.4
Chloride 94 L
Carbon Dioxide 36 H
BUN 54 H
Creatinine 1.3 H
Glucose 85
Calcium 9.4
Vital Signs:
Vital Signs
Temp Pulse Resp BP Pulse Ox
98.4 F 58 20 110/60 100
07/24/24 08:13 07/24/24 08:13 07/24/24 08:13 07/24/24 08:13 07/24/24 08:13
I&O
07/23/24 07/24/24 07/25/24
06:59 06:59 06:59
Intake Total 900 / 900 720 / 720
Output Total 800 / 800
Balance 900 / 900 -80 / -80
[2024-07-24] MEDS: DELTASONE 40 MG PO (08:39)
[2024-07-24] MEDS: ELIQUIS 5 MG PO ×2 (08:40→19:57)
[2024-07-24] MEDS: THERAGRAN 1 TABLET PO (08:40)
[2024-07-24] MEDS: ZYLOPRIM 100 MG PO (08:40)
[2024-07-24] MEDS: METAMUCIL, KONSYL 1 PACKET PO (08:40)
[2024-07-24] MEDS: ZOLOFT 50 MG PO (08:40)
[2024-07-24] MEDS: TOPROL XL 25 MG PO (08:40)
[2024-07-24] MEDS: ATARAX 25 MG PO ×2 (08:41→19:57)
[2024-07-24] MEDS: ULTRAM 50 MG PO ×2 (08:41→18:42)
[2024-07-24] MEDS: DESENEX/MITRAZOL/ZEASORB 1 APPLIC TOPICAL ×2 (08:43→19:59)
[2024-07-24] MEDS: ZITHROMAX 500 MG PO (08:49)
--- NOTE | 2024-07-24 11:11 | W.PN.NEPH.PH ---
Today's Communication / Plan
-
lasix
Assessment/Plan
-
Impression:
LISA
COPD exacerbation likely due to underlying viral infection
Chronic hypercapnic hypoxic respiratory failure on home O2 of 5 L
Paroxysmal atrial fibrillation
History of hypertension
History of congestive heart failure with HFpEF
Chronic thoracic compression fracture
Obesity
Gout
Hypothyroidism
Depression
Plan:
follow BMP
restart OP lasix
holding lisinopril still for now
-
-
Date of Service: July 24, 2024
CC / HPI / ROS
-
Chief Complaint:
LISA
History of Present Illness:
creatinine stable at 1.3
K better
hemodynamically more stable
Review of Systems:
Incontinent of urine
Baseline shortness of breath noted on oxygen support
on supplemental O2
Labs
-
Labs:
WBC 10.2 10^3/uL (4.8-10.8) 07/23/24 07:33
RBC 4.71 10^6/uL (4.20-5.40) 07/23/24 07:33
Hgb 13.1 g/dL (12.0-16.0) 07/23/24 07:33
Hct 41.9 % (37.0-47.0) 07/23/24 07:33
Plt Count 301 10^3/uL (130-400) 07/23/24 07:33
Sodium 141 mmol/L (135-145) 07/24/24 07:01
Potassium 4.4 mmol/L (3.5-5.1) 07/24/24 07:01
Chloride 94 mmol/L (98-107) L 07/24/24 07:01
Carbon Dioxide 36 mmol/L (22-30) H 07/24/24 07:01
BUN 54 mg/dl (7-17) H 07/24/24 07:01
Creatinine 1.3 mg/dL (0.6-1.0) H 07/24/24 07:01
eGFR 45.07 07/24/24 07:01
Glucose 85 mg/dl (70-99) 07/24/24 07:01
Calcium 9.4 mg/dl (8.4-10.2) 07/24/24 07:01
Phosphorus 3.9 mg/dl (2.5-4.5) 07/23/24 07:33
Kvd-B-Lksnoshouux Pept 98.0 pg/ml 07/20/24 17:31
Albumin 4.2 g/dl (3.5-5.0) 07/23/24 07:33
Physical Exam
-
Vital Signs:
Vital Signs
Temp Pulse Resp BP Pulse Ox
98.4 F 78 18 110/60 100
07/24/24 08:13 07/24/24 08:42 07/24/24 08:42 07/24/24 08:40 07/24/24 08:42
Cardiovascular:: Regular rate and rhythm
Respiratory:: Bilateral: Coarse
Lung Excursion:: Normal
Abdomen:: Nontender and Soft
Bowel Sounds:: Normal
Extremity Edema:: +2: Bilateral:
--- NOTE | 2024-07-24 11:28 | CM ---
Addendum entered by Evelyn Cantu 07/24/24 11:59:
reminder patient has home O2 with [address] [place] [address] medical and [facility] signed form placed on chart.
Addendum entered by Evelyn Cantu 07/24/24 11:30:
[facility] is current with patient and will need updated referral from Liaison when medically ready.
Original Note:
Patient seen at bedside. Patient probably here through weekend per physician. Plan is for home with VN; pending physician assessment. CM will continue to follow for discharge planning needs.
Plan; home with VN; watch for further needs.
--- NOTE | 2024-07-24 12:15 | CON.PUL ---
Consultation
Consultation Request
Date/Time Consultation Requested: 07/24/2024-12 noon
Date/Time Consultation Performed: 07/24/2020 4-12 noon
Requesting Provider: Hospitalist
Performing Provider: Dr. Avery
Reason for Consultation: Shortness of breath and COPD
Medical History
-
Chief Complaint: Shortness of breath
History of Present Illness:
68-year-old female with history of COPD recently admitted with a COPD exacerbation and returned with increasing shortness of breath felt due to acute COPD exacerbation and pulmonary consulted 4 days into admission for COPD exacerbation on 07/24/2024.
Past Medical History
Past Medical History: None
Allergies / Home Medications
Allergies
Allergy/AdvReac Type Severity Reaction Status Date / Time
No Known Allergies Allergy Verified 07/20/24 17:10
Home Medications
�Medication �Instructions �Recorded �Confirmed �Last Taken �Type
levothyroxine 100 mcg tablet 100 mcg PO DAILY@0630 Thyroid 01/30/21 07/20/24 07/20/24 History
apixaban 5 mg tablet (Eliquis) 5 mg PO BID Blood clot 02/04/21 07/20/24 07/20/24 Rx
prevention/tx #0 tabs
furosemide 40 mg tablet 40 mg PO BID AT 0800,1600 Fluid 02/04/21 07/20/24 07/20/24 Rx
retention/Swelling #60 tabs
therapeutic multivitamin 1 tab PO DAILY Supplement 12/17/22 07/20/24 07/20/24 History
lisinopril 20 mg tablet 20 mg PO DAILY Blood pressure 01/15/23 07/20/24 07/20/24 History
psyllium husk (aspartame) 3.4 gram 1 packet PO DAILY Gastrointestinal 01/26/24 07/20/24 07/20/24 History
oral powder packet (Metamucil Issue
Fiber Singles)
allopurinol 100 mg tablet 100 mg PO DAILY Gout 06/23/24 07/20/24 07/20/24 History
metoprolol succinate 25 mg 25 mg PO DAILY Blood Pressure 06/23/24 07/20/24 07/20/24 History
tablet,extended release 24 hr
sertraline 25 mg tablet 50 mg PO DAILY Depression 06/23/24 07/20/24 07/20/24 History
budesonide 0.5 mg/2 mL suspension 1 mg (4 mL) inhalation R BID 07/01/24 07/20/24 07/20/24 Rx
for nebulization Lung/breathing issues #60 mL
ipratropium 0.5 mg-albuterol 3 mg 3 ml inhalation R QID 07/01/24 07/20/24 07/20/24 Rx
(2.5 mg base)/3 mL nebulization Lung/breathing issues #90 mL
soln
acetaminophen 500 mg tablet 500 mg PO TIDPRN PRN mild pain 07/20/24 07/20/24 Unknown History
azithromycin 500 mg tablet 500 mg PO MOWEFR Anti-inflammatory 07/20/24 07/20/24 07/20/24 History
hydroxyzine HCl 25 mg tablet 25 mg PO BID 07/20/24 07/20/24 07/20/24 History
prednisone 10 mg tablet 10 mg PO DAILY Lung/breathing 07/20/24 07/20/24 07/20/24 History
issues
tramadol 50 mg tablet 50 mg PO Q8HPRN PRN moderate to 07/20/24 07/20/24 07/20/24 History
severe pain
Review of Systems
Vitals / Labs / Diagnostic Testing
Vital Signs
Temp Pulse Resp BP Pulse Ox
98.4 F 78 18 110/60 100
07/24/24 08:13 07/24/24 08:42 07/24/24 08:42 07/24/24 08:40 07/24/24 08:42
Lab Data
07/23/24 07:33
07/24/24 07:01
Microbiology
07/21/24 03:15 Sputum Respiratory Culture - Final
Pseudomonas aeruginosa
07/21/24 03:15 Sputum Gram Stain - Final
Diagnostic Testing:
Assessment
-
68-year-old female with history of COPD recently admitted with a COPD exacerbation and returned with increasing shortness of breath felt due to acute COPD exacerbation and pulmonary consulted 4 days into admission for COPD exacerbation on 07/24/2024.
COPD exacerbation.
Chronic hypercapnia-baseline PCO2 suspected 75-80.
Former [id number] smoker-quit January 2019
Multiple pulmonary nodules on CT january 2024
LISA
Chronic hypercapnic and hypoxemic respiratory failure
Conditions present prior to admission:
Recent hospitalization 07/01/2024-COPD exacerbation
COPD, chronic hypercapnic/hypoxic respiratory failure, chronic oxygen use (5L/min)-followed by Dr. Harper-maintained on Arnuity 200, DuoNeb's 3 times a day and 4.5 L oxygen around the clock
LUZ MARINA on BiPAP [id number],
Suspected OHS-chronic hypercapnia
chronic HFrEF,
paroxysmal A-fib on Eliquis,
PH,
bifasciular block,
morbid obesity,
Hx of COVID-19 (December 2020),
Mild aortic stenosis
former tobacco smoker (98-[id number] Hx, quit January 2019),
osteoporosis,
gout
Plan
Respiratory decompensation, likely due to underlying severe COPD with acute exacerbation.
Supplemental oxygen as needed- home oxygen is 4.5-5 L around the clock.
Nebulizers-duonebs.
Azithromycin 500 mg Pzqihy-Cjrpzdkez-Kilhua.
Solu-Medrol 40 mg IV every 12 hours
Mucolytic's as needed.
Aspiration precautions.
Mucus clearing devices if needed..
BiPAP 14/10 cm with oxygen
Diuresis as needed.
Monitor intake, output, weight, lower extremity edema and renal function.
Nephrology following-correspondence reviewed.
Replacement electrolytes as needed.
DVT prophylaxis-on LOS.
Nutrition
Physical therapy/increase activity
Patient known to have multiple nodular opacifications on CT 01/25/2024-these will need to be followed as an outpatient-multiple requests have been provided in the past and the patient did not follow through
When discharged with discharge with nebulizers, very slow prednisone taper-i.e. prednisone 50 mg for 4 days, then 40 mg for 4 days, then 30 mg for 4 days, then 20 mg for 4 days and then 10 mg daily until seen by pulmonary
Would benefit from azithromycin 500 mg Vzobxx-Awudxxlcl-Mvfnwm for anti-inflammatory effects
If recurrent exacerbations requiring prednisone consider Biologics such as IL-4/13 inhibitors
Patient was last seen in the pulmonary office by Dr. Harper and last seen by Trice ANDRADE 06/11/24-she is due for an appointment with PFTs, radiographic follow-up, BiPAP compliance check
Diagnostic data:
Chest x-ray 06/23/24-no evidence for pulmonary edema or effusions..
Chest x-ray 07/20/24-mild cardiomegaly, mild subsegmental atelectasis, chronic fracture T8
CT chest 06/27/24-comparison made to 01/25/24-no acute cardiopulmonary disease, stable 70% compression fracture T8
Echocardiogram 12/18/22-year 55-60%, mild aortic stenosis-ADA 1.2 cm
Data Reviewed
-
PFT: Report reviewed by me
EKG: Report reviewed by me
Radiology: Image personally visualized and interpreted and Report reviewed by me
CT Scan: Image personally visualized and interpreted and Report reviewed by me
Medical Tests (Nuc Med, Echo etc): Report reviewed by me
Labs: Labs reviewed by me
Old Records: Reviewed
Total Time Spent with Patient (in minutes): 55
[2024-07-24] MEDS: SOLU-MEDROL PF 40 MG IV ×2 (12:30→19:57)
[2024-07-24 14:37] VITALS: BP 141/75; PULSE 65; O2SAT 96
--- NOTE | 2024-07-24 14:48 | CON.ID ---
Consultation
-
Date/Time Consultation Requested: July 24, 2024 1140
Date/Time Consultation Performed: July 24, 2024 1450
Requesting Provider: Dr. Josiah Garces
Performing Provider: Dr. Abbey Mojica
Reason for Consultation: Sputum + Pseudomonas
Chief Complaint / Past History
Chief Complaint
Worsening shortness of breath and fever
History of Present Illness
68-year-old female with severe COPD, on home O2 5 L, atrial fibrillation, heart failure with preserved EF, who was recently hospitalized June with COPD exacerbation and started on maintenance azithromycin Saturday and Fridays who
presented to the hospital on July 20 with increased shortness of breath, cough, and low blood pressure.. In the ER she had low-grade fever 100.4. Chest x-ray no pneumonia. Procalcitonin normal. Initially she was on ceftriaxone which was
discontinued when pneumonia ruled out. The sputum culture did come back with Pseudomonas. Patient reports that she has been coughing now productive of greenish sputum. Otherwise shortness of breath is getting better since being in the hospital.
COVID-negative. Influenza negative.
Past History
Additional Past Medical History:
Severe COPD
Chronic bronchitis
Chronic hypoxic respiratory failure on 5 L home oxygen
Pulmonary nodules
Atrial fibrillation
HFpEF
Gout
Depression hypothyroidism
T8 vertebral body fracture
Chronic back pain
Osteoporosis
Allergy History:
No Known Allergies Allergy (Verified 07/20/24 17:10)
Medications Reviewed: Yes
Current Antibiotics:
s/p Ceftriaxone x 2 doses
Azithromycin 500 mg Fridays
Social History
Tobacco: Former Smoker
Alcohol: None
Drug: None
Family History
Family History: Not Pertinent
Review of Systems
Review of Systems
General: Negative Chills or Change in Appetite
HEENT: Negative Sinus Problems, Headache or Pharyngitis
Cardiovascular: Negative Chest Pain
Respiratory: Dyspnea, Cough and Sputum Production
Gasteroenterology: Negative Nausea, Vomiting or Diarrhea
Genital / Urological: Negative Dysuria or Flank Pain
Endocrine: Negative Weakness
Skin / Hair / Nails: Negative Rash
Neurological: Negative Dizziness
All systems: All other systems were reviewed and were negative
Vital Signs
Temp Pulse Resp BP Pulse Ox
98.4 F 78 18 110/60 100
07/24/24 08:13 07/24/24 08:42 07/24/24 08:42 07/24/24 08:40 07/24/24 08:42
Physical Exam
Physical Exam
Constitutional: No Acute Distress and Comfortable
Eyes: No Conjunctival Hemorrhage and Sclera Anicteric
Cardiovascular: Regular Rate and S1/S2
Pulmonary: Other (Decreased airway movements bilaterally)
Gastrointestinal: Soft, Non Tender, Non Distended and Normal Bowel Sounds
Extremities: Negative Edema
Neurological: AO x 3
Lab / Diagnostic Study Results
07/23/24 07:33
07/24/24 07:01
Abs Immat Gran (auto) 0.1 10^3/uL (0-0.05) H 07/23/24 07:33
Absolute Neuts (auto) 9.0 10^3/uL (1.4-6.5) H 07/23/24 07:33
Absolute Lymphs (auto) 0.6 10^3/uL (1.2-3.4) L 07/23/24 07:33
Absolute Monos (auto) 0.5 10^3/uL (0.1-0.6) 07/23/24 07:33
Absolute Basos (auto) 0.0 10^3/uL (0-0.2) 07/23/24 07:33
Immature Gran % 0.6 % (0-0.5) H 07/23/24 07:33
Neutrophils % 88.3 % (42.2-75.2) H 07/23/24 07:33
Lymphocytes % 5.5 % (20.5-51.1) L 07/23/24 07:33
Monocytes % 5.3 % (1.7-9.3) 07/23/24 07:33
Eosinophils % 0.1 % (0-6) 07/23/24 07:33
Basophils % 0.2 % (0-2) 07/23/24 07:33
Lactic Acid 0.7 mmol/L (0.7-2.0) 07/20/24 20:43
Procalcitonin 0.05 ng/ml (0.0-0.25) 07/20/24 20:43
Ur Squamous Epith Cells 11-15 /LPF (Few) 07/20/24 18:49
Microbiology Results
Micro:
07/21/24 03:15 Respiratory Culture - Final
Sputum Pseudomonas aeruginosa
Gram Stain - Final
07/20/24 17:31 Influenza Types A & B (TRACIE) - Final
Nasal Swab Negative for Influenza A & B, NAAT
Negative results must be combined with clinical observations
and patient history.
Nucleic Acid Amplification test (NAAT)performed on the
[employer] platform.
07/20/24 CXR: Mild cardiomegaly with evidence for elevated pulmonary venous pressures. Mild subsegmental atelectasis and scarring in the lower lungs. Chronic fractures of T8 with vertebral body collapse.
Assessment / Plan
# Acute on chronic bronchitis with Pseudomonas
- Cipro 500mg po bid x 5 days through 07/29/24 am.
- QTc 414
# Acute exacerbation of COPD
- On chronic azithromycin MWF per pulm
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
Severe COPD
Chronic bronchitis
Chronic hypoxic respiratory failure on 5 L home oxygen
Pulmonary nodules
Atrial fibrillation
HFpEF
Gout
Depression hypothyroidism
T8 vertebral body fracture
Chronic back pain
Osteoporosis
[2024-07-24 15:01] VITALS: O2SAT 97
[2024-07-24 16:02] VITALS: BP 141/75
[2024-07-24] MEDS: LASIX 40 MG PO (16:17)
[2024-07-24] MEDS: CIPRO 500 MG PO (19:56)
[2024-07-24 23:00] VITALS: BP 111/55
[2024-07-25] MEDS: SYNTHROID 100 MCG PO (05:30)
[2024-07-25 07:02] LABS: Blood Urea Nitrogen 50 mg/dl (7-17); Calcium 9.1 mg/dl (8.4-10.2); Carbon Dioxide 38 mmol/L (22-30); Chloride 93 mmol/L (98-107); Estimated Creatinine Clearance 62 ml/min; Glucose 107 mg/dl (70-99); Potassium 4.6 mmol/L (3.5-5.1); Sodium 141 mmol/L (135-145); eGFR 49.61
[2024-07-25 07:03] VITALS: BMI 49.8
[2024-07-25 07:25] VITALS: BP 135/71
--- NOTE | 2024-07-25 07:36 | W.PN.HOSP.TC ---
Today's Communication/Plan
-
cont diuresis as per nephro
cont abx as per ID
Home O2 assessment tomorrow as per Pulm
taper steroids to Prednisone 50 mg daily
Regular diet per pt request
cont PT/OT
Assessment / Plan
Assessment / Plan
Physical Exam
General: No acute distress appears comfortable morbidly obese
HEENT: NormoCephalic, Anicteric, Moist mucous membranes, PERRLA, [place] Conjunctivae, No Ptosis and on oxygen supplementation
Respiratory: wheezing
Cardiac: S1/S2, Regular Rhythm and Murmur (Systolic 2/6); No Rub, Gallop or Peripheral Edema
GI: Soft, Non Tender, Non Distended, Normal Bowel Sounds and No Hepatosplenomegaly
Musculoskeletal: No Clubbing, No Cyanosis and No Edema
Skin: Warm and Dry; No Rash or Jaundice
Neuro: AO x 3
Psych: Calm
68F COPD on 5L LUZ MARINA BIPAP HFrEF afib Eliquis former Smoker here for COPD likely 2/2 viral URI negative COVID/Flu, reporting sick contacts at home.
#Acute severe COPD exacerbation
#Gram Neg Pseudomonas PNA
#Severe COPD with moderate restrictive lung defect
#Centrilobular emphysema and Chronic Bronchitis with significant bronchial wall thickening seen in bases plus right middle lobe/lingula on CT chest January 2024
#Chronic hypercapnic/hypoxic respiratory failure on home O2 5 L
-Multiple family members daughter and grandchildren all sick with URI/fevers
* CXR subsegmental atelectasis scarring both lower lungs
*COVID/flu negative
*UA negative
-procal neg however sputum culture pos for Pseudomonas, ID eval appreciated, cipro started, continue
-Tylenol as needed fever
-IV solu-medrol 40 mg Q12H switched to prednisone, patient's wheezing however re-occurred, switched back to 40 mg IV Solumedrol Q12H, tapered to prednisone 50 mg daily following improvement.
-pulm eval appreciated
-On chronic Azithromycin 500 mg Saturday as per pulmonary
-cont home azithromycin
-PT/OT appreciated Home services
CXR:
1. Mild cardiomegaly with evidence for elevated pulmonary venous pressures
2. Mild subsegmental atelectasis and scarring in both lower lungs
3. Chronic fractures of T8 with vertebral body collapse
#Hx multiple pulmonary nodules (SP patchy solid nodule seen on CT chest January 2024 due to mucoid impaction/atelectasis
#Former Tobacco smoker 50 pack year quit January 2019
-Follows with pulmonary
#LUZ MARINA on CPAP
Patient settings are 14/10 but she prefers to use BiPAP 10 over 5 cm with 5 L oxygen at night
#Progressive LISA
Creat 1.5, baseline 0.9�1
hold home lisinopril
Nephro eval appreciated
bladder scan prn
Possible Cardiorenal Syndrome
trial diuresis as per nephro
#Mild progressive hyperkalemia
resolved following Lokelma once
released potassium restriction diet
#Paroxysmal atrial fibrillation/incomplete right bundle branch block
-Continue Eliquis 5 mg BID
-Amiodarone previously stopped due to elevated transaminases. Continue with metoprolol succinate 25 mg daily
#Hx RBBB
# HTN
#Borderline low pressures
- cont metoprolol succinate 25 mg daily with holding parameters
-lisinopril on hold d/t mild low pressures and LISA as above
#Chronic heart failure with preserved EF
I/O, daily weights
-Last echocardiogram in December 2022 showed LVEF 55 to 60% with mild aortic stenosis.
-Lasix briefly held d/t concern LISA, resumed as above
#Chronic fractures of T8 with vertebral body collapse
-Continue tramadol 50 mg every 8 hours as needed
# Obesity due to excess calorie consumption�BMI 51 KG
-Affects all aspects of care
-Weight loss recommended, low-fat diet
# Gout
- cont allopurinol
# Hypothyroidism
- cont levothyroxine
#Depression/anxiety
- cont sertraline 50 mg daily, continue hydroxyzine 25 mg twice daily as needed
#Osteoporosis-no current meds
#COVID-26 December 2020
PT/OT appreciated home services
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
Full Code
I spent a total of 45 minutes with the patient or on the floor. More than 50% of this time involved counseling and coordination of care.
Anticipated Discharge: Within 24 hours
Subjective/Interval History
-
Date of Service: July 25, 2024
No acute distress sitting up comfortably in bed. Reports feeling well. Denies new acute issues at this time. Requesting Regular diet.
Objective Data
-
Labs:
Laboratory Results
07/25/24
05:44
Sodium 141
Potassium 4.6
Chloride 93 L
Carbon Dioxide 38 H
BUN 50 H
Creatinine 1.2 H
Glucose 107 H
Calcium 9.1
Vital Signs:
Vital Signs
Temp Pulse Resp BP Pulse Ox
97.6 F 56 18 111/55 94
07/24/24 23:00 07/24/24 23:00 07/24/24 23:00 07/24/24 23:00 07/24/24 23:00
I&O
07/24/24 07/25/24 07/26/24
06:59 06:59 06:59
Intake Total 720 / 720 240 / 240
Output Total 800 / 800 1650 / 1650
Balance -80 / -80 -1410 / -1410
[2024-07-25] MEDS: DUONEB 3 ML INH ×4 (07:47→19:42)
[2024-07-25] MEDS: PULMICORT 1 MG INH ×2 (07:47→19:42)
[2024-07-25] MEDS: ZYLOPRIM 100 MG PO (08:25)
[2024-07-25] MEDS: ZOLOFT 50 MG PO (08:26)
[2024-07-25] MEDS: TOPROL XL 25 MG PO (08:26)
[2024-07-25] MEDS: ELIQUIS 5 MG PO ×2 (08:26→19:56)
[2024-07-25] MEDS: CIPRO 500 MG PO ×2 (08:26→19:57)
[2024-07-25] MEDS: LASIX 40 MG PO ×2 (08:26→16:11)
[2024-07-25] MEDS: THERAGRAN 1 TABLET PO (08:26)
[2024-07-25] MEDS: METAMUCIL, KONSYL 1 PACKET PO (08:28)
[2024-07-25] MEDS: SOLU-MEDROL PF 40 MG IV (08:31)
[2024-07-25] MEDS: DESENEX/MITRAZOL/ZEASORB 1 APPLIC TOPICAL ×2 (08:35→19:58)
[2024-07-25] MEDS: ATARAX 25 MG PO ×2 (08:36→19:58)
[2024-07-25] MEDS: ULTRAM 50 MG PO ×2 (08:36→19:57)
--- NOTE | 2024-07-25 09:18 | W.PN.PUL3 ---
Today's Communication / Plan
-
Currently on cipro for acute bronchitis with psuedomonas as per ID
Continue with O2 to maintain SpO2 88-95%; check ambulatory pulse oximetry prior to discharge
Slow prednisone taper and will likely need chronic prednisone given her refractory COPD
Nebulized therapy with DuoNebs QID + budesonide
Non-compliant with BiPAP --> I will DC this now ; this will be discussed in further detail in our office
Strict instructions to follow-up with pulmonary in the next 2 weeks. Information left in chart
Disposition efforts
Pulmonary service will continue to follow along while she remains hospitalized
Assessment
-
68-year-old female with history of COPD recently admitted with a COPD exacerbation and returned with increasing shortness of breath felt due to acute COPD exacerbation and pulmonary consulted 4 days into admission for COPD exacerbation on 07/24/2024.
Impression:
COPD exacerbation with refractory COPD
Acute on chronic bronchitis with respiratory culture growing Pseudomonas aeruginosa (orozco-sensitive via sputum culture from 07/21/2024)
Chronic hypercapnia-baseline PCO2 suspected 75-80.
Former [id number] smoker-quit January 2019
Multiple pulmonary nodules on CT january 2024
LISA
Chronic hypercapnic and hypoxemic respiratory failure
Conditions present prior to admission:
Recent hospitalization 07/01/2024-COPD exacerbation
COPD, chronic hypercapnic/hypoxic respiratory failure, chronic oxygen use (5L/min)-followed by Dr. Harper-maintained on Arnuity 200, DuoNeb's 3 times a day and 4.5 L oxygen around the clock
LUZ MARINA on BiPAP [id number],
Suspected OHS-chronic hypercapnia
chronic HFrEF,
paroxysmal A-fib on Eliquis,
PH,
bifasciular block,
morbid obesity,
Hx of COVID-19 (December 2020),
Mild aortic stenosis
former tobacco smoker ([id number] Hx, quit January 2019),
osteoporosis,
gout
Plan
Respiratory decompensation, likely due to underlying severe COPD with acute exacerbation with deconditioning and obesity
Supplemental oxygen as needed- home oxygen is 4.5-5 L around the clock.
Titrate to keep SpO2 88-95%
Check ambulatory pulse oximetry prior to discharge
Nebulizers-duonebs QID + budesonide BID
Azithromycin 500 mg Qqodek-Atdajiqyq-Qgmtkp; trend QTc with outpatient audiology follow-up
Continue systemic steroids - currently on prednisone 50 mg daily ; she will need slow taper by reducing by 10 mg every 5th day until at 10mg daily; given the multitude of recurrent exacerbations she has, she may benefit from chronic prednisone at
5-10 mg daily
Mucolytics as needed.
Aspiration precautions.
Mucus clearing devices if needed.
BiPAP 14/10 cm - pt is refusing --> I will DC this
Currently on ciprofloxacin as per ID for sputum culture (07/21/2024) which grew Pseudomonas aeruginosa
Diuresis with lasix 40mg BID.
Monitor intake, output, weight, lower extremity edema and renal function.
Nephrology following-correspondence reviewed.
Replacement electrolytes as needed.
DVT prophylaxis-on NOAC/Eliquis
Nutrition
Physical therapy/increase activity
Patient known to have multiple nodular opacifications on CT 01/25/2024-these will need to be followed as an outpatient-multiple requests have been provided in the past and the patient did not follow through
When discharged with discharge with nebulizers, very slow prednisone taper-i.e. prednisone 50 mg for 4 days, then 40 mg for 4 days, then 30 mg for 4 days, then 20 mg for 4 days and then 10 mg daily until seen by pulmonary
Would benefit from azithromycin 500 mg Qpawzn-Tcddchykt-Eloynb for anti-inflammatory effects, and possibly daliresp as well
Consider Biologics such as IL-4/13 inhibitors
Patient was last seen in the pulmonary office by Dr. Harper and last seen by rTice ANDRADE 06/11/24-she is due for an appointment with PFTs, radiographic follow-up, BiPAP compliance check
Pulmonary service will continue to follow along while she remains hospitalized.
Diagnostic data:
Chest x-ray 06/23/24-no evidence for pulmonary edema or effusions..
Chest x-ray 07/20/24-mild cardiomegaly, mild subsegmental atelectasis, chronic fracture T8
CT chest 06/27/24-comparison made to 01/25/24-no acute cardiopulmonary disease, stable 70% compression fracture T8
Echocardiogram 12/18/22-year 55-60%, mild aortic stenosis-ADA 1.2 cm
Total time spent today was 52 minutes for this encounter. Time includes reviewing laboratory test/imaging results, reviewing pertinent medical records, obtaining and reviewing medical history, performing an appropriate exam, ordering medications,
tests and procedures. Time also includes documentation of this encounter, coordinating patient care and communicating with other healthcare professionals. Total time does not include separately billed tests performed on this date of service.
Subjective Data
-
Date of Service:
Date of Service: July 25, 2024
Chief Complaint: Pulmonary Follow Up
Subjective:
Patient seen and evaluated today at bedside. Shortness of breath is stable, and she is currently on 5 L/min nasal cannula which she says is her home dose. She denies chest pain, DAVIS, nausea, vomiting, fevers or chills.
Review of Systems
General: Other (Negative unless mentioned above)
Objective Data
Data Reviewed
Vital Signs / I&O / Oxygen:
Vital Signs
Temp Pulse Resp BP Pulse Ox
97.7 F 72 18 135/71 96
07/25/24 07:25 07/25/24 11:38 07/25/24 11:38 07/25/24 08:26 07/25/24 11:38
Intake and Output
07/24/24 07/25/24 07/26/24
06:59 06:59 06:59
Intake Total 720 / 720 240 / 240
Output Total 800 / 800 1650 / 1650
Balance -80 / -80 -1410 / -1410
SaO2 96
Nasal Cannula flow liters per 5
minute
Physical Exam
General: Respiratory Distress (negative), Comfortable, Chills (negative) and Sweats (negative)
HEENT: Normocephalic and Anicteric
Cardiovascular: S1-S2 and Peripheral Edema (negative)
Respiratory: Wheeze (negative), Crackles (Bilaterally in the anterior lung case), Rhonchi (negative) and Non-Labored Respirations
GI: Soft, Distended (Abdominal obesity), Non Tender and Normal Bowel Sounds
Neurology: AO x 3 and Tremors (negative)
Skin: Warm, Dry, Cyanosis (negative) and Jaundice (negative)
Labs/Micro/Reports
Lab Data
07/23/24 07:33
07/25/24 05:44
Microbiology
07/21/24 03:15 Sputum Respiratory Culture - Final
Pseudomonas aeruginosa
07/21/24 03:15 Sputum Gram Stain - Final
--- NOTE | 2024-07-25 10:48 | W.PN.NEPH.PH ---
Today's Communication / Plan
-
continue lasix
Assessment/Plan
-
Impression:
LISA
COPD exacerbation likely due to underlying viral infection
Chronic hypercapnic hypoxic respiratory failure on home O2 of 5 L
Paroxysmal atrial fibrillation
History of hypertension
History of congestive heart failure with HFpEF
Chronic thoracic compression fracture
Obesity
Gout
Hypothyroidism
Depression
Plan:
follow BMP
back on OP lasix
holding lisinopril still for now
wean steroids
-
-
Date of Service: July 25, 2024
CC / HPI / ROS
-
Chief Complaint:
LISA
History of Present Illness:
creatinine stable at 1.2
K better
hemodynamically more stable
Review of Systems:
Incontinent of urine
Baseline shortness of breath noted on oxygen support
on supplemental O2 5L (home dose)
weights down
Labs
-
Labs:
WBC 10.2 10^3/uL (4.8-10.8) 07/23/24 07:33
RBC 4.71 10^6/uL (4.20-5.40) 07/23/24 07:33
Hgb 13.1 g/dL (12.0-16.0) 07/23/24 07:33
Hct 41.9 % (37.0-47.0) 07/23/24 07:33
Plt Count 301 10^3/uL (130-400) 07/23/24 07:33
Sodium 141 mmol/L (135-145) 07/25/24 05:44
Potassium 4.6 mmol/L (3.5-5.1) 07/25/24 05:44
Chloride 93 mmol/L (98-107) L 07/25/24 05:44
Carbon Dioxide 38 mmol/L (22-30) H 07/25/24 05:44
BUN 50 mg/dl (7-17) H 07/25/24 05:44
Creatinine 1.2 mg/dL (0.6-1.0) H 07/25/24 05:44
eGFR 49.61 07/25/24 05:44
Glucose 107 mg/dl (70-99) H 07/25/24 05:44
Calcium 9.1 mg/dl (8.4-10.2) 07/25/24 05:44
Phosphorus 3.9 mg/dl (2.5-4.5) 07/23/24 07:33
Rsy-I-Xbpisluyjvk Pept 98.0 pg/ml 07/20/24 17:31
Albumin 4.2 g/dl (3.5-5.0) 07/23/24 07:33
Physical Exam
-
Vital Signs:
Vital Signs
Temp Pulse Resp BP Pulse Ox
97.7 F 60 18 135/71 96
07/25/24 07:25 07/25/24 08:26 07/25/24 07:55 07/25/24 08:26 07/25/24 07:55
Cardiovascular:: Regular rate and rhythm
Respiratory:: Bilateral: Coarse
Lung Excursion:: Normal
Abdomen:: Nontender and Soft
Bowel Sounds:: Normal
Extremity Edema:: +2: Bilateral:
--- NOTE | 2024-07-25 11:16 | CM ---
CM reviewed chart, patient seen bedside. Patient reports no needs, inquiring about discharge. Patient confirms home O2, requesting only nursing for [facility] upon discharge. CM will continue to follow for all discharge planning needs.
Plan; home with [facility], home O2.
[2024-07-25] MEDS: DELTASONE 50 MG PO (14:31)
[2024-07-25 15:15] VITALS: BP 128/56
[2024-07-25 23:48] VITALS: BP 155/73
[2024-07-26 06:00] VITALS: BMI 50.2
[2024-07-26] MEDS: SYNTHROID 100 MCG PO (06:03)
[2024-07-26] MEDS: ATARAX 25 MG PO (06:06)
[2024-07-26] MEDS: ULTRAM 50 MG PO (06:06)
[2024-07-26 06:55] LABS: Hematocrit 43.4 % (37.0-47.0); Hemoglobin 13.3 g/dL (12.0-16.0); Mean Corp Hgb Conc. 30.6 g/dL (33.0-37.0); Mean Corpuscular Hgb 27.8 pg (27.0-31.0); Mean Corpuscular Volume 90.6 fL (81.0-99.0); Mean Platelet Volume 10.5 fL (7.4-10.4); Platelet Count 300 10^3/uL (130-400); Red Blood Cell Count 4.79 10^6/uL (4.20-5.40); Red Cell Dist. Width 16.6 % (11.5-14.5); White Blood Cell Count 12.1 10^3/uL (4.8-10.8)
--- NOTE | 2024-07-26 07:02 | W.PN.HOSP.TC ---
Today's Communication/Plan
-
discharge
Assessment / Plan
Assessment / Plan
Physical Exam
General: No acute distress appears comfortable morbidly obese
HEENT: NormoCephalic, Anicteric, Moist mucous membranes, PERRLA, [place] Conjunctivae, No Ptosis and on oxygen supplementation
Respiratory: mild wheezing
Cardiac: S1/S2, Regular Rhythm and Murmur (Systolic 2/6); No Rub, Gallop or Peripheral Edema
GI: Soft, Non Tender, Non Distended, Normal Bowel Sounds and No Hepatosplenomegaly
Musculoskeletal: No Clubbing, No Cyanosis and No Edema
Skin: Warm and Dry; No Rash or Jaundice
Neuro: AO x 3
Psych: Calm
68F COPD on 5L LUZ MARINA BIPAP HFrEF afib Eliquis former Smoker here for COPD likely 2/2 viral URI negative COVID/Flu, reporting sick contacts at home.
#Acute severe COPD exacerbation
#Gram Neg Pseudomonas PNA
#Severe COPD with moderate restrictive lung defect
#Centrilobular emphysema and Chronic Bronchitis with significant bronchial wall thickening seen in bases plus right middle lobe/lingula on CT chest January 2024
#Chronic hypercapnic/hypoxic respiratory failure on home oxygen
-Multiple family members daughter and grandchildren all sick with URI/fevers
* CXR subsegmental atelectasis scarring both lower lungs
*COVID/flu negative
*UA negative
-procal neg however sputum culture pos for Pseudomonas, ID eval appreciated, cipro started, continue 500 mg BID x5 days to continue through 07/29/24
-Tylenol as needed fever
-IV solu-medrol 40 mg Q12H switched to prednisone, patient's wheezing however re-occurred, switched back to 40 mg IV Solumedrol Q12H, tapered to prednisone 50 mg daily following improvement.
-pulm eval appreciated
-On chronic Azithromycin 500 mg Saturday as per pulmonary
-cont home azithromycin
-PT/OT appreciated Home services
Updated Home Oxygen Assessment notes 4L requirement to maintain saturation at rest and exertion.
CXR:
1. Mild cardiomegaly with evidence for elevated pulmonary venous pressures
2. Mild subsegmental atelectasis and scarring in both lower lungs
3. Chronic fractures of T8 with vertebral body collapse
#Hx multiple pulmonary nodules (SP patchy solid nodule seen on CT chest January 2024 due to mucoid impaction/atelectasis
#Former Tobacco smoker 50 pack year quit January 2019
-Follows with pulmonary
#LUZ MARINA on CPAP
Patient settings are 14/10 but she prefers to use BiPAP 10 over 5 cm with 5 L oxygen at night
#Progressive LISA
Creat 1.5, baseline 0.9�1
Nephro eval appreciated
bladder scan prn
Possible Cardiorenal Syndrome
trial diuresis as per nephro tolerating, kidney function improving, lisinopril restarted on 10 mg daily
#Mild progressive hyperkalemia
resolved following Lokelma once
released potassium restriction diet
#Paroxysmal atrial fibrillation/incomplete right bundle branch block
-Continue Eliquis 5 mg BID
-Amiodarone previously stopped due to elevated transaminases. Continue with metoprolol succinate 25 mg daily
#Hx RBBB
# HTN
#Borderline low pressures
- cont metoprolol succinate 25 mg daily with holding parameters
-BP increasing, lisinopril resumed 10 mg daily as per nephro
#Chronic heart failure with preserved EF
I/O, daily weights
-Last echocardiogram in December 2022 showed LVEF 55 to 60% with mild aortic stenosis.
-Lasix briefly held d/t concern LISA, resumed as above
#Chronic fractures of T8 with vertebral body collapse
-Continue tramadol 50 mg every 8 hours as needed
# Obesity due to excess calorie consumption�BMI 51 KG
-Affects all aspects of care
-Weight loss recommended, low-fat diet
# Gout
- cont allopurinol
# Hypothyroidism
- cont levothyroxine
#Depression/anxiety
- cont sertraline 50 mg daily, continue hydroxyzine 25 mg twice daily as needed
#Osteoporosis-no current meds
#COVID-26 December 2020
PT/OT appreciated home services
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
Full Code
Medically stable for discharge home with home services and outpatient follow up recommendations.
I spent a total of 50 minutes with the patient or on the floor. More than 50% of this time involved counseling and coordination of care.
Anticipated Discharge: Today
Subjective/Interval History
-
Date of Service: July 26, 2024
Seen and examined at bedside in no acute distress sitting up comfortably bed. Reports overall feeling well. Eager to go home. Denies new acute issues at this time. Stable respiratory status on baseline oxygen supplementation.
Objective Data
-
Labs:
Laboratory Results
07/26/24
06:10
WBC 12.1 H
Hgb 13.3
Hct 43.4
Plt Count 300
Sodium Pending
Potassium Pending
Chloride Pending
Carbon Dioxide Pending
BUN Pending
Creatinine Pending
Glucose Pending
Calcium Pending
Vital Signs:
Vital Signs
Temp Pulse Resp BP Pulse Ox
97.7 F 66 20 155/73 98
07/25/24 23:48 07/25/24 23:48 07/25/24 23:48 07/25/24 23:48 07/25/24 23:48
I&O
07/25/24 07/26/24 07/27/24
06:59 06:59 06:59
Intake Total 240 / 240
Output Total 1650 / 1650 900 / 900
Balance -1410 / -1410 -900 / -900
[2024-07-26 07:25] VITALS: BP 146/81
[2024-07-26 07:34] LABS: Blood Urea Nitrogen 47 mg/dl (7-17); Calcium 9.3 mg/dl (8.4-10.2); Carbon Dioxide 38 mmol/L (22-30); Chloride 96 mmol/L (98-107); Estimated Creatinine Clearance 67 ml/min; Glucose 80 mg/dl (70-99); Potassium 4.5 mmol/L (3.5-5.1); Sodium 142 mmol/L (135-145); eGFR 55.07
[2024-07-26] MEDS: DUONEB 3 ML INH ×3 (07:52→15:24)
[2024-07-26] MEDS: PULMICORT 1 MG INH (07:52)
[2024-07-26] MEDS: METAMUCIL, KONSYL 1 PACKET PO (08:28)
[2024-07-26] MEDS: TOPROL XL 25 MG PO (08:29)
[2024-07-26] MEDS: ZOLOFT 50 MG PO (08:29)
[2024-07-26] MEDS: LASIX 40 MG PO (08:29)
[2024-07-26] MEDS: CIPRO 500 MG PO (08:29)
[2024-07-26] MEDS: ELIQUIS 5 MG PO (08:29)
[2024-07-26] MEDS: ZYLOPRIM 100 MG PO (08:29)
[2024-07-26] MEDS: DELTASONE 50 MG PO (08:29)
[2024-07-26] MEDS: THERAGRAN 1 TABLET PO (08:29)
[2024-07-26] MEDS: DESENEX/MITRAZOL/ZEASORB 1 APPLIC TOPICAL (08:34)
--- NOTE | 2024-07-26 09:45 | W.PN.PUL3 ---
Today's Communication / Plan
-
Currently on cipro for acute bronchitis with psuedomonas as per ID
Continue with O2 to maintain SpO2 88-95%; check ambulatory pulse oximetry prior to discharge --> needs 4L/min ATC
Slow prednisone taper and will likely need chronic prednisone given her refractory COPD --> DC home on 50mg daily and reduce by 10mg every 5th day until at 10mg daily
Nebulized therapy with DuoNebs QID + budesonide BID
Non-compliant with BiPAP --> I DC'd this --> this will be discussed in further detail in our office
Strict instructions to follow-up with pulmonary in the next 2 weeks. Information left in chart
Disposition efforts
Patient stable for discharge home. We will now sign off - call back with any questions.
Assessment
-
68-year-old female with history of COPD recently admitted with a COPD exacerbation and returned with increasing shortness of breath felt due to acute COPD exacerbation and pulmonary consulted 4 days into admission for COPD exacerbation on 07/24/2024.
Impression:
COPD exacerbation with refractory COPD
Acute on chronic bronchitis with respiratory culture growing Pseudomonas aeruginosa (orozco-sensitive via sputum culture from 07/21/2024)
Chronic hypercapnia-baseline PCO2 suspected 75-80.
Former 26-[id number] smoker-quit January 2019
Multiple pulmonary nodules on CT january 2024
LISA
Chronic hypercapnic and hypoxemic respiratory failure
Conditions present prior to admission:
Recent hospitalization 07/01/2024-COPD exacerbation
COPD, chronic hypercapnic/hypoxic respiratory failure, chronic oxygen use (5L/min)-followed by Dr. Harper-maintained on Arnuity 200, DuoNeb's 3 times a day and 4.5 L oxygen around the clock
LUZ MARINA on BiPAP 14/[id number],
Suspected OHS-chronic hypercapnia
chronic HFrEF,
paroxysmal A-fib on Eliquis,
PH,
bifasciular block,
morbid obesity,
Hx of COVID-19 (December 2020),
Mild aortic stenosis
former tobacco smoker (72-[id number]-zkco Hx, quit January 2019),
osteoporosis,
gout
Plan
Respiratory decompensation, likely due to underlying severe COPD with acute exacerbation with deconditioning and obesity
Patient has markedly improved and reports that her shortness of breath is back to her baseline
Supplemental oxygen as needed- home oxygen is 4.5-5 L around the clock.
Titrate to keep SpO2 88-95%
Check ambulatory pulse oximetry prior to discharge --> checked today and she needs 4L/min with rest and activity
Nebulizers-duonebs QID + budesonide BID
Azithromycin 500 mg Rafqvw-Tpbcmqznf-Pknvjb; trend QTc with outpatient audiology follow-up
Continue systemic steroids - currently on prednisone 50 mg daily ; she will need slow taper by reducing by 10 mg every 5th day until at 10mg daily; given the multitude of recurrent exacerbations she has, she may benefit from chronic prednisone at
5-10 mg daily
Mucolytics as needed.
Aspiration precautions.
Mucus clearing devices if needed.
BiPAP 14/10 cm - pt is refusing --> I will DC this
Currently on ciprofloxacin as per ID for sputum culture (07/21/2024) which grew Pseudomonas aeruginosa
Diuresis with lasix 40mg BID
Monitor intake, output, weight, lower extremity edema and renal function.
Nephrology following-correspondence reviewed.
Replacement electrolytes as needed.
DVT prophylaxis-on NOAC/Eliquis
Nutrition
Physical therapy/increase activity
Patient known to have multiple nodular opacifications on CT 01/25/2024-these will need to be followed as an outpatient-multiple requests have been provided in the past and the patient did not follow through
When discharged with discharge with nebulizers, very slow prednisone taper-i.e. prednisone 50 mg for 4 days, then 40 mg for 4 days, then 30 mg for 4 days, then 20 mg for 4 days and then 10 mg daily until seen by pulmonary
Would benefit from azithromycin 500 mg Oxglyo-Hwafdwvxh-Xawcmx for anti-inflammatory effects, and possibly daliresp as well
Consider Biologics such as IL-4/13 inhibitors
Patient was last seen in the pulmonary office by Dr. Harper and last seen by Trice ANDRADE 06/11/24-she is due for an appointment with PFTs, radiographic follow-up, BiPAP compliance check
Patient is stable from respiratory perspective for discharge home. She needs to follow-up closely with our office. No additional pulmonary condition at this time - Pulmonary service will now sign off. Thank you for allowing us to be involved in
the care of this patient. Please reconsult if there are any additional questions/concerns, or if patient's respiratory status deteriorates.
Diagnostic data:
Chest x-ray 06/23/24-no evidence for pulmonary edema or effusions..
Chest x-ray 07/20/24-mild cardiomegaly, mild subsegmental atelectasis, chronic fracture T8
CT chest 06/27/24-comparison made to 01/25/24-no acute cardiopulmonary disease, stable 70% compression fracture T8
Echocardiogram 12/18/22-year 55-60%, mild aortic stenosis-ADA 1.2 cm
Total time spent today was 36 minutes for this encounter. Time includes reviewing laboratory test/imaging results, reviewing pertinent medical records, obtaining and reviewing medical history, performing an appropriate exam, ordering medications,
tests and procedures. Time also includes documentation of this encounter, coordinating patient care and communicating with other healthcare professionals. Total time does not include separately billed tests performed on this date of service.
Subjective Data
-
Date of Service:
Date of Service: July 26, 2024
Chief Complaint: Pulmonary Follow Up
Subjective:
Patient seen and evaluated today at bedside. She feels well, back to her baseline. No acute events reported from overnight. She denies chest pain, DAVIS, nausea, vomiting, fevers or chills.
Review of Systems
General: Other (Negative unless mentioned above)
Objective Data
Data Reviewed
Vital Signs / I&O / Oxygen:
Vital Signs
Temp Pulse Resp BP Pulse Ox
97.5 F 60 18 146/89 100
07/26/24 07:25 07/26/24 08:29 07/26/24 08:01 07/26/24 08:29 07/26/24 08:01
Intake and Output
07/25/24 07/26/24 07/27/24
06:59 06:59 06:59
Intake Total 240 / 240
Output Total 1650 / 1650 900 / 900
Balance -1410 / -1410 -900 / -900
SaO2 100
Nasal Cannula flow liters per 5
minute
Physical Exam
General: Respiratory Distress (negative), Comfortable, Chills (negative) and Sweats (negative)
HEENT: Normocephalic and Anicteric
Cardiovascular: S1-S2, Peripheral Edema (Trace lower extremity edema bilaterally (R >L)) and Other (Distant cardiac sounds)
Respiratory: Wheeze (negative), Crackles (negative), Rhonchi (negative), Non-Labored Respirations and Other (Diminished breath sounds bilaterally)
GI: Soft, Distended (Abdominal obesity), Non Tender and Normal Bowel Sounds
Neurology: AO x 3 and Tremors (negative)
Skin: Warm, Dry, Cyanosis (negative) and Jaundice (negative)
Labs/Micro/Reports
Lab Data
07/26/24 06:10
07/26/24 06:10
Microbiology
07/21/24 03:15 Sputum Respiratory Culture - Final
Pseudomonas aeruginosa
07/21/24 03:15 Sputum Gram Stain - Final
--- NOTE | 2024-07-26 10:34 | W.PN.NEPH.PH ---
Today's Communication / Plan
-
Lisinopril
Assessment/Plan
-
Impression:
LISA
COPD exacerbation likely due to underlying viral infection
Chronic hypercapnic hypoxic respiratory failure on home O2 of 5 L
Paroxysmal atrial fibrillation
History of hypertension
History of congestive heart failure with HFpEF
Chronic thoracic compression fracture
Obesity
Gout
Hypothyroidism
Depression
Plan:
follow BMP
back on OP lasix
Restart lisinopril at 10 mg daily will require BMP within 2 weeks
wean steroids
-
-
Date of Service: July 26, 2024
CC / HPI / ROS
-
Chief Complaint:
LISA
History of Present Illness:
creatinine stable at 1.1
K better
hemodynamically more stable
Persistent metabolic alkalosis, compensatory
Review of Systems:
Incontinent of urine
Baseline shortness of breath noted on oxygen support
on supplemental O2 5L (home dose)
weights down
Labs
-
Labs:
WBC 12.1 10^3/uL (4.8-10.8) H 07/26/24 06:10
RBC 4.79 10^6/uL (4.20-5.40) 07/26/24 06:10
Hgb 13.3 g/dL (12.0-16.0) 07/26/24 06:10
Hct 43.4 % (37.0-47.0) 07/26/24 06:10
Plt Count 300 10^3/uL (130-400) 07/26/24 06:10
Sodium 142 mmol/L (135-145) 07/26/24 06:10
Potassium 4.5 mmol/L (3.5-5.1) 07/26/24 06:10
Chloride 96 mmol/L (98-107) L 07/26/24 06:10
Carbon Dioxide 38 mmol/L (22-30) H 07/26/24 06:10
BUN 47 mg/dl (7-17) H 07/26/24 06:10
Creatinine 1.1 mg/dL (0.6-1.0) H 07/26/24 06:10
eGFR 55.07 07/26/24 06:10
Glucose 80 mg/dl (70-99) 07/26/24 06:10
Calcium 9.3 mg/dl (8.4-10.2) 07/26/24 06:10
Phosphorus 3.9 mg/dl (2.5-4.5) 07/23/24 07:33
Bsg-W-Vzvyjwhzaaw Pept 98.0 pg/ml 07/20/24 17:31
Albumin 4.2 g/dl (3.5-5.0) 07/23/24 07:33
Physical Exam
-
Vital Signs:
Vital Signs
Temp Pulse Resp BP Pulse Ox
97.5 F 60 18 146/89 100
07/26/24 07:25 07/26/24 08:29 07/26/24 08:01 07/26/24 08:29 07/26/24 08:01
Cardiovascular:: Regular rate and rhythm
Respiratory:: Bilateral: CTA
Lung Excursion:: Normal
Abdomen:: Nontender and Soft
Bowel Sounds:: Normal
Extremity Edema:: +1: Bilateral:
[2024-07-26] MEDS: ZESTRIL 10 MG PO (12:31)
--- NOTE | 2024-07-26 13:52 | W.DCSUMMARY ---
Discharge Summary
Discharge Data
Date of Admission: 07/20/24
Date of Discharge: 07/26/24
-
Pending Results: No
Discharge Plan
-
Patient Disposition: Home with Home Care
Discharge Diagnosis/Procedures: COPD exacerbation
Pseudomonas Pneumonia
Chronic hypercapnic/hypoxic respiratory failure on home oxygen
Updated Home Oxygen Assessment notes 4L requirement to maintain saturation at rest and exertion.
Hx multiple pulmonary nodules
Former Tobacco smoker
Obstructive Sleep Apnea
Mild Acute Kidney Injury resolving
Paroxysmal atrial fibrillation/incomplete right bundle branch block
Hypertension
Chronic heart failure with preserved Ejection Fraction
Chronic fractures of T8 with vertebral body collapse
Obesity
Gout
Hypothyroidism
Depression/anxiety
Osteoporosis
Condition: Fair
Diet: Low Cholesterol and 2 Gram Sodium
Activity: As tolerated and With Walker
Driving Restrictions: Not until seen by your Dr
Bathing Restrictions: None
Blood Work: repeat BMP with primary care provider in 2 weeks of discharge.
Other Services: PT and OT
Specialty Instructions: Weigh Daily- Call MD for wt gain/loss 3 lbs overnight/5 lbs in 1 week
Activity Restrictions/Additional Instructions:
Please follow up with primary care provider in 1 week of discharge and pulmonology in 2-4 weeks of discharge.
Ciprofloxacin has been prescribed to continue through 07/29/24 to complete treatment Pseudomonas pneumonia.
Prednisone taper has been prescribed for COPD exacerbation:
50 mg daily x2, 40 mg daily x4 days, 30 mg daily x4 days, 20 mg daily x4 days, then continue with 10 mg daily from then on.
Lisinopril has been reduced to 10 mg daily due to low pressures and acute kidney injury resolving.
Please take medications as prescribed/recommended and follow up with primary care provider and/or other healthcare provider involved in your care for refills and/or further adjustment to your medication regimen as necessary.
Referrals:
Ji Naidu MD [Active] - in two to four weeks (Dr. Harper or nurse practitioner-needs full PFTs, BiPAP compliance check)
Aden Jeffrey MD [Family Provider] - in one week
Prescriptions:
New
ciprofloxacin HCl 500 mg Tablet
500 mg PO BID 4 Days Qty: 8 0RF
Rx Instructions:
to continue through 07/29/24 then stop
lisinopril 10 mg Tablet
10 mg PO DAILY 30 Days Qty: 30 0RF
prednisone 10 mg Tablet
See Rx Instructions .ROUTE .COMPLEX Qty: 60 0RF
Rx Instructions:
Take By Mouth:
50 mg daily x2 days, 40 mg daily x4 days,
30 mg daily x4 days, 20 mg daily x4 days,
then 10 mg daily from then on
Continued
levothyroxine 100 MCG tablet
100 mcg PO DAILY@0630
furosemide 40 MG tablet
40 mg PO BID AT 0800,1600 Qty: 60 0RF
Eliquis 5 MG tablet
5 mg PO BID Qty: 0 0RF
therapeutic multivitamin Tablet
1 tab PO DAILY
Metamucil Fiber Singles 3.4 gram powder in packet
1 packet PO DAILY
allopurinol 100 mg Tablet
100 mg PO DAILY
sertraline 25 MG tablet
50 mg PO DAILY
metoprolol succinate 25 mg tablet extended release 24 hr
25 mg PO DAILY
ipratropium-albuterol 0.5 mg-3 mg(2.5 mg base)/3 mL Solution For Nebulization
3 ml inhalation R QID Qty: 90 0RF
budesonide 0.5 mg/2 mL Suspension For Nebulization
1 mg inhalation R BID Qty: 60 0RF
tramadol 50 mg Tablet
50 mg PO Q8HPRN PRN (Reason: moderate to severe pain)
Patient Comments:
07/20/2024: last filled 07/09/24, 30 tabs for 10 days from [facility]
acetaminophen 500 mg Tablet
500 mg PO TIDPRN PRN (Reason: mild pain)
hydroxyzine HCl 25 mg tablet
25 mg PO BID
azithromycin 500 mg tablet
500 mg PO MOWEFR
Discontinued
lisinopril 20 mg tablet
20 mg PO DAILY
prednisone 10 mg tablet
10 mg PO DAILY
Rx Instructions:
Take By Mouth:50 mg daily x4 days, 40 mg daily x4 days, 30 mg daily x4 days, 20 mg daily x4 days, 10 mg daily
Discharge Orders:
Discharge Patient (As Directed); Ordered 07/26/24
Ordered By: Josiah Garces
Discharge Date and Time
Print Language: IRISH
--- NOTE | 2024-07-26 14:12 | CM ---
Addendum entered by Yuly Lemos 07/26/24 14:16:
IMM benefit explained; form signed @ 1410
CM spoke with patient's daughter via phone; instructed her to bring mother's portable oxygen tank for transport
Original Note:
Met with patient at bedside to discuss discharge plan
Agreeable to home health services, only; agency preference is [facility]; Referral sent via [facility]
Patient reported that daughter will transport home
Plan: Discharge to home with [facility] home health
[2024-07-26 15:15] VITALS: BP 105/82
[2024-07-26] MEDS: LASIX PO (16:15)
== END 2024-07-26 17:22 | disposition home health service (06) | DRG 190 ==
LOC: 4 EAST ACU 22:11
PROVIDERS: Clinical Nurse Specialist Family Health; Nurse Practitioner; Specialist; ADMITTING PHYSICIAN Internal Medicine; ATTENDING PHYSICIAN Internal Medicine; CONSULT PHYSICIAN Internal Medicine Critical Care Medicine; CONSULT PHYSICIAN Internal Medicine Infectious Disease; CONSULT PHYSICIAN Specialist; EMERGENCY PHYSICIAN Emergency Medicine; FAMILY PHYSICIAN Internal Medicine
PROC: 5A09357 Assistance with Respiratory Ventilation, Less than 24 Consecutive Hours, Continuous Positive Airway Pressure (ICD-10-PCS; 2024-07-21)
DX: J44.0 Chronic obstructive pulmonary disease with (acute) lower respiratory infection (principal); J15.1 Pneumonia due to Pseudomonas; J96.11 Chronic respiratory failure with hypoxia; J96.12 Chronic respiratory failure with hypercapnia; Z68.43 Body mass index [BMI] 50.0-59.9, adult; N17.9 Acute kidney failure, unspecified; J98.11 Atelectasis; I50.32 Chronic diastolic (congestive) heart failure; M48.54XA Collapsed vertebra, not elsewhere classified, thoracic region, initial encounter for fracture; J44.1 Chronic obstructive pulmonary disease with (acute) exacerbation; I11.0 Hypertensive heart disease with heart failure; I48.0 Paroxysmal atrial fibrillation; I45.10 Unspecified right bundle-branch block; M10.9 Gout, unspecified; J43.2 Centrilobular emphysema; E03.9 Hypothyroidism, unspecified; F32.A Depression, unspecified; G47.33 Obstructive sleep apnea (adult) (pediatric); R91.8 Other nonspecific abnormal finding of lung field; E87.5 Hyperkalemia; R74.01 Elevation of levels of liver transaminase levels; T46.2X5A Adverse effect of other antidysrhythmic drugs, initial encounter; G89.29 Other chronic pain; M81.0 Age-related osteoporosis without current pathological fracture; F41.9 Anxiety disorder, unspecified; E66.01 Morbid (severe) obesity due to excess calories; M54.9 Dorsalgia, unspecified; Z86.16 Personal history of COVID-19; Z11.52 Encounter for screening for COVID-19; Z79.01 Long term (current) use of anticoagulants; Z79.890 Hormone replacement therapy; Z79.52 Long term (current) use of systemic steroids; Z87.891 Personal history of nicotine dependence; Z79.51 Long term (current) use of inhaled steroids; Z99.81 Dependence on supplemental oxygen; Z91.199 Patient's noncompliance with other medical treatment and regimen due to unspecified reason
CPT/HCPCS: 71046; 80048; 80053; 80076; 81003; 81015; 83605; 83735; 83880; 84100; 84145; 85025; 85027; 86803; 87070; 87077; 87186; 87205; 87502; 87811; 93005; 94640; 96374; 97110; 97163; 97166; 97530; 97535; 99285

== ENCOUNTER 2025-07-10 03:46 | Inpatient (IN) | payer MEDICARE, SELFPAY ==
[2025-07-09 22:33] VITALS: BP 85/60
[2025-07-09 23:25] VITALS: BP 134/62
[2025-07-10] VITALS (16 sets, daily range): BP systolic 96–158; BP diastolic 53–139; PULSE 2–79; BMI 46.9
[2025-07-10 00:26] LABS: Venous Blood Gas B.E. 9.6 mmol/L (-4 to +4); Venous Blood Gas O2 Sat % 92.5 %
[2025-07-10 00:40] LABS: Hematocrit 36.5 % (37.0-47.0); Hemoglobin 11.1 g/dL (12.0-16.0); Mean Corp Hgb Conc. 30.4 g/dL (33.0-37.0); Mean Corpuscular Volume 88.6 fL (81.0-99.0); Nucleated Red Blood Cells % 0 %; Platelet Count 254 10^3/uL (130-400); Red Cell Dist. Width 15.7 % (11.5-14.5)
[2025-07-10 00:40] LABS: Urine Character Clear (Clear)
[2025-07-10 00:45] LABS: COVID-19 Antigen Negative (Negative)
[2025-07-10 00:48] LABS: ALT (SGPT) 21 U/L (0-35); AST (SGOT) 36 U/L (14-36); Albumin 3.5 g/dl (3.5-5.0); Alkaline Phosphatase 90 U/L (38-126); Blood Urea Nitrogen 34 mg/dl (7-17); Calcium 8.8 mg/dl (8.4-10.2); Carbon Dioxide 37 mmol/L (22-30); Chloride 92 mmol/L (98-107); Glucose 105 mg/dl (70-99); Magnesium 1.3 mg/dl (1.6-2.3); Potassium 3.8 mmol/L (3.5-5.1); Sodium 132 mmol/L (135-145); Total Protein 6.1 g/dl (6.3-8.2); eGFR 30.31
[2025-07-10] MEDS: DUONEB 3 ML INH ×5 (00:56→19:16)
[2025-07-10] MEDS: SOLU-MEDROL PF 125 MG IV (00:56)
[2025-07-10] MEDS: NSS 1000 IV ×4 (00:56→21:45)
[2025-07-10 01:06] LABS: Troponin I 0.045 ng/ml
--- NOTE | 2025-07-10 01:17 | ED.GENMED ---
History of Present Illness
General
Chief Complaint: Change in Mental Status
Source: patient, records and ambulance crew
Exam Limitations: altered mental status
Time Seen by Provider: 07/09/25 23:37
Nursing documentation reviewed up to this point in time: agreed with
History of Present Illness
History of Present Illness:
69-year-old female with a past medical history of COPD, chronic respiratory failure, CHF, atrial fibrillation, CKD who presents to the emergency room via EMS for evaluation of mental status changes. Patient is somewhat unreliable historian as she
appears mildly confused. She tells me that she has been 'off' for the past day or 2. She says that she feels fatigued. She feels mildly short of breath. Her only other complaint is she says her right leg hurts her. She denies any cough. Denies
any chest pain. Has not any abdominal pain or vomiting she says.
Past History
Past History
ED Past Medical History: CHF, COPD and HTN
ED Past Surgical History: None
Social History
Tobacco: Former smoker
Alcohol: None
Personal:
Living: with family
Review of Systems
Review of Systems
All Other Systems: ROS reviewed and negative except as documented in HPI and ROS
Constitutional: Reports fever and fatigue
Respiratory: Reports trouble breathing; Denies cough
Cardiac: Denies chest pain
ABD/GI: Denies abdominal pain or vomiting
: Denies flank pain
Musculoskeletal: Reports muscle pain; Denies neck pain
Neurological: Denies headache
Phy Exam
Physical Exam
Physical Exam:
General: Awake, alert, oriented to person and place, year but not month; no acute distress
Head: Normocephalic, atraumatic
Eyes: Conjunctiva normal, pupils equal round reactive to light bilaterally
Throat: Airway intact, dry mucous membranes
Neck: Trachea midline, supple without meningismus, no JVD
Lungs: Bilateral wheezing, mild tachypnea, no hypoxia on her normal home oxygen
Heart: Tachycardia with regular rhythm, no murmurs, gallops, or rubs
Abd: Soft, non distended, nontender; large reducible umbilical hernia
Neuro: Cranial nerves grossly intact, speech fluid, moving all extremities without focal motor or sensory deficit
Extremities: Bilateral lower extremity edema; she has erythema, warmth and tenderness of the distal right lower leg and foot
Scores
Heart Failure Risk
Heart Failure Risk Score: Not Applicable
Heart Score for Chest Pain Patients
STEMI patient?: Not applicable
Withdrawal Assessment of Alcohol
Withdrawal Assessment Completed?: Not applicable
Sepsis
Sepsis Screening
Sepsis Assessment: Sepsis
Sepsis Screen
Sepsis Screen: Sepsis
Date: 07/10/25
Time: 01:17
Course
Orders/Labs/Results
Orders:
Orders
07/09/25 23:39
Electrocardiogram (*1) Urgent
Reason for Study: Fatigue / Weakness
CT Head W/o Iv Contrast Urgent
Comment:
Reason For Exam: confusion
EKG- Treatment ONCE
COVID-19 Antigen Urgent
Source: Nasal Swab
Complete Blood Count/With Diff Urgent
Comprehensive Metabolic Panel Urgent
Lactate Level [Lactic Acid] Urgent
Magnesium Urgent
NT-proBNP Urgent
TSH Reflex To Free T4 Urgent
Troponin I Urgent
Urinalysis Reflex To Culture Urgent
Date Specimen was Collected: 07/10/25
Time Specimen was Collected: 00:13
Venous Blood Gas Urgent
%Oxygen/Room Air: 96
Influenza A+B Rapid Molecular Urgent
PUJA Source: Nasal Swab
Specimen Description:
CR Chest Portable - 1 View Urgent
Comment:
Reason For Exam: mental status change, tachypnea
Reason Study Needs to be Portable: Unable to Transport
07/09/25 23:40
PTT Urgent
Prothrombin Time Urgent
0.9% Sodium Chloride 1000 ml [Nss] 1,000 ml IV BOLUS
07/09/25 23:46
Blood Culture Q30M
PUJA Source: Blood/Venous
Specimen Description:
Ipratropium/Albuterol Sulfate [Duoneb] 3 ml INH R NOW STA
MethylPREDNISolone PF [Solu-Medrol Pf] 125 mg IV NOW STA
07/10/25 00:12
Blood Culture Q30M
PUJA Source: Blood/Venous
Specimen Description:
07/10/25 00:23
Urine Microscopic Reflex Cult Urgent
07/10/25 01:16
Zosyn 3.375 grams IVPB NOW Piperacillin/Tazo 3.375 Gram [Zosyn] 3.375 gram in 50 ml IV NOW
07/10/25 01:17
*Vancomycin 2,000 mg Loading Dose (consider for >/= 70 kg) Vancomycin [Vancocin] 2,000 mg 0.9% Sodium Chloride 500 ml [Nss] 500 ml IV NOW
Abnormal Lab Results
07/10/25 07/10/25
00:12 00:23
RBC 4.12 L 10^6/uL
(4.20-5.40)
Hgb 11.1 L g/dL
(12.0-16.0)
Hct 36.5 L %
(37.0-47.0)
MCH 26.9 L pg
(27.0-31.0)
MCHC 30.4 L g/dL
(33.0-37.0)
RDW 15.7 H %
(11.5-14.5)
MPV 10.7 H fL
(7.4-10.4)
Abs Immat Gran (auto) 0.2 H 10^3/uL
(0-0.05)
Absolute Neuts (auto) 8.7 H 10^3/uL
(1.4-6.5)
Absolute Lymphs (auto) 0.8 L 10^3/uL
(1.2-3.4)
Absolute Monos (auto) 0.7 H 10^3/uL
(0.1-0.6)
Immature Gran % 2.1 H %
(0-0.5)
Neutrophils % 82.7 H %
(42.2-75.2)
Lymphocytes % 7.5 L %
(20.5-51.1)
VBG pCO2 62 H mmHg
(35-48)
VBG pO2 63 H mmHg
(30-50)
VBG HCO3 36.7 H mmol/L
(22-27)
Sodium 132 L mmol/L
(135-145)
Chloride 92 L mmol/L
(98-107)
Carbon Dioxide 37 H mmol/L
(22-30)
BUN 34 H mg/dl
(7-17)
Creatinine 1.8 H mg/dL
(0.6-1.0)
Glucose 105 H mg/dl
(70-99)
Magnesium 1.3 L mg/dl
(1.6-2.3)
Troponin I 0.045 H* ng/ml
Total Protein 6.1 L g/dl
(6.3-8.2)
Urine Albumin (Reflex) 1+ A
(Neg - Trace)
07/10/25 00:12
07/10/25 00:12
Vital Signs
Initial and Last Documented VS:
Initial Vital Signs
Temp Pulse Resp BP Pulse Ox
37.5 C 94 28 85/60 96
07/09/25 22:33 07/09/25 22:33 07/09/25 22:33 07/09/25 22:33 07/09/25 22:33
Last Documented Vital Signs
Temp Pulse Resp BP Pulse Ox
38.6 C H 113 23 134/62 99
07/10/25 00:25 07/10/25 00:00 07/10/25 00:00 07/09/25 23:25 07/09/25 23:30
MDM/Problems Addressed
Differential Diagnosis Includes:
Breathing issues: Pneumonia, COPD exacerbation, CHF exacerbation
Mental status change: Sepsis/infection (pneumonia, UTI, viral infection, cellulitis, etc), stroke/brain bleed, polypharmacy, CO2 retention/COPD exacerbation
MDM/Problems Addressed:
69-year-old female with extensive medical history as noted presents for mental status changes as described above. She arrives hypotensive with a blood pressure 85/60 tachycardia with tachypnea and fever. She is on 4 L of nasal cannula which it
sounds like is her baseline at home. Plan to place an IV send labs including CBC and a CMP, lactate and blood cultures. Check urinalysis, viral swabs, blood gas. Check chest x-ray, CT head. Provide IV fluids, antipyretic. Will treat with
steroids and DuoNeb as she does have significant wheezing. Monitor closely and anticipate admission.
In chemistry shows itial labs showed marginal anemia, acute kidney injury with a creatinine of 1.8 from a baseline of 1.1. Lactate less than 2. Troponin marginally elevated likely from demand in the setting of hypotension. Urinalysis is bland.
Viral swabs are negative. Chest x-ray no clear pneumonia. CT head no acute abnormalities on my review although we are awaiting final radiology report. Vitals improved with fluids. With history of CHF and significant edema in the legs hold off on
full 30 cc/kg bolus especially with blood pressure improved and lactate less than 2. She does quite clearly appear to have a cellulitis of the right lower leg at this point working diagnosis of change in mental status secondary to sepsis from
cellulitis. Cover with antibiotics. Admit for continued management. Discussed case with hospitalist.
Chronic conditions affecting care:
COPD, A-fib, CHF
*Radiology
Radiology exam reviewed: preliminary read by ED provider and radiology read reviewed
*Pulse Oximetry
SaO2: 99
Oxygen Mode of Delivery: Room air
Patient hypoxic: no (99%)
*EKG
Interpreted by ED Provider?: Yes
Heart Rate: 91
Rate: normal
Rhythm: sinus
[place]: normal axis
Interval: normal interval
QRS Pattern: right bundle branch block
Ischemia: non-specific ST changes
*Critical Care Note
Total Time (30-74mins, 75-104mins- exclusive of procedures): 31
comment:
Critical care statement: A total of 31 minutes of critical care time was provided for this patient. This includes management of unstable vital signs, evaluation of the patient at bedside, frequent reassessment, discussion with
consultants/hospitalist, and review of pertinent medical records. This time was separate from time utilized to perform any aforementioned documented procedures
Data Reviewed
Review of Other/Old Records Reveals: Labs and Records
Source: patient, records and ambulance crew
Patient Management
Discussion with other providers: Hospitalist (Discussed with hospitalist)
Escalation/DeEscalation of care consider admission/obs:
Admission indicated
ED Attending Note
-
Portions of this chart may have been created with voice recognition software.� Occasional wrong word or��sound alike� substitutions may have occurred due to the inherent limitations of voice recognition software.
Discharge Plan
Departure
Patient Disposition: Admit
Date of Disposition: 07/10/25
Time of Disposition: 01:31
Admit to doctor: Iraj
Presentation/result/management discussed w/ accepting MD/DO: Hospitalist
Discharge Problem:
Sepsis, Encephalopathy, Pneumonia, COPD exacerbation, Cellulitis
Prescriptions:
No Action
levothyroxine 100 MCG tablet
100 mcg PO DAILY@0630
furosemide 40 MG tablet
40 mg PO BID AT 0800,1600 Qty: 60 0RF
Eliquis 5 MG tablet
5 mg PO BID Qty: 0 0RF
therapeutic multivitamin Tablet
1 tab PO DAILY
Metamucil Fiber (aspartame) 3.4 gram powder in packet
1 packet PO DAILY
allopurinol 100 mg Tablet
100 mg PO DAILY
sertraline 25 MG tablet
50 mg PO DAILY
metoprolol succinate 25 mg tablet extended release 24 hr
25 mg PO DAILY
ipratropium-albuterol 0.5 mg-3 mg(2.5 mg base)/3 mL Solution For Nebulization
3 ml inhalation R QID Qty: 90 0RF
budesonide 0.5 mg/2 mL Suspension For Nebulization
1 mg inhalation R BID Qty: 60 0RF
tramadol 50 mg Tablet
50 mg PO Q8HPRN PRN (Reason: moderate to severe pain)
Patient Comments:
07/20/2024: last filled 07/09/24, 30 tabs for 10 days from [facility]
acetaminophen 500 mg Tablet
500 mg PO TIDPRN PRN (Reason: mild pain)
hydroxyzine HCl 25 mg tablet
25 mg PO BID
azithromycin 500 mg tablet
500 mg PO MOWEFR
ciprofloxacin HCl 500 mg Tablet
500 mg PO BID 4 Days Qty: 8 0RF
Rx Instructions:
to continue through 07/29/24 then stop
lisinopril 10 mg Tablet
10 mg PO DAILY 30 Days Qty: 30 0RF
prednisone 10 mg Tablet
See Rx Instructions .ROUTE .COMPLEX Qty: 60 0RF
Rx Instructions:
Take By Mouth:
50 mg daily x2 days, 40 mg daily x4 days,
30 mg daily x4 days, 20 mg daily x4 days,
then 10 mg daily from then on
Referrals:
UNKNOWN - PT DOES,NOT KNOW [Family Provider]
Interventions
Interventions:
*Risk Screen - Suicide Last Done: 07/09/25 22:33
*General Assessment Last Done: 07/09/25 22:33
*Neglect/Abuse Screening Last Done: 07/09/25 22:33
*ED- Fall Risk Assessment Last Done: 07/10/25 00:31
*ED COVID-19 Vaccine History Last Done: 07/10/25 00:31
*ED Influenza Vaccine History Last Done: 07/10/25 00:31
ED- Neurological Assessment Last Done: 07/10/25 00:31
ED- Cardiac Assessment Last Done: 07/10/25 00:31
Discharge Date and Time
Print Language: GAMBIAN
[2025-07-10 01:24] LABS: Urine Red Blood Cell 0-2 /HPF (0-2); Urine White Cell 0-2 /HPF (0-5)
[2025-07-10] MEDS: ZOSYN 50 IV ×4 (01:34→21:44)
[2025-07-10 01:40] LABS: INR 1.48; PT 18.1 Sec (11.4-14.6)
[2025-07-10 01:41] LABS: APTT 45.3 Sec (23.4-35.0)
[2025-07-10] MEDS: VANCOCIN 540 MG IV (02:01)
--- NOTE | 2025-07-10 02:42 | HPS.HSE ---
Family Physician
-
Family Physician: NOT KNOW UNKNOWN - PT DOES
Chief Complaint
-
Weakness, Fatigue
History of Present Illness
Patient is a 69y F with PMH significant for chronic hypoxemic and hypercapnic respiratory failure, COPD and morbid obesity who presents to ED complaining of somnolence and fatigue. History from patient is somewhat limited due to current mental
state. However, patient herself called 911 after she notes that she was extremely fatigued and slept all day today - unable to get OOB. She states that she had a 'bug' lately and reports non-productive cough that started yesterday. She complains
of pain, redness and swelling in the RLE. She denies any other specific complaints including headache, sore throat, fevers / chills, abdominal pain, N/V/D or urinary symptoms.
Patient has audible wheezing here in the ED - though she states 'I am always like that'.
Medical History
Past Medical History
Past Medical History: Reports Other
Additional Past Medical History:
Centrilobular emphysema & chronic bronchitis with significant bronchial wall thickening seen mainly in bases + RML/lingula on CT Chest (January 2024)
Severe COPD with moderate restrictive lung defect, and severe gas exchange capacity defect (per PFT from November 2021)
Chronic respiratory failure with hypoxia on supplemental O2 (5L/min, which is her home dose)
Chronic hypercapnic respiratory failure/OHS - baseline pCO2 approximately 75-80 - on HS BiPAP
Former tobacco smoker (50-pack history, quit January 2019)
Multiple pulmonary nodules (SP patchy solid nodules seen on CT Chest from January 2024, likely due to mucoid impaction/atelectasis)
Paroxysmal Atrial Fibrillation on Eliquis
Transaminitis secondary to amiodarone
CKD III
Osteoporosis
Morbid Obesity
Gout
Chronic HFpEF
RBBB
Depression
Hypothyroidism
Past Surgical History: Reports Other
Additional Past Surgical History:
x 2
Left Knee Arthroscopy
T&A
Social History
Tobacco: Former Smoker (50+ pack years total use. Quit 'about a year ago'.)
Alcohol: None
Drug: None
Family History
Family History: Not pertinent
Allergies / Home Medications
Allergies reflects when Allergies were last updated in [email or web address].
Home Medications with original date entered in [email or web address]
Allergy/Medication List:
Allergies
Allergy/AdvReac Type Severity Reaction Status Date / Time
No Known Allergies Allergy Verified 07/20/24 17:10
Home Medications
levothyroxine 100 mcg tablet 100 mcg PO DAILY@0630 Thyroid 01/30/21
apixaban 5 mg tablet (Eliquis) 5 mg PO BID Blood clot prevention/tx #0 tabs 02/04/21
furosemide 40 mg tablet 40 mg PO BID AT 0800,1600 Fluid retention/Swelling #60 tabs 02/04/21
therapeutic multivitamin 1 tab PO DAILY Supplement 12/17/22
psyllium husk 3.4 gram oral powder packet (Metamucil Fiber (aspartame)) 1 packet PO DAILY Gastrointestinal Issue 01/26/24
allopurinol 100 mg tablet 100 mg PO DAILY Gout 06/23/24
metoprolol succinate 25 mg tablet,extended release 24 hr 25 mg PO DAILY Blood Pressure 06/23/24
sertraline 25 mg tablet 50 mg PO DAILY Depression 06/23/24
budesonide 0.5 mg/2 mL suspension for nebulization 1 mg (4 mL) inhalation R BID Lung/breathing issues #60 mL 07/01/24
ipratropium 0.5 mg-albuterol 3 mg (2.5 mg base)/3 mL nebulization soln 3 ml inhalation R QID Lung/breathing issues #90 mL 07/01/24
hydroxyzine HCl 25 mg tablet 25 mg PO BID 07/20/24
tramadol 50 mg tablet 50 mg PO Q8HPRN PRN moderate to severe pain 07/20/24
lisinopril 10 mg tablet 10 mg PO DAILY 30 days #30 tabs 07/26/24
Review of Systems
-
History Source: Patient (limited ROS due to current confusion / mental state.)
A 12 point ROS was completed and negative except as noted: Yes
Constitutional: Reports Fatigue; Denies Fever or Chills
EENT: Denies Sore Throat
Respiratory: Reports Cough; Denies Hemoptysis or Trouble Breathing
Cardiac: Denies Chest Pain or Palpitations
Abdomen/GI: Denies Abdominal Pain, Nausea, Vomiting or Diarrhea
: Denies Dysuria, Frequency or Flank Pain
Musculoskeletal: Reports Muscle Pain and Edema; Denies Joint Pain
Neurological: Reports Weakness; Denies Dizzy or Headache
Psych: Denies Depression or Anxiety
Physical Exam
Vital Signs
Vital Signs
Temp Pulse Resp BP Pulse Ox
101.4 F H 89 18 101/55 95
07/10/25 00:25 07/10/25 02:30 07/10/25 02:30 07/10/25 02:07 07/10/25 02:30
Physical Exam
General: Other (69y F in no acute distress.)
HEENT: Other (Dry MM, edentulous.)
Respiratory: Other (Decreased breath sounds througout with scattered expiratory wheezes. No focal rales / rhonchi.)
Cardiac: S1/S2 and Regular Rhythm; No Murmur
GI: Other (Obese, moderate - large umbilical hernia. Not tender. Pos BS.)
Musculoskeletal: Other (Erythema, induration and increased warmth of the RLE below the knee. No ulceration / open wounds appreciated.)
Neuro: Other (Answers questions and follows commands. Some evident confusion, mild slurred speech.)
Laboratory Results
-
07/10/25 00:12
07/10/25 00:12
Laboratory Results
PT 18.1 Sec (11.4-14.6) H 07/10/25 00:12
INR 1.48 07/10/25 00:12
APTT 45.3 Sec (23.4-35.0) H 07/10/25 00:12
Lactic Acid 0.7 mmol/L (0.7-2.0) 07/10/25 00:12
Total Bilirubin 0.7 mg/dl (0.2-1.3) 07/10/25 00:12
AST 36 U/L (14-36) 07/10/25 00:12
ALT 21 U/L (0-35) 07/10/25 00:12
Alkaline Phosphatase 90 U/L (38-126) 07/10/25 00:12
Troponin I 0.045 ng/ml H* 07/10/25 00:12
Impression/Plan
-
A/P: Patient is a 69y F with PMH significant for COPD, CHF and A-Fib who presents to ED complaining of somnolence / fatigue.
RLE Cellulitis
Sepsis secondary to the above
Acute TME secondary to the above
- Admit for further evaluation and treatment.
- Patient presents with RLE cellulitis and evidence of end-organ impairment in the form of LISA on CKD, acute TME.
- IV abx with Vanco and Zosyn for now.
- Follow fever curve, follow-up culture data. Follow for clinical improvement.
- IVF support +/- pressors if needed to maintain perfusion. BP quite labile in the ED.
LISA on CKD III
- SCr = 1.8 compared to known baseline of 1.1.
- Likely secondary to sepsis as noted above.
- Hold diuretic regimen, MIAN inhibitor, etc acutely.
- IVF support.
- Follow for return to baseline.
COPD with Acute Exacerbation
Chronic Hypoxemic and Hypercapnic Respiratory Failure
- Evident wheezing on exam - though patient reports this is not unusual.
- CXR without evident infiltrate / pneumonia.
- Continue IV steroids, usual inhaled medications, etc.
- Albuterol PRN.
- Continue O2 support as needed (4-5 lpm at home - use least effective dose during acute stay).
- Continue nightly PAP therapy.
Abnormal Troponin
- Likely secondary to sepsis. No chest pain or reported dyspnea, etc.
- Follow to [facility].
Paroxysmal Atrial Fibrillation
- Stable. Hold antihypertensive medications acutely - resume as able, beginning with metoprolol.
- Continue Eliquis for stroke risk reduction.
Chronic HFpEF
- Stable. Does not appear grossly volume overloaded.
- Hold diuretics given sepsis as noted above.
- Follow I/Os, daily weights, etc.
Hypothyroidism
- Continue T4 supplementation.
Anxiety / Depression
- Stable. Continue sertraline.
Morbid Obesity due to excess calories
- Affects all aspects of care.
DVT Prophylaxis: On Eliquis
Code Status: Full
[2025-07-10] MEDS: SYNTHROID 100 MCG PO (04:28)
--- NOTE | 2025-07-10 04:30 | PTCARENOTE ---
Assumed are from ED RN after receiving report. Pt on 4L 02 satting 98%. dyspnea on exertion. inc urine. CHG preformed. pt getting n/s @ 100ml hr. admission questions asked. safe environment maintained.
[2025-07-10 05:43] LABS: Hematocrit 35.8 % (37.0-47.0); Hemoglobin 10.8 g/dL (12.0-16.0); Mean Corp Hgb Conc. 30.2 g/dL (33.0-37.0); Mean Corpuscular Volume 88.2 fL (81.0-99.0); Platelet Count 236 10^3/uL (130-400); Red Cell Dist. Width 15.7 % (11.5-14.5)
[2025-07-10 06:18] LABS: Troponin I 0.042 ng/ml
[2025-07-10 06:24] LABS: ALT (SGPT) 21 U/L (0-35); AST (SGOT) 37 U/L (14-36); Albumin 3.6 g/dl (3.5-5.0); Alkaline Phosphatase 83 U/L (38-126); Blood Urea Nitrogen 33 mg/dl (7-17); Calcium 8.3 mg/dl (8.4-10.2); Carbon Dioxide 32 mmol/L (22-30); Chloride 99 mmol/L (98-107); Estimated Creatinine Clearance 48 ml/min; Glucose 129 mg/dl (70-99); Magnesium 1.4 mg/dl (1.6-2.3); Potassium 4.0 mmol/L (3.5-5.1); Sodium 139 mmol/L (135-145); Total Protein 6.0 g/dl (6.3-8.2); eGFR 37.72
[2025-07-10] MEDS: PULMICORT 1 MG INH ×2 (07:45→19:16)
--- NOTE | 2025-07-10 07:48 | PHA.VAN.IN ---
Assessment
- Assessment
Renal Function: SCR Appears Elevated from baseline
Maximum Temperature: 101.4F
Concomitant Antimicrobials: zosyn
Plan
- Plan
Initial / Loading Dose: 2000mg
Maintenance Regimen: prn by level
Monitoring: random 07/11 in AM
Pharmacokinetics Vancomycin I
- -
Patient Age: 69
Patient Sex: Female
Vancomycin Day #: 1
Indication: Skin And Soft Tissue
Requesting Provider: Dr. Galo
Pertinent Antimicrobial Allergies:
nkda
Height / Weight:
Height 5 ft 5 in
Actual Weight 127.9 kg
IBW in k
- Vital Signs / Lab Results
Temp Pulse Resp BP Pulse Ox
97.8 F 74 20 127/105 94
07/10/25 04:09 07/10/25 05:30 07/10/25 05:30 07/10/25 05:03 07/10/25 05:30
Lab Results - Hematology
07/10/25 07/10/25
00:12 05:33
WBC 10.5 9.7
Lab Results - Chemistry
07/10/25 07/10/25
00:12 05:33
BUN 34 H 33 H
Creatinine 1.8 H 1.5 H
Estimated Creat Clear 48
Albumin 3.5 3.6
07/10/25
00:12
Lactic Acid 0.7
Lab Results - Urine
07/10/25
00:23
Urine Nitrite (Reflex) Negative
Leukocyte Esterase Rfl Negative
Urine WBC (Reflex) 0-2
Ur Squamous Epith Cells 3-5
Urine Bacteria (Reflex) Few A
Microbiology Results
07/10/25 00:12 Influenza Types A & B (TRACIE) - Final
Nasal Swab Negative for Influenza A & B, NAAT
Negative results must be combined with clinical observations
and patient history.
Nucleic Acid Amplification test (NAAT)performed on the
[employer] NOW platform.
--- NOTE | 2025-07-10 07:56 | W.PN.HOSP.TC ---
Today's Communication/Plan
-
See plan
Assessment / Plan
Assessment / Plan
Physical Exam
General: Other (69y F in no acute distress.)
HEENT: Normocephalic
Respiratory: Other (Decreased breath sounds througout with scattered expiratory wheezes. No focal rales / rhonchi.)
Cardiac: S1/S2 and Regular Rhythm; No Murmur
GI: Other (Obese, moderate - large umbilical hernia. Not tender. Pos BS.)
Musculoskeletal: Other (Erythema, induration and increased warmth of the RLE below the knee. No ulceration / open wounds appreciated.)
Neuro: Answers questions and follows commands. Some evident confusion
Assessment/Plan
69y F with PMH significant for chronic hypoxemic and hypercapnic respiratory failure, COPD and morbid obesity who presents to ED complaining of somnolence and fatigue. History from patient is somewhat limited due to current mental state.
However, patient herself called 911 after she notes that she was extremely fatigued and slept all day today - unable to get OOB. She states that she had a 'bug' lately and reports non-productive cough that started yesterday. She complains of pain,
redness and swelling in the RLE. She denies any other specific complaints including headache, sore throat, fevers / chills, abdominal pain, N/V/D or urinary symptoms.
Patient has audible wheezing here in the ED - though she states 'I am always like that'.
RLE Cellulitis
Sepsis secondary to the above
Acute TME secondary to the above
- Patient presented with RLE cellulitis and evidence of end-organ impairment in the form of LISA on CKD, acute TME.
- IV abx with Vanco and Zosyn for now.
- Follow fever curve, follow-up culture data. Follow MRSA result. Follow for clinical improvement.
- IVF support +/- pressors if needed to maintain perfusion. BP quite labile in the ED.
LISA on CKD III
- SCr = 1.8-->1.5 compared to known baseline of 1.1.
- Likely secondary to sepsis as noted above.
- Hold diuretic regimen, MIAN inhibitor, etc acutely.
- IVF support.
- Follow for return to baseline.
COPD with Concern for Acute Exacerbation
Chronic Hypoxemic and Hypercapnic Respiratory Failure
- She stated she has been coughing more with phlegm in the past 2-3 days prior to arrival
- Evident wheezing on exam - though patient reports this is not unusual.
- CXR without evident infiltrate / pneumonia.
- Switch to oral steroids as per pulmonary
- Albuterol PRN.
- Continue O2 support as needed (4-5 lpm at home - use least effective dose during acute stay) -- remains on 4 L here
- Continue nightly PAP therapy.
- Appreciate pulmonary
Hypomagnesemia
- IV replacement ordered
- Recheck magnesium
Abnormal Troponin
- Likely secondary to sepsis. No chest pain or reported dyspnea, etc.
- Follow to [facility].
Paroxysmal Atrial Fibrillation
- Stable. Hold antihypertensive medications acutely - resume as able, beginning with metoprolol.
- Continue Eliquis for stroke risk reduction.
Chronic HFpEF
- Stable. Does not appear grossly volume overloaded.
- Hold diuretics given sepsis as noted above.
- Follow I/Os, daily weights, etc.
Hypothyroidism
- Continue T4 supplementation.
Anxiety / Depression
- Stable. Continue sertraline.
Morbid Obesity due to excess calories
- Affects all aspects of care.
DVT Prophylaxis: On Eliquis
Code Status: Full
Anticipated Discharge: 24 - 48 hours
Subjective/Interval History
-
Date of Service: July 10, 2025
Patient was seen and examined. She reported feeling okay, no new symptoms or complaints.
Objective Data
-
Labs:
Laboratory Results
07/10/25 07/10/25
00:12 05:33
WBC 10.5 9.7
Hgb 11.1 L 10.8 L
Hct 36.5 L 35.8 L
Plt Count 254 236
PT 18.1 H
INR 1.48
APTT 45.3 H
Sodium 132 L 139
Potassium 3.8 4.0
Chloride 92 L 99
Carbon Dioxide 37 H 32 H
BUN 34 H 33 H
Creatinine 1.8 H 1.5 H
Glucose 105 H 129 H
Calcium 8.8 8.3 L
Total Bilirubin 0.7 0.7
AST 36 37 H
ALT 21 21
Alkaline Phosphatase 90 83
Vital Signs:
Vital Signs
Temp Pulse Resp BP Pulse Ox
97.8 F 65 20 111/66 93
07/10/25 04:09 07/10/25 07:53 07/10/25 07:53 07/10/25 06:00 07/10/25 07:53
I&O
07/09/25 07/10/25 07/11/25
06:59 06:59 05:59
Output Total 200 / 200
Balance -200 / -200
[2025-07-10] MEDS: ZOLOFT 50 MG PO (09:32)
[2025-07-10] MEDS: ZYLOPRIM 100 MG PO (09:32)
[2025-07-10] MEDS: ELIQUIS 5 MG PO ×2 (09:33→21:44)
[2025-07-10] MEDS: SOLU-MEDROL PF 40 MG IV (09:33)
[2025-07-10] MEDS: MAGNESIUM SULFATE 102 GRAMS IV (09:55)
--- NOTE | 2025-07-10 10:48 | CM ---
Patient seen bedside, initial assessment completed. Patient is a 69y F with PMH significant for chronic hypoxemic and hypercapnic respiratory failure, COPD and morbid obesity who presents to ED complaining of somnolence and fatigue.
Patient resides w/ spouse, daughter and granddaughter in a single story home w/ basement. Ramp access at front entrance, 7 steps at side entrance of the home. Patient is independent w/ w/c and rollator. [facility] ([facility], patient has concentrator.
[facility] and [facility] hx, home care hx, patient cannot recall if she had home care services in the past year.
PCP: Aden Jeffrey
Pharmacy: [facility] [place]
Plan: CM will cont to follow for d/c planning
[2025-07-10 12:33] LABS: Troponin I 0.031 ng/ml
--- NOTE | 2025-07-10 14:00 | CON.PUL ---
Consultation
Consultation Request
Date/Time Consultation Requested: 07/10
Date/Time Consultation Performed: 07/10
Reason for Consultation: COPD
Medical History
-
History of Present Illness:
History obtained from the chart, reviewing outpatient records and obtaining history from the patient. Patient is a 69-year-old female with chronic COPD on 4 L of oxygen at home, chronic hypercapnic respiratory failure on home BiPAP, presents with
change in mental status for 2 days, fatigue, right leg pain. Per my history, patient states she denied any chest pain, nausea, abdominal pain, falls. She is relatively sedentary. She denies any diarrhea. She does not actively smoke. Upon
arrival to [facility], temperature 101.4, pulse 89, breathing 18, blood pressure 101/55, 95%. ED records suggest diffuse wheezing. Right lower extremity erythematous and warm. Normal white count. Patient was started on antibiotics, IV
fluids. Given wheezing she was also started on IV steroids. We are asked to comment on her pulmonary process
Presently she is without shortness of breath, denies chest pain, cough, hemoptysis
.
PMH: Hypertension, hyperlipidemia, hypothyroidism, history of paroxysmal atrial fibrillation on Eliquis, COPD on home oxygen, hypercapnic respiratory failure, with chronic CO2 retention, sleep apnea on home BiPAP, chronic kidney disease,
osteoporosis, history of tonsillectomy
Past Medical History
Past Medical History: None (See above)
Past Surgical History: None (See above)
Social History
Tobacco: Former Smoker (08-[id number]-ciac history of smoking quit around 2019)
Alcohol: None
Drug: None
Personal:
Living: With Family
Employment: Not Employed
Family History
Family History: Other (2 children alive. Father history of liver cancer. Mother . 1 sister)
Allergies / Home Medications
Allergies
Allergy/AdvReac Type Severity Reaction Status Date / Time
No Known Allergies Allergy Verified 07/20/24 17:10
Home Medications
�Medication �Instructions �Recorded �Confirmed �Last Taken �Type
levothyroxine 100 mcg tablet 100 mcg PO DAILY@0630 Thyroid 01/30/21 07/10/25 07/20/24 History
apixaban 5 mg tablet (Eliquis) 5 mg PO BID Blood clot 02/04/21 07/10/25 07/20/24 Rx
prevention/tx #0 tabs
furosemide 40 mg tablet 40 mg PO BID AT 0800,1600 Fluid 02/04/21 07/10/25 07/20/24 Rx
retention/Swelling #60 tabs
therapeutic multivitamin 1 tab PO DAILY Supplement 12/17/22 07/10/25 07/20/24 History
psyllium husk 3.4 gram oral powder 1 packet PO DAILY Gastrointestinal 01/26/24 07/10/25 07/20/24 History
packet (Metamucil Fiber Issue
(aspartame))
allopurinol 100 mg tablet 100 mg PO DAILY Gout 06/23/24 07/10/25 07/20/24 History
metoprolol succinate 25 mg 25 mg PO DAILY Blood Pressure 06/23/24 07/10/25 07/20/24 History
tablet,extended release 24 hr
sertraline 25 mg tablet 50 mg PO DAILY Depression 06/23/24 07/10/25 07/20/24 History
budesonide 0.5 mg/2 mL suspension 1 mg (4 mL) inhalation R BID 07/01/24 07/10/25 07/20/24 Rx
for nebulization Lung/breathing issues #60 mL
ipratropium 0.5 mg-albuterol 3 mg 3 ml inhalation R QID 07/01/24 07/10/25 07/20/24 Rx
(2.5 mg base)/3 mL nebulization Lung/breathing issues #90 mL
soln
hydroxyzine HCl 25 mg tablet 25 mg PO BID 07/20/24 07/10/25 07/20/24 History
tramadol 50 mg tablet 50 mg PO Q8HPRN PRN moderate to 07/20/24 07/10/25 07/20/24 History
severe pain
lisinopril 10 mg tablet 10 mg PO DAILY 30 days #30 tabs 07/26/24 07/10/25 Unknown Rx
Review of Systems
-
All other systems: Negative unless noted
Vitals / Labs / Diagnostic Testing
Vital Signs
Temp Pulse Resp BP Pulse Ox
97.6 F 74 22 127/60 93
07/10/25 11:00 07/10/25 11:31 07/10/25 11:31 07/10/25 10:04 07/10/25 11:15
Lab Data
07/10/25 05:33
07/10/25 05:33
Laboratory Results
07/10/25
00:12
PT 18.1 H
INR 1.48
APTT 45.3 H
Microbiology
07/10/25 00:12 Nasal Swab Influenza Types A & B (TRACIE) - Final
Negative for Influenza A & B, NAAT
Negative results must be combined with clinical observations
and patient history.
Nucleic Acid Amplification test (NAAT)performed on the
[employer] platform.
Diagnostic Testing:
Physical Exam
-
HEENT: Normocephalic, Anicteric and Other (Large neck, edentulous)
Cardiovascular: S1/S2, Regular Rhythm, Murmur (n), Rub (n) and Peripheral Edema (Right lower extremity erythema and warmth, bilateral 1+ edema)
Respiratory: Wheeze (n), Rales (n), Rhonchi (n), Non-Labored Respirations and Other (Bronchial)
GI: Soft, Non Distended (Morbidly obese) and Non Tender
Neurology: Awake, Alert and No Motor Deficits (Moves all extremities)
Skin: Other (Right lower extremity erythema)
General: Comfortable
Assessment
-
69-year-old female with history of COPD on home oxygen 4 L, hypercapnia on home BiPAP presents with change in mental status for few days, increased fatigue and right leg pain found to have right lower extremity cellulitis and wheezing on exam
Acute right lower extremity cellulitis
Fevers, leg pain
Wheezing on presentation
Do not suspect acute COPD exacerbation
Conditions present prior to admission
Severe COPD, FEV1 26%, DLCO 44%
History of recurrent COPD exacerbation last hospitalized June 2024
Chronic steroid dependent, low-dose
History of Pseudomonas bronchitis
Chronic hypercapnia, baseline pCO2 70s
Chronic hypoxia on 4 L of oxygen
[id number] history of smoking quit 2018
LUZ MARINA on BiPAP 06/13
History of heart failure
Paroxysmal A-fib on Eliquis,
Bifascicular block
History of pulm nodules, absent on CT imaging June 2024
Bronchial airway thickening
Morbid obesity
Hx of COVID-19 (December 2020),
Mild aortic stenosis
osteoporosis
Compression fractures per imaging
Plan/recommendations
At this time, patient appears to be comfortable
She denies any shortness of breath. Chest exam is without wheezing
Right lower extremity with erythema and warmth
Fevers noted
Chest x-ray is unremarkable
Moving forward
I am not convinced patient is having true significant COPD exacerbation
For now would discontinue IV steroids
Will resume outpatient baseline prednisone, started 20 mg over the next few days and then will decrease to 10 mg
Follow clinically
Continue DuoNebs, budesonide
Continue BiPAP
Records suggest consideration of macrolide therapy in 2023, patient currently not on. Would not pursue at this time
Patient also being considered for biologic therapy as outpatient, this is an ongoing discussion. She missed her last appointment with Dr. Harper in February
Patient denies any productive cough but if this develops will obtain sputum culture. History of Pseudomonas noted
Continue antibiotics for cellulitis
This is likely cause of her mental status changes
Patient states she is compliant with her BiPAP. This will continue
DVT prophylaxis: Eliquis
Will follow
Diagnostic data:
CXR 06/29/2025: No acute findings
Chest x-ray 06/23/24-no evidence for pulmonary edema or effusions..
Chest x-ray 07/20/24-mild cardiomegaly, mild subsegmental atelectasis, chronic fracture T8
CT chest 06/27/24-comparison made to 01/25/24-no acute cardiopulmonary disease, stable 70% compression fracture T8
Echocardiogram 12/18/22-year 55-60%, mild aortic stenosis-ADA 1.2 cm
[2025-07-10 18:44] LABS: Troponin I 0.027 ng/ml
--- NOTE | 2025-07-10 19:06 | PTCARENOTE ---
Assumed care of patient at 0700. Upon assessment, Pt awake and alert- confused to time. SR on monitor. Vitals stable. Pt repositioned and new purewick placed. Right lower leg red and warm to touch, elevated on pillow. IVF infusing through L wrist
site. Pt with no complaints of pain. Instructed to ring for assistance.
[2025-07-11] VITALS (16 sets, daily range): BP systolic 102–159; BP diastolic 66–90; PULSE 2–89; BMI 47.0
[2025-07-11] MEDS: NSS 1000 IV (01:05)
[2025-07-11] MEDS: ZOSYN 50 IV ×2 (01:08→08:42)
[2025-07-11 03:32] LABS: Hematocrit 35.4 % (37.0-47.0); Hemoglobin 10.7 g/dL (12.0-16.0); Mean Corp Hgb Conc. 30.2 g/dL (33.0-37.0); Mean Corpuscular Volume 88.5 fL (81.0-99.0); Nucleated Red Blood Cells % 0 %; Platelet Count 233 10^3/uL (130-400); Red Cell Dist. Width 15.8 % (11.5-14.5)
[2025-07-11 03:56] LABS: ALT (SGPT) 18 U/L (0-35); AST (SGOT) 27 U/L (14-36); Albumin 3.0 g/dl (3.5-5.0); Alkaline Phosphatase 74 U/L (38-126); Blood Urea Nitrogen 33 mg/dl (7-17); Calcium 8.3 mg/dl (8.4-10.2); Carbon Dioxide 33 mmol/L (22-30); Chloride 103 mmol/L (98-107); Estimated Creatinine Clearance 56 ml/min; Glucose 117 mg/dl (70-99); Magnesium 2.0 mg/dl (1.6-2.3); Potassium 3.9 mmol/L (3.5-5.1); Sodium 141 mmol/L (135-145); Total Protein 5.6 g/dl (6.3-8.2); eGFR 44.79
[2025-07-11] MEDS: SYNTHROID 100 MCG PO (05:21)
--- NOTE | 2025-07-11 07:39 | PHA.VAN.FU ---
Vancomycin Assessment / Plan
- Assessment
Renal Function: SCR Decreasing
WBC's are: WNL
In the past 24 hrs, patient has been: Afebrile
Concomitant Antimicrobials: ZOSYN
- Assessment - Therapeutic Drug Monitoring
Random Level: 12.3
- Dosing Plan
Dosing by Level: Re-dose today (1500MG)
- Monitoring Plan
Random Level: 11/3 IN AM
- Follow Up
Pharmacy will continue to follow.
Vancomycin Follow UP
- -
Patient Age: 69
Patient Sex: Female
Vancomycin Day #: 2
Indication: Skin And Soft Tissue
Requesting Provider: Dr. Galo
Pertinent Antimicrobial Allergies:
nkda
Height / Weight:
Height 5 ft 5 in
Actual Weight 128.1 kg
IBW in k
- Vital Signs / Lab Results
Temp Pulse Resp BP Pulse Ox
98.1 F 67 16 118/70 98
07/11/25 03:40 07/11/25 06:00 07/11/25 06:00 07/11/25 04:01 07/11/25 06:00
Lab Results - Hematology
07/10/25 07/10/25 07/11/25
00:12 05:33 03:22
WBC 10.5 9.7 8.4
Lab Results - Chemistry
07/10/25 07/10/25 07/11/25
00:12 05:33 03:22
BUN 34 H 33 H 33 H
Creatinine 1.8 H 1.5 H 1.3 H
Estimated Creat Clear 48 56
Albumin 3.5 3.6 3.0 L
07/10/25
00:12
Lactic Acid 0.7
Microbiology Results
07/10/25 00:12 Blood Culture - Preliminary
Blood/Venous No Growth in 24 hours- Final report to follow
07/10/25 00:12 Blood Culture - Preliminary
Blood/Venous No Growth in 24 hours- Final report to follow
07/10/25 00:12 Influenza Types A & B (TRACIE) - Final
Nasal Swab Negative for Influenza A & B, NAAT
Negative results must be combined with clinical observations
and patient history.
Nucleic Acid Amplification test (NAAT)performed on the
[employer] platform.
Therapeutic Drug Monitoring
Random Vancomycin 12.3 ug/ml 07/11/25 03:22
[2025-07-11] MEDS: DUONEB 3 ML INH ×4 (07:48→18:09)
[2025-07-11] MEDS: PULMICORT 1 MG INH ×2 (07:48→18:09)
--- NOTE | 2025-07-11 08:37 | W.PN.HOSP.TC ---
Today's Communication/Plan
-
Switched to Cefazolin; Vanco and Zosyn stopped -- monitor cellulitis, monitor for any fever, monitor for any leukocytosis
BiPAP at night
See plan
Assessment / Plan
Assessment / Plan
Physical Exam
General: Other (69y F in no acute distress.)
HEENT: Normocephalic
Respiratory: Other (Decreased breath sounds througout with scattered expiratory wheezes. No focal rales / rhonchi.)
Cardiac: S1/S2 and Regular Rhythm; No Murmur
GI: Other (Obese, moderate - large umbilical hernia. Not tender. Pos BS.)
Musculoskeletal: Other (Erythema, induration and increased warmth of the RLE below the knee. No ulceration / open wounds appreciated.)
Neuro: Answers questions and follows commands. Some evident confusion
Assessment/Plan
69y F with PMH significant for chronic hypoxemic and hypercapnic respiratory failure, COPD and morbid obesity who presents to ED complaining of somnolence and fatigue. History from patient is somewhat limited due to current mental state.
However, patient herself called 911 after she notes that she was extremely fatigued and slept all day today - unable to get OOB. She states that she had a 'bug' lately and reports non-productive cough that started yesterday. She complains of pain,
redness and swelling in the RLE. She denies any other specific complaints including headache, sore throat, fevers / chills, abdominal pain, N/V/D or urinary symptoms.
Patient has audible wheezing here in the ED - though she states 'I am always like that'.
RLE Cellulitis
Sepsis secondary to the above
Acute TME secondary to the above
- Patient presented with RLE cellulitis and evidence of end-organ impairment in the form of LISA on CKD, acute TME.
- Vanco and Zosyn were previously given, now stopped. MRSA negative.
- Start Ancef on 07/11/25
- Follow fever curve, follow-up culture data. Follow for clinical improvement.
- Blood pressure now stable
LISA on CKD III
- SCr = 1.8-->1.5-->1.3 compared to known baseline of 1.1.
- Likely secondary to sepsis as noted above.
- Hold diuretic regimen, MIAN inhibitor, etc acutely.
- IVF support.
- Follow for return to baseline.
COPD with Concern for Acute Exacerbation
Chronic Hypoxemic and Hypercapnic Respiratory Failure
- She stated she has been coughing more with phlegm in the past 2-3 days prior to arrival
- Evident wheezing on exam - though patient reports this is not unusual.
- CXR without evident infiltrate / pneumonia.
- Switched to oral steroids as per pulmonary
- Albuterol PRN.
- Continue O2 support as needed (4-5 lpm at home - use least effective dose during acute stay) -- remains on 4 L here
- Continue nightly PAP therapy.
- Appreciate pulmonary
Hypomagnesemia
- IV replacement ordered with resolution of low magnesium
Abnormal Troponin
- Likely secondary to sepsis. No chest pain or reported dyspnea, etc.
- Follow to [facility].
Paroxysmal Atrial Fibrillation
- Stable. Hold antihypertensive medications acutely - resume as able, beginning with metoprolol when able
- Continue Eliquis for stroke risk reduction.
Chronic HFpEF
- Stable. Does not appear grossly volume overloaded.
- Hold diuretics given sepsis and LISA as noted above.
- Follow I/Os, daily weights, etc.
Hypothyroidism
- Continue T4 supplementation.
Anxiety / Depression
- Stable. Continue sertraline.
Morbid Obesity due to excess calories
- Affects all aspects of care.
DVT Prophylaxis: On Eliquis
Code Status: Full
Anticipated Discharge: 24 - 48 hours
Subjective/Interval History
-
Date of Service: July 11, 2025
Patient was seen and examined. She reported she was doing okay, no new symptoms or complaints.
Objective Data
-
Labs:
Laboratory Results
07/11/25
03:22
WBC 8.4
Hgb 10.7 L
Hct 35.4 L
Plt Count 233
Sodium 141
Potassium 3.9
Chloride 103
Carbon Dioxide 33 H
BUN 33 H
Creatinine 1.3 H
Glucose 117 H
Calcium 8.3 L
Total Bilirubin 0.3
AST 27
ALT 18
Alkaline Phosphatase 74
Vital Signs:
Vital Signs
Temp Pulse Resp BP Pulse Ox
98.1 F 82 18 118/70 99
07/11/25 03:40 07/11/25 07:52 07/11/25 07:52 07/11/25 04:01 07/11/25 07:52
I&O
07/10/25 07/11/25 07/12/25
06:59 05:59 06:59
Intake Total 890 / 890
Output Total 200 / 200 1000 / 1000
Balance -200 / -200 -110 / -110
[2025-07-11] MEDS: ELIQUIS 5 MG PO ×2 (08:42→20:48)
[2025-07-11] MEDS: ZOLOFT 50 MG PO (08:42)
[2025-07-11] MEDS: ZYLOPRIM 100 MG PO (08:42)
[2025-07-11] MEDS: DELTASONE 20 MG PO (08:42)
[2025-07-11] MEDS: VANCOCIN 530 MG IV (09:17)
--- NOTE | 2025-07-11 12:36 | W.PN.PUL3 ---
Today's Communication / Plan
-
Continue prednisone at 20 mg
Continue antibiotics for cellulitis
Budesonide, DuoNebs
Continue BiPAP at night
Discussed importance of compliance with pulmonary follow-up
Assessment
-
69-year-old female with history of COPD on home oxygen 4 L, hypercapnia on home BiPAP presents with change in mental status for few days, increased fatigue and right leg pain found to have right lower extremity cellulitis and wheezing on exam
Acute right lower extremity cellulitis
Fevers, leg pain
Wheezing on presentation
Do not suspect acute COPD exacerbation
Conditions present prior to admission
Severe COPD, FEV1 26%, DLCO 44%
History of recurrent COPD exacerbation last hospitalized June 2024
Chronic steroid dependent, low-dose
History of Pseudomonas bronchitis
Chronic hypercapnia, baseline pCO2 70s
Chronic hypoxia on 4 L of oxygen
[id number] history of smoking quit 2018
LUZ MARINA on BiPAP 06/13
History of heart failure
Paroxysmal A-fib on Eliquis,
Bifascicular block
History of pulm nodules, absent on CT imaging June 2024
Bronchial airway thickening
Morbid obesity
Hx of COVID-19 (December 2020),
Mild aortic stenosis
osteoporosis
Compression fractures per imaging
Plan/recommendations
At this time, patient appears to be comfortable
She denies any shortness of breath. Mild wheezing on exam
Right lower extremity with erythema and warmth
Fevers noted
Chest x-ray is unremarkable
Moving forward
I am not convinced patient is having true significant COPD exacerbation
Continue prednisone, started 20 mg over the next few days and then will decrease to 10 mg. This is her outpatient dose
However, on further questioning she states she stopped her prednisone few weeks ago
She also states she tried Dupixent in the past, felt she had a rash but did not follow-up in the office
Continue DuoNebs, budesonide
Continue BiPAP
Records suggest consideration of macrolide therapy in 2023, patient currently not on. Would not pursue at this time
Patient denies any productive cough but if this develops will obtain sputum culture. History of Pseudomonas noted
Continue antibiotics for cellulitis
Mental status appears to be improved
Patient states she is compliant with her BiPAP. This will continue
DVT prophylaxis: Eliquis
Diagnostic data:
CXR 06/29/2025: No acute findings
Chest x-ray 06/23/24-no evidence for pulmonary edema or effusions..
Chest x-ray 07/20/24-mild cardiomegaly, mild subsegmental atelectasis, chronic fracture T8
CT chest 06/27/24-comparison made to 01/25/24-no acute cardiopulmonary disease, stable 70% compression fracture T8
Echocardiogram 12/18/22-year 55-60%, mild aortic stenosis-ADA 1.2 cm
Subjective Data
-
Date of Service:
Date of Service: July 11, 2025
Subjective:
Patient continues to have intermittent wheeze, cough, chest congestion. Feels she is close to her baseline.
Objective Data
Data Reviewed
Vital Signs / I&O / Oxygen:
Vital Signs
Temp Pulse Resp BP Pulse Ox
98.1 F 78 20 118/70 98
07/11/25 03:40 07/11/25 12:00 07/11/25 12:00 07/11/25 04:01 07/11/25 12:00
Intake and Output
07/10/25 07/11/25 07/12/25
06:59 05:59 06:59
Intake Total 890 / 890 580 / 580
Output Total 200 / 200 1000 / 1000
Balance -200 / -200 -110 / -110 580 / 580
SaO2 98
Nasal Cannula flow liters per 4
minute
Physical Exam
General: Comfortable and Other (Large neck)
HEENT: Normocephalic and Anicteric
Cardiovascular: S1-S2, Regular Rhythm and Murmur (2/6 systolic murmur)
Respiratory: Wheeze (Scattered), Crackles (n), Rhonchi (few) and Non-Labored Respirations
GI: Soft, Non Distended (Obese) and Non Tender
Neurology: Awake, Alert and No Motor Deficits (Able to sit up without assistance)
Skin: Cyanosis (n), Jaundice (n) and Rash (n)
Labs/Micro/Reports
Lab Data
07/11/25 03:22
07/11/25 03:22
Microbiology
07/10/25 00:12 Blood/Venous Blood Culture - Preliminary
No Growth in 24 hours- Final report to follow
07/10/25 00:12 Blood/Venous Blood Culture - Preliminary
No Growth in 24 hours- Final report to follow
07/10/25 00:12 Nasal Swab Influenza Types A & B (TRACIE) - Final
Negative for Influenza A & B, NAAT
Negative results must be combined with clinical observations
and patient history.
Nucleic Acid Amplification test (NAAT)performed on the
[facility] platform.
[2025-07-11] MEDS: ZOSYN IV (14:38)
--- NOTE | 2025-07-11 15:19 | PTCARENOTE ---
Patient is alert and oriented, follows directions appropriately, speech is rapid at times and she does drift from topic but easily redirected. She is on 4L NC which she tells me is her baseline at home and that she wears BIPAP at HS and when she
naps. 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 Pt was to US and DVT is ruled out for RT lower extremity which is bright red, tender to touch, pedal pulses are palpable. Pt able to
moce to toes and plantar, dorsiflex. foot elevated on pillows. IVF were dc'd and pt verbalizes understanding of fluid restriction. her family did bring her in soup and she explained that they needed to take it home since she wanted to remain on our
stricter guidelines.
[2025-07-11] MEDS: ANCEF 10 IV ×2 (16:17→23:49)
[2025-07-11] MEDS: FLUSH (NSS) 2 FLUSH IV (16:18)
--- NOTE | 2025-07-11 16:35 | PTCARENOTE ---
verbal report called to receiving RN for room 317-1
[2025-07-12] VITALS (10 sets, daily range): BP systolic 125–166; BP diastolic 63–84; PULSE 2–93; O2SAT 96; BMI 48.3
[2025-07-12] MEDS: SYNTHROID 100 MCG PO (05:49)
--- NOTE | 2025-07-12 07:08 | W.PN.HOSP.TC ---
Today's Communication/Plan
-
SNF placement pending
Assessment / Plan
Assessment / Plan
Physical Exam
General: Other (69y F in no acute distress.)
HEENT: Normocephalic
Respiratory: Other (Decreased breath sounds througout with scattered expiratory wheezes. No focal rales / rhonchi.)
Cardiac: S1/S2 and Regular Rhythm; No Murmur
GI: Other (Obese, moderate - large umbilical hernia. Not tender. Pos BS.)
Musculoskeletal: Other (Erythema, induration and increased warmth of the RLE below the knee. No ulceration / open wounds appreciated.)
Neuro: Answers questions and follows commands. Some evident confusion
Assessment/Plan
69y F with PMH significant for chronic hypoxemic and hypercapnic respiratory failure, COPD and morbid obesity who presents to ED complaining of somnolence and fatigue. History from patient is somewhat limited due to current mental state.
However, patient herself called 911 after she notes that she was extremely fatigued and slept all day today - unable to get OOB. She states that she had a 'bug' lately and reports non-productive cough that started yesterday. She complains of pain,
redness and swelling in the RLE. She denies any other specific complaints including headache, sore throat, fevers / chills, abdominal pain, N/V/D or urinary symptoms.
Patient has audible wheezing here in the ED - though she states 'I am always like that'.
RLE Cellulitis
Sepsis secondary to the above
Acute TME secondary to the above
- Patient presented with RLE cellulitis and evidence of end-organ impairment in the form of LISA on CKD, acute TME.
- Vanco and Zosyn were previously given, now stopped. MRSA negative.
- Start Ancef on 07/11/25
- Follow fever curve, follow-up culture data. Follow for clinical improvement.
- Blood pressure now stable
LISA on CKD III
- SCr = 1.8-->1.5-->1.3-->1.2 compared to known baseline of 1.1.
- Likely secondary to sepsis as noted above.
- Hold diuretic regimen, MIAN inhibitor, etc acutely.
- IVF support was given
- Follow for return to baseline.
COPD with Concern for Acute Exacerbation
Chronic Hypoxemic and Hypercapnic Respiratory Failure
- She stated she has been coughing more with phlegm in the past 2-3 days prior to arrival
- Evident wheezing on exam - though patient reports this is not unusual.
- CXR without evident infiltrate / pneumonia.
- Switched to oral steroids as per pulmonary
- Albuterol PRN.
- Continue O2 support as needed (4-5 lpm at home - use least effective dose during acute stay) -- remains on 4 L here
- Continue nightly PAP therapy.
- Appreciate pulmonary
Hypomagnesemia
- IV replacement ordered with resolution of low magnesium
Abnormal Troponin
- Likely secondary to sepsis. No chest pain or reported dyspnea, etc.
- Follow to [facility].
Paroxysmal Atrial Fibrillation
- Stable. Hold antihypertensive medications acutely - resume as able, beginning with metoprolol when able
- Continue Eliquis for stroke risk reduction.
Chronic HFpEF
- Stable. Does not appear grossly volume overloaded.
- Hold diuretics given sepsis and LISA as noted above.
- Follow I/Os, daily weights, etc.
Hypothyroidism
- Continue T4 supplementation.
Anxiety / Depression
- Stable. Continue sertraline.
- Patient requested Atarax -- will resume
Chronic Pain
- Resume patient's home Tramadol per her request
Morbid Obesity due to excess calories
- Affects all aspects of care.
DVT Prophylaxis: On Eliquis
Code Status: Full
Anticipated Discharge: Within 24 hours
Subjective/Interval History
-
Date of Service: July 12, 2025
Patient was seen and examined. She reported feeling okay, denied any new symptoms or complaints.
Objective Data
-
Labs:
Laboratory Results
07/12/25
06:00
WBC Pending
Hgb Pending
Hct Pending
Plt Count Pending
Sodium Pending
Potassium Pending
Chloride Pending
Carbon Dioxide Pending
BUN Pending
Creatinine Pending
Glucose Pending
Calcium Pending
Total Bilirubin Pending
AST Pending
ALT Pending
Alkaline Phosphatase Pending
Vital Signs:
Vital Signs
Temp Pulse Resp BP Pulse Ox
97.1 F 84 18 166/81 93
07/12/25 03:00 07/12/25 03:00 07/12/25 03:00 07/12/25 03:00 07/12/25 03:00
I&O
07/11/25 07/12/25 07/13/25
05:59 06:59 06:59
Intake Total 890 / 890 2280 / 2280
Output Total 1000 / 1000 375 / 375
Balance -110 / -110 1905 / 1905
--- NOTE | 2025-07-12 07:11 | PTCARENOTE ---
Weight was not obtained on patient because she is ordered for bed scale and the current bed she is in does not have a scale on it.
[2025-07-12] MEDS: DUONEB 3 ML INH ×4 (07:20→19:26)
[2025-07-12] MEDS: PULMICORT 1 MG INH ×2 (07:20→19:27)
[2025-07-12 07:40] LABS: Hematocrit 36.6 % (37.0-47.0); Hemoglobin 10.8 g/dL (12.0-16.0); Mean Corp Hgb Conc. 29.5 g/dL (33.0-37.0); Mean Corpuscular Volume 91.3 fL (81.0-99.0); Nucleated Red Blood Cells % 0 %; Platelet Count 296 10^3/uL (130-400); Red Cell Dist. Width 16.1 % (11.5-14.5)
[2025-07-12 08:05] LABS: ALT (SGPT) 15 U/L (0-35); AST (SGOT) 23 U/L (14-36); Albumin 3.4 g/dl (3.5-5.0); Alkaline Phosphatase 78 U/L (38-126); Blood Urea Nitrogen 24 mg/dl (7-17); Calcium 8.7 mg/dl (8.4-10.2); Carbon Dioxide 35 mmol/L (22-30); Chloride 104 mmol/L (98-107); Estimated Creatinine Clearance 61 ml/min; Glucose 86 mg/dl (70-99); Magnesium 1.9 mg/dl (1.6-2.3); Potassium 3.5 mmol/L (3.5-5.1); Sodium 140 mmol/L (135-145); Total Protein 6.0 g/dl (6.3-8.2); eGFR 49.31
[2025-07-12] MEDS: ZYLOPRIM 100 MG PO (08:26)
[2025-07-12] MEDS: ELIQUIS 5 MG PO ×2 (08:26→20:06)
[2025-07-12] MEDS: ZOLOFT 50 MG PO (08:26)
[2025-07-12] MEDS: DELTASONE 20 MG PO (08:26)
[2025-07-12] MEDS: ANCEF 10 IV ×3 (08:26→23:33)
--- NOTE | 2025-07-12 11:46 | CM ---
Addendum entered by Gabbi Glass 07/12/25 16:41:
PT recommending home with home care, had [facility] in the past and would like to have them again. referral in [facility].
Original Note:
Patient seen bedside.
PT eval (P), but patient feels she may require skilled rehab.
Facilities discussed would like referrals to [facility], [facility], [facility] and [facility].
Patient with Oxygen via [facility] typically on 4 liters at home has home bipap from [facility].
Await PT recommendations, if skilled is indicated will send referrals.
Plan: possible skilled rehab needs.
--- NOTE | 2025-07-12 13:55 | W.PN.PUL3 ---
Today's Communication / Plan
-
Continue nebulized therapy
Continue oxygen supplementation-baseline
Decreased prednisone to 10 mg and continue for additional 4 days
Antibiotics for cellulitis will continue
Continue nocturnal BiPAP
Assessment
-
69-year-old female with history of COPD on home oxygen 4 L, hypercapnia on home BiPAP presents with change in mental status for few days, increased fatigue and right leg pain found to have right lower extremity cellulitis and wheezing on exam
Wheezing on presentation
Do not suspect acute COPD exacerbation
Acute right lower extremity cellulitis
Fevers, leg pain
Conditions present prior to admission
Severe COPD, FEV1 26%, DLCO 44%
History of recurrent COPD exacerbation last hospitalized June 2024
On maximal nebulized therapy: Budesonide/DuoNeb.
Tried Ohtuvary without improvenet
Tried Dupixant --rash and no improvement.
Used low dose macrolide therapy for some time.
Referred in the past to [facility] but never followed through.
Chronic steroid dependent, low-dose
History of Pseudomonas bronchitis
Chronic hypercapnia, baseline pCO2 70s
Chronic hypoxia on 4 L of oxygen
69-[id number]-zuic history of smoking quit 2018
LUZ MARINA on BiPAP 06/13
History of heart failure
Paroxysmal A-fib on Eliquis,
Bifascicular block
History of pulm nodules, absent on CT imaging June 2024
Bronchial airway thickening
Morbid obesity
Hx of COVID-19 (December 2020),
Mild aortic stenosis
osteoporosis
Compression fractures per imaging
Plan/recommendations
From the pulmonary perspective: At this time, patient appears to be comfortable
She denies any shortness of breath.
Mild wheezing on exam
Chest x-ray is unremarkable
I am not convinced patient is having true significant COPD exacerbation.
Continue prednisone, decrease to 10 mg 07/12/2025 and continue for additional 4 days.
She also states she tried Dupixent in the past, felt she had a rash but did not follow-up in the office patient used for a few months and discontinue also-due to lack of improvement in shortness of breath.
Continue on current therapy:
Continue DuoNebs, budesonide (same as prior admission)
Continue BiPAP
Records suggest consideration of macrolide therapy in 2023, patient currently not on. Would not pursue at this time.
Patient denies any productive cough but if this develops will obtain sputum culture. History of Pseudomonas noted
Continue antibiotics for cellulitis
Mental status back to baseline per
-
Compensated chronic hypercapnic respiratory failure:
Patient states she is compliant with her BiPAP.
This will continue
Patient does have chronic shortness of breath despite maximal COPD therapy.
This is multifactorial including chronic back pain and orthopedic impairment/morbid obesity and deconditioning.
-
For shortness of breath weight loss may be beneficial. She may be a candidate for GLP-1 agonist.
-
DVT prophylaxis: Eliquis
-
Follow-up with Dr. Harper after discharge
Diagnostic data:
CXR 06/29/2025: No acute findings
Chest x-ray 06/23/24-no evidence for pulmonary edema or effusions..
Chest x-ray 07/20/24-mild cardiomegaly, mild subsegmental atelectasis, chronic fracture T8
CT chest 06/27/24-comparison made to 01/25/24-no acute cardiopulmonary disease, stable 70% compression fracture T8
Echocardiogram 12/18/22-year 55-60%, mild aortic stenosis-ADA 1.2 cm
Subjective Data
-
Date of Service:
Date of Service: July 12, 2025
Chief Complaint: Pulmonary Follow Up (Bronchospasm)
Review of Systems
General: Fever (n)
Cardiopulmonary: Dyspnea (n), Sputum Production and Orthopnea (n)
Objective Data
Data Reviewed
Vital Signs / I&O / Oxygen:
Vital Signs
Temp Pulse Resp BP Pulse Ox
98.3 F 71 16 152/78 96
07/12/25 11:00 07/12/25 11:42 07/12/25 11:42 07/12/25 11:00 07/12/25 11:42
Intake and Output
07/11/25 07/12/25 07/13/25
05:59 06:59 06:59
Intake Total 890 / 890 2280 / 2280
Output Total 1000 / 1000 375 / 375
Balance -110 / -110 1905 / 1905
SaO2 96
Nasal Cannula flow liters per 4
minute
Physical Exam
General: Comfortable and Other (Large neck)
HEENT: Normocephalic and Anicteric
Cardiovascular: S1-S2, Regular Rhythm and Murmur (2/6 systolic murmur)
Respiratory: Wheeze (Scattered), Crackles (n), Rhonchi (few) and Non-Labored Respirations
GI: Soft, Non Distended (Obese) and Non Tender
Neurology: Awake, Alert and No Motor Deficits (Able to sit up without assistance)
Skin: Cyanosis (n), Jaundice (n) and Rash (n)
Labs/Micro/Reports
Lab Data
07/12/25 07:09
07/12/25 07:09
Microbiology
07/10/25 00:12 Blood/Venous Blood Culture - Preliminary
No Growth in 48 hours- Final report to follow
07/10/25 00:12 Blood/Venous Blood Culture - Preliminary
No Growth in 48 hours- Final report to follow
07/10/25 10:11 Nose MRSA Screen - Final
No Methicillin Resistant Staphylococcus aureus isolated.
07/10/25 00:12 Nasal Swab Influenza Types A & B (TRACIE) - Final
Negative for Influenza A & B, NAAT
Negative results must be combined with clinical observations
and patient history.
Nucleic Acid Amplification test (NAAT)performed on the
[employer] platform.
[2025-07-12] MEDS: FLUSH (NSS) 1 FLUSH IV (15:45)
[2025-07-12] MEDS: ULTRAM 50 MG PO (17:00)
[2025-07-12] MEDS: ATARAX 25 MG PO (20:06)
[2025-07-13] VITALS (9 sets, daily range): BP systolic 127–153; BP diastolic 64–82; PULSE 2–78; BMI 48.1
[2025-07-13] MEDS: SYNTHROID 100 MCG PO (05:16)
[2025-07-13] MEDS: PULMICORT 1 MG INH ×2 (07:23→20:14)
[2025-07-13] MEDS: DUONEB 3 ML INH ×4 (07:23→20:14)
[2025-07-13 07:29] LABS: Hematocrit 36.3 % (37.0-47.0); Hemoglobin 10.5 g/dL (12.0-16.0); Mean Corp Hgb Conc. 28.9 g/dL (33.0-37.0); Mean Corpuscular Volume 93.3 fL (81.0-99.0); Nucleated Red Blood Cells % 0 %; Platelet Count 280 10^3/uL (130-400); Red Cell Dist. Width 16.3 % (11.5-14.5)
[2025-07-13 08:01] LABS: ALT (SGPT) < 10 U/L (0-35); AST (SGOT) 23 U/L (14-36); Albumin 3.2 g/dl (3.5-5.0); Alkaline Phosphatase 73 U/L (38-126); Blood Urea Nitrogen 20 mg/dl (7-17); Calcium 8.5 mg/dl (8.4-10.2); Carbon Dioxide 34 mmol/L (22-30); Chloride 105 mmol/L (98-107); Estimated Creatinine Clearance 74 ml/min; Glucose 87 mg/dl (70-99); Potassium 3.9 mmol/L (3.5-5.1); Sodium 142 mmol/L (135-145); Total Protein 5.7 g/dl (6.3-8.2); eGFR > 60.00
[2025-07-13] MEDS: ANCEF 10 IV ×2 (08:23→16:25)
[2025-07-13] MEDS: DELTASONE 10 MG PO (08:24)
[2025-07-13] MEDS: ELIQUIS 5 MG PO ×2 (08:24→20:41)
[2025-07-13] MEDS: ATARAX 25 MG PO ×2 (08:24→20:41)
[2025-07-13] MEDS: ZOLOFT 50 MG PO (08:24)
[2025-07-13] MEDS: ZYLOPRIM 100 MG PO (08:24)
[2025-07-13] MEDS: TOPROL XL 25 MG PO (08:24)
--- NOTE | 2025-07-13 10:32 | W.PN.HOSP.TC ---
Today's Communication/Plan
-
Discharge today
Assessment / Plan
Assessment / Plan
Physical Exam
General: Not in acute distress
HEENT: Normocephalic
Respiratory: Decreased breath sounds throughout with scattered expiratory wheezes. Faint Rhonchi.
Cardiac: S1/S2 and Regular Rhythm
GI: Other (Obese, moderate - large umbilical hernia. Not tender. Pos BS.)
Musculoskeletal: Other (Erythema, induration and increased warmth of the RLE below the knee. No ulceration / open wounds appreciated.)
Neuro: Answers questions and follows commands. Some evident confusion
Assessment/Plan
69 y/o female with past medical history significant for chronic hypoxemic and hypercapnic respiratory failure, COPD and morbid obesity who presented to [facility] ED complaining of somnolence and fatigue. History from patient is somewhat limited due to
current mental state. However, patient herself called 911 after she noted that she was extremely fatigued and slept all day - unable to get out of bed. She stated that she had a 'bug' lately and reported non-productive cough that started the day
before presentation. She complained of pain, redness and swelling in the right lower extremity. She denied any other specific complaints including headache, sore throat, fevers / chills, abdominal pain, N/V/D or urinary symptoms.
Patient had audible wheezing here in the ED - though she states 'I am always like that'.
RLE Cellulitis
Sepsis secondary to the above
Acute TME secondary to the above - RESOLVED
- Patient presented with RLE cellulitis and evidence of end-organ impairment in the form of LISA on CKD, acute TME.
- Vanco and Zosyn were previously given, now stopped. MRSA negative.
- Started Ancef on 07/11/25 -- have been seeing good clinical response with Ancef from 07/11-07/13, on discharge, switch to Keflex 500 mg QID through 07/23/25
- Lower extremity elevation as much as possible and lower extremity MIAN wrap/Tubigrip from foot to above knee
- Follow fever curve, follow-up culture data. Follow for clinical improvement.
- Blood pressure now stable
LISA on CKD III
- SCr = 1.8-->1.5-->1.3-->1.2-->1.0 compared to known baseline of 1.1.
- Likely secondary to sepsis as noted above.
- Hold diuretic regimen, MIAN inhibitor, etc acutely. --> resume outpatient
- IVF support was given
- Follow for return to baseline.
COPD with Concern for Acute Exacerbation
Chronic Hypoxemic and Hypercapnic Respiratory Failure
- She stated she has been coughing more with phlegm in the past 2-3 days prior to arrival
- Evident wheezing on exam - though patient reports this is not unusual.
- CXR without evident infiltrate / pneumonia.
- Switched to oral steroids as per pulmonary -- continue Prednisone 10 mg daily through 07/16/25
- Albuterol PRN.
- Continue O2 support as needed (4-5 lpm at home - use least effective dose during acute stay) -- remains on 4 L here
- Continue DuoNebs, Budesonide (same as prior admission)
- Continue nightly BiPAP therapy.
- Appreciate pulmonary
Hypomagnesemia
- IV replacement ordered with resolution of low magnesium
Abnormal Troponin
- Likely secondary to sepsis. No chest pain or reported dyspnea, etc.
- Follow to [facility].
Paroxysmal Atrial Fibrillation
- Stable. Continue Toprol XL.
- Continue Eliquis for stroke risk reduction.
Chronic HFpEF
- Stable. Does not appear grossly volume overloaded.
- Hold diuretics given sepsis and LISA as noted above.
- Follow I/Os, daily weights, etc.
Hypothyroidism
- Continue T4 supplementation.
Anxiety / Depression
- Stable. Continue sertraline.
- Patient requested Atarax -- will resume
Chronic Pain
- Resume patient's home Tramadol per her request
Morbid Obesity due to excess calories
- Affects all aspects of care.
DVT Prophylaxis: On Eliquis
Code Status: Full Code
More than 30 minutes spent in discharge including
Final examination of the patient
Summarizing hospital stay
Instructions for continuing care to all relevant caregivers
Preparation of discharge records, prescriptions, and referral forms
Total time spent (in minutes): 38
Anticipated Discharge: Today
Subjective/Interval History
-
Date of Service: July 13, 2025
Patient was seen and examined. She reported she is feeling good, she said her redness in her leg feels better, she feels ready to go home today.
Objective Data
-
Labs:
Laboratory Results
07/13/25
06:51
WBC 6.0
Hgb 10.5 L
Hct 36.3 L
Plt Count 280
Sodium 142
Potassium 3.9
Chloride 105
Carbon Dioxide 34 H
BUN 20 H
Creatinine 1.0
Glucose 87
Calcium 8.5
Total Bilirubin 0.3
AST 23
ALT < 10
Alkaline Phosphatase 73
Vital Signs:
Vital Signs
Temp Pulse Resp BP Pulse Ox
98.2 F 71 20 153/82 100
07/13/25 07:40 07/13/25 07:40 07/13/25 07:40 07/13/25 07:40 07/13/25 07:40
I&O
07/12/25 07/13/25 07/14/25
06:59 06:59 06:59
Intake Total 2280 / 2280 1340 / 1340
Output Total 375 / 375
Balance 1905 / 1905 1340 / 1340
--- NOTE | 2025-07-13 10:50 | VNURNOTE ---
Chart reviewed. Rec'ed info from [facility] Intake that pt will need to see PCP for follow up appt prior to [facility] starting services. Liaison met with pt at bedside. Informed her of above. She verbalized understanding. She is familiar w/ [facility]
services, homebound status, and frequency. However, she thought she was going to SNF.
Will wait final DC dispo.
[facility] referral accepted in [facility].
[2025-07-13 11:40] LABS: Macrocytosis 1+; Normal RBC Morphology No; Stomatocytes 1+; Target Cells 1+
--- NOTE | 2025-07-13 12:36 | PN.CDI ---
CDI
- -
CDI:
Physician Documentation Request
Admit Date: 07/10/25 03:46
Dear Doctor,
Patient admitted for sepsis.
07/12 Hospitalist PN: 'Abnormal Troponin - Likely secondary to sepsis. No chest pain or reported dyspnea, etc. - Follow to [facility].'
Laboratory Tests
07/10/25 07/10/25
00:12 05:33
Troponin I 0.045 H* 0.042 H*
Please clarify the following regarding the documented troponin elevation:
Nonischemic myocardial injury
Lab abnormality
Other
Use of terms such as suspected, likely, concern for, or probable (associated with a specific diagnosis that is being evaluated, monitored, or treated as if it exists) are acceptable and can be coded in the inpatient setting, when documented at the
time of discharge.
Thank you,
Emilee Marin RN, BSN
CDI Specialist
Available via [place] text
Please use your independent medical judgment in providing your response.
--- NOTE | 2025-07-13 13:23 | CM ---
Addendum entered by Evelyn Cantu 07/13/25 15:04:
Therapy spoke with patient and confirmed recommendation is for home health. CM spoke with patient daughter who stated that patient really improved her mood after last SNF stay but seemed more depressed and refusing to move around at this time. CM
sent referrals to SNF options and await response. Patient daughter stated that she would pickle cutter mother if SNF options declined to accept. Patient given IMM and CM reviewed with patient. CM will continue to follow for discharge planning needs.
Plan; SNF vs home with VN; pending acceptances
Original Note:
Patient seen [facility]. Patient insisting she wants to go to SNF. Therapy indicated [facility] and Liaison accepted for [facility] to follow. Patient wants placement in SNF. CM called to therapy for updated review and will update physician. IMM
provided and reviewed with patient. CM will continue to follow for discharge planning needs.
Plan; home with [facility] vs SNF; pending updated therapy assessment
--- NOTE | 2025-07-13 13:27 | W.PN.UPDATE ---
Update Note
Progress Note Update
Per casework manager: Patient refusing to go home with [facility] and insisted on going to SNF, PT/OT to evaluate to see if patient qualifies for SNF.
--- NOTE | 2025-07-13 14:52 | W.PN.HOSP.TC ---
Today's Communication/Plan
-
Discharge today
Assessment / Plan
Assessment / Plan
Physical Exam
General: Not in acute distress
HEENT: Normocephalic
Respiratory: Decreased breath sounds throughout with scattered expiratory wheezes. Faint Rhonchi.
Cardiac: S1/S2 and Regular Rhythm
GI: Other (Obese, moderate - large umbilical hernia. Not tender. Positive Bowel Sounds.)
Musculoskeletal: Other (Erythema, induration and increased warmth of the RLE below the knee. No ulceration / open wounds appreciated.)
Neuro: Answers questions and follows commands. Some evident confusion
Assessment/Plan
69 y/o female with past medical history significant for chronic hypoxemic and hypercapnic respiratory failure, COPD and morbid obesity who presented to [facility] ED complaining of somnolence and fatigue. History from patient is somewhat limited due to
current mental state. However, patient herself called 911 after she noted that she was extremely fatigued and slept all day - unable to get out of bed. She stated that she had a 'bug' lately and reported non-productive cough that started the day
before presentation. She complained of pain, redness and swelling in the right lower extremity. She denied any other specific complaints including headache, sore throat, fevers / chills, abdominal pain, N/V/D or urinary symptoms.
Patient had audible wheezing here in the ED - though she states 'I am always like that'.
RLE Cellulitis
Sepsis secondary to the above
Acute TME secondary to the above - RESOLVED
- Patient presented with RLE cellulitis and evidence of end-organ impairment in the form of LISA on CKD, acute TME.
- Vanco and Zosyn were previously given, now stopped. MRSA negative.
- Started Ancef on 07/11/25 -- have been seeing good clinical response with Ancef from 07/11-07/13, on discharge, switch to Keflex 500 mg QID through 07/23/25
- Lower extremity elevation as much as possible and lower extremity MIAN wrap/Tubigrip from foot to above knee
- Follow fever curve, follow-up culture data. Follow for clinical improvement.
- Blood pressure now stable
LISA on CKD III
- SCr = 1.8-->1.5-->1.3-->1.2-->1.0 compared to known baseline of 1.1.
- Likely secondary to sepsis as noted above.
- Hold diuretic regimen, MIAN inhibitor, etc acutely. --> resume outpatient
- IVF support was given
- Follow for return to baseline.
COPD with Concern for Acute Exacerbation
Chronic Hypoxemic and Hypercapnic Respiratory Failure
- She stated she has been coughing more with phlegm in the past 2-3 days prior to arrival
- Evident wheezing on exam - though patient reports this is not unusual.
- CXR without evident infiltrate / pneumonia.
- Switched to oral steroids as per pulmonary -- continue Prednisone 10 mg daily through 07/16/25
- Albuterol PRN.
- Continue O2 support as needed (4-5 lpm at home - use least effective dose during acute stay) -- remains on 4 L here
- Continue DuoNebs, Budesonide (same as prior admission)
- Continue nightly BiPAP therapy.
- Appreciate pulmonary
Nonischemic myocardial injury
Hypomagnesemia
- IV replacement ordered with resolution of low magnesium
Abnormal Troponin
- Likely secondary to sepsis. No chest pain or reported dyspnea, etc.
- Follow to [facility].
Paroxysmal Atrial Fibrillation
- Stable. Continue Toprol XL.
- Continue Eliquis for stroke risk reduction.
Chronic HFpEF
- Stable. Does not appear grossly volume overloaded.
- Hold diuretics given sepsis and LISA as noted above.
- Follow I/Os, daily weights, etc.
Hypothyroidism
- Continue T4 supplementation.
Anxiety / Depression
- Stable. Continue sertraline.
- Patient requested Atarax -- will resume
Chronic Pain
- Resume patient's home Tramadol per her request
Morbid Obesity due to excess calories
- Affects all aspects of care.
DVT Prophylaxis: On Eliquis
Code Status: Full Code
More than 30 minutes spent in discharge including
Final examination of the patient
Summarizing hospital stay
Instructions for continuing care to all relevant caregivers
Preparation of discharge records, prescriptions, and referral forms
Total time spent (in minutes): 35
Anticipated Discharge: Today
Subjective/Interval History
-
Date of Service: July 13, 2025
Patient was seen and examined. She reported that she is doing better, her leg redness is getting better, she denied fever or any other new symptoms or complaints.
Objective Data
-
Labs:
Laboratory Results
07/13/25
06:51
WBC 6.0
Hgb 10.5 L
Hct 36.3 L
Plt Count 280
Sodium 142
Potassium 3.9
Chloride 105
Carbon Dioxide 34 H
BUN 20 H
Creatinine 1.0
Glucose 87
Calcium 8.5
Total Bilirubin 0.3
AST 23
ALT < 10
Alkaline Phosphatase 73
Vital Signs:
Vital Signs
Temp Pulse Resp BP Pulse Ox
98 F 66 16 149/65 95
07/13/25 11:24 07/13/25 11:24 07/13/25 11:24 07/13/25 11:24 07/13/25 11:39
I&O
07/12/25 07/13/25 07/14/25
06:59 06:59 06:59
Intake Total 2280 / 2280 1340 / 1340
Output Total 375 / 375
Balance 1905 / 1905 1340 / 1340
--- NOTE | 2025-07-13 15:28 | W.PN.PUL3 ---
Today's Communication / Plan
-
continue current care from the pulmonary perspective
Outpatient pulmonary follow-up with Dr. Harper
Continue nocturnal BiPAP
Discharge planning
Site of
Assessment
-
69-year-old female with history of COPD on home oxygen 4 L, hypercapnia on home BiPAP presents with change in mental status for few days, increased fatigue and right leg pain found to have right lower extremity cellulitis and wheezing on exam
Wheezing on presentation
Do not suspect acute COPD exacerbation
Acute right lower extremity cellulitis
Fevers, leg pain
Conditions present prior to admission
Severe COPD, FEV1 26%, DLCO 44%
History of recurrent COPD exacerbation last hospitalized June 2024
On maximal nebulized therapy: Budesonide/DuoNeb.
Tried Ohtuvary without improvenet
Tried Dupixant --rash and no improvement.
Used low dose macrolide therapy for some time.
Referred in the past to [facility] but never followed through.
Chronic steroid dependent, low-dose
History of Pseudomonas bronchitis
Chronic hypercapnia, baseline pCO2 70s
Chronic hypoxia on 4 L of oxygen
[id number] history of smoking quit 2018
LUZ MARINA on BiPAP 06/13
History of heart failure
Paroxysmal A-fib on Eliquis,
Bifascicular block
History of pulm nodules, absent on CT imaging June 2024
Bronchial airway thickening
Morbid obesity
Hx of COVID-19 (December 2020),
Mild aortic stenosis
osteoporosis
Compression fractures per imaging
Plan/recommendations
From the pulmonary perspective: at baseline.
She denies any shortness of breath At , she has chronic exertional dyspnea that is multifactorial.
significant bronchospasm and 07/13/2025.
Chest x-ray is unremarkable
No evidence for acute exacerbation of COPD.
Continue prednisone, decrease to 10 mg 07/12/2025 and continue for additional 3days.
She also states she tried Dupixent in the past, felt she had a rash but did not follow-up in the office patient used for a few months and discontinue also-due to lack of improvement in shortness of breath.
Continue on current therapy:
Continue DuoNebs, budesonide (same as prior admission)
Continue BiPAP
Records suggest consideration of macrolide therapy in 2023, patient currently not on. Would not pursue at this time.
Patient denies any productive cough but if this develops will obtain sputum culture. History of Pseudomonas noted
Continue antibiotics for cellulitis
Mental status back to baseline.
-
Compensated chronic hypercapnic respiratory failure:
Patient states she is compliant with her BiPAP.
This will continue
Patient does have chronic shortness of breath despite maximal COPD therapy.
This is multifactorial including chronic back pain and orthopedic impairment/morbid obesity and deconditioning.
-
For shortness of breath weight loss may be beneficial. She may be a candidate for GLP-1 agonist.
-
DVT prophylaxis: Eliquis
-
Follow-up with Dr. Harper after discharge
-
Okay to switch her from my perspective.
Sign off
Diagnostic data:
CXR 06/29/2025: No acute findings
Chest x-ray 06/23/24-no evidence for pulmonary edema or effusions..
Chest x-ray 07/20/24-mild cardiomegaly, mild subsegmental atelectasis, chronic fracture T8
CT chest 06/27/24-comparison made to 01/25/24-no acute cardiopulmonary disease, stable 70% compression fracture T8
Echocardiogram 12/18/22-year 55-60%, mild aortic stenosis-ADA 1.2 cm
Subjective Data
-
Date of Service:
Date of Service: July 13, 2025
Chief Complaint: Pulmonary Follow Up (Bronchospasm)
Subjective:
denies any new pulmonary complaints
Tolerating nocturnal BiPAP
Review of Systems
Cardiopulmonary: Dyspnea ( chronic), Cough (n), Sputum Production (n) and Wheezing (n)
Objective Data
Data Reviewed
Vital Signs / I&O / Oxygen:
Vital Signs
Temp Pulse Resp BP Pulse Ox
98 F 66 16 149/65 95
07/13/25 11:24 07/13/25 11:24 07/13/25 11:24 07/13/25 11:24 07/13/25 11:39
Intake and Output
07/12/25 07/13/25 07/14/25
06:59 06:59 06:59
Intake Total 2280 / 2280 1340 / 1340
Output Total 375 / 375
Balance 1905 / 1905 1340 / 1340
SaO2 95
Nasal Cannula flow liters per 4
minute
Physical Exam
General: Comfortable and Other (Large neck)
HEENT: Normocephalic and Anicteric
Cardiovascular: S1-S2, Regular Rhythm and Murmur (2/6 systolic murmur)
Respiratory: Wheeze (Scattered), Crackles (n), Rhonchi (few) and Non-Labored Respirations
GI: Soft, Non Distended (Obese) and Non Tender
Neurology: Awake, Alert and No Motor Deficits (Able to sit up without assistance)
Skin: Cyanosis (n), Jaundice (n) and Rash (n)
Labs/Micro/Reports
Lab Data
07/13/25 06:51
07/13/25 06:51
Microbiology
07/10/25 00:12 Blood/Venous Blood Culture - Preliminary
No Growth in 72 hours- Final report to follow
07/10/25 00:12 Blood/Venous Blood Culture - Preliminary
No Growth in 72 hours- Final report to follow
07/10/25 10:11 Nose MRSA Screen - Final
No Methicillin Resistant Staphylococcus aureus isolated.
[2025-07-14] MEDS: ANCEF 10 IV ×3 (00:06→16:05)
[2025-07-14 03:00] VITALS: BP 117/75
[2025-07-14 04:55] VITALS: BMI 48.4
[2025-07-14] MEDS: SYNTHROID 100 MCG PO (05:51)
[2025-07-14 07:00] VITALS: BP 144/90
[2025-07-14] MEDS: PULMICORT 1 MG INH ×2 (07:17→19:14)
[2025-07-14] MEDS: DUONEB 3 ML INH ×4 (07:17→19:13)
[2025-07-14] MEDS: ATARAX 25 MG PO (07:39)
[2025-07-14] MEDS: DELTASONE 10 MG PO (07:39)
[2025-07-14] MEDS: ELIQUIS 5 MG PO (07:40)
[2025-07-14] MEDS: ZYLOPRIM 100 MG PO (07:40)
[2025-07-14] MEDS: ZOLOFT 50 MG PO (07:40)
[2025-07-14] MEDS: TOPROL XL 25 MG PO (07:40)
[2025-07-14 11:00] VITALS: BP 129/82
[2025-07-14 15:00] VITALS: BP 156/78
[2025-07-14 15:42] LABS: COVID-19 Antigen Negative (Negative)
--- NOTE | 2025-07-14 15:49 | CM ---
CM met with Janette who is agreeable to transfer to SNF. She has been accepted to [facility] today. Covid test requested; pt is negative for covid.
IMM reviewed and signed by Janette. Ambulance transport being arranged for admission to [facility].
[facility] Report: [phone]
[facility]
--- NOTE | 2025-07-14 15:53 | W.PN.HOSP.TC ---
Today's Communication/Plan
-
Discharge today
Assessment / Plan
Assessment / Plan
Physical Exam
General: Not in acute distress
HEENT: Normocephalic
Respiratory: Decreased breath sounds throughout with scattered expiratory wheezes. Faint Rhonchi.
Cardiac: S1/S2 and Regular Rhythm
GI: Other (Obese, moderate - large umbilical hernia. Not tender. Positive Bowel Sounds.)
Musculoskeletal: Other (Erythema, induration and increased warmth of the RLE below the knee. No ulceration / open wounds appreciated.)
Neuro: Answers questions and follows commands. Some evident confusion
Assessment/Plan
69 y/o female with past medical history significant for chronic hypoxemic and hypercapnic respiratory failure, COPD and morbid obesity who presented to [facility] ED complaining of somnolence and fatigue. History from patient is somewhat limited due to
current mental state. However, patient herself called 911 after she noted that she was extremely fatigued and slept all day - unable to get out of bed. She stated that she had a 'bug' lately and reported non-productive cough that started the day
before presentation. She complained of pain, redness and swelling in the right lower extremity. She denied any other specific complaints including headache, sore throat, fevers / chills, abdominal pain, N/V/D or urinary symptoms.
Patient had audible wheezing here in the ED - though she states 'I am always like that'.
RLE Cellulitis
Sepsis secondary to the above
Acute TME secondary to the above - RESOLVED
- Patient presented with RLE cellulitis and evidence of end-organ impairment in the form of LISA on CKD, acute TME.
- Vanco and Zosyn were previously given, now stopped. MRSA negative.
- Started Ancef on 07/11/25 -- have been seeing good clinical response with Ancef from 07/11-07/13, on discharge, switch to Keflex 500 mg QID through 07/23/25
- Lower extremity elevation as much as possible and lower extremity MIAN wrap/Tubigrip from foot to above knee
- Follow fever curve, follow-up culture data. Follow for clinical improvement.
- Blood pressure now stable
LISA on CKD III
- SCr = 1.8-->1.5-->1.3-->1.2-->1.0 compared to known baseline of 1.1.
- Likely secondary to sepsis as noted above.
- Hold diuretic regimen, MIAN inhibitor, etc acutely. --> resume outpatient
- IVF support was given
- Follow for return to baseline.
COPD with Concern for Acute Exacerbation
Chronic Hypoxemic and Hypercapnic Respiratory Failure
- She stated she has been coughing more with phlegm in the past 2-3 days prior to arrival
- Evident wheezing on exam - though patient reports this is not unusual.
- CXR without evident infiltrate / pneumonia.
- Switched to oral steroids as per pulmonary -- continue Prednisone 10 mg daily through 07/16/25
- Albuterol PRN.
- Continue O2 support as needed (4-5 lpm at home - use least effective dose during acute stay) -- remains on 4 L here
- Continue DuoNebs, Budesonide (same as prior admission)
- Continue nightly BiPAP therapy.
- Appreciate pulmonary
Nonischemic myocardial injury
Hypomagnesemia
- IV replacement ordered with resolution of low magnesium
Abnormal Troponin
- Likely secondary to sepsis. No chest pain or reported dyspnea, etc.
- Follow to [facility].
Paroxysmal Atrial Fibrillation
- Stable. Continue Toprol XL.
- Continue Eliquis for stroke risk reduction.
Chronic HFpEF
- Stable. Does not appear grossly volume overloaded.
- Hold diuretics given sepsis and LISA as noted above.
- Follow I/Os, daily weights, etc.
Hypothyroidism
- Continue T4 supplementation.
Anxiety / Depression
- Stable. Continue sertraline.
- Patient requested Atarax -- will resume
Chronic Pain
- Resume patient's home Tramadol per her request
Morbid Obesity due to excess calories
- Affects all aspects of care.
DVT Prophylaxis: On Eliquis
Code Status: Full Code
More than 30 minutes spent in discharge including
Final examination of the patient
Summarizing hospital stay
Instructions for continuing care to all relevant caregivers
Preparation of discharge records, prescriptions, and referral forms
Total time spent (in minutes): 35
Anticipated Discharge: Today
Subjective/Interval History
-
Date of Service: July 14, 2025
Patient was seen and examined. She reported feeling much better, she would like to go to SNF as soon as possible.
Objective Data
-
Vital Signs:
Vital Signs
Temp Pulse Resp BP Pulse Ox
98.0 F 65 18 156/78 97
07/14/25 15:00 07/14/25 15:39 07/14/25 15:39 07/14/25 15:00 07/14/25 15:39
I&O
07/13/25 07/14/25 07/15/25
06:59 06:59 06:59
Intake Total 1340 / 1340 1320 / 1320
Balance 1340 / 1340 1320 / 1320
[2025-07-14 18:35] VITALS: BP 151/84
[2025-07-14 20:15] VITALS: BP 146/82
== END 2025-07-14 20:38 | DRG 871 ==
LOC: 3 WEST ACU 03:46
PROVIDERS: ADMITTING PHYSICIAN Hospitalist; ATTENDING PHYSICIAN Hospitalist; CONSULT PHYSICIAN Internal Medicine Critical Care Medicine; EMERGENCY PHYSICIAN Emergency Medicine
PROC: 5A09357 Assistance with Respiratory Ventilation, Less than 24 Consecutive Hours, Continuous Positive Airway Pressure (ICD-10-PCS; 2025-07-10)
DX: A41.9 Sepsis, unspecified organism (principal); G92.8 Other toxic encephalopathy; J44.1 Chronic obstructive pulmonary disease with (acute) exacerbation; L03.115 Cellulitis of right lower limb; I45.2 Bifascicular block; N17.9 Acute kidney failure, unspecified; I13.0 Hypertensive heart and chronic kidney disease with heart failure and stage 1 through stage 4 chronic kidney disease, or unspecified chronic kidney disease; I50.32 Chronic diastolic (congestive) heart failure; Z68.42 Body mass index [BMI] 45.0-49.9, adult; J96.11 Chronic respiratory failure with hypoxia; J96.12 Chronic respiratory failure with hypercapnia; I5A Non-ischemic myocardial injury (non-traumatic); E83.42 Hypomagnesemia; G47.33 Obstructive sleep apnea (adult) (pediatric); R65.20 Severe sepsis without septic shock; N18.30 Chronic kidney disease, stage 3 unspecified; I48.0 Paroxysmal atrial fibrillation; E66.01 Morbid (severe) obesity due to excess calories; E03.9 Hypothyroidism, unspecified; G89.29 Other chronic pain; F32.A Depression, unspecified; F41.9 Anxiety disorder, unspecified; J43.2 Centrilobular emphysema; M10.9 Gout, unspecified; M81.0 Age-related osteoporosis without current pathological fracture; Z11.52 Encounter for screening for COVID-19; Z79.899 Other long term (current) drug therapy; Z79.01 Long term (current) use of anticoagulants; Z87.891 Personal history of nicotine dependence; Z99.81 Dependence on supplemental oxygen
CPT/HCPCS: 70450; 71045; 80048; 80053; 80076; 80202; 81003; 81015; 82805; 83605; 83735; 83880; 84443; 84484; 85025; 85027; 85610; 85730; 87040; 87070; 87502; 87811; 93005; 93971; 94640; 94660; 96361; 96365; 96366; 96367; 96375; 97163; 97167; 97530; 99291

== ENCOUNTER 2025-08-23 14:52 | Inpatient (IN) | payer MEDICARE, SELFPAY ==
[2025-08-23] VITALS (20 sets, daily range): BP systolic 85–156; BP diastolic 39–89; PULSE 2–95; BMI 49.1; BMI 48.2
--- NOTE | 2025-08-23 12:50 | ED.GENMED ---
History of Present Illness
<Phill Dennis PA-C - Last Filed: 08/23/25 14:13>
General
Chief Complaint: Breathing Problem
Time Seen by Provider: 08/23/25 12:39
History of Present Illness
History of Present Illness:
69-year-old female with history of COPD on chronic oxygen, A-fib, CHF, and hypertension presents to the emergency department evaluation of shortness of breath and dyspnea on exertion. Reportedly is a known cellulitis for which she is being treated,
when visiting nurses saw her today she was noted to increased work of breathing. Patient does admit to me that she thinks her BiPAP may be not working at this point. She is also febrile on arrival. She is not certain what antibiotic she is taking
for the right lower extremity cellulitis
<Reinier Cano DO - Last Filed: 08/23/25 13:46>
General
Source: patient
Exam Limitations: none
Nursing documentation reviewed up to this point in time: agreed with
Past History
<Phill Dennis PA-C - Last Filed: 08/23/25 14:13>
Past History
ED Past Medical History: CHF, COPD and HTN
ED Past Surgical History: None
Social History
Tobacco: Former smoker
Alcohol: None
Personal:
Living: with family
Review of Systems
<Phill Dennis PA-C - Last Filed: 08/23/25 14:13>
Review of Systems
Allergies reviewed?: Yes
All Other Systems: ROS reviewed and negative except as documented in HPI and ROS
Phy Exam
<Phill Dennis PA-C - Last Filed: 08/23/25 14:13>
Physical Exam
Physical Exam:
GEN: Well appearing, NAD, WDWN
HEENT: Oral mucosa moist, no scleral icterus
Cardiac: Regular rate and rhythm
Lung: Tachypnea with accessory muscle use, quiet wheezes heard throughout
MSK: No gross deformity or injuries
Skin: Good color, no pallor or jaundice, circumferential erythema of the right lower extremity although prior skin marker border drawn on the leg appears to show improvement in the erythema
Neuro: AO x3, moves all extremities freely
Psych: Calm, cooperative
Scores
<Phill Dennis PA-C - Last Filed: 08/23/25 14:13>
Heart Failure Risk
Heart Failure Risk Score: Not Applicable
Sepsis
<Phill Dennis PA-C - Last Filed: 08/23/25 14:13>
Sepsis Screening
Sepsis Assessment: Sepsis Ruled Out
Sepsis Screen
Sepsis Screen: Sepsis Ruled Out
Date: 08/23/25
Time: 14:13
Course
<Phill Dennis PA-C - Last Filed: 08/23/25 14:13>
Orders/Labs/Results
Orders:
Orders
08/23/25 12:43
Complete Blood Count/With Diff Urgent
Comprehensive Metabolic Panel Urgent
08/23/25 12:49
Ipratropium/Albuterol Sulfate [Duoneb] 3 ml INH R NOW STA
CR Chest - 2 Views Urgent
Comment:
Reason For Exam: SOB
08/23/25 12:56
COVID-19 Antigen Urgent
Source: Nasal Swab
Venous Blood Gas Urgent
%Oxygen/Room Air: 98
Comment: on 2L NC
Influenza A+B Rapid Molecular Urgent
PUJA Source: Nasal Swab
Specimen Description:
08/23/25 13:55
Electrocardiogram (*1) Urgent
Reason for Study: Shortness of Breath
EKG- Treatment ONCE
Azithromycin 500 mg/250 ml [Zithromax Infusion] 500 mg in 250 ml IV NOW
CeFAZolin 2 GRAM [Ancef] 2 grams in 10 ml IV NOW
MethylPREDNISolone PF [Solu-Medrol Pf] 60 mg IV NOW STA
Abnormal Lab Results
08/23/25 08/23/25
12:43 12:56
MCHC 30.3 L g/dL
(33.0-37.0)
RDW 14.9 H %
(11.5-14.5)
Absolute Neuts (auto) 7.3 H 10^3/uL
(1.4-6.5)
Absolute Lymphs (auto) 0.5 L 10^3/uL
(1.2-3.4)
Absolute Monos (auto) 0.7 H 10^3/uL
(0.1-0.6)
Neutrophils % 84.1 H %
(42.2-75.2)
Lymphocytes % 5.7 L %
(20.5-51.1)
VBG pCO2 76 H* mmHg
(35-48)
VBG HCO3 41.0 H mmol/L
(22-27)
Chloride 93 L mmol/L
(98-107)
Carbon Dioxide 37 H mmol/L
(22-30)
BUN 29 H mg/dl
(7-17)
Creatinine 1.1 H mg/dL
(0.6-1.0)
Glucose 109 H mg/dl
(70-99)
08/23/25 12:43
08/23/25 12:43
Vital Signs
Initial and Last Documented VS:
Initial Vital Signs
Temp Pulse Resp BP Pulse Ox
101 F H 85 26 154/71 98
08/23/25 12:32 08/23/25 12:32 08/23/25 12:32 08/23/25 12:32 08/23/25 12:32
Last Documented Vital Signs
Temp Pulse Resp BP Pulse Ox
101 F H 86 20 119/89 97
08/23/25 12:32 08/23/25 13:36 08/23/25 13:36 08/23/25 13:42 08/23/25 13:36
<Reinier Cano, DO - Last Filed: 08/23/25 13:46>
Orders/Labs/Results
Orders:
Orders
08/23/25 12:43
Complete Blood Count/With Diff Urgent
Comprehensive Metabolic Panel Urgent
08/23/25 12:49
Ipratropium/Albuterol Sulfate [Duoneb] 3 ml INH R NOW STA
CR Chest - 2 Views Urgent
Comment:
Reason For Exam: SOB
08/23/25 12:56
COVID-19 Antigen Urgent
Source: Nasal Swab
Venous Blood Gas Urgent
%Oxygen/Room Air: 98
Comment: on 2L NC
Influenza A+B Rapid Molecular Urgent
PUJA Source: Nasal Swab
Specimen Description:
08/23/25 13:55
Electrocardiogram (*1) Urgent
Reason for Study: Shortness of Breath
EKG- Treatment ONCE
Azithromycin 500 mg/250 ml [Zithromax Infusion] 500 mg in 250 ml IV NOW
CeFAZolin 2 GRAM [Ancef] 2 grams in 10 ml IV NOW
MethylPREDNISolone PF [Solu-Medrol Pf] 60 mg IV NOW STA
Abnormal Lab Results
08/23/25 08/23/25
12:43 12:56
MCHC 30.3 L g/dL
(33.0-37.0)
RDW 14.9 H %
(11.5-14.5)
Absolute Neuts (auto) 7.3 H 10^3/uL
(1.4-6.5)
Absolute Lymphs (auto) 0.5 L 10^3/uL
(1.2-3.4)
Absolute Monos (auto) 0.7 H 10^3/uL
(0.1-0.6)
Neutrophils % 84.1 H %
(42.2-75.2)
Lymphocytes % 5.7 L %
(20.5-51.1)
VBG pCO2 76 H* mmHg
(35-48)
VBG HCO3 41.0 H mmol/L
(22-27)
Chloride 93 L mmol/L
(98-107)
Carbon Dioxide 37 H mmol/L
(22-30)
BUN 29 H mg/dl
(7-17)
Creatinine 1.1 H mg/dL
(0.6-1.0)
Glucose 109 H mg/dl
(70-99)
08/23/25 12:43
08/23/25 12:43
Vital Signs
Initial and Last Documented VS:
Initial Vital Signs
Temp Pulse Resp BP Pulse Ox
101 F H 85 26 154/71 98
08/23/25 12:32 08/23/25 12:32 08/23/25 12:32 08/23/25 12:32 08/23/25 12:32
Last Documented Vital Signs
Temp Pulse Resp BP Pulse Ox
101 F H 86 20 119/89 97
08/23/25 12:32 08/23/25 13:36 08/23/25 13:36 08/23/25 13:42 08/23/25 13:36
<Phill Dennis PA-C - Last Filed: 08/23/25 14:13>
MDM/Problems Addressed
MDM/Problems Addressed:
Patient's somnolence is most likely due to hypercapnia in the setting of an acute COPD exacerbation, started on BiPAP with improvement and will cover with steroids and azithromycin. Fever may be from right lower extremity cellulitis and thus we
will treat with IV cefazolin
<Phill Dennis PA-C - Last Filed: 08/23/25 14:13>
*Pulse Oximetry
SaO2: 98
Nasal Cannula flow liters per minute: 4
Patient hypoxic: no
*Critical Care Note
Total Time (30-74mins, 75-104mins- exclusive of procedures): 30 minutes
comment:
Critical care time: 30 minutes
Critical care time was exclusive of: Separately billable procedures, treating other patients, and teaching time
Critical care was necessary to treat or prevent imminent or life-threatening deterioration of the following conditions: COPD exacerbation with hypercapnia
Critical care time spent personally by me on the following activities:
[x] Review of old charts
[x] Obtaining history from patient or surrogate
[x] Ordering and review of the laboratory studies
[x] Ordering and review of radiographic studies
[x] Ordering and performing treatments and interventions
[x] Patient patient's response to treatment
[x] Development of treatment plan with patient or surrogate
ED Attending Note
<Phill Dennis PA-C - Last Filed: 08/23/25 14:13>
-
Portions of this chart may have been created with voice recognition software.� Occasional wrong word or��sound alike� substitutions may have occurred due to the inherent limitations of voice recognition software.
<Reinier Cano DO - Last Filed: 08/23/25 13:46>
ED Attending Note
Patient seen and examined by attending physician: Yes
ED Attending Note:
I have reviewed and agree with history treatment plan by Ulices Dennis PA-C. My exam revealed
Physical Exam
General: Tachypnea, fever 101
Neck: supple. no meningeal signs. normal posterior pharynx
Heart: s1/s2 regular rate and rhythm, no murmur. equal radial
pulses.
HEENT: Pupils equal round reactive to light, EOMI
Lungs: Tachypnea, wheezing bilaterally
Abdomen: normal bowel sounds. not tender. no CVAT
Neuro: alert and oriented. no focal neurological deficits cranial nerves II through XII intact
Skin: Erythema, cellulitis right lower extremity
Psychiatric: well kept. interactive and cooperative
Extremities: no edema. no calf tenderness. negative homans. good distal pulses in bilateral feet and wrists
Patient with COPD exacerbation, hypercarbia, right lower extremity cellulitis. Treated with Ancef and BiPAP. Admit to hospitalist.
Discharge Plan
Departure
Patient Disposition: Admit
Date of Disposition: 08/23/25
Time of Disposition: 14:09
Admit to: IMU
Presentation/result/management discussed w/ accepting MD/DO: Hospitalist
Discharge Problem:
COPD with acute exacerbation, Cellulitis of right lower extremity
Prescriptions:
No Action
levothyroxine 100 MCG tablet
100 mcg PO DAILY@0630
Eliquis 5 MG tablet
5 mg PO BID Qty: 0 0RF
allopurinol 100 mg Tablet
100 mg PO DAILY
metoprolol succinate 25 mg tablet extended release 24 hr
25 mg PO DAILY
ipratropium-albuterol 0.5 mg-3 mg(2.5 mg base)/3 mL Solution For Nebulization
3 ml inhalation R QID Qty: 90 0RF
budesonide 0.5 mg/2 mL Suspension For Nebulization
1 mg inhalation R BID Qty: 60 0RF
tramadol 50 mg Tablet
50 mg PO Q6HPRN PRN (Reason: moderate to severe pain)
Patient Comments:
07/20/2024: last filled 07/09/24, 30 tabs for 10 days from [facility]
hydroxyzine HCl 25 mg tablet
25 mg PO BID
sertraline 100 mg Tablet
100 mg PO DAILY
Theragen Tablet
1 tab PO DAILY
albuterol sulfate 90 mcg/actuation Hfa Aerosol Inhaler
1 puff INHALATION R Q6HPRN PRN (Reason: SHORTNESS OF BREATH)
cholecalciferol (vitamin D3) [Vitamin D3] 125 mcg (5,000 unit) Tablet
125 mcg PO DAILY
omega 3-fsd-wqy-fish oil [Fish Oil] 1,000 (120-180) mg Capsule
1 cap PO DAILY
Referrals:
UNKNOWN - PT DOES,NOT KNOW [Family Provider]
Interventions
Interventions:
*General Assessment Last Done: 08/23/25 12:32
*Neglect/Abuse Screening Last Done: 08/23/25 12:32
[facility] Fall Risk Assessment Tool Last Done: 08/23/25 12:38
ED- Cardiac Assessment Last Done: 08/23/25 12:40
ED- Pulmonary Assessment Last Done: 08/23/25 12:40
Discharge Date and Time
Print Language: KITTITIAN
[2025-08-23 12:54] LABS: Hematocrit 40.6 % (37.0-47.0); Hemoglobin 12.3 g/dL (12.0-16.0); Mean Corp Hgb Conc. 30.3 g/dL (33.0-37.0); Mean Corpuscular Volume 90.6 fL (81.0-99.0); Nucleated Red Blood Cells % 0 %; Platelet Count 271 10^3/uL (130-400); Red Cell Dist. Width 14.9 % (11.5-14.5)
[2025-08-23] MEDS: DUONEB 3 ML INH ×2 (12:58→20:08)
[2025-08-23 13:08] LABS: ALT (SGPT) 14 U/L (0-35); AST (SGOT) 30 U/L (14-36); Albumin 4.6 g/dl (3.5-5.0); Alkaline Phosphatase 105 U/L (38-126); Blood Urea Nitrogen 29 mg/dl (7-17); Calcium 9.5 mg/dl (8.4-10.2); Carbon Dioxide 37 mmol/L (22-30); Chloride 93 mmol/L (98-107); Estimated Creatinine Clearance 68 ml/min; Glucose 109 mg/dl (70-99); Potassium 4.7 mmol/L (3.5-5.1); Sodium 136 mmol/L (135-145); Total Protein 7.8 g/dl (6.3-8.2); eGFR 54.73
[2025-08-23 13:11] LABS: Venous Blood Gas B.E. 12.1 mmol/L (-4 to +4); Venous Blood Gas O2 Sat % 71.1 %
[2025-08-23 13:21] LABS: COVID-19 Antigen Negative (Negative)
--- NOTE | 2025-08-23 14:14 | HPS.HSE ---
Family Physician
-
Family Physician: NOT KNOW UNKNOWN - PT DOES
Chief Complaint
-
sob
History of Present Illness
69-year-old female with history of COPD on chronic oxygen, A-fib, CHF, and hypertension presents to the emergency department evaluation of shortness of breath and dyspnea on exertion. patient not even able to speak due to sob. denied chest pain,
fever, chill. denied javier, dizzy or syncope. denied abdominal pain,n,v,d. denied dysuria or hematuria.
Reportedly is a known cellulitis for which she is being treated, She is not certain what antibiotic she is taking for the right lower extremity cellulitis
Medical History
Past Medical History
Past Medical History: Reports Other
Additional Past Medical History:
Pulmonary hypertension, renal insufficiency, A-fib, sleep apnea, COPD osteoporosis, gout
Past Surgical History: Reports Other
Additional Past Surgical History:
Left knee arthroscopy, wisdom teeth extraction, tonsillectomy
Social History
Unable to obtain full social history at this time due to: Acuity
Family History
Family History: Not pertinent
Allergies / Home Medications
Allergies reflects when Allergies were last updated in [facility].
Home Medications with original date entered in [facility]
Allergy/Medication List:
Allergies
Allergy/AdvReac Type Severity Reaction Status Date / Time
No Known Allergies Allergy Verified 08/23/25 12:38
Home Medications
levothyroxine 100 mcg tablet 100 mcg PO DAILY@0630 Thyroid 01/30/21
apixaban 5 mg tablet (Eliquis) 5 mg PO BID Blood clot prevention/tx #0 tabs 02/04/21
allopurinol 100 mg tablet 100 mg PO DAILY Gout 06/23/24
metoprolol succinate 25 mg tablet,extended release 24 hr 25 mg PO DAILY Blood Pressure 06/23/24
budesonide 0.5 mg/2 mL suspension for nebulization 1 mg (4 mL) inhalation R BID Lung/breathing issues #60 mL 07/01/24
ipratropium 0.5 mg-albuterol 3 mg (2.5 mg base)/3 mL nebulization soln 3 ml inhalation R QID Lung/breathing issues #90 mL 07/01/24
hydroxyzine HCl 25 mg tablet 25 mg PO BID Mental Health/Anxiety 07/20/24
tramadol 50 mg tablet 50 mg PO Q6HPRN PRN moderate to severe pain 07/20/24
albuterol sulfate 90 mcg/actuation aerosol inhaler 1 puff inhalation R Q6HPRN PRN SHORTNESS OF BREATH 08/23/25
cholecalciferol (vitamin D3) 125 mcg (5,000 unit) tablet (Vitamin D3) 125 mcg PO DAILY 08/23/25
omega 1-sgt-exx-fish oil 1,000 mg (120 mg-180 mg) capsule (Fish Oil) 1 cap PO DAILY 08/23/25
sertraline 100 mg tablet 100 mg PO DAILY 08/23/25
therapeutic multivitamin 1 tab PO DAILY 08/23/25
Review of Systems
-
Constitutional: Reports No Symptoms
EENT: Reports No Symptoms
Respiratory: Reports Trouble Breathing
Cardiac: Reports No Symptoms
Abdomen/GI: Reports No Symptoms
: Reports No Symptoms
Musculoskeletal: Reports No Symptoms
Skin: Reports Other (right LE skin redness)
Neurological: Reports No Symptoms
Endocrine: Reports No Symptoms
Hematologic/Lymphatic: Reports No Symptoms
Psych: Reports No Symptoms
Physical Exam
Vital Signs
Vital Signs
Temp Pulse Resp BP Pulse Ox
101 F H 86 20 119/89 97
08/23/25 12:32 08/23/25 13:36 08/23/25 13:36 08/23/25 13:42 08/23/25 13:36
Physical Exam
General: Well Developed, Well Nourished and No Apparent Distress
HEENT: NormoCephalic, Moist mucous membranes and Atraumatic
Respiratory: Clear
Cardiac: S1/S2 and Regular Rhythm; No Murmur or Rub
GI: Soft, Non Tender, Non Distended and Normal Bowel Sounds; No Organomegaly
Rectal: Deferred by Provider
Musculoskeletal: No Clubbing, No Cyanosis and No Edema
Skin: Rash and Other (right LE skin redness)
Neuro: AO x 3 and Nonfocal/grossly intact
Psych: Calm
Laboratory Results
-
08/23/25 12:43
08/23/25 12:43
Laboratory Results
Total Bilirubin 0.9 mg/dl (0.2-1.3) 08/23/25 12:43
AST 30 U/L (14-36) 08/23/25 12:43
ALT 14 U/L (0-35) 08/23/25 12:43
Alkaline Phosphatase 105 U/L (38-126) 08/23/25 12:43
Data Reviewed
-
Lab Data: Labs Reviewed by me
Impression/Plan
-
# Acute hypercapnic respiratory failure secondary to COPD exacerbation
#chronic o2 dependant at home, uses Bipap at night
- Continue BiPAP, wean as tolerated
- Pulmonology consulted
-COVID,flu negative
- Nebs and steroids continue
-chest x ray pending
# Right lower extremity cellulitis
- IV Ancef, azithromycin in ER
-Ancef continued
#CKD stage 3b
-cr 1.1, ctm
#Paroxysmal Atrial Fibrillation
- Stable. Continue Toprol XL.
- Continue Eliquis
#GOUT
-allopurinol continued
#Chronic HFpEF
- Stable.
- Follow I/Os, daily weights, etc.
#Hypothyroidism
- Continue T4 supplementation.
#Anxiety / Depression
- Stable. Continue sertraline and atarax
#Chronic Pain
-tramadol continued
#Morbid Obesity due to excess calories
- Affects all aspects of care.
DVT Prophylaxis: On Eliquis
Code Status: Full Code
[2025-08-23] MEDS: SOLU-MEDROL PF 60 MG IV (14:47)
[2025-08-23] MEDS: ANCEF 10 IV ×2 (14:48→22:51)
[2025-08-23] MEDS: ZITHROMAX INFUSION 250 IV (15:00)
[2025-08-23 16:12] LABS: Glucose - Point of Care 147 mg/dl (70-99)
[2025-08-23] MEDS: DUONEB INH (16:27)
[2025-08-23 17:03] LABS: INR 1.39; PT 17.2 Sec (11.4-14.6)
[2025-08-23 17:04] LABS: APTT 40.8 Sec (23.4-35.0)
[2025-08-23] MEDS: TYLENOL 650 MG PO (17:06)
--- NOTE | 2025-08-23 17:14 | PTCARENOTE ---
Patient arrived from ED on stretcher, pulled over to bed. On 4 L NC for transport. RT notified to place on BiPAP. Pt awake, drowsy, at times restless, pulling at equipment, but easily redirected and pleasant. Oriented to self and place only. Eyes
drifting close during questions, easily arousable. NSR on monitor. HR 80's. BP wnl. Temp 100.4 axillary, oral 99.9, 650mg PO Tylenol given. LS diminished throughout. Tachypneic RR 20's, orthopneic. Pt on Purewick, yellow urine. Skin assessed, CHG
bath given. Protective foams placed on heels. R LE w/ red cellulitis noted, previously marked. PIV 20g x 2 R arm. Full assessment and admission as documented. RT at bedside to place pt on BiPAP 4L /.
--- NOTE | 2025-08-23 17:36 | CON.INTV ---
Consultation
Consultation Request
Date/Time Consultation Requested: 08/23/2025
Date/Time Consultation Performed: 08/23/2025
Medical History
-
Chief Complaint: Shortness of breath
History of Present Illness:
Patient is a 69-year-old female with advanced COPD at baseline severe obstruction, chronically on oxygen, atrial fibrillation who presents to the emergency room for shortness of breath. Patient was not able to speak in a full sentence due to
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 At baseline patient has sleep apnea and uses BiPAP nightly. Patient reports that over the last couple of days
she did develop worsening shortness of breath, wheezing and increased use of as needed albuterol. Patient reports that her granddaughter had been sick lately. Also noted to have cellulitis in the lower extremity which she is being treated with an
antibiotic as outpatient. In view of her worsening respiratory symptoms and underlying severe COPD requiring BiPAP therapy, patient was admitted to the ICU and global safety officer consultation was requested for further input.
Past Medical History
Past Medical History: Reports Other
Additional Past Medical History:
Pulmonary hypertension, renal insufficiency, A-fib, sleep apnea, COPD osteoporosis, gout
Past Surgical History: Reports Other
Additional Past Surgical History:
Left knee arthroscopy, wisdom teeth extraction, tonsillectomy
Social History
Unable to obtain full social history at this time due to: Acuity
Family History
Family History: Not pertinent
Allergies / Home Medications
Allergies
Allergy/AdvReac Type Severity Reaction Status Date / Time
No Known Allergies Allergy Verified 08/23/25 12:38
Home Medications
�Medication �Instructions �Recorded �Confirmed �Last Taken �Type
levothyroxine 100 mcg tablet 100 mcg PO DAILY@0630 Thyroid 01/30/21 08/23/25 08/23/25 History
apixaban 5 mg tablet (Eliquis) 5 mg PO BID Blood clot 02/04/21 08/23/25 08/23/25 Rx
prevention/tx #0 tabs
allopurinol 100 mg tablet 100 mg PO DAILY Gout 06/23/24 08/23/25 07/20/24 History
metoprolol succinate 25 mg 25 mg PO DAILY Blood Pressure 06/23/24 08/23/25 07/20/24 History
tablet,extended release 24 hr
budesonide 0.5 mg/2 mL suspension 1 mg (4 mL) inhalation R BID 07/01/24 08/23/25 07/20/24 Rx
for nebulization Lung/breathing issues #60 mL
ipratropium 0.5 mg-albuterol 3 mg 3 ml inhalation R QID 07/01/24 08/23/25 07/20/24 Rx
(2.5 mg base)/3 mL nebulization Lung/breathing issues #90 mL
soln
hydroxyzine HCl 25 mg tablet 25 mg PO BID Mental Health/Anxiety 07/20/24 08/23/25 08/23/25 History
tramadol 50 mg tablet 50 mg PO Q6HPRN PRN moderate to 07/20/24 08/23/25 07/20/24 History
severe pain
albuterol sulfate 90 mcg/actuation 1 puff inhalation R Q6HPRN PRN 08/23/25 08/23/25 Unknown History
aerosol inhaler SHORTNESS OF BREATH
cholecalciferol (vitamin D3) 125 125 mcg PO DAILY 08/23/25 08/23/25 Unknown History
mcg (5,000 unit) tablet (Vitamin
D3)
omega 6-dib-eln-fish oil 1,000 mg 1 cap PO DAILY 08/23/25 08/23/25 Unknown History
(120 mg-180 mg) capsule (Fish Oil)
sertraline 100 mg tablet 100 mg PO DAILY 08/23/25 08/23/25 Unknown History
therapeutic multivitamin 1 tab PO DAILY 08/23/25 08/23/25 Unknown History
Review of Systems
-
Hematologic/Lymphatic: Other (All 14 systems reviewed and negative except as stated above in the history of present illness.)
Vitals / Labs / Diagnostic Testing
Vital Signs
Temp Pulse Resp BP Pulse Ox
99.1 F 94 23 119/56 97
08/23/25 15:48 08/23/25 15:45 08/23/25 15:45 08/23/25 15:30 08/23/25 17:09
Lab Data
08/23/25 12:43
08/23/25 12:43
Laboratory Results
08/23/25
16:27
PT 17.2 H
INR 1.39
APTT 40.8 H
Microbiology
08/23/25 12:56 Nasal Swab Influenza Types A & B (TRACIE) - Final
Negative for Influenza A & B, NAAT
Negative results must be combined with clinical observations
and patient history.
Nucleic Acid Amplification test (NAAT)performed on the
[employer] platform.
Diagnostic Testing:
Physical Exam
-
HEENT: Normocephalic
Cardiovascular: S1/S2
Respiratory: Wheeze (Mild end expiratory wheezing)
GI: Soft and Non Distended
Neurology: Awake, Alert and Oriented
Skin: Warm
General: Comfortable
Assessment
-
#1. Acute on chronic hypoxic respiratory failure
- Influenza A, B, COVID-19 screen negative.
- Suspect related to COPD exacerbation, no evidence of pneumonia on imaging. WBC count normal. Afebrile
- At baseline patient is on home oxygen 24/7, nightly BiPAP and has chronic compensated hypercapnia.
- Worsening hypercapnia in the setting of COPD exacerbation, required BiPAP in emergency room, off BiPAP and examined in ICU, work of breathing normal.
#2. Acute COPD exacerbation
- PFT 11/2024: FEV1 0.59 L, 26% of predicted, very severe obstruction and severely reduced diffusion capacity.
- Eosinophil count noted to be above 300 in the past, Dupixent was prescribed, patient was not able to tolerate due to rash. Had been on Ohtyvayre in the past, discontinued since due to lack of benefit.
- At baseline has been on budesonide twice a day, DuoNeb 4 times a day. She had been on long-term prednisone, weaned off now.
- Continue DuoNeb 4 times daily scheduled, initiate budesonide nebulized twice daily, agree with IV steroids, switch to IV Solu-Medrol 40 mg twice daily.
- Start Azithromycin 500 mg daily for 3 dosages, subsequently will initiate Saturday dosing long-term.
#3. Sleep Apnea
- Follows up with [facility] pulmonary clinic, at baseline BiPAP 10 x 5 nightly.
- Continue while inpatient.
Other medical diagnoses:
- Mild aortic stenosis
- history of Smoking, 50 pack years +. Currently not smoking.
- Atrial Fibrillation
- Depression
- Morbid obesity
- LE cellulitis. On Ancef.
Critical Care time 56 mins -- The patient is admitted for acute critical illness for the treatment of vital organ failure and/or prevention of further life-threatening conditions. Total care includes time spent in review of history, physical exam,
medications, hemodynamic/ventilator parameters, laboratory data, imaging and discussion with house staff, pharmacy, respiratory therapy, microsoft office instructor, and nursing.
Data:
CXR 08/2025: Stable appearance of the chest
ECHO 12/2022: Normal left ventricular size, wall thickness and systolic function. No regional
wall motion abnormalities are seen. LV ejection fraction is 55-60%.
Mild aortic stenosis. Peak/mean gradients across the aortic valve are 42/23
mmHg, aortic valve area 1.2 cm2. No aortic regurgitation is seen.
Compared to previous echo from January 2021, there is now mild aortic stenosis.
--- NOTE | 2025-08-23 17:57 | PTCARENOTE ---
VBG sent. Pt placed on 4L NC. Dr Briscoe at bedside to assess pt. Will follow labs. Pt ordered dinner. BiPAP HS unless needed sooner.
[2025-08-23 17:59] LABS: Venous Blood Gas B.E. 11.1 mmol/L (-4 to +4); Venous Blood Gas O2 Sat % 99.9 %
--- NOTE | 2025-08-23 18:29 | W.PN.UPDATE ---
Update Note
Progress Note Update
Attending note
Patient seen independently
69-year-old woman with history of
COPD on chronic oxygen,
A-fib,
CHF,
hypertension
presents with shortness of breath and dyspnea on exertion. patient not able to speak due to sob. denied chest pain, fever, chill. denied javier, dizzy or syncope. denied abdominal pain,n,v,d. denied dysuria or hematuria. Placed on bipap. Reportedly is
a known cellulitis for which she is being treated, She is not certain what antibiotic she is taking for the right lower extremity cellulitis
Past Medical History
Pulmonary hypertension,
renal insufficiency,
A-fib,
sleep apnea,
COPD
osteoporosis,
gout
Left knee arthroscopy,
wisdom teeth extraction,
tonsillectomy
BMI 48
Physical Exam
General: Well Developed, Well Nourished, Obese
HEENT: Moist mucous membranes and Atraumatic
Respiratory: decreased BS
Cardiac: S1/S2 and Regular Rhythm;
GI: Soft, Non Tender, Non Distended, hernia
Psych: Calm
A/P:
1. Acute hypercapnic respiratory failure secondary to COPD exacerbation
- Continue BiPAP, wean as tolerated - but requires ICU at this time
- Pulmonology consulted
- Nebs and steroids continue
2. Right lower extremity cellulitis
- IV Ancef, azithromycin in ER
-Ancef continued
please nee SITE TECHNICIAN for full details on:
CKD stage 3b
Paroxysmal Atrial Fibrillation
GOUT
Chronic HFpEF
Hypothyroidism
Anxiety / Depression
Chronic Pain
Morbid Obesity due to excess calories
DVT Prophylaxis: On Eliquis
Code Status: Full Code
[2025-08-23] MEDS: PULMICORT 0.5 MG INH (20:09)
[2025-08-23] MEDS: DESENEX/MITRAZOL/ZEASORB 1 APPLIC TOPICAL (20:37)
[2025-08-23] MEDS: ATARAX 25 MG PO (20:37)
[2025-08-23] MEDS: ELIQUIS 5 MG PO (20:37)
--- NOTE | 2025-08-23 22:12 | PTCARENOTE ---
received pt from dayshift RN, assessments completed and charted. patient has no c/o shortness of breath or difficulty breathing, mild orthopnea and SOB with exertion rolling side to side. patient is lethargic but easily arousable. answers
questions and follows commands appropriately. no c/o pain or discomfort at this time. patient drinking liquids with no issue, isela gillt, BM x 1. area on R lower leg marked for cellulitis, no increase in perimeter. Pt placed on bipap at
10pm with no issue.
[2025-08-23] MEDS: SOLU-MEDROL PF 40 MG IV (23:52)
[2025-08-24] VITALS (19 sets, daily range): BP systolic 99–144; BP diastolic 45–84; PULSE 2–77; O2SAT 93; BMI 47.9
[2025-08-24 05:01] LABS: Hematocrit 39.7 % (37.0-47.0); Hemoglobin 12.1 g/dL (12.0-16.0); Mean Corp Hgb Conc. 30.5 g/dL (33.0-37.0); Mean Corpuscular Volume 88.8 fL (81.0-99.0); Nucleated Red Blood Cells % 0 %; Platelet Count 255 10^3/uL (130-400); Red Cell Dist. Width 14.6 % (11.5-14.5)
[2025-08-24 05:24] LABS: Blood Urea Nitrogen 32 mg/dl (7-17); Calcium 9.3 mg/dl (8.4-10.2); Carbon Dioxide 35 mmol/L (22-30); Chloride 94 mmol/L (98-107); Estimated Creatinine Clearance 57 ml/min; Glucose 137 mg/dl (70-99); Magnesium 2.1 mg/dl (1.6-2.3); Potassium 4.4 mmol/L (3.5-5.1); Sodium 137 mmol/L (135-145); eGFR 44.79
--- NOTE | 2025-08-24 06:04 | PTCARENOTE ---
bipap on until 6 am, patient now on 6 lm via n/c. O2 99%, patient becomes orthopneic when turning and repositioning and lifting up in bed. recovers quickly.
[2025-08-24] MEDS: SYNTHROID 100 MCG PO (06:07)
[2025-08-24] MEDS: ANCEF 10 IV ×3 (06:08→21:55)
[2025-08-24] MEDS: DUONEB 3 ML INH ×4 (07:19→20:05)
[2025-08-24] MEDS: PULMICORT 0.5 MG INH ×2 (07:19→20:05)
[2025-08-24] MEDS: ZITHROMAX 500 MG PO (07:43)
[2025-08-24] MEDS: ZOLOFT 100 MG PO (07:43)
[2025-08-24] MEDS: TOPROL XL 25 MG PO (07:44)
[2025-08-24] MEDS: ZYLOPRIM 100 MG PO (07:45)
[2025-08-24] MEDS: DESENEX/MITRAZOL/ZEASORB TOPICAL (07:45)
[2025-08-24] MEDS: ATARAX 25 MG PO ×2 (07:45→20:42)
[2025-08-24] MEDS: ELIQUIS 5 MG PO ×2 (07:45→20:43)
[2025-08-24] MEDS: SOLU-MEDROL PF 40 MG IV (12:20)
--- NOTE | 2025-08-24 12:33 | CM ---
I.A: Completed By ROBBIE Carlos.
Patient resides w/ spouse, daughter and granddaughter in a single story home w/ basement. Ramp access at front entrance, 7 steps at side entrance of the home. DME: Patient uses wheelchair, cane, walker, rollator for assistance where she is
independent with.
Patient has home O2 (5L) through [facility] w/ concentrator.
Patient as just at [email or web address] before discharging home with [facility]- re-referral made. Patient has hx of [facility] and [facility].
PCP: Aden Jeffrey
Pharmacy: [facility]
Patient will have transport home. PLAN: Anticipate Home w/ [facility].
--- NOTE | 2025-08-24 12:33 | W.PN.INTV ---
Today's Communication / Plan
Recommendations
- DC IV Solu-Medrol, start prednisone 40 mg daily 08/25
- Patient stable for transfer out of ICU
- Pulmonary team will continue to follow along
Assessment
-
Patient is a 69-year-old female with advanced COPD at baseline severe obstruction, chronically on oxygen, atrial fibrillation who presents to the emergency room for shortness of breath. Patient was not able to speak in a full sentence due to
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 At baseline patient has sleep apnea and uses BiPAP nightly. Patient reports that over the last couple of days
she did develop worsening shortness of breath, wheezing and increased use of as needed albuterol. Patient reports that her granddaughter had been sick lately. Also noted to have cellulitis in the lower extremity which she is being treated with an
antibiotic as outpatient. In view of her worsening respiratory symptoms and underlying severe COPD requiring BiPAP therapy, patient was admitted to the ICU and caustic cresylate shift superintendent consultation was requested for further input.
#1. Acute on chronic hypoxic respiratory failure
- Influenza A, B, COVID-19 screen negative.
- Suspect related to COPD exacerbation, no evidence of pneumonia on imaging. WBC count normal. Afebrile
- At baseline patient is on home oxygen 24/7, nightly BiPAP and has chronic compensated hypercapnia.
- Worsening hypercapnia in the setting of COPD exacerbation, required BiPAP in emergency room, off BiPAP and examined in ICU, work of breathing normal.
- Doing much better 12.16 AM
#2. Acute COPD exacerbation
- PFT 11/2024: FEV1 0.59 L, 26% of predicted, very severe obstruction and severely reduced diffusion capacity.
- Eosinophil count noted to be above 300 in the past, Dupixent was prescribed, patient was not able to tolerate due to rash. Had been on Ohtyvayre in the past, discontinued since due to lack of benefit.
- At baseline has been on budesonide twice a day, DuoNeb 4 times a day. She had been on long-term prednisone, weaned off now.
- Continue DuoNeb 4 times daily scheduled, initiate budesonide nebulized twice daily, agree with IV steroids, change to PO Prednisone
- Started Azithromycin 500 mg daily for 3 dosages, subsequently will initiate Saturday dosing long-term.
#3. Sleep Apnea
- Follows up with [facility] pulmonary clinic, at baseline BiPAP 10 x 5 nightly.
- Continue while inpatient.
Other medical diagnoses:
- Mild aortic stenosis
- history of Smoking, 50 pack years +. Currently not smoking.
- Atrial Fibrillation
- Depression
- Morbid obesity
- LE cellulitis. On Ancef.
Patient stable for transfer out of ICU
Pulmonary service will follow along.
Critical Care time 46 mins -- The patient is admitted for acute critical illness for the treatment of vital organ failure and/or prevention of further life-threatening conditions. Total care includes time spent in review of history, physical exam,
medications, hemodynamic/ventilator parameters, laboratory data, imaging and discussion with house staff, pharmacy, respiratory therapy, aeronautical engineering teacher, and nursing.
Data:
CXR 08/2025: Stable appearance of the chest
ECHO 12/2022: Normal left ventricular size, wall thickness and systolic function. No regional
wall motion abnormalities are seen. LV ejection fraction is 55-60%.
Mild aortic stenosis. Peak/mean gradients across the aortic valve are 42/23
mmHg, aortic valve area 1.2 cm2. No aortic regurgitation is seen.
Compared to previous echo from January 2021, there is now mild aortic stenosis.
Subjective Dataa
Subjective Data
Date of Service:
Date of Service: August 24, 2025
Subjective:
Patient comfortably lying in bed in no acute distress.
Review of Systems
Genitourinary: Other (All 14 systems reviewed and negative except as stated above in the history of present illness.)
Objective Data
Data Reviewed
Vital Signs / I&O / Oxygen:
Vital Signs
Temp Pulse Resp BP Pulse Ox
98.3 F 71 17 141/63 94
08/24/25 12:02 08/24/25 11:30 08/24/25 11:30 08/24/25 10:00 08/24/25 11:30
Intake and Output
08/23/25 08/24/25 08/25/25
06:59 06:59 06:59
Intake Total 600 / 600 240 / 240
Output Total 500 / 500
Balance 100 / 100 240 / 240
SaO2 94
Nasal Cannula flow liters per 4
minute
Physical Exam
General: Comfortable
HEENT: Normocephalic
Cardiovascular: S1-S2
Respiratory: Clear and Non-Labored Respirations
GI: Soft and Non Distended
Neurology: Awake and Alert
Skin: Warm
Labs/Micro/Reports
Lab Data
08/24/25 04:33
08/24/25 04:33
Laboratory Results
08/23/25
16:27
PT 17.2 H
INR 1.39
APTT 40.8 H
Microbiology
08/23/25 12:56 Nasal Swab Influenza Types A & B (TRACIE) - Final
Negative for Influenza A & B, NAAT
Negative results must be combined with clinical observations
and patient history.
Nucleic Acid Amplification test (NAAT)performed on the
[employer] platform.
--- NOTE | 2025-08-24 14:09 | W.PN.HOSP.TC ---
Today's Communication/Plan
-
see outlined plan below
Assessment / Plan
Assessment / Plan
Assessment:
Acute on chronic hypoxic respiratory failure related to acute COPD Exacerbation
- At baseline patient is on home oxygen 24/7, nightly BiPAP and has chronic compensated hypercapnia.
- s/p BiPAP; now on 4L NC
- continue Duonebs scheduled + PRN
- budesonide nebulized twice daily
- continue IV steroids today; possible PO transition tomorrow
- complete Azithromycin 500mg daily x 3 doses then transition to M/W/F dosing.
- Pulm following
LUZ MARINA
- Follows up with [facility] pulmonary clinic, at baseline BiPAP 10 x 5 nightly.
- Continue while inpatient.
RLE cellulitis
- on IV Ancef, day 2
LISA on CKD stage 3b
- obtain UA/studies
Mild aortic stenosis
history of Smoking, 50 pack years +. Currently not smoking.
parox Atrial Fibrillation
- continue Toprol XL/Eliquis
Depression - continue Zoloft
Morbid obesity
- d/t excess calories; weight loss counselling
Chronic HFpEF
Hypothyroidism - on replacement
Chronic pain syndrome on Tramadol
Gout - allopurinol
DVT ppx: Eliquis
Code: Full
Anticipated Discharge: > 48 hours
Subjective/Interval History
-
Date of Service: August 24, 2025
s/p BIPAP, now on 4L NC
reports improvement in SOB
remains on IV steroids
Objective Data
-
Labs:
Laboratory Results
08/24/25
04:33
WBC 7.3
Hgb 12.1
Hct 39.7
Plt Count 255
Sodium 137
Potassium 4.4
Chloride 94 L
Carbon Dioxide 35 H
BUN 32 H
Creatinine 1.3 H
Glucose 137 H
Calcium 9.3
Vital Signs:
Vital Signs
Temp Pulse Resp BP Pulse Ox
98.3 F 72 14 105/56 96
08/24/25 12:02 08/24/25 13:30 08/24/25 13:30 08/24/25 12:13 08/24/25 13:30
I&O
08/23/25 08/24/25 08/25/25
06:59 06:59 06:59
Intake Total 600 / 600 690 / 690
Output Total 500 / 500
Balance 100 / 100 690 / 690
Physical Exam
-
General: No Apparent Distress
HEENT: Normocephalic and Atraumatic
Respiratory: Negative Wheezes
Cardiac: Regular Rhythm and S1/S2
GI: Soft
Genito-urinary: No Costovertebral Tender
Musculoskeletal: No Edema
Neuro: AO x 3
Hematologic / Lymphatic: No Lymphadenopathy
Psych: Calm
Data Reviewed
-
Total Time Spent with Patient (in minutes): 42
Labs: Labs Reviewed by me
[2025-08-24 17:17] LABS: Urine Character Clear (Clear)
[2025-08-24 17:26] LABS: Urine Red Blood Cell 0-2 /HPF (0-2)
[2025-08-24] MEDS: DESENEX/MITRAZOL/ZEASORB 1 APPLIC TOPICAL (20:43)
[2025-08-25] MEDS: SYNTHROID 100 MCG PO (05:19)
[2025-08-25] MEDS: ANCEF 10 IV ×3 (05:19→21:22)
[2025-08-25 06:00] VITALS: BMI 47.2
[2025-08-25 07:00] VITALS: BP 151/87
[2025-08-25] MEDS: PULMICORT 0.5 MG INH ×2 (07:30→20:12)
[2025-08-25] MEDS: DUONEB 3 ML INH ×4 (07:30→20:12)
[2025-08-25 08:06] LABS: Hematocrit 37.6 % (37.0-47.0); Hemoglobin 11.4 g/dL (12.0-16.0); Mean Corp Hgb Conc. 30.3 g/dL (33.0-37.0); Mean Corpuscular Volume 89.5 fL (81.0-99.0); Nucleated Red Blood Cells % 0 %; Platelet Count 285 10^3/uL (130-400); Red Cell Dist. Width 14.9 % (11.5-14.5)
[2025-08-25] MEDS: ZOLOFT 100 MG PO (08:29)
[2025-08-25] MEDS: ATARAX 25 MG PO ×2 (08:29→20:00)
[2025-08-25] MEDS: DELTASONE 40 MG PO (08:29)
[2025-08-25] MEDS: ELIQUIS 5 MG PO ×2 (08:29→20:01)
[2025-08-25] MEDS: DESENEX/MITRAZOL/ZEASORB 1 APPLIC TOPICAL ×2 (08:30→20:00)
[2025-08-25] MEDS: TOPROL XL 25 MG PO (08:30)
[2025-08-25] MEDS: ZYLOPRIM 100 MG PO (08:30)
[2025-08-25] MEDS: ZITHROMAX 500 MG PO (08:31)
[2025-08-25 08:50] LABS: Blood Urea Nitrogen 41 mg/dl (7-17); Calcium 9.3 mg/dl (8.4-10.2); Carbon Dioxide 33 mmol/L (22-30); Chloride 97 mmol/L (98-107); Estimated Creatinine Clearance 67 ml/min; Glucose 98 mg/dl (70-99); Potassium 4.0 mmol/L (3.5-5.1); Sodium 139 mmol/L (135-145); eGFR 54.73
--- NOTE | 2025-08-25 09:14 | W.PN.PUL3 ---
Today's Communication / Plan
-
Now on baseline use of 4L, no new issues
Transitioned to PO Prednisone, continue taper at discharge
Remains on IV abx for her cellulitis
Back to baseline pulmonary status
PT/OT, encouraged OOB
Can assess for d/c planning from our perspective
Assessment
-
Patient is a 69-year-old female with advanced COPD at baseline severe obstruction, chronically on oxygen, atrial fibrillation who presents to the emergency room for shortness of breath. Patient was not able to speak in a full sentence due to
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 At baseline patient has sleep apnea and uses BiPAP nightly. Patient reports that over the last couple of days
she did develop worsening shortness of breath, wheezing and increased use of as needed albuterol. Patient reports that her granddaughter had been sick lately. Also noted to have cellulitis in the lower extremity which she is being treated with an
antibiotic as outpatient. In view of her worsening respiratory symptoms and underlying severe COPD requiring BiPAP therapy, patient was admitted to the ICU and drafter marine consultation was requested for further input.
Acute on chronic hypoxic respiratory failure
Acute COPD exacerbation
SOB
Cellulitis of LE
Other medical diagnoses:
- Mild aortic stenosis
- history of Smoking, 50 pack years +. Currently not smoking.
- Atrial Fibrillation
- Depression
- Morbid obesity
- LE cellulitis. On Ancef.
LUZ MARINA on CPAP
Plan
Currently 97% on 4L NC, baseline use 4L continuous
Back to baseline
CXR w/o evidence of PNA
- Influenza A, B, COVID-19 screen negative.
- Suspect related to COPD exacerbation, no evidence of pneumonia on imaging. WBC count normal. Afebrile
- At baseline patient is on home oxygen 24/7, nightly BiPAP and has chronic compensated hypercapnia.
- Worsening hypercapnia in the setting of COPD exacerbation, required BiPAP in emergency room, off BiPAP and examined in ICU, work of breathing normal.
She is on IV abx for cellulitis
AE COPD, PFT with severe obstruction/reviewed
- Eosinophil count noted to be above 300 in the past, Dupixent was prescribed, patient was not able to tolerate due to rash. Had been on Ohtyvayre in the past, discontinued since due to lack of benefit.
- At baseline has been on budesonide twice a day, DuoNeb 4 times a day. She had been on long-term prednisone, weaned off now.
- Continue DuoNeb 4 times daily scheduled, initiate budesonide nebulized twice daily, agree with IV steroids, change to PO Prednisone
- Started Azithromycin 500 mg daily for 3 dosages, subsequently will initiate Saturday dosing long-term.
Sleep Apnea
ABGs with chronic CO2 retention
- Follows up with [facility] pulmonary clinic, at baseline BiPAP 10 x 5 nightly.
- Continue while inpatient.
Discharge planning per team
OP FU recommended
Diagnostic Data
CXR 08/2025: Stable appearance of the chest
ECHO 12/2022: Normal left ventricular size, wall thickness and systolic function. No regional wall motion abnormalities are seen. LV ejection fraction is 55-60%. Mild aortic stenosis. Peak/mean gradients across the aortic valve are 42/23 mmHg,
aortic valve area 1.2 cm2. No aortic regurgitation is seen. Compared to previous echo from January 2021, there is now mild aortic stenosis.
PFT 11/2024: FEV1 0.59 L, 26% of predicted, very severe obstruction and severely reduced diffusion capacity.
Reports and relevant images were personally reviewed.
Total time spent on this consultation/encounter __51__ minutes which includes review of history, physical exam, medications, laboratory data, personal review of imaging, extensive review of outpatient records, discussion with care team and
respiratory therapy.
Subjective Data
-
Date of Service:
Date of Service: August 25, 2025
Chief Complaint: Pulmonary Follow Up
Subjective:
No new complaints, stable on NC
Objective Data
Data Reviewed
Vital Signs / I&O / Oxygen:
Vital Signs
Temp Pulse Resp BP Pulse Ox
98.2 F 61 18 151/87 97
08/25/25 07:00 08/25/25 08:30 08/25/25 07:35 08/25/25 08:30 08/25/25 07:35
Intake and Output
08/24/25 08/25/25 08/26/25
06:59 06:59 06:59
Intake Total 600 / 600 690 / 690
Output Total 500 / 500
Balance 100 / 100 690 / 690
SaO2 97
Nasal Cannula flow liters per 4
minute
Labs/Micro/Reports
Lab Data
08/25/25 07:53
08/25/25 07:53
Microbiology
08/23/25 12:56 Nasal Swab Influenza Types A & B (TRACIE) - Final
Negative for Influenza A & B, NAAT
Negative results must be combined with clinical observations
and patient history.
Nucleic Acid Amplification test (NAAT)performed on the
[employer] platform.
--- NOTE | 2025-08-25 09:54 | PN.CDI ---
CDI
- -
CDI:
Physician Documentation Request
Admit Date: 08/23/25 14:52
Dear Doctor Ramírez,
Please review the following and provide your response in the progress notes.
The purpose of this query is not to question medical judgement, but to ensure the accuracy of the conditions reported for your patient.
Diagnosis:
The diagnosis of LISA is documented in the record on 08/24 Progress Note.
There is either a lack of clinical support for this condition in the current medical record, or there is a lack of recognized standard criteria to support the condition.
Clinical Indicators:
- 08/24 PN 'LISA on CKD stage 3b'
- 08/23 H&P 'CKD stage 3b...cr 1.1, ctm'
- No specified renal baseline
Laboratory Tests
08/23/25 08/24/25 08/25/25
12:43 04:33 07:53
Creatinine 1.1 H 1.3 H 1.1 H
eGFR 54.73 44.79 54.73
The request is for one of the following:
LISA remains a known or suspected condition for this patient and is further supported by (include additional documentation in the medical record)
LISA has been ruled out and a more appropriate diagnosis for this patient's condition is CKD 3a
Other (please specify)
Criteria for LISA*
1 Increase in serum creatinine by > or = to 0.3 mg/dL (> or = to 26.5 micromol/L) within 48 hours, OR
2 Increase in serum creatinine to > or = to 1.5 times baseline, which is known or presumed to have occurred within 7 days, OR
3 Urine volume < 0.5 nL/kg/hour for six hours
Stages of Chronic Kidney Disease*
Level Description GFR
G1 Normal or High >90
G2 Mildly decreased 60-89
G3a Mildly to moderately decreased 45-59
G3b Moderately to severely decreased 30-44
G4 Severely decreased 15-29
G5 Kidney failure <15
Use of terms such as suspected, likely, concern for, or probable (associated with a specific diagnosis that is being evaluated, monitored, or treated as if it exists) are acceptable and can be coded in the inpatient setting, when documented at the
time of discharge.
Thank you,
Bashir Valdovinos RN
CDI Specialist
Please use your independent medical judgment in providing your response.
--- NOTE | 2025-08-25 12:31 | CM ---
CM reviewed chart, patient seen bedside.
Discussed therapy recommendations of SNF vs VN- patient would like to go to rehab, requesting referrals to [facility], [facility], and [facility].
[facility]errals placed in [facility], will continue to follow.
Plan; SNF pending accepting facility
--- NOTE | 2025-08-25 13:47 | W.PN.HOSP.TC ---
Today's Communication/Plan
-
oral prednisone
three times weekly Azithromycin
DC planning to SNF
Assessment / Plan
Assessment / Plan
Assessment:
Acute on chronic hypoxic respiratory failure related to acute COPD Exacerbation
- At baseline patient is on home oxygen 24/7, nightly BiPAP and has chronic compensated hypercapnia.
- s/p BiPAP; now on 4L NC
- continue Duonebs scheduled + PRN
- budesonide nebulized twice daily
- continue Prednisone and taper at discharge
- complete Azithromycin 500mg daily x 3 doses then transition to M/W/F dosing.
- Pulm following
LUZ MARINA
- Follows up with [facility] pulmonary clinic, at baseline BiPAP 10 x 5 nightly.
- Continue while inpatient.
RLE cellulitis
- on IV Ancef, day 11/16
LISA ruled out, labs consistent with CKD stage 3b
- resolved. No UTI on Ucx
Mild aortic stenosis
history of Smoking, 50 pack years +. Currently not smoking.
parox Atrial Fibrillation
- continue Toprol XL/Eliquis
Depression - continue Zoloft
Morbid obesity
- d/t excess calories; weight loss counselling
Chronic HFpEF
Hypothyroidism - on replacement
Chronic pain syndrome on Tramadol
Gout - allopurinol
DVT ppx: Eliquis
Code: Full
Anticipated Discharge: 24 - 48 hours
Subjective/Interval History
-
Date of Service: August 25, 2025
resting comfortably, no complaints
Objective Data
-
Labs:
Laboratory Results
08/25/25
07:53
WBC 9.8
Hgb 11.4 L
Hct 37.6
Plt Count 285
Sodium 139
Potassium 4.0
Chloride 97 L
Carbon Dioxide 33 H
BUN 41 H
Creatinine 1.1 H
Glucose 98
Calcium 9.3
Vital Signs:
Vital Signs
Temp Pulse Resp BP Pulse Ox
98.2 F 86 18 151/87 97
08/25/25 07:00 08/25/25 11:46 08/25/25 11:46 08/25/25 08:30 08/25/25 11:46
I&O
08/24/25 08/25/25 08/26/25
06:59 06:59 06:59
Intake Total 600 / 600 690 / 690
Output Total 500 / 500
Balance 100 / 100 690 / 690
Physical Exam
-
General: No Apparent Distress
HEENT: Normocephalic and Atraumatic
Respiratory: Negative Wheezes
Cardiac: Regular Rhythm and S1/S2
GI: Soft
Musculoskeletal: No Edema
Neuro: AO x 3
Psych: Calm
Data Reviewed
-
Total Time Spent with Patient (in minutes): 42
Labs: Labs Reviewed by me
[2025-08-25] MEDS: ULTRAM 50 MG PO ×2 (14:08→20:12)
[2025-08-25 15:10] VITALS: BP 106/77
[2025-08-25 22:30] VITALS: PULSE 2; PULSE 72
[2025-08-25 23:17] VITALS: BP 117/72
[2025-08-26 02:16] VITALS: PULSE 2; PULSE 78
[2025-08-26] MEDS: ANCEF 10 IV ×2 (05:31→13:12)
[2025-08-26] MEDS: SYNTHROID 100 MCG PO (05:31)
[2025-08-26 07:04] VITALS: BP 139/72
[2025-08-26] MEDS: DUONEB 3 ML INH ×4 (07:25→19:38)
[2025-08-26] MEDS: PULMICORT 0.5 MG INH ×2 (07:25→19:38)
[2025-08-26] MEDS: TOPROL XL PO (08:28)
[2025-08-26] MEDS: ULTRAM 50 MG PO ×2 (08:28→16:42)
[2025-08-26] MEDS: ZOLOFT 100 MG PO (08:29)
[2025-08-26] MEDS: DESENEX/MITRAZOL/ZEASORB 1 APPLIC TOPICAL (08:29)
[2025-08-26] MEDS: ZYLOPRIM 100 MG PO (08:29)
[2025-08-26] MEDS: ATARAX 25 MG PO (08:29)
[2025-08-26] MEDS: DELTASONE 40 MG PO (08:29)
[2025-08-26] MEDS: ELIQUIS 5 MG PO (08:29)
[2025-08-26 09:15] LABS: Blood Urea Nitrogen 36 mg/dl (7-17); Calcium 9.0 mg/dl (8.4-10.2); Carbon Dioxide 36 mmol/L (22-30); Chloride 96 mmol/L (98-107); Estimated Creatinine Clearance 73 ml/min; Glucose 83 mg/dl (70-99); Potassium 3.8 mmol/L (3.5-5.1); Sodium 137 mmol/L (135-145); eGFR > 60.00
[2025-08-26 09:33] LABS: Hematocrit 37.4 % (37.0-47.0); Hemoglobin 11.1 g/dL (12.0-16.0); Mean Corp Hgb Conc. 29.7 g/dL (33.0-37.0); Mean Corpuscular Volume 90.1 fL (81.0-99.0); Nucleated Red Blood Cells % 0 %; Platelet Count 287 10^3/uL (130-400); Red Cell Dist. Width 14.9 % (11.5-14.5)
--- NOTE | 2025-08-26 09:39 | W.PN.PUL3 ---
Today's Communication / Plan
-
Remains on baseline 4 L
Prednisone taper continued
She is on antibiotics for her cellulitis
Discharge planning to SNF
Outpatient follow-up arranged, she has appointment in September--encouraged her to keep this
No further recommendations, we will sign off at this time-please call with questions
Assessment
-
Patient is a 69-year-old female with advanced COPD at baseline severe obstruction, chronically on oxygen, atrial fibrillation who presents to the emergency room for shortness of breath. Patient was not able to speak in a full sentence due to
dyspnea, she was noted to have exacerbation of her COPD [employer] and was started on bronchodilators, steroid and initiation of BiPAP therapy. At baseline patient has sleep apnea and uses BiPAP nightly. Patient reports that over the last couple of days
she did develop worsening shortness of breath, wheezing and increased use of as needed albuterol. Patient reports that her granddaughter had been sick lately. Also noted to have cellulitis in the lower extremity which she is being treated with an
antibiotic as outpatient. In view of her worsening respiratory symptoms and underlying severe COPD requiring BiPAP therapy, patient was admitted to the ICU and birth certificate clerk consultation was requested for further input.
Acute on chronic hypoxic respiratory failure
Acute COPD exacerbation
SOB
Cellulitis of LE
Other medical diagnoses:
- Mild aortic stenosis
- history of Smoking, 50 pack years +. Currently not smoking.
- Atrial Fibrillation
- Depression
- Morbid obesity
- LE cellulitis. On Ancef.
LUZ MARINA on CPAP
Plan
Currently 97% on 4L NC, baseline use 4L continuous
Back to baseline
CXR w/o evidence of PNA
- Influenza A, B, COVID-19 screen negative.
- Suspect related to COPD exacerbation, no evidence of pneumonia on imaging. WBC count normal. Afebrile
- At baseline patient is on home oxygen 24/7, nightly BiPAP and has chronic compensated hypercapnia.
- Worsening hypercapnia in the setting of COPD exacerbation, required BiPAP in emergency room, off BiPAP and examined in ICU, work of breathing normal.
She is on IV abx for cellulitis
AE COPD, PFT with severe obstruction/reviewed
- Eosinophil count noted to be above 300 in the past, Dupixent was prescribed, patient was not able to tolerate due to rash. Had been on Ohtyvayre in the past, discontinued since due to lack of benefit.
- At baseline has been on budesonide twice a day, DuoNeb 4 times a day. She had been on long-term prednisone, weaned off now.
- Continue DuoNeb 4 times daily scheduled, initiate budesonide nebulized twice daily, agree with IV steroids, change to PO Prednisone
- Started Azithromycin 500 mg daily for 3 dosages, subsequently will initiate Saturday dosing long-term.
Sleep Apnea
ABGs with chronic CO2 retention
- Follows up with [facility] pulmonary clinic, at baseline BiPAP 10 x 5 nightly.
- Continue while inpatient.
Discharge planning per team
OP FU recommended
Diagnostic Data
CXR 08/2025: Stable appearance of the chest
ECHO 12/2022: Normal left ventricular size, wall thickness and systolic function. No regional wall motion abnormalities are seen. LV ejection fraction is 55-60%. Mild aortic stenosis. Peak/mean gradients across the aortic valve are 42/23 mmHg,
aortic valve area 1.2 cm2. No aortic regurgitation is seen. Compared to previous echo from January 2021, there is now mild aortic stenosis.
PFT 11/2024: FEV1 0.59 L, 26% of predicted, very severe obstruction and severely reduced diffusion capacity.
Reports and relevant images were personally reviewed.
Total time spent on this consultation/encounter __45__ minutes which includes review of history, physical exam, medications, laboratory data, personal review of imaging, extensive review of outpatient records, discussion with care team and
respiratory therapy.
Subjective Data
-
Date of Service:
Date of Service: August 26, 2025
Chief Complaint: Pulmonary Follow Up
Subjective:
Remains at baseline, no new complaints
Cellulitis improving
Objective Data
Data Reviewed
Vital Signs / I&O / Oxygen:
Vital Signs
Temp Pulse Resp BP Pulse Ox
98.0 F 58 16 139/72 99
08/26/25 07:04 08/26/25 08:28 08/26/25 07:27 08/26/25 08:28 08/26/25 07:27
Intake and Output
08/25/25 08/26/25 08/27/25
06:59 06:59 06:59
Intake Total 690 / 690
Balance 690 / 690
SaO2 99
Nasal Cannula flow liters per 4
minute
Labs/Micro/Reports
Lab Data
08/26/25 07:53
08/26/25 07:53
Microbiology
08/24/25 17:04 Urine Urine Culture - Final
NO GROWTH
08/23/25 12:56 Nasal Swab Influenza Types A & B (TRACIE) - Final
Negative for Influenza A & B, NAAT
Negative results must be combined with clinical observations
and patient history.
Nucleic Acid Amplification test (NAAT)performed on the
[employer] platform.
--- NOTE | 2025-08-26 10:39 | CM ---
Addendum entered by Yaneth Webster 08/26/25 11:11:
Transport time updated- 4:00 p.m.
Original Note:
CM reviewed chart, patient seen bedside.
Patient for d/c today, agreeable to discharge to [facility].
Patient confirms she has her own Bipap- daughter will bring to SNF.
IMM verbally reviewed, provided with copy, placed in chart.
Patient will require ambulance transport-scheduled for 2:30 p.m.- time updated to [facility].
CM will continue to follow.
Plan; [facility], 2:30 p.m. ambulance transport
[facility]:
Report: [phone]
--- NOTE | 2025-08-26 13:57 | W.PN.HOSP.TC ---
Today's Communication/Plan
-
dc SNF
Assessment / Plan
Assessment / Plan
Assessment:
Acute on chronic hypoxic respiratory failure related to acute COPD Exacerbation
- At baseline patient is on home oxygen /, nightly BiPAP and has chronic compensated hypercapnia.
- s/p BiPAP; now on 4L NC
- continue Duonebs scheduled + PRN
- budesonide nebulized twice daily
- continue Prednisone and taper at discharge
- complete Azithromycin 500mg daily x 3 doses then transition to M/W/F dosing.
- Pulm following
LUZ MARINA
- Follows up with [facility] pulmonary clinic, at baseline BiPAP 10 x 5 nightly.
- Continue while inpatient.
RLE cellulitis
- on IV Ancef, day 12/14 - dc on Keflex TID
LISA ruled out, labs consistent with CKD stage 3b
- resolved. No UTI on Ucx
Mild aortic stenosis
history of Smoking, 50 pack years +. Currently not smoking.
parox Atrial Fibrillation
- continue Toprol XL/Eliquis
Depression - continue Zoloft
Morbid obesity
- d/t excess calories; weight loss counselling
Chronic HFpEF
Hypothyroidism - on replacement
Chronic pain syndrome on Tramadol
Gout - allopurinol
DVT ppx: Eliquis
Code: Full
More than 30 minutes spent in discharge including
Final examination of the patient
Summarizing hospital stay
Instructions for continuing care to all relevant caregivers
Preparation of discharge records, prescriptions, and referral forms
Total time spent (in minutes):41
Anticipated Discharge: Today
Subjective/Interval History
-
Date of Service: August 26, 2025
resting comfortably, no complaints at present
Objective Data
-
Labs:
Laboratory Results
08/26/25
07:53
WBC 7.1
Hgb 11.1 L
Hct 37.4
Plt Count 287
Sodium 137
Potassium 3.8
Chloride 96 L
Carbon Dioxide 36 H
BUN 36 H
Creatinine 1.0
Glucose 83
Calcium 9.0
Vital Signs:
Vital Signs
Temp Pulse Resp BP Pulse Ox
98.0 F 68 16 139/72 99
08/26/25 07:04 08/26/25 11:24 08/26/25 11:24 08/26/25 08:28 08/26/25 07:27
I&O
08/25/25 08/26/25 08/27/25
06:59 06:59 06:59
Intake Total 690 / 690
Balance 690 / 690
Physical Exam
-
General: No Apparent Distress
HEENT: Normocephalic and Atraumatic
Respiratory: Negative Wheezes
Cardiac: Regular Rhythm and S1/S2
GI: Soft and Nontender
Neuro: AO x 3
Psych: Calm
Data Reviewed
-
Total Time Spent with Patient (in minutes): 42
Labs: Labs Reviewed by me
--- NOTE | 2025-08-26 13:58 | W.DCSUMMARY ---
Discharge Summary
Discharge Data
Date of Admission: 08/23/25
Date of Discharge: 08/26/25
-
Pending Results: No
Hospital Course
69 y/o F, hx of COPD on chronic oxygen, A-fib, CHF, and hypertension presented to ER on 08/23 with SOB And [place]. She was found to have acute COPD exacerbation and briefly required continuous biPAP. She was placed on IV steroids. Over the first 24
hours, she improved her respiratory status and was able to come off BiPAP and transition back to baseline 4 L NC. She also completed a 3 day course of azithromycin; she will continue this three times weekly at discharge.
She also have RLE cellulitis and will finish 7 days of Keflex.
She was discharged 08/26 to SNF.
Discharge Plan
-
Patient Disposition: Assisted/SNF
Discharge Diagnosis/Procedures: acute COPD exac, RLE cellulitis
Condition: Fair
Diet: Low Cholesterol and 2 Gram Sodium
Activity: As tolerated
Bathing Restrictions: None
Other Services: PT and OT
Referrals:
UNKNOWN - PT DOES,NOT KNOW [Family Provider]
Prescriptions:
New
azithromycin 250 mg Tablet
500 mg PO DAILY Qty: 12 0RF
Rx Instructions:
on Mondays, Wednesdays, Fridays
cephalexin 500 mg capsule
500 mg PO TID 5 Days Qty: 15 0RF
prednisone 10 mg tablet
10 mg PO DIRECTED Qty: 20 0RF
Rx Instructions:
take 40mg x 2 days, then 30mg x 2 days, then 20mg x 2 days, then 10mg x 2 days
Continued
levothyroxine 100 MCG tablet
100 mcg PO DAILY@0630
Eliquis 5 MG tablet
5 mg PO BID Qty: 0 0RF
allopurinol 100 mg Tablet
100 mg PO DAILY
metoprolol succinate 25 mg tablet extended release 24 hr
25 mg PO DAILY
ipratropium-albuterol 0.5 mg-3 mg(2.5 mg base)/3 mL Solution For Nebulization
3 ml inhalation R QID Qty: 90 0RF
budesonide 0.5 mg/2 mL Suspension For Nebulization
1 mg inhalation R BID Qty: 60 0RF
hydroxyzine HCl 25 mg tablet
25 mg PO BID
sertraline 100 mg Tablet
100 mg PO DAILY
Theragen Tablet
1 tab PO DAILY
albuterol sulfate 90 mcg/actuation Hfa Aerosol Inhaler
1 puff INHALATION R Q6HPRN PRN (Reason: SHORTNESS OF BREATH)
cholecalciferol (vitamin D3) [Vitamin D3] 125 mcg (5,000 unit) Tablet
125 mcg PO DAILY
omega 5-qcl-vla-fish oil [Fish Oil] 1,000 (120-180) mg Capsule
1 cap PO DAILY
tramadol 50 mg Tablet
50 mg PO Q6HPRN PRN (Reason: moderate to severe pain) Qty: 10 0RF
Discharge Orders:
Discharge Patient (As Directed); Ordered 08/26/25
Ordered By: Chata Elmore
Discharge Date and Time
Print Language: MONGOLIAN
[2025-08-26 15:00] VITALS: BP 158/84
== END 2025-08-26 20:03 | DRG 189 ==
LOC: 4 WEST ACU 14:52
PROVIDERS: Physician Assistant; Registered Nurse; ADMITTING PHYSICIAN Internal Medicine; ATTENDING PHYSICIAN Internal Medicine; CONSULT PHYSICIAN Internal Medicine; EMERGENCY PHYSICIAN Emergency Medicine
PROC: 5A09357 Assistance with Respiratory Ventilation, Less than 24 Consecutive Hours, Continuous Positive Airway Pressure (ICD-10-PCS; 2025-08-23)
DX: J96.22 Acute and chronic respiratory failure with hypercapnia (principal); J44.1 Chronic obstructive pulmonary disease with (acute) exacerbation; I13.0 Hypertensive heart and chronic kidney disease with heart failure and stage 1 through stage 4 chronic kidney disease, or unspecified chronic kidney disease; I50.32 Chronic diastolic (congestive) heart failure; L03.115 Cellulitis of right lower limb; Z68.42 Body mass index [BMI] 45.0-49.9, adult; J96.21 Acute and chronic respiratory failure with hypoxia; I48.0 Paroxysmal atrial fibrillation; N18.32 Chronic kidney disease, stage 3b; M10.9 Gout, unspecified; M81.0 Age-related osteoporosis without current pathological fracture; I27.20 Pulmonary hypertension, unspecified; G47.33 Obstructive sleep apnea (adult) (pediatric); E03.9 Hypothyroidism, unspecified; I35.0 Nonrheumatic aortic (valve) stenosis; G89.4 Chronic pain syndrome; F32.A Depression, unspecified; F41.9 Anxiety disorder, unspecified; E66.01 Morbid (severe) obesity due to excess calories; Z99.81 Dependence on supplemental oxygen; Z87.891 Personal history of nicotine dependence; Z79.890 Hormone replacement therapy; Z79.01 Long term (current) use of anticoagulants; Z79.51 Long term (current) use of inhaled steroids; Z11.52 Encounter for screening for COVID-19; Z79.899 Other long term (current) drug therapy
CPT/HCPCS: 71046; 80048; 80053; 81003; 81015; 82570; 82805; 82962; 83735; 84300; 85025; 85610; 85730; 87086; 87502; 87811; 93005; 94640; 94660; 97163; 97167; 97530; 99291